=== PATIENT | female | born 2000 | race Caucasian/White ===

== ENCOUNTER 2021-07-12 11:54 | Emergency (ER) | payer MEDICAID, SELFPAY ==
[2021-07-12 11:55] VITALS: BP 151/80; PULSE 74; RESP 15; TEMP 35.9; O2SAT 96; BMI 48.0
--- NOTE | 2021-07-12 12:04 | EDS_ITS ---
HPI History of Present Illness Chief Complaint: Laceration Detail of Chief Complaint: Laceration left thumb Informant: patient Narrative Narrative: Patient presents to the emergency department complaint of a laceration to her left thumb. Patient states that she was cutting a potato when the knife slipped and she accidentally lacerated her left thumb. Patient is right-hand dominant. She is unsure of her last tetanus. Patient denies any nu mbness or tingling or loss of function to the thumb. Tetanus Immunization: Unknown [facility] Medical History (Updated 07/12/21 @ 12:[address] Steve Velasquez, DO) Nausea vomiting and diarrhea Home Medications NK 07/12/21 [History Last Taken Unknown] Allergy/AdvReac Type Severity Reaction Status Date / Time No Known Allergies Allergy Verified 07/12/21 11:56 ROS ROS ED Constitutional Constitutional ED: Reports systems reviewed and no addt'l complaints, except as documented; Denies body ache(s), change in weight or chills Eyes Eyes: Denies acute decrease in peripheral vision, change in vision, double vision or loss of vision ENT ENT ED: Reports none; Denies ear pain, lip swelling, loss taste/smell, neck pain, otalgia or sore throat Cardiovascular Cardiovascular: Reports none; Denies abdominal pain, chest pain with activity, leg edema, lightheadedness, palpitations, rapid heart rate or syncope Respiratory/Chest Respiratory/Chest: Reports none; Denies change in mental status, dry cough, dyspnea, hemoptysis, shortness of breath at rest or shortness of breath with exertion Gastrointestinal Gastrointestinal: Reports none; Denies abdominal pain, change in stool character, diarrhea, hematemesis, hematochezia, melena, rectal bleeding or vomiting Genitourinary Genitourinary ED: Reports none; Denies abdominal discomfort, anuria, dysuria, genital pain or polyuria Musculoskeletal Musculoskeletal: Reports none and other Details: Left thumb laceration ; Denies arthralgias, back pain, difficulty walking, extremity pain, muscle weakness or myalgias Integumentary Reports none; Denies abscess or rash Neurologic Neurologic: Reports none; Denies abnormal gait, confusion, focal weakness, frequent falls, headache(s), loss of vision, numbness, paresthesias, radicular pain, vertigo or weakness Psychiatric Psychiatric: Reports systems reviewed and no addt'l complaints, except as documented and none; Denies behavioral changes, confusion, difficulty concentrating, hallucinations, suicidal ideation, tactile hallucinations or visual hallucinations Endocrine Endocrinology: Denies none, cold intolerance, excessive sweating, fatigue or heat intolerance Hematologic/Lymphatic Hematologic/Lymphatic: Reports none; Denies anemia, easy bleeding or easy bruising Allergic/Immunologic Allergic/Immunologic ED: Denies as per HPI, none, lip swelling, mouth swelling, throat swelling, tongue swelling or hives EXAM Physical Exam Const Vital Signs: 07/12/21 11:55 Temperature 96.7 F L Temperature Source Temporal Pulse Rate 74 Respiratory Rate 15 Blood Pressure 151/80 H Blood Pressure Mean 103 Pulse Ox 96 Oxygen Delivery Method Room Air Positive well nourished and well developed General Appearance ED: well developed and NAD HEENT Reports TM's clear and moist mucous membranes normocephalic and atraumatic; Negative for trauma or tenderness Tympanic Membrane ED: Yes TM's clear Eyes PERRL and EOMs intact bilaterally General Eye ED: Negative for pale conjunctiva or scleral icterus Neck no lymphadenopathy, supple and no JVD General: Negative for tenderness Chest Wall inspection of chest normal and palpation of chest normal Chest: Negative for tenderness Resp normal respiratory effort and clear to auscultation bilaterally Effort and Inspection: Negative for respiratory distress or pain with movement Auscultation: Negative for rhonchi, wheezes or diminished lung sounds Cardio regular rate, regular rhythm, S1 normal heart sound, S2 normal heart sound and no murmurs Peripheral Pulses: pulses 2+ throughout GI normal to inspection, nondistended, normoactive bowel sounds, soft to palpation, non-tender, non-distended and no masses Back/Spine no CVA tenderness and no thoracic nor lumbar tenderness Extremity Extremity Narrative: Left thumb-patient has a 1 cm laceration over the lateral aspect of the thumb at about the midportion of the nail. The laceration is horizontal and enters the nail for about 2 mm. Patient has normal range of motion at the IP joint with normal strength against resistance in flexion and extension. Neurovascularly intact. No active bleeding currently. General Extremety ED: Negative for edema General Extremity: Negative for edema Neuro oriented x3, CN's II-XII intact bilaterally, no sensory deficits noted and gait normal Sensorium / Orientation: awake, alert, oriented to person, oriented to place and oriented to time Motor Exam: strength 5/5 throughout and strength abnormal Psych mental status grossly normal Skin no rashes or lesions noted and no wounds MDM MDM MDM Narrative Medical decision making narrative: I discussed treatment options with patient. Recommended suture repair however patient tells me she is actually terrified and wants to avoid it at all costs if possible. I think because of the size of the laceration and the fact that is not actively bleeding or gaping it would be reasonable to clean the wound and use Steri-Strips and a clean dressing I feel this will heal well. Patient would like to proceed with this plan. She is advised to return if increasing pain, redness, swelling, purulent drainage, or condition worsen anyway. She was given a tetanus booster. Discharge Plan Triage Chief Complaint: Laceration ED Provider: Steve Velasquez Dx/Rx/DC Orders Clinical Impression: Laceration of thumb Instructions: ED Laceration, Hand: All Closures Prescriptions: No Action NK RF: 0 Referrals: Allen Eckert MD [STAFF PHYSICIAN] - 5-7 Days Disposition Disposition: Home, Self Care
[2021-07-12] MEDS: Diphth,Pertuss(Acell),Tet Vac 0.5 ML Vial IM (12:34)
== END 2021-07-12 12:52 | disposition home or self-care (01) ==
PROVIDERS: Emergency Provider Emergency Medicine; Visit Provider Emergency Medicine
DX: S61.012A Laceration without foreign body of left thumb without damage to nail, initial encounter (principal); W26.0XXA Contact with knife, initial encounter; Y93.G1 Activity, food preparation and clean up
CPT/HCPCS: 90471; 90715; 99283

== ENCOUNTER 2022-01-06 08:24 | Emergency (ER) | payer MEDICAID, SELFPAY ==
[2022-01-06 08:26] VITALS: BP 140/83; PULSE 90; RESP 16; TEMP 36.2; O2SAT 98; BMI 46.3
--- NOTE | 2022-01-06 08:42 | EKG12_ITS ---
Test Reason : SYNCOPE Blood Pressure : / mmHG Vent. Rate : 081 BPM Atrial Rate : 081 BPM P-R Int : 144 ms QRS Dur : 100 ms QT Int : 364 ms P-R-T Axes : 023 019 018 degrees QTc Int : 422 ms Normal sinus rhythm Incomplete right bundle branch block Borderline ECG Confirmed by AZCHARIAH SANDERS, KAUSHIK ([id number]), medical transcription editor KAN MELÉNDEZ ([id number]) on 01/08/2022 2:04:49 PM Referred By: Confirmed By:KAUSHIK SONI MD
--- NOTE | 2022-01-06 08:43 | ED.VIS.GI ---
HPI HPI - GI History of Present Illness Chief Complaint: Nausea/Vomiting/Diarrhea Informant: patient Abdominal Pain/Flank Pain Onset: Days (2) Context: Gradual Onset Timing: Intermittent Quality: Cramping Location: - (periumbilical) Current Severity: Gone Maximum Severity: Mild Worsened by: Nothing Relieved by: - (having BM/diarrhea) Nausea/Vomiting/Emesis GI Symptom: Positive for Nausea and Vomiting Onset: Yesterday Quality: Positive for Nonbilious; Negative for Blood streaks, Coffee ground or Hematemesis Severity: Moderate Diarrhea/Melena/Hematochezia GI Symptom: Positive for Diarrhea; Negative for Melena or Hematochezia Stool Quality: Positive for Watery Severity: Severe Associated Symptoms Associated Symptoms: Negative for Dysuria, Frequency, Hematuria or Urgency Narrative Narrative: Patient presenting with syncopal episodes, she had 1 yesterday that was shortly after she was vomiting while sitting down, she felt lightheaded and nauseated and then passed out without fall or injury. She had another similar episode today while she was sitting down after getting ready for work and resting. She felt lightheaded and nauseated before than 2. She has been having diarrhea and vomiting for the last couple days, the diarrhea has been fairly aggressive, she denies any recent antibiotics, travel out of the area, no fevers or chills, only gets some mild abdominal cramping right before she has to have diarrhea. She denies any blood in it. No suspicious food ingestions or undercooked meats recently. No known sick contacts with similar symptoms. No recent camping or ground water ingestion. [facility] Medical History (Updated 01/06/22 @ 10:[address] Delfino Julio MD) Nausea vomiting and diarrhea Medical History no medical history no medical history Home Medications ondansetron 4 mg disintegrating tablet 8 mg PO Q8H PRN PRN Nausea #20 tabs 01/06/22 [Rx Last Taken Unknown] Allergy/AdvReac Type Severity Reaction Status Date / Time No Known Allergies Allergy Verified 01/06/22 08:29 Social History Smoking Status: Never smoker ROS ROS ED Constitutional Constitutional ED: Denies chills or fever(s) Eyes Eyes: Denies change in vision or diplopia ENT ENT ED: Denies rhinorrhea or sore throat Cardiovascular Cardiovascular: Reports syncope; Denies chest pain or palpitations Respiratory/Chest Respiratory/Chest: Denies cough or dyspnea Gastrointestinal Gastrointestinal: Reports abdominal pain, diarrhea, nausea and vomiting Genitourinary Genitourinary ED: Denies dysuria or hematuria Musculoskeletal Musculoskeletal: Denies back pain or neck pain Integumentary Denies abscess or rash Neurologic Neurologic: Denies headache(s), paresthesias or weakness Psychiatric Psychiatric: Denies anxiety or suicidal thoughts EXAM Physical Exam Const Vital Signs: 01/06/22 08:26 01/06/22 09:02 Temperature 97.1 F L Temperature Source Temporal Pulse Rate 90 Pulse Rate [Lying] 78 Pulse Rate [Sitting (for 1 minute prior to obtaining)] 85 Pulse Rate [Standing (for 1 minute prior to obtaining)] 83 Respiratory Rate 16 Blood Pressure 140/83 H Blood Pressure [Lying] 129/66 H Blood Pressure [Sitting (for 1 minute prior to obtaining)] 132/77 H Blood Pressure [Standing (for 1 minute prior to obtaining)] 122/70 H Blood Pressure Mean 102 Blood Pressure Mean [Lying] 87 Blood Pressure Mean [Sitting (for 1 minute prior to obtaining)] 95 Blood Pressure Mean [Standing (for 1 minute prior to obtaining)] 87 Pulse Ox 98 Oxygen Delivery Method Room Air Positive well nourished, well developed and obese Constitutional Narrative: well-appearing, nad General Appearance ED: well developed and NAD Nutritional Appearance: obese HEENT Reports moist mucous membranes normocephalic and atraumatic Eyes PERRL and EOMs intact bilaterally Neck full ROM and supple Resp normal respiratory effort and clear to auscultation bilaterally Cardio regular rate, regular rhythm and no murmurs GI non-tender and non-distended Auscultation: normoactive bowel sounds Palpation: soft Back/Spine no CVA tenderness General Back: other FROM Extremity normal to inspection General Extremety ED: Negative for edema, pulses abnormal or tenderness General Extremity: Negative for edema or pulses abnormal Neuro oriented x3, CN's II-XII intact bilaterally and no sensory deficits noted Sensorium / Orientation: awake and alert Motor Exam: strength 5/5 throughout Skin no rashes or lesions noted and no wounds MDM MDM MDM Narrative Medical decision making narrative: negative, the rest of her labs are normal she does not have a leukocytosis. This makes it less likely that she has an acute bacterial infection, however as I discussed with the patient we would need stool to send for testing to rule that out definitively. She is doing well after IV fluids and Zofran. Her EKG is normal. Her orthostatics are negative. I suspect her syncopal episodes are vasovagal in nature, likely related to the GI illness/abdominal cramping. I think this is most likely viral in etiology, and I would expect this to be a self-limiting illness. She did not provide diarrhea while she was here. She is comfortable that plan, we discussed reasons to return, we discussed sitting or resting/lying down if she start to feel lightheaded again, and drinking plenty of fluids. Lab Data Attestation: I reviewed the patient's lab results. Labs: Laboratory Results - last 24 hr 01/06/22 01/06/22 01/06/22 08:50 08:50 08:50 WBC 6.5 RBC 5.15 Hgb 14.7 Hct 42.6 MCV 82.7 MCH 28.5 MCHC 34.5 RDW Std Deviation 39.0 RDW Coeff of Cynthia 13.0 Plt Count 230 MPV 9.3 Immature Gran % (Auto) 0.300 Neut % (Auto) 62.5 Lymph % (Auto) 27.3 [place] % (Auto) 7.3 Eos % (Auto) 1.7 Baso % (Auto) 0.9 Absolute Neuts (auto) 4.0 Absolute Lymphs (auto) 1.76 Nucleated RBC % 0 Sodium 136 Potassium 3.9 Chloride 106 Carbon Dioxide 24.0 Anion Gap 6 BUN 10 Creatinine 0.81 Estim Creat Clear Calc 94.87 Est GFR (MDRD) Af Amer 113 Est GFR (MDRD) Non-Af 94 BUN/Creatinine Ratio 12.3 Glucose 104 Calcium 8.8 Total Bilirubin 0.60 AST 11 L ALT 18 Alkaline Phosphatase 58 Total Protein 7.8 Albumin 3.8 Globulin 4.0 Albumin/Globulin Ratio 1.0 Serum , Qual NEGATIVE Rhythm Strip Rhythm Strip: Sinus Rhythm Rate: 90 Ectopy: None EKG Initial EKG: Attestation: I personally reviewed and interpreted this EKG as follows: Interpretation: Sinus Rhythm and No Acute Injury Pattern Comments: Normal EKG. RSR'. Discharge Plan Triage Chief Complaint: Nausea/Vomiting/Diarrhea ED Provider: Delfion Julio Dx/Rx/DC Orders Clinical Impression: Gastroenteritis, Syncope, vasovagal Instructions: Viral Gastroenteritis, Understanding Vasovagal Syncope Prescriptions: New ondansetron [ondansetron] 4 MG tablet 8 mg PO Q8H PRN PRN (Reason: Nausea) Qty: 20 0RF Primary Care Provider: Care Physician,No Primary Referrals: Doctor,Your [NON-STAFF] - 1 Week if not improving Disposition Disposition: Home, Self Care
[2022-01-06] MEDS: 0.9% Normal Saline 1,000 ML 999 ML IV (08:56)
[2022-01-06 09:02] VITALS: BP 122/70; BP 129/66; BP 132/77; PULSE 78; PULSE 83; PULSE 85
[2022-01-06 09:06] LABS: Internal QC Validated? YES +Cl - CLEAR BKGD; Pregnancy, Serum, hCG Quali. NEGATIVE Negative
[2022-01-06 09:07] LABS: Absolute Lymphocyte Count 1.76 X10^3/uL (0.83-4.51); Basophil# 0.06 X10^3/uL; Basophil% 0.9 % (0-1); Eosinophil# 0.11 X10^3/uL; Eosinophils% 1.7 % (0-5); Hematocrit 42.6 % (37-47); Hemoglobin 14.7 g/dL (12.0-15.0); Lymphocyte # 1.76 X10^3/ul (0.83-4.51); Lymphocyte % 27.3 % (19-41); Mean Corp Hgb Conc 34.5 g/dL (32-36); Mean Corpuscular Hgb 28.5 pg (27.0-32.0); Mean Corpuscular Volume 82.7 fL (81-99); Mean Platelet Vol. 9.3 fl (6.2-12.0); Monocyte# 0.47 X10^3/uL; Monocyte% 7.3 % (0-10); NRBC Flagged by Analyzer 0 % (0-5); Neutrophil # 4.03 X10^3/uL (2.7-7.7); Neutrophil % 62.5 % (47-70); Platelet Count 230 K/mm3 (150-450); Red Blood Count 5.15 M/mm3 (4.2-5.4); White Blood Count 6.5 K/mm3 (4.4-11.0)
[2022-01-06 09:21] LABS: AST(SGOT) 11 U/L (15-37); Alanine Aminotransfer ALT/SGPT 18 U/L (13-56); Albumin, Serum 3.8 g/dL (3.2-5.0); Alkaline Phosphatase 58 U/L (45-117); Anion Gap 6 (5-15); BUN 10 mg/dL (7-18); BUN/Creat Ratio 12.3 RATIO (10-20); Calcium,Total 8.8 mg/dL (8.5-10.1); Chloride 106 mmol/L (98-107); Creatinine, Serum 0.81 mg/dL (0.55-1.02); EST Glomerular Filtration Rate 94 mL/min (>60); Est Glom Filt Rate - Afr Amer 113 mL/min (>60); Estimated Creatinine Clearance 94.87 ml/min; Glucose 104 mg/dL (74-106); Potassium 3.9 mmol/L (3.5-5.1); Protein, Total 7.8 g/dL (6.4-8.2); Sodium Level 136 mmol/L (136-145)
[2022-01-06 10:20] VITALS: BP 106/59; PULSE 71; RESP 16; O2SAT 99
== END 2022-01-06 10:21 | disposition home or self-care (01) ==
PROVIDERS: Emergency Provider Emergency Medicine; Visit Provider Emergency Medicine
DX: K52.9 Noninfective gastroenteritis and colitis, unspecified (principal); R55 Syncope and collapse; E66.9 Obesity, unspecified
CPT/HCPCS: 80053; 84703; 85025; 93005; 96360; 99284; J7030; A4216

== ENCOUNTER 2024-12-22 11:10 | Emergency (ER) | payer MEDICAID, SELFPAY ==
[2024-12-22 11:11] VITALS: BP 150/88; PULSE 95; RESP 18; TEMP 37; O2SAT 99; BMI 51.0
--- OUTSIDE RECORDS SUMMARY | 2024-12-22 11:30 | XMS RPT_ITS | CCD ---
Author Organization [facility] Care Team Providers Care Wound Care Technician Name Role Phone Blade Crisostomo Unavailable Unavailable Blade Crisostomo Unavailable Unavailable Unavailable Primary Care Provider Unavailabl e Unavailable Primary Care Provider Unavailabl e PagedarFrederick Primary Care Provider [phone] Pagealexr, Frederick Primary Care Provider Unavailabl e NICOLE DWYER Referring Unavailable FREDERICK LEON Primary Care Unavailable Care Physician, No Primary Primary Care Provider Unavailable Care Physician, No Primary Referring Provider Un available KASIA Wilson Attending Provider [phone] Yasmani Toth MD Primary Care Provider Yasmani Toth MD Primary Care Provider Daniel RECRUITING ASSISTANT.Gris JEROME Unavailable [phone] YASMANI TOTH Primary Care Unavailable DAMI HOBBS Attending Unavailable GRIS SANCHEZ Attending Unavailable YASMANI TOTH Primary Care Unavailable GRIS SANCHEZ Attending Unavailable YASMANI TOTH Primary Care Unavailable GRIS SANCHEZ Attending Unavailable YASMANI TOTH Primary Care Unavailable Medications Current Medications Medication Drug Class(es) Dates Sig (Normalized) Sig (Original) acetaminophen 325 mg / HYDROcodone bitartrate 5 mg oral tablet (8 sources) Opioid Agonist Start: 01-18-2020 End: 01-31-2020 take 1 tablet by mouth every six hours as needed for pain hydroCODone-acetam inophen 5-325 MG tablet Indications: Acute biliary pancreatitis without infection or necrosis Take 1 tablet by mouth every 6 hours as needed for Moderate Pain for up to 7 days. 20 tablet 0 01/24/2020 Active amoxicillin 875 mg oral tablet (1 source) Penicillin-class Antibacterial Start: 04-22-2019 End: 05-02-2019 take 1 tablet by mouth every twelve hours amoxicillin 875 MG Tab tablet Take 1 tablet by mouth every 12 hours for 10 days. 20 tablet 0 04/22/2019 05/02/2019 Active 12 hr buPROPion hydrochloride 150 mg extended release oral tablet (17 sources) Aminoketone Start: 01-04-2024 End: 08-13-2024 take 1 tablet by mouth twice daily buPROPion SR (WELLBUTRIN SR) 150 mg 12 hr tablet Indications: Anxiety and depression Take 1 tablet by mouth two times a day. 180 tablet 3 08/13/2024 Active Start: 12-07-2023 End: 01-04-2024 take 1 tablet by mouth twice daily buPROPion SR (WELLBUTRIN SR) 200 mg 12 hr tablet Indications: Anxiety and depression Take 1 tablet by mouth two times a day. 60 tablet 5 12/07/2023 01/04/2024 Discontinued Start: 06-09-2023 End: 12-07-2023 take 1 tablet by mouth twice daily buPROPion SR (WELLBUTRIN SR) 150 mg 12 hr tablet Indications: Anxiety and depression Take 1 tablet by mouth two times a day. 60 tablet 5 06/09/2023 12/07/2023 Discontinued Start: 01-07-2023 End: 04-03-2023 take 1 tablet by mouth twice daily buPROPion SR (WELLBUTRIN SR) 150 mg 12 hr tablet Indications: Anxiety and depression Take 1 tablet by mouth two times a day. 60 tablet 2 04/04/2023 Active Start: 12-09-2022 End: 01-07-2023 take 1 tablet by mouth twice daily buPROPion SR (WELLBUTRIN SR) 100 mg 12 hr tablet Indications: Anxiety and depression Take 1 tablet by mouth twice daily. 60 tablet 1 12/09/2022 01/07/2023 Discontinued (Dosage adjustment) Comment on above: Take 1 tablet by aleisha th twice daily. Take 1 tablet by aleisha th two times a day. busPIRone hydrochloride 5 mg oral tablet (3 sources) Start: 12-07-19 End: 01-04-20 take 1 tablet by mouth twice daily busPIRone (BUSPAR) 5 mg tablet Take 1 tablet by mouth two times a day. 60 tablet 5 12/07/2023 01/04/2024 Discontinued (Lack of Efficacy) 12 hr cetirizine hydrochloride 5 mg / pseudoephedrine hydrochloride 120 mg extended release oral tablet (1 source) alpha-Adrenergic Agonist, Histamine-1 Receptor Antagonist Start: 04-22-20 End: 05-07-20 19 take 5-120 mg by mouth every twelve hours cetirizine-psuedoephe drine 5-120 MG Tab SR 12 HR tablet Take 1 tablet by mouth 2 times daily for 15 days. 30 tablet 0 04/22/2019 05/07/2019 Active cholestyramine resin 4000 mg powder for oral suspension (1 source) Bile Acid Sequestrant Start: 02-07-20 take 1 dose by mouth once daily cholestyramine 4 g Pack Indications: Diarrhea, unspecified type Take 1 packet by mouth daily. 10 packet 0 02/07/2020 Active contraceptive, oral (10 sources) contraceptive, o ral Take by mouth. 0 contraceptive, o ral Take by mouth. 0 Active dicyclomine hydrochloride 10 mg oral capsule (10 sources) Anticholinergic Start: 01-18-2020 take 1 capsule by mouth three times daily as needed for muscle spasms dicyclomine 10 MG capsule Take 1 capsule by mouth 3 times daily as needed for Abdominal Spasms. 15 capsule 0 01/18/2020 Active Start: 12-14-2019 End: 01-18-2020 take 1 tablet by mouth every six hours for muscle spasms dicyclomine 20 MG tablet Take 1 tablet by mouth every 6 hours. For abdominal spasms 30 tablet 0 12/14/2019 01/18/2020 Discontinued (Therapy completed) Ethinyl Estradiol / norgestimate (9 sources) Progestin, Estrogen Start: 12-13-2019 take 1 tablet by mouth once daily Tri-Estarylla 0.18/0.215/0.25 MG-35 MCG tablet Take 1 tablet by mouth daily. 0 12/13/2019 Start: 12-13-2019 take 1 tablet by aleisha th once daily Norgestim-Eth Estrad Triphasic (TRI-ESTARYLLA) 0.18/0.215/0.25 MG-35 MCG TABS Take 1 tablet by mouth daily 0 12/13/2019 Active Start: 12-13-2019 take 1 tablet by aleisha th once daily Tri-Estarylla 0.18/0.215/0.25 MG-35 MCG tablet Take 1 tablet by mouth daily. 0 12/13/2019 Active 2 ml famotidine 10 mg/ml injection (10 sources) Histamine-2 Receptor Antagonist Start: 12-14-2019 faMOTIdine (PEPCID) injection 20 mg Start: 12-14-2019 take 1 tablet by aleisha once daily in the evening famotidine 40 MG tablet Take 1 tablet by mouth every evening at 6 PM. 10 tablet 0 12/14/2019 Active FLUoxetine 40 mg oral capsule (9 sources) Serotonin Reuptake Inhibitor Start: 02-27-2024 End: 08-13-2024 take 1 capsule by mouth once daily FLUoxetine (PROZAC) 40 mg capsule Take 1 capsule by mouth once daily. 90 capsule 3 08/13/2024 Active Start: 02-03-2024 take 1 capsule by mo [facility] once daily FLUoxetine (PROZAC) 10 mg capsule Take 1 capsule by mouth once daily. Take with 20 mg capsule to=30 mg 30 capsule 1 02/03/2024 Active Start: 01-04-2024 End: 02-03-2024 take 1 capsule by mouth once daily FLUoxetine (PROZAC) 20 mg capsule Take 1 capsule by mouth once daily. Take with 10 mg capsule to=30 mg 30 capsule 1 02/03/2024 Active hydrOXYzine hydrochloride 50 mg oral tablet (9 sources) Antihistamine Start: 01-04-2024 take 50-75 mg by mouth every six hours as needed hydrOXYzine HCl (ATARAX) 50 mg tablet Take 1-1.5 tablets by mouth every 6 hours as needed for anxiety. 60 tablet 5 01/04/2024 Active Start: 12-07-2023 End: 01-04-2024 take 25-50 mg by mouth every six hours as needed hydrOXYzine HCl (ATARAX) 25 mg tablet Take 1-2 tablets by mouth every 6 hours as needed for anxiety. 30 tablet 1 12/07/2023 01/04/2024 Discontinued ondansetron 4 mg disintegrating oral tablet (20 sources) Serotonin-3 Receptor Antagonist Start: 01-06-2022 take 8 mg by mouth every eight hours as needed Ondansetron Active 8 MG PO EVERY 8 HOURS NEEDED January 06, 2022 12:00am Start: 01-25-2020 End: 01-25-2020 ondansetron 4mg/2ml (ZOFRAN) injection 4 mg Start: 01-24-2020 take 1 tablet by aleisha th every eight hours as needed ondansetron 4 MG Tab Dispersible tablet Take 1 tablet by mouth every 8 hours as needed for Nausea. 10 tablet 1 01/24/2020 Active Start: 01-21-2020 End: 01-24-2020 take 4 mg intravenous route every four hours as needed 4 mg, Intravenous, EVERY 4 HOURS NEEDED, Starting 01/21/20 at 0514, Until Valeria 01/24/20 at 1914, Nausea / Vomiting Start: 01-21-2020 End: 01-21-2020 ondansetron 4mg/2ml (ZOFRAN) injection 4 mg Start: 01-21-2020 End: 01-21-2020 ondansetron 4mg/2ml (ZOFRAN) injection 4 mg Start: 01-18-2020 End: 01-18-2020 ondansetron 4mg/2ml (ZOFRAN) injection 4 mg Start: 12-14-2019 End: 12-14-2019 ondansetron 4mg/2ml (ZOFRAN) injection 4 mg Start: 12-14-2019 End: 01-24-2020 take 1 tablet by mouth every four hours as needed ondansetron (Zofran ODT) 4 MG Tab Dispersible tablet Take 1 tablet by mouth every 4 hours as needed for Nausea. 15 tablet 0 01/18/2020 01/24/2020 Discontinued (Stop Taking at Discharge) 72 hr scopolamine 0.0139 mg/hr transdermal system (7 sources) Anticholinergic Start: 01-24-2020 scopolamine 1. 5 mg/[address] 1 patch on skin every 72 hours. 3 patch 0 01/24/2020 Active Start: 01-21-2020 End: 01-24-2020 scopolamine (TRANSDERM-SCOP) patch 1 patch Completed/Discontinued Medications Medication Drug Class(es) Dates Sig (Normalized) Sig (Original) acetaminophen 325 mg / oxyCODONE hydrochloride 5 mg oral tablet (3 sources) Opioid Agonist Start: 01-25-2020 End: 2020 oxyCODONE-acetamin ophen (PERCOCET) 5-325 MG per tablet 1 Each Start: 01-25-2020 End: 01-28-2020 take 1 tablet by mouth every six hours as needed oxycodone-acetaminophen 10-325 MG per tablet Indications: Gallstone pancreatitis Take 1 tablet by mouth every 6 hours as needed for up to 3 days. 12 tablet 0 01/25/2020 Active amoxicillin 875 mg / clavulanate 125 mg oral tablet (1 source) Penicillin-class Antibacterial Start: 08-28-2021 End: 09-07-2021 take 1 tablet by mouth every twelve hours Amoxicillin-Pot Clavulanate Discontinued 1 TABLET PO Q12H 20 10 August 28, 2021 12:00am September 07, 2021 12:03am cefoTEtan 2000 mg injection (2 sources) Cephalosporin Antibacterial Start: 01-21-2020 End: 01-24-2020 cefoTEtan (CEFOTAN) 2 g in dextrose premix IVPB 1 ml diphenhydrAMINE hydrochloride 50 mg/ml cartridge (2 sources) Histamine-1 Receptor Antagonist Start: 01-21-2020 End: 01-21-2020 diphenhydrAMINE (BENADRYL) injection 50 mg Start: 01-21-2020 End: 01-21-2020 diphenhydrAMINE (BENADRYL) i njection 50 mg 0.4 ml enoxaparin sodium 100 mg/ml prefilled syringe (2 sources) Low Molecular Weight Heparin Start: 01-21-2020 End: 01-24-2020 enOXAParin (LOVENOX) injection 40 mg hydrocortisone 10 mg/ml / neomycin 3.5 mg/ml / polymyxin b [id number] unt/ml otic suspension (8 sources) Aminoglycoside Antibacterial, Polymyxin-class Antibacterial, Corticosteroid Start: 04-22-2019 End: 01-24-2020 [id number] drocortisone 3.5-11594-4 Suspension 3-4 drops by Otic route 3 times daily. 10 mL 0 04/22/2019 01/24/2020 Discontinued (Stop Taking at Discharge) 1 ml HYDROmorphone hydrochloride 1 mg/ml cartridge (3 sources) Opioid Agonist Start: 01-25-2020 End: 2020 HYDROmorphone (DILAUDID) injection 1 mg Start: 01-21-2020 End: 01-24-2020 take 1 mg intravenous route every two hours as needed HYDROmorphone (DILAUDID) injection 1 mg iohexol (OMNIPAQUE) 350 MG/ML injection 90 mL (1 source) Start: 01-25-2020 End: 01-25-2020 iohexol (OMNIPAQUE) 350 MG/ML injection 90 mL 1 ml ketorolac tromethamine 15 mg/ml cartridge (2 sources) Nonsteroidal Anti-inflammatory Drug, Cyclooxygenase Inhibitor Start: 01-25-2020 End: 01-25-2020 ketorolac (TORADOL) injection 15 mg Start: 01-18-2020 End: 01-18-2020 ketorolac (TORADOL) injectio n 15 mg 2 ml metoclopramide 5 mg/ml prefilled syringe (2 sources) Dopamine-2 Receptor Antagonist Start: 01-21-2020 End: 01-21-2020 metoclopramide (REGLAN) injection 10 mg Start: 01-21-2020 End: 01-21-2020 metoclopramide (REGLAN) inje ction 10 mg 1 ml morphine sulfate 4 mg/ml cartridge (9 sources) Opioid Agonist Start: 01-21-2020 End: 01-21-2020 take 4 mg intravenous route every two hours as needed 4 mg, Intravenous, EVERY 2 HOURS NEEDED, Starting 01/21/20 at 0514, Until 01/21/20 at 1742, Severe Pain Start: 01-21-2020 End: 01-21-2020 Morphine Sulfate (PF) inject ion 4 mg Start: 01-21-2020 End: 01-21-2020 take 4 mg intravenous route every two hours as needed 4 mg, Intravenous, EVERY 2 HOURS NEEDED, Starting 01/21/20 at 0514, Until 01/21/20 at 1742, Severe Pain Start: 12-14-2019 End: 12-14-2019 Morphine Sulfate (PF) inject ion 4 mg pantoprazole 40 mg injection (9 sources) Proton Pump Inhibitor Start: 01-21-2020 End: 01-24-2020 pantoprazole (PROTONIX) injection 40 mg Start: 12-14-2019 pantoprazole ( PROTONIX) injection 40 mg Start: 12-14-2019 End: 01-24-2020 take 1 tablet by mouth once daily pantoprazole [address] tablet DR Take 1 tablet by mouth daily. 15 tablet 0 12/14/2019 01/24/2020 Discontinued (Stop Taking at Discharge) Potassium Chloride (2 sources) Start: 01-22-2020 End: 01-24-2020 potassium chloride (K-DUR) t ablet ER 40 mEq Start: 01-22-2020 potassium chlo ride (K-DUR) tablet ER 40 mEq 1000 ml potassium chloride 0.02 meq/ml / sodium chloride 9 mg/ml injection (2 sources) Start: 01-21-2020 End: 01-24-2020 Intravenous, at 125 mL/hr, CONTINUOUS, Starting 01/21/20 at 0515, Until Valeria 01/24/20 at 1914 2 ml prochlorperazine 5 mg/ml injection (2 sources) Phenothiazine Start: 01-21-2020 End: 01-21-2020 prochlorperazine (COMPAZINE) injection 10 mg Start: 01-21-2020 End: 01-21-2020 prochlorperazine (COMPAZINE) injection 10 mg 250 ml sodium chloride 9 mg/ ml injection (5 sources) Start: 01-25-2020 End: 01-25-2020 sodium chloride 0.9% IV solution 75 mL Start: 01-21-2020 End: 01-21-2020 sodium chloride 0.9% IV solu tion 1,000 mL Start: 01-18-2020 End: 01-18-2020 sodium chloride 0.9% IV solu tion 1,000 mL Problems Problem Classification Problem Date Documented Da te Episodic/Chronic Abdominal pain (12 sources) Upper abdominal pain; Translations: [Generalized abdominal pain] Onset: 0 01-06-2020 Episodic Anxiety disorders (17 sources) Mixed anxiety and depressive disorder; Translations: [Anxiety disorder, unspecified] Onset: 3 12-09-2022 Chronic Biliary tract disease (4 sources) Disorder of gallbladder; Translations: [Acute cholecystitis] Episodic Blindness and vision defects (1 source) Visual disturbance; Translations: [Unspecified visual disturbance] 12-09-2022 Episodic Complications of surgical procedures or medical care (1 source) Postoperative infection; Translations: [Postoperative infection, unspecified type, initial encounter] Episodic Disorders of teeth and jaw (3 sources) Infection of tooth; Translations: [Periapical abscess without sinus] Onset: 5 12-19-2024 Episodic Immunizations and screening for infectious disease (3 sources) Patient encounter status; Translations: [Encounter for screening for human immunodeficiency virus [HIV]] 12-09-2022 Episodic Malaise and fatigue (1 source) Fatigue; Translations: [Other fatigue] 12-09-2022 Episodic Miscellaneous mental health disorders (1 source) Acute insomnia; Translations: [Adjustment insomnia] 01-04-2024 Episodic Nausea and vomiting (1 source) Nausea, vomiting and diarrhea; Translations: [Nausea with vomiting, unspecified] Episodic Noninfectious gastroenteritis (1 source) Gastroenteritis; Translations: [Noninfective gastroenteritis and colitis, unspecified] Episodic Open wounds of extremities (1 source) Laceration of thumb; Translations: [Laceration without foreign body of unspecified thumb without damage to nail, initial encounter] Episodic Other ear and sense organ disorders (1 source) Acute otitis externa of left ear; Translations: [Acute otitis externa of left ear, unspecified type] Other gastrointestinal disorders (1 source) Diarrhea; Translations: [Diarrhea, unspecified type] Episodic Other nervous system disorders (1 source) Postoperative pain ; Translations: [Post-op pain] Episodic Other nutritional; endocrine; and metabolic disorders (6 sources) Morbid obesity; Translations: [Obesity, morbid, BMI 40.0-49.9] Onset: 0 01-21-2020 Chronic Other nutritional; endocrine; and metabolic disorders (1 source) Overweight in childhood; Translations: [BMI (body mass index), pediatric, 85% to less than 95% for age] Onset: 0 01-28-2020 Chronic Other nutritional; endocrine; and metabolic disorders (14 sources) Body mass index 40+ - severely obese; Translations: [Morbid (severe) obesity due to excess calories] Onset: 3 12-09-2022 Chronic Other screening for suspected conditions (not mental disorders or infectious disease) (1 source) Cancer cervix screening status; Translations: [Encounter for screening for malignant neoplasm of cervix] 12-09-2022 Episodic Otitis media and related conditions (1 source) Acute suppurative otitis media without spontaneous rupture of ear drum; Translations: [Non-recurrent acute suppurative otitis media of both ears without spontaneous rupture of tympanic membranes] Episodic Pancreatic disorders (not diabetes) (16 sources) Gallstone pancreatitis; Translations: [Gallstone acute pancreatitis] Onset: 0 01-21-2020 Episodic Residual codes; unclassified (1 source) Family history of polycystic ovary syndrome; Translations: [Family history of other diseases of the genitourinary system] 08-13-2024 Episodic Syncope (3 sources) Vasovagal syncope; Translations: [Syncope and collapse] Episodic Unclassified (1 source) Sprain of right ankle; Translations: [Sprain of right ankle, unspecified ligament, initial encounter] Viral infection (1 source) Viral disease; Translations: [Viral illness] Episodic Results Test Name Value Interpretation Reference Range Facility CNOVon 12-19-2024 CNOV Office Visit ([facility]) SAMDEEJAY BUSBY ([id number]) 1 F Date Time Provider Department 12/19/24 3:30 PM DAMI HOBBS During your visit today, we recorded the following information about you: Temperature Pulse Respiration Blood pressure 98.2 degrees 90/minute 18/minute 122/80 Weight 131.5 kg Dami Hobbs MD 12/19/2024 3:31 PM Signed [facility] Jose Grover is a 24 year old female. Patient presents with: Dental Problem: Tooth pain x 4 days Dental pain: Duration: 4 days Location: right upper wisdom tooth Character: aching and throbbing Radiation: into the jaw Aggravating: Opening mouth, chewing, brush Relieving: Pain relievers: Motrin and Tylenol Associated: Has had similar pain in the past from erupting wisdom tooth Pertinent negatives: Denies swelling, foul drainage, fever Dental Problem Review of Systems Objective BP 122/80 Pulse 90 Temp 36.8 ?C (98.2 ?F) (Tympanic) Resp 18 Wt 131.5 kg (289 lb 14.5 oz) LMP 11/21/2022 (Exact Date) SpO2 98% BMI 49.76 kg/m? Physical Exam Constitutional: General: She is not in acute distress. HENT: Right Ear: Tympanic membrane and ear canal normal. Left Ear: Tympanic membrane and ear canal normal. Nose: No congestion. Right Sinus: No maxillary sinus tenderness or frontal sinus tenderness. Left Sinus: No maxillary sinus tenderness or frontal sinus tenderness. Mouth/Throat: Mouth: Mucous membranes are moist. Pharynx: No oropharyngeal exudate or posterior oropharyngeal erythema. Comments: Partially erupted right lower third molar; teeth are nontender. Gingiva over the third molar is tender. Eyes: Extraocular Movements: Extraocular movements intact. Conjunctiva/sclera: Conjunctivae normal. Pupils: Pupils are equal, round, and reactive to light. Musculoskeletal: Cervical back: Neck supple. Lymphadenopathy: Cervical: No cervical adenopathy. Neurological: Mental Status: She is alert. {ASSESSMENT/PLAN: 1. Pain, dental - ICD9: 525.9, ICD10: K08.89 Low suspicion for infection. Reviewed pain management regimen; 600 mg ibuprofen and 1000 or 650 mg acetaminophen every 6 hours. Follow-up for antibiotic if she develops fever, swelling, or foul drainage. Previously attempted to have wisdom teeth extracted and appointment was canceled. Next available was 1 year later. Continue to seek wisdom tooth extraction. Dami Hobbs MD Differential Diagnoses - molar eruption pain is more likely for the following reason(s): suggested by HANDP - dental infection is less likely for the following reason(s): HANDP not suggestive Procedures Allergies As of Date: 12/19/2024 (No Known Allergies) Date Reviewed: 12/19/2024 Reviewed by: Lizzie Palacios LPN - Fully Assessed Reason for Visit: Dental Problem [31] Cmt: Tooth pain x 4 days Primary Visit Diagnosis:Pain, dental [K08.89] Prescriptions as of 12/19/2024 - buPROPion SR (WELLBUTRIN SR) 150 mg 12 hr tablet Take 1 tablet by mouth two times a day. - FLUoxetine (PROZAC) 40 mg capsule Take 1 capsule by mouth once daily. - hydrOXYzine HCl (ATARAX) 50 mg tablet Take 1-1.5 tablets by mouth every 6 hours as needed for anxiety. Problem List As Of Date 12/19/2024 Noted Resolved Obesity, Class III, BMI >= 40 [E66.813] 12/09/2022 Anxiety and depression [F41.9, F32.A] 01/07/2023 Level of Service: OFFICE/OUTPATIENT ESTABLISHED LOW [facility] 20 MIN [[id number]] Encounter Status:Closed by DAMI HOBBS on 12/19/24 [facility] CNOVon 08-13-2024 CNOV Office Visit ([facility] ) DEEJAY GROVER ([id number]) 1 F Date Time Provider Department 08/13/24 11:20 AM GRIS SANCHEZ [facility] During your visit today, we recorded the following information about you: Pulse Respiration Blood pressure Weight 104/minute 14/minute 118/68 119 kg Gris Sanchez, [email or web address].[email or web address] 08/13/2024 11:34 AM Signed - Continue taking Wellbutrin 150 mg twice daily and Prozac 20 mg once daily as prescribed. - Refills for Wellbutrin and Prozac will be sent to your pharmacy with a 90-day supply. - Schedule an appointment [facility] for cervical cancer screening and evaluation of potential hormone imbalances. - Incorporate more cardio exercise and weight training into your routine. - Make dietary improvements by reducing portion sizes and ensuring balanced meals. - Consider adding a healthy, protein-rich breakfast to your daily routine. - Plan to start the HPV vaccine series at your next visit. Gris Sanchez, RECRUITING ASSISTANT.ASSET ACCOUNTANT 08/13/2024 1:32 PM Signed CC: Patient presents with: Follow Up: Medication TEE Deejay is a 24-year-old female with a history of anxiety and depression, presenting for follow-up on Wellbutrin and Prozac. The patient consented to the use of Exepron software for draft documentation of the visit consistent with [facility]?s Notice of Privacy Practices. Anxiety and Depression: - Reports doing "very good" since last visit. - Medications are working the best it's ever worked the last few months." - Taking Wellbutrin 150 mg BID and Prozac daily. - Denies any persistent or bothersome symptoms. - Denies side effects from current dosages. - Previously experienced "really bad OCD" symptoms on Wellbutrin 200 mg, resolved after dosage reduction to 150 mg. Weight Gain: - Weight increased from 248 lbs last year to 262 lbs. - Attributes weight gain to improved mood and increased appetite. - Previously lost weight due to anxiety and depression. - Engages in walking for 45 minutes daily using an under-desk walking pad. - Previously attended the gym but has not gone recently. - Denies current weight training. - Consumes two meals a day, often skipping breakfast. - Describes meals as "too big" and acknowledges eating too many calories. - Consumes fruits and vegetables regularly. Family History: - Siblings have hormone imbalances and vitamin deficiencies. - Family history of thyroid disease and PCOS. Review of Systems Constitutional: Negative for chills, diaphoresis, fatigue, fever and unexpected weight change. Respiratory: Negative for cough, shortness of breath and wheezing. Cardiovascular: Negative for chest pain, palpitations and leg swelling. Endocrine: Negative for cold intolerance, heat intolerance, polydipsia, polyphagia and polyuria. Neurological: Negative for dizziness, light-headedness and headaches. PAST MEDICAL HISTORY Diagnosis Date Acute gallstone pancreatitis 01/21/2020 Obsessive compulsive disorder Vasovagal syncope PAST SURGICAL HISTORY Procedure Laterality Date LAPAROSCOPIC CHOLECYSTECTOMY 2020 ALLERGIES Patient has no known allergies. MEDICATIONS hydrOXYzine HCl (ATARAX) 50 mg tablet Take 1-1.5 tablets by mouth every 6 hours as needed for anxiety. buPROPion SR (WELLBUTRIN SR) 150 mg 12 hr tablet Take 1 tablet by mouth two times a day. FLUoxetine (PROZAC) 40 mg capsule Take 1 capsule by mouth once daily. FAMILY HISTORY Problem Relation Age of Onset No Known Problems Mother Diabetes Father No Known Problems Sister Hypothyroidism Sister Parkinson?s Disease Maternal Grandfather Alzheimer's Disease Maternal Grandfather Social History Tobacco Use Smoking status: Never Smokeless tobacco: Never Vaping Use Vaping status: current everyday user Start date: 11/27/2021 Substances: THC, CBD Devices: Disposable Substance Use Topics Alcohol use: Yes Comment: Rare occasion Drug use: Never BP 118/68 Pulse 104 Resp 14 Wt 119 kg (262 lb 5.6 oz) LMP 11/21/2022 (Exact Date) SpO2 98% BMI 45.03 kg/m? Physical Exam Vitals reviewed. Constitutional: Appearance: Normal appearance. Cardiovascular: Rate and Rhythm: Normal rate and regular rhythm. Heart sounds: Normal heart sounds. No murmur heard. Pulmonary: Effort: Pulmonary effort is normal. Breath sounds: Normal breath sounds. No wheezing, rhonchi or rales. Skin: General: Skin is warm and dry. Neurological: Mental Status: She is alert. Psychiatric: Mood and Affect: Mood and affect normal. Speech: Speech normal. Behavior: Behavior normal. Thought Content: Thought content normal. Judgment: Judgment normal. Health maintenance reviewed with patient: HPV Vaccine(1 - 3-dose series) Never done Cervical Cancer Screening Never done Influenza Vaccine(1) due on 01/29/2024 Covid-19 Vaccine(2 - 2 (more content not included)... Normal [facility] CNOVon 02-03-2024 CNOV Office Visit (INTMWS ) DEEJAY GROVER ([id number]) 1 F Date Time Provider Department 02/03/24 8:00 AM GRIS SANCHEZ INTWS During your visit today, we recorded the following information about you: Pulse Respiration Blood pressure Weight 105/minute 18/minute 116/84 112.6 kg Gris Sanchez, RECRUITING ASSISTANT.ASSET ACCOUNTANT 02/03/2024 9:05 AM Signed Chief Complaint Patient presents with: 4 week follow up - Medication HPI Deejay Grover is a 24 year old female who presents here today for medication follow-up. Patient was seen one month ago for worsening anxiety and depression. She was taking Wellbutrin and Buspar but neither seemed to be helping much. Buspar was discontinued and she was started on Prozac. Wellbutrin dose decreased back down to previous dosing due to concerns higher dose was contributing to anxiety. She also reported insomnia unrelieved by hydroxyzine, increased to 50 to 75 mg. Patient reports significant improvement in anxiety Persistent/bothersome symptoms include: anhedonia, feeling down, difficulty relaxing, worrying a lot. Side effects: None PHQ-9 More data exists 11/30/2023 12/29/2023 01/31/2024 PHQ-9 Scores Little interest or pleasure in doing things Nearly every day Nearly every day More than half the days Feeling down, depressed, or hopeless Nearly every day Nearly every day Several days Trouble falling or staying asleep, or sleeping too much Nearly every day Nearly every day Nearly every day Feeling tired or having little energy Nearly every day Nearly every day Nearly every day Poor appetite or overeating More than half the days Several days More than half the days Feeling bad about yourself - or that you are a failure or have let yourself or your family down Nearly every day Nearly every day More than half the days Trouble concentrating on things, such as reading the newspaper or watching television Nearly every day Several days Several days Moving or speaking so slowly that other people could have noticed. Or the opposite - being so fidgety or restless that you have been moving around a lot more than usual Not at all More than half the days Not at all Thoughts that you would be better off , or of hurting yourself in some way Not at all Not at all Not at all PHQ-9 Score 20 19 14 12/07/2023 01/04/2024 02/03/2024 JAQUAN-7 ANXIETY SCALE Feeling nervous, anxious, or on edge 3 Nearly every day 3 Nearly every day 2 Over half the days Not being able to stop or control worrying 3 Nearly every day 3 Nearly every day 2 Over half the days Worrying too much about different things 3 Nearly every day 3 Nearly every day 2 Over half the days Trouble relaxing 3 Nearly every day 3 Nearly every day 2 Over half the days Being so restless that it's hard to sit still 1 Several days 2 Over half the days 0 Not at all sure Being easily annoyed or irritable 3 Nearly every day 3 Nearly every day 1 Several days Feeling afraid as if something awful might happen 3 Nearly every day 3 Nearly every day 1 Several days JAQUAN-7 Anxiety Score 19 20 10 If you checked off any problems, how difficult have these problems made it for you to do your work, take care of things at home, or get along with other people? Extremely difficult Extremely difficult Very difficult Review of Systems See HPI PAST MEDICAL HISTORY 01/21/2020: Acute gallstone pancreatitis No date: Obsessive compulsive disorder No date: Vasovagal syncope PAST SURGICAL HISTORY 2020: LAPAROSCOPIC CHOLECYSTECTOMY ALLERGIES Patient has no known allergies. MEDICATIONS buPROPion SR (WELLBUTRIN SR) 150 mg 12 hr tablet Take 1 tablet by mouth two times a day. FLUoxetine (PROZAC) 20 mg capsule Take 1 capsule by mouth once daily. hydrOXYzine HCl (ATARAX) 50 mg tablet Take 1-1.5 tablets by mouth every 6 hours as needed for anxiety. FAMILY HISTORY Problem Relation Age of Onset No Known Problems Mother Diabetes Father No Known Problems Sister Hypothyroidism Sister Parkinson?s Disease Maternal Grandfather Alzheimer's Disease Maternal Grandfather Social History Tobacco Use Smoking status: Never Smokeless tobacco: Never Vaping Use Vaping status: current everyday user Start date: 11/27/2021 Substances: THC, CBD Devices: Disposable Substance Use Topics Alcohol use: Yes Comment: Rare occasion Drug use: Never BP 116/84 Pulse 105 Resp 18 Wt 112.6 kg (248 lb 3.8 oz) LMP 11/21/2022 (Exact Date) SpO2 99% BMI 42.61 kg/m? Physical Exam Vitals reviewed. Constitutional: Appearance: Normal appearance. Neurological: Mental Status: She is alert. Psychiatric: Attention and Perception: Attention and perception normal. Mood and Affect: Mood and affect normal. Speech: Speech normal. Behavior: Behavior normal. Behavior is cooperative. Thought Content: Thought content normal. Judgment: Judgment normal. (more content not included)... Normal [facility] CNOVon 01-04-2024 CNOV Office Visit (INTMWS ) DEEJAY GROVER ([id number]) 1 F Date Time Provider Department 01/04/24 8:20 AM GRIS SANCHEZ INTMWS During your visit today, we recorded the following information about you: Pulse Respiration Blood pressure Weight 117/minute 16/minute 124/86 117.4 kg Gris Sanchez, RECRUITING ASSISTANT.ASSET ACCOUNTANT 01/04/2024 8:38 AM Signed Chief Complaint Patient presents with: 4 week follow up - medications HPI Deejay Grover is a 23 year old female who presents here today for medication follow-up. Patient was seen four weeks ago and had reported worsening depression and anxiety. Wellbutrin dose was increased from 150 to 200 mg BID and Buspar 5 mg BID was added one. Patient reports worsening of anxiety since then. Buspar is ineffective. She attributes this to OCD, states she was diagnosed with this during childhood. She had counseling for many years including talk therapy and behavioral modification, did not find it to be effective and has no desire to try again now. Persistent/bothersome symptoms include: anxiousness, obsessive compulsive behaviors, insomnia, depressed mood Side effects: None other than possibly worsening anxiety on higher dose of Wellbutrin. She had been doing really well on the previous dose for over one year Denies suicidal thoughts or plan. 01/07/2023 02/04/2023 12/07/2023 01/04/2024 JAQUAN-7 ANXIETY SCALE Feeling nervous, anxious, or on edge 3 Nearly every day 2 Over half the days 3 Nearly every day 3 Nearly every day Not being able to stop or control worrying 3 Nearly every day 2 Over half the days 3 Nearly every day 3 Nearly every day Worrying too much about different things 3 Nearly every day 2 Over half the days 3 Nearly every day 3 Nearly every day Trouble relaxing 3 Nearly every day 2 Over half the days 3 Nearly every day 3 Nearly every day Being so restless that it's hard to sit still 1 Several days 1 Several days 1 Several days 2 Over half the days Being easily annoyed or irritable 2 Over half the days 1 Several days 3 Nearly every day 3 Nearly every day Feeling afraid as if something awful might happen 3 Nearly every day 1 Several days 3 Nearly every day 3 Nearly every day JAQUAN-7 Anxiety Score 18 11 19 20 If you checked off any problems, how difficult have these problems made it for you to do your work, take care of things at home, or get along with other people? Very difficult Somewhat difficult Extremely difficult Extremely difficult CP PHQ9 Little interest or pleasure 3 - Nearly every day 2 - More than half the days 3 - Nearly every day 3 - Nearly every day Feeling down, depressed, hopeless 3 - Nearly every day 1 - Several days 3 - Nearly every day 3 - Nearly every day Trouble falling or staying asleep, sleeping too much 2 - More than half the days 1 - Several days 3 - nearly every day 3 - nearly every day Feeling tired, having little energy 3 - Nearly every day 1 - Several days 3 - Nearly every day 3 - Nearly every day Poor appetite or overeating 1 - Several days 2 - More than half the days 1 - Several days 2 - More than half the days Feeling bad about yourself, failure or you have let yourself/family down 3 - Nearly every day 1 - Several days 3 - Nearly every day 2 - More than half the days Trouble concentrating on things 3 - Nearly every day 2 - More than half the days 3 - Nearly every day 3 - Nearly every day Moving or speaking so slowly, or fidgety or restless 1 - Several days 0 - Not at all 1 - Several days 2 - More than half the days Thoughts that you would be better off , or of hurting yourself in some way 0 - Not at all 0 - Not at all 0 - Not at all 0 - Not at all How difficult have these problems made things Extremely difficult Somewhat difficult Extremely difficult Extremely difficult Interpretation of Total Score 15-19 Moderately severe depression 10-14 Moderate depression 20-27 Severe depression 20-27 Severe depression Review of Systems See HPI PAST MEDICAL HISTORY 01/21/2020: Acute gallstone pancreatitis No date: Vasovagal syncope PAST SURGICAL HISTORY 2020: LAPAROSCOPIC CHOLECYSTECTOMY ALLERGIES Patient has no known allergies. MEDICATIONS buPROPion SR (WELLBUTRIN SR) 150 mg 12 hr tablet Take 1 tablet by mouth two times a day. FLUoxetine (PROZAC) 20 mg capsule Take 1 capsule by mouth once daily. hydrOXYzine HCl (ATARAX) 25 mg tablet Take 1-2 tablets by mouth every 6 hours as needed for anxiety. FAMILY HISTORY Problem Relation Age of Onset No Known Problems Mother Diabetes Father No Known Problems Sister Hypothyroidism Sister Parkinson?s Disease Maternal Grandfather Alzheimer's Disease Maternal Grandfather Social History Tobacco Use Smoking status: Never Smokeless tobacco: Never Vaping Use Vaping Use: current everyday user Start date: 11/27/2021 Substances: THC, CBD Devices: Disposable Sub (more content not included)... Normal [place] metabolic 2000 panelon 12-11-2022 Albumin [Mass/Vol] 4.4 g/dL 3.9 - 4.9 g/dL [facility] ALP [Catalytic activity/Vol] 52 U/L 34 - 123 U/L [facility] ALT [Catalytic activity/Vol] 21 U/L 7 - 38 U/L [facility] Anion gap [Moles/Vol] 10 mmol/L 9 - 18 mmol/L [facility] AST [Catalytic activity/Vol] 21 U/L 13 - 35 U/L [facility] Bilirubin [Mass/Vol] 0.5 mg/dL 0.2 - 1 .3 mg/dL [facility] Calcium [Mass/Vol] 9.1 mg/dL 8.5 - 10. 2 mg/dL [facility] Chloride [Moles/Vol] 106 mmol/L High 97 - 10 5 mmol/L [facility] CO2 [Moles/Vol] 23 mmol/L 22 - 30 mmol/L [facility] Creatinine [Mass/Vol] 0.77 mg/dL 0.58 - 0.96 mg/dL [facility] Estimated Glomerular Filtration Rate 112 mL/min/1.73m >=60 mL/min/1.73m [facility] Glucose [Mass/Vol] 102 mg/dL High 74 - 99 mg/dL [facility] Potassium [Moles/Vol] 4.2 mmol/L 3.7 - 5.1 mmol/L [facility] Protein [Mass/Vol] 6.8 g/dL 6.3 - 8.0 g/dL [facility] Sodium [Moles/Vol] 139 mmol/L 136 - 144 mmol/L [facility] Urea nitrogen [Mass/Vol] 9 mg/dL 7 - 21 mg/dL [facility] HbA1c (Bld)on 12-11-2022 Average glucose Estimated from glycated hemoglobin (Bld) [Mass/Vol] 103 mg/dL [facility] HbA1c (Bld) [Mass fraction] 5.2 % 4.3 - 5.6 % [facility] TSH BLDon 12-11-2022 TSH Qn 2.560 m[IU]/L 0.270 - 4.200 mIU/L [facility] CBC panel Auto (Bld)on 12-10 Erythrocyte distribution width (RBC) [Ratio] 12.4 % 11.5 - 15.0 % [facility] Hematocrit (Bld) [Volume fraction] 42.2 % 36.0 - 46.0 % [facility] Hemoglobin (Bld) [Mass/Vol] 14.0 g/dL 11.5 - 15.5 g/dL [facility] MCH (RBC) [Entitic mass] 27.7 pg 26.0 - 34.0 pg [facility] MCHC (RBC) [Mass/Vol] 33.2 g/dL 30.5 - 36.0 g/dL [facility] MCV (RBC) [Entitic vol] 83.6 fL 80.0 - 100.0 fL [facility] Nucleated RBC (Bld) [#/Vol] <0.01 k/uL [facility] Platelet mean volume (Bld) [Entitic vol] 9.7 fL 9.0 - 12.7 fL [facility] Platelets (Bld) [#/Vol] 251 10*3/uL 150 - 400 k/uL [facility] RBC (Bld) [#/Vol] 5.05 10*6/uL 3.90 - 5.2 0 m/uL [facility] WBC (Bld) [#/Vol] 6.09 10*3/uL 3.70 - 11. 00 k/uL [facility] HEPATITIS C ANTIBODY IA WITH CONFIRMATIONon 12-10-2022 HCV Ab Ql (S) Negative Negative [facility] HIV 1+2 Ab IA Qlon HIV 1 and 2 Ab IA.rapid Nom [facility] HIV 1+2 Ab+HIV1 p24 Ag IA Ql Non-Reactive Nonreactive [facility] HIV Interpretation [facility] 12 Lead EKGon 01-06-2022 12 Lead [address] [facility] Cardiovascular Services [address] [place] [id number] 12 Lead EKG 01/06/22 0858 MR#: [id number] Acct: [id number] Name: DEEJAY GROVER Rep #: [id number] : 2000 21 From: Keith Benz MD Attending Dr: Status: DEP ER Ordering Dr: Delfino Julio MD Date: 01/06/22 Location: ED Sex: F C Admitted: Test Reason : SYNCOPE Blood Pressure : / mmHG Vent. Rate : 081 BPM Atrial Rate : 081 BPM P-R Int : 144 ms QRS Dur : 100 ms QT Int : 364 ms P-R-T Axes : 023 019 018 degrees QTc Int : 422 ms Normal sinus rhythm Incomplete right bundle branch block Borderline ECG Confirmed by ZACHARIAH SANDERS, KEITH ([id number]), field map editor KAN MELÉNDEZ ([id number]) on 01/08/2022 2:04:49 PM Referred By: Confirmed By:KEITH BENZ MD 01/08/22 1404 Date Keith Benz MD CC: Dr. Delfino Julio MD; No Primary Care Physician Signed Normal [facility] Absolute lymphocyte counton 01-06-2022 Lymphocytes Auto (Unsp spec) [#/Vol] 1.76 10*3/uL 0.83-4.51 [facility] Work Phone: Basophil percentageon 2021 Basophils/100 WBC (Bld) 0.9 % 0-1 [facility] Work Phone: [phone] Bilirubin [Mass/Vol] 0.60 mg/dL 0.20-1.[address] [facility] Work Phone: [phone] Comment on above: For patients on eltr ombopag therapy, use of Dimension [place] TBIL is not recommended. Chloride [Moles/Vol] 106 mmol/L 98-[address] [facility] Work Phone: [phone] Eosinophils/100 WBC (Bld) 1.7 % 0-5 [facility] Work Phone: [phone] Glucose [Mass/Vol] 104 mg/dL 74-106 [facility] Work Phone: Comment on above: Fasting Glucose resu lt from 100 to 125 mg/dL suggests IMPAIRED HOMEOSTASIS per A.D.A. criteria. Neutrophils (Bld) [#/Vol] 4.0 10*3/uL 2.0-7.7 [facility] Work Phone: [phone] Neutrophils/100 WBC (Bld) 62.5 % 47-70 [facility] Work Phone: [phone] Potassium [Moles/Vol] 3.9 mmol/L 3.5-5.1 [facility] Work Phone: Protein [Mass/Vol] 7.8 g/dL 6.4-8.2 [facility] Work Phone: [phone] Sodium [Moles/Vol] 136 mmol/L 136-145 [facility] Work Phone: WBC (Bld) [#/Vol] 6.5 10*3/uL 4.4-11.0 [facility] Work Phone: Beta hCG serum qualon 2021 Beta HCG ( test) Ql Negative [facility] Work Phone: Blood erythrocytes count (nu mber/volume)on 01-06-2022 RBC (Bld) [#/Vol] 5.15 10*6/uL 4.2-5.4 [facility] Work Phone: Blood hemoglobin measurement (mass/volume)on 01-06-2022 Hemoglobin (Bld) [Mass/Vol] 14.7 g/dL 12.0-15.0 [facility] Work Phone: Blood lymphocytes/100 leukoc yteson 01-06-2022 Lymphocytes/100 WBC (Bld) 27.3 % 19-41 [facility] Work Phone: Blood monocytes/100 leukocyt eson 01-06-2022 Monocytes/100 WBC (Bld) 7.3 % 0-10 [facility] Work Phone: Blood platelet mean volumeon 01-06-2022 Platelet mean volume (Bld) [Entitic vol] 9.3 fL 6.2-12.0 [facility] Work Phone: CBC W/Diff, Automatedon 12-28 Absolute Lymph 1.76 X10 3/uL Normal 0.83-4.51 [facility] Comment on above: Performed By: #### L 100.0100, L700.6320 #### [facility] [address] [place], [address] Absolute Neut 4.0 X10 3/uL Normal 2.0-7.7 [facility] Comment on above: Performed By: #### L 100.0100, L700.6800 #### [facility] [address] [place], [address] Basophils/100 WBC (Bld) 0.9 % Normal 0-1 [facility] Comment on above: Performed By: #### L 100.0100, L700.6800 #### [facility] [address] [place], [address] Eosinophils/100 WBC (Bld) 1.7 % Normal 0-5 [facility] Comment on above: Performed By: #### L 100.0100, L700.6800 #### [facility] [address] [place], [address] Erythrocyte distribution width (RBC) [Ratio] 13.0 % Normal 11.6-14.6 [facility] Comment on above: Performed By: #### L 100.0100, L700.6800 #### [facility] [address] [place], [address] Hematocrit (Bld) [Volume fraction] 42.6 % Normal 37-47 [facility] Comment on above: Performed By: #### L 100.0100, L700.6800 #### [facility] [address] [place], [address] Hemoglobin (Bld) [Mass/Vol] 14.7 g/dL Normal 12.0-15.0 [facility] Comment on above: Performed By: #### L 100.0100, L700.6800 #### [facility] [address] [place], [address] IG% 0.300 Normal 0.0-0.9 [facility] Comment on above: Result Comment: IG% - Immature Granulocytes (promyelocytes, myelocytes and metamyelocytes) > 1% indicates that a LEFT SHIFT is Present. Performed By: #### L 100.0100, L700.6800 #### [facility] [address] [place], [address] Lymphocytes/100 WBC (Bld) 27.3 % Normal 19-41 [facility] Comment on above: Performed By: #### L 100.0100, L700.6800 #### [facility] [address] [place], [address] MCH (RBC) [Entitic mass] 28.5 pg Normal 27.0-32.0 [facility] Comment on above: Performed By: #### L 100.0100, L700.6800 #### [facility] [address] [place], [address] MCHC (RBC) [Mass/Vol] 34.5 g/dL Normal 32-36 [facility] Comment on above: Performed By: #### L 100.0100, L700.6800 #### [facility] [address] [place], [address] MCV (RBC) [Entitic vol] 82.7 fL Normal 81-99 [facility] Comment on above: Performed By: #### L 100.0100, L700.6800 #### [facility] [address] [place], [address] Monocytes/100 WBC (Bld) 7.3 % Normal 0-10 [facility] Comment on above: Performed By: #### L 100.0100, L700.6800 #### [facility] [address] [place], [address] Neutrophils/100 WBC (Bld) 62.5 % Normal 47-70 [facility] Comment on above: Performed By: #### L 100.0100, L700.6800 #### [facility] [address] [place], [address] Nucleated RBC (Bld) [#/Vol] 0 10*3/uL Normal 0-5 [facility] Comment on above: Performed By: #### L 100.0100, L700.6800 #### [facility] [address] [place], [address] Platelet mean volume (Bld) [Entitic vol] 9.3 fL Normal 6.2-12.0 [facility] Comment on above: Performed By: #### L 100.0100, L700.6800 #### [facility] [address] [place], [address] Platelets (Bld) [#/Vol] 230 10*3/uL Normal 150-450 [facility] Comment on above: Performed By: #### L 100.0100, L700.6800 #### [facility] [address] [place], [address] RBC (Bld) [#/Vol] 5.15 10*6/uL Normal 4.2-5.4 [facility] Comment on above: Performed By: #### L 100.0100, L700.6800 #### [facility] [address] [place], [address] RDW SD 39.0 fl Normal 35.1-43.9 [facility] Comment on above: Performed By: #### L 100.0100, L700.6800 #### [facility] [address] [place], [address] WBC (Bld) [#/Vol] 6.5 10*3/uL Normal 4.4-11.0 [facility] Comment on above: Performed By: #### L 100.0100, L700.6800 #### [facility] [address] [place], [address] Comprehensive Metabolic Prof ilon 01-06-2022 Albumin [Mass/Vol] 3.8 g/dL Normal 3.2-5.0 [facility] Comment on above: Performed By: #### L 500.4050 #### [facility] [address] [place], [address] Albumin/Globulin [Mass ratio] 1.0 {ratio} Normal 0.9-2.4 [facility] Comment on above: Performed By: #### L 500.4050 #### [facility] [address] [place], [address] ALK P 58 U/L Normal 45-117 [facility] Comment on above: Performed By: #### L 500.4050 #### [facility] [address] [place], [address] ALT [Catalytic activity/Vol] 18 U/L Normal 13-56 [facility] Comment on above: Performed By: #### L 500.4050 #### [facility] [address] [place], [address] AST [Catalytic activity/Vol] 11 U/L Low 15-37 [facility] Comment on above: Performed By: #### L 500.4050 #### [facility] [address] [place], [address] Bilirubin [Mass/Vol] 0.60 mg/dL Normal 0.20-1.[address] [facility] Comment on above: Result Comment: For patients on eltrombopag therapy, use of Dimension [place] TBIL is not recommended. Performed By: #### L 500.4050 #### [facility] [address] [place], [address] BUN/CRE 12.3 RATIO Normal 10-20 [facility] Comment on above: Performed By: #### L 500.4050 #### [facility] [address] [place], [address] CA,Total 8.8 mg/dL Normal 8.5-10.1 [facility] Comment on above: Performed By: #### L 500.4050 #### [facility] [address] [place], [address] Chloride [Moles/Vol] 106 mmol/L Normal 98-[address] [facility] Comment on above: Performed By: #### L 500.4050 #### [facility] [address] [place], [address] CO2 [Moles/Vol] 24.0 mmol/L Normal 21.0-32.0 [facility] Comment on above: Performed By: #### L 500.4050 #### [facility] [address] [place], [address] Creatinine [Mass/Vol] 0.81 mg/dL Normal 0.55-1.02 [facility] Comment on above: Result Comment: The validity of the calculated GFR GFRAA in patients over 70 years has not been determined. Clinical correlation is essential. Performed By: #### L 500.4050 #### [facility] [address] [place], [address] ECRCL 94.87 ml/min Normal [facility] Comment on above: Performed By: #### L 500.4050 #### [facility] [address] [place], [address] EST GFR - AA 113 mL/min Normal >60 [facility] Comment on above: Result Comment: Afri can [place] GFR Calc Performed By: #### L 500.4050 #### [facility] [address] [place], [address] GAP 6 Normal 5-15 [facility] Comment on above: Performed By: #### L 500.4050 #### [facility] [address] [place], [address] GFR/1.73 sq M.predicted among non-blacks MDRD (S/P/Bld) [Vol rate/Area] 94 mL/min/{1.73_m2} Normal >60 [facility] Comment on above: Result Comment: Non- GFR Calc Performed By: #### L 500.4050 #### [facility] [address] [place], [address] Globulin (S) [Mass/Vol] 4.0 g/dL Normal 2.2-4.2 [facility] Comment on above: Performed By: #### L 500.4050 #### [facility] [address] [place], [address] Glucose [Mass/Vol] 104 mg/dL Normal 74-106 [facility] Comment on above: Result Comment: Fast ing Glucose result from 100 to 125 mg/dL suggests IMPAIRED HOMEOSTASIS per A.D.A. criteria. Performed By: #### L 500.4050 #### [facility] [address] [place], [address] Potassium [Moles/Vol] 3.9 mmol/L Normal 3.5-5.1 [facility] Comment on above: Performed By: #### L 500.4050 #### [facility] [address] [place], [address] Sodium [Moles/Vol] 136 mmol/L Normal 136-145 [facility] Comment on above: Performed By: #### L 500.4050 #### [facility] [address] [place], [address] T PROT 7.8 g/dL Normal 6.4-8.2 [facility] Comment on above: Performed By: #### L 500.4050 #### [facility] [address] [place], [address] Urea nitrogen [Mass/Vol] 10 mg/dL Normal 7-18 [facility] Comment on above: Performed By: #### L 500.4050 #### [facility] [address] [place], [address] Determination of erythrocyte mean corpuscular volume (MCV)on 01-06-2022 MCV (RBC) [Entitic vol] 82.7 fL 81-99 [facility] Work Phone: Emergency Department Summary on 01-06-2022 Emergency Department Summary [facility] Medical Records Department [address] [place] [address] Emergency Department Summary 01/06/22 MR#: [id number] Acct: [id number] Name: DEEJAY GROVER Rep #: [id number] : 2000 21 From: Delfino Julio MD PCP: Care Physician,No Primary Status:REG ER Location: ED HPI HPI - GI History of Present Illness Chief Complaint: Nausea/Vomiting/Diarrh ea Informant: patient Abdominal Pain/Flank Pain Onset: Days (2) Context: Gradual Onset Timing: Intermittent Quality: Cramping Location: - (periumbilical) Current Severity: Gone Maximum Severity: Mild Worsened by: Nothing Relieved by: - (having BM/diarrhea) Nausea/Vomiting/Emesis GI Symptom: Positive for Nausea and Vomiting Onset: Yesterday Quality: Positive for Nonbilious; Negative for Blood streaks, Coffee ground or Hematemesis Severity: Moderate Diarrhea/Melena/Hemato chezia GI Symptom: Positive for Diarrhea; Negative for Melena or Hematochezia Stool Quality: Positive for Watery Severity: Severe Associated Symptoms Associated Symptoms: Negative for Dysuria, Frequency, Hematuria or Urgency Narrative Narrative: Patient presenting with syncopal episodes, she had 1 yesterday that was shortly after she was vomiting while sitting down, she felt lightheaded and nauseated and then passed out without fall or injury. She had another similar episode today while she was sitting down after getting ready for work and resting. She felt lightheaded and nauseated before than 2. She has been having diarrhea and vomiting for the last couple days, the diarrhea has been fairly aggressive, she denies any recent antibiotics, travel out of the area, no fevers or chills, only gets some mild abdominal cramping right before she has to have diarrhea. She denies any blood in it. No suspicious food ingestions or undercooked meats recently. No known sick contacts with similar symptoms. No recent camping or ground water ingestion. [facility] Medical History (Updated 01/06/22 @ 10:[address] Delfino Julio MD) Nausea vomiting and diarrhea Medical History no medical history no medical history Home Medications ondansetron 4 mg disintegrating tablet 8 mg PO Q8H PRN PRN Nausea #20 tabs 01/06/22 [Rx Last Taken Unknown] Allergy/AdvReac Type Severity Reaction Status Date / Time No Known Allergies Allergy Verified 01/06/22 08:29 Social History Smoking Status: Never smoker ROS ROS ED Constitutional Constitutional ED: Denies chills or fever(s) Eyes Eyes: Denies change in vision or diplopia ENT ENT ED: Denies rhinorrhea or sore throat Cardiovascular Cardiovascular: Reports syncope; Denies chest pain or palpitations Respiratory/Chest Respiratory/Chest: Denies cough or dyspnea Gastrointestinal Gastrointestinal: Reports abdominal pain, diarrhea, nausea and vomiting Genitourinary Genitourinary ED: Denies dysuria or hematuria Musculoskeletal Musculoskeletal: Denies back pain or neck pain Integumentary Denies abscess or rash Neurologic Neurologic: Denies headache(s), paresthesias or weakness Psychiatric Psychiatric: Denies anxiety or suicidal thoughts EXAM Physical Exam Const Vital Signs: 01/06/22 08:26 01/06/22 09:02 Temperature 97.1 F L Temperature Source Temporal Pulse Rate 90 Pulse Rate [Lying] 78 Pulse Rate [Sitting (for 1 minute prior to obtaining)] 85 Pulse Rate [Standing (for 1 minute prior to obtaining)] 83 Respiratory Rate 16 Blood Pressure 140/83 H Blood Pressure [Lying] 129/66 H Blood Pressure [Sitting (for 1 minute prior to obtaining)] 132/77 H Blood Pressure [Standing (for 1 minute prior to obtaining)] 122/70 H Blood Pressure Mean 102 Blood Pressure Mean [Lying] 87 Blood Pressure Mean [Sitting (for 1 minute prior to obtaining)] 95 Blood Pressure Mean [Standing (for 1 minute prior to obtaining)] 87 Pulse Ox 98 Oxygen Delivery Method Room Air Positive well nourished, well developed and obese Constitutional Narrative: well-appearing, nad General Appearance ED: well developed and NAD Nutritional Appearance: obese HEENT Reports moist mucous membranes normocephalic and atraumatic Eyes PERRL and EOMs intact bilaterally Neck full ROM and supple Resp normal respiratory effort and clear to auscultation bilaterally Cardio regular rate, regular rhythm and no murmurs GI non-tender and non-distended Auscultation: normoactive bowel sounds Palpation: soft Back/Spine no CVA tenderness General Back: other FROM Extremity normal to inspection General Extremety ED: Negative for edema, pulses abnormal or tenderness General Extremity: Negative for edema or pulses abnormal Neuro oriented x3, CN's II-XII intact bilaterally and no sensory deficit (more content not included)... Normal [facility] Hematocrit Auto (Bld) [Volum e fraction]on 01-06-2022 Hematocrit (Bld) [Volume fraction] 42.6 % 37-47 [facility] Work Phone: Laboratory - Chemistry and C hemistry - challengeon 01-06-2022 ALP [Catalytic activity/Vol] 58 U/L 45-117 [facility] Work Phone: ALT [Catalytic activity/Vol] 18 U/L 13-56 [facility] Work Phone: CO2 [Moles/Vol] 24.0 mmol/L 21.0-32.0 [facility] Work Phone: Globulin (S) [Mass/Vol] 4.0 g/dL 2.2-4.2 [facility] Work Phone: Urea nitrogen/Creatinine [Mass ratio] 12.3 mg/mg 10-20 [facility] Work Phone: [phone] Laboratory - Hematology and Cell countson 01-06-2022 Erythrocyte distribution width (RBC) [Entitic vol] 39.0 fL 35.1-43.9 [facility] Work Phone: Erythrocyte distribution width (RBC) [Ratio] 13.0 % 11.6-14.6 [facility] Work Phone: Immature granulocytes/100 WBC (Bld) 0.300 % 0.0-0.9 [facility] Work Phone: Comment on above: IG% - Immature Granu locytes (promyelocytes, myelocytes and metamyelocytes) > 1% indicates that a LEFT SHIFT is Present. MCH (RBC) [Entitic mass] 28.5 pg 27.0-32.0 [facility] Work Phone: Nucleated RBC/100 WBC (Bld) [Ratio] 0 % 0-5 [facility] Work Phone: MCHC Auto (RBC) [Mass/Vol]on 01-06-2022 MCHC (RBC) [Mass/Vol] 34.5 g/dL 32-36 [facility] Work Phone: No Panel Informationon 01-06 Estimated Creatinine Clearance Calc 94.87 ml/min [facility] Work Phone: Estimated GFR (MDRD) Amer 113 mL/min >60 [facility] Work Phone: Comment on above: GFR Calc Estimated GFR (MDRD) Non-Af Amer 94 mL/min >60 [facility] Work Phone: Comment on above: Non- GFR Calc Platelets bldon 01-06-2022 Platelets (Bld) [#/Vol] 230 10*3/uL 150-450 [facility] Work Phone: ,Serum,hCG Quali.on 01-06-2022 HCG, SERUM QUAL Negative Normal [facility] Comment on above: Performed By: #### L 100.0100, L700.6800 #### [facility] [address] [place], [address] Serum or plasma albumin radha urement (mass/volume)on 01-06-2022 Albumin [Mass/Vol] 3.8 g/dL 3.2-5.0 [facility] Work Phone: Serum or plasma albumin/glob ulin mass ratioon 08-10-2022 Albumin/Globulin [Mass ratio] 1.0 {ratio} 0.9-2.4 [facility] Work Phone: Serum or plasma calcium radha urement (mass/volume)on 01-06-2022 Calcium [Mass/Vol] 8.8 mg/dL 8.5-10.1 [facility] Work Phone: Serum or plasma creatinine m easurement (mass/volume)on 01-06-2022 Creatinine [Mass/Vol] 0.81 mg/dL 0.55-1.02 [facility] Work Phone: Comment on above: The validity of the calculated GFR & GFRAA in patients over 70 years has not been determined. Clinical correlation is essential. Serum or plasma urea nitroge n measurement (mass/volume)on 01-06-2022 Urea nitrogen [Mass/Vol] 10 mg/dL 7-18 [facility] Work Phone: Thin prep Papanicolaou smear with manual screeningon 01-06-2022 Thin prep Papanicolaou smear with manual screening 11 U/L 15-37 [facility] Work Phone: Thin prep Papanicolaou smear with manual screening 6 5-15 [facility] Work Phone: Urgent Care Visit Reporton 0 01-06-2022 Urgent Care Visit Report [facility] [address] [place], [place] [id number] OFFICE VISIT Date of Service: 01/06/22 MR#: [id number] Acct: [id number] Name: DEEJAY GROVER Rep #: [id number] : 2000 Provider: KASIA Christianson Age/Sex: 21/F Location: [facility] Status: Signed Intake Vital Signs 07/12/21 11:55 01/06/22 08:05 Height 5 ft 4 in Weight: 280 lb BMI 48.0 BP 151/80 H 132/76 H Blood Pressure Location Lt brachial Position Sitting Respiration 15 14 Pulse 74 81 Pulse Source Monitor Temp 96.7 F L 98.4 F Temp Source Temporal Temporal Pulse Oximetry (%) 96 98 Oxygen Delivery Method room air Intake Visit Reasons: LIGHT HEADED/THROWING UP Allergies No Known Allergies Allergy (Verified 01/06/22 08:29) [facility] Medical History (Updated 01/06/22 @ 08:53 by KASIA Santos) Nausea vomiting and diarrhea Social History Smoking Status: Never smoker HPI HPI Details: DEEJAY GROVER, is a 21 F who presents to the office today for complaint of nausea, vomiting and lightheadedness. Patient states this started 2 to 3 days ago. She denies hematochezia or hematemesis. Upon further questioning patient does state that she had a syncopal episode yesterday as well as today after vomiting. She denies falling or hitting her head. No other associated symptoms or alleviating/aggravatin g factors. ROS Const Constitutional: No other (6 system ROS completed with pertinent findings in the HPI otherwise normal.) Exam Const General: cooperative and healthy appearing HENMT Head: normocephalic and atraumatic Ears: hearing grossly normal bilaterally Face and sinus: face symmetric Eyes General: appearance normal, both eyes and all related structures Pupils: PERRL Resp Effort Inspection: normal respiratory effort Auscultation: Bilateral: Clear to Auscultation Cardio Rate: regular rate Rhythm: regular rhythm GI Inspection: normal to inspection Auscultation: hyperactive bowel sounds Percussion: normal to percussion Palpation: soft, no hepatosplenomegaly, no guarding and nontender General: bimanual renal exam normal bilaterally and No CVA tenderness Skin General: no rashes or lesions noted Neuro General: patient alert and CN's II-XI intact bilaterally Psych Appearance: grossly normal Mental Status: mental status grossly normal Coding Level of Care Code Off vis,est,level 3 Diagnoses Syncopal episodes R55 Assessment and Plan Assessment and Plan (1) Syncopal episodes: Status: Acute Plan: After further questioning patient reports having more than 1 syncopal episode in the past 24 hours and therefore she has been advised to report to the ED for further evaluation and treatment. Patient refused offered ambulance transport. Patient verbalized understanding and agreement with all the above. 01/06/2254 Date Cesar PEDROZA Cosigner Signature: Date (if applicable) CC: Normal [facility] Urgent Care Visit Reporton 0 08-28-2021 Urgent Care Visit Report [facility] [address] [place] [address] [address] [place] [address] OFFICE VISIT Date of Service: 08/28/21 MR#: [id number] Acct: [id number] Name: DEEJAY GROVER Rep #: [id number] : 2000 Provider: KASIA Christianson Age/Sex: 21/F Location: [facility] Status: Signed Intake Vital Signs 08/28/21 13:13 BP 130/86 H Blood Pressure Location Lt brachial Position Sitting Respiration 16 Pulse 130 H Pulse Source Monitor Temp 97.9 F Temp Source Temporal Pulse Oximetry (%) 99 Oxygen Delivery Method room air Intake Visit Reasons: MOUTH/TOOTH INFECTION/EARACHE Allergies No Known Allergies Allergy (Verified 07/12/21 11:56) [facility] Medical History (Updated 08/28/21 @ 13:15 by KASIA Santos) Nausea vomiting and diarrhea Social History Smoking Status: Current every day smoker tobacco type: cigarettes HPI HPI Details: DEEJAY GROVER, is a 21 F who presents to the office today for concern for possible dental infection. Patient states that she has a wisdom tooth that is trying to poke through and has caused dental infections in the past with similar symptoms. She localizes the pain to the right lower wisdom tooth. No fever, chills, sweats. No nausea, vomiting, diarrhea. No other associated symptoms or alleviating/aggravatin g factors. Exam Const General: cooperative and healthy appearing [facility] Head: normocephalic and atraumatic Ears: hearing grossly normal bilaterally Nose: external nose normal Face and sinus: normal facial exam and face symmetric Mouth: oral mucosae normal Throat: posterior oropharynx normal Other: Mild erythema and swelling around the right lower wisdom tooth. No sign of an abscess. Eyes General: appearance normal, both eyes and all related structures Pupils: PERRL Resp Effort Inspection: normal respiratory effort Auscultation: Bilateral: Clear to Auscultation Cardio Rate: regular rate Rhythm: regular rhythm Skin General: no rashes or lesions noted Neuro General: patient alert and CN's II-XI intact bilaterally Psych Appearance: grossly normal Mental Status: mental status grossly normal Coding Level of Care Code Off vis,est,level 3 Diagnoses Dental infection K04.7 Assessment and Plan Assessment and Plan (1) Dental infection: Status: Acute Plan - Cesar PEDROZA PA: Augmentin as prescribed today. Patient advised that she needs to schedule with a dental surgeon to have her wisdom tooth removed. Encouraged to get plenty of rest, drink lots of clear liquids, and use Tylenol or Ibuprofen (unless contraindicated) for comfort. Patient also educated on other symptomatic management techniques. To be seen in 7-10 days if no improvement; sooner if worsening of symptoms. Patient advised of potential red flags and when appropriate to report to the ED. Patient verbalized understanding and agreement with all the above. Plan Details Other Medications: New: amoxicillin-pot clavulanate 875-125 mg 1 TAB PO Q12H 10 days 20 tabs 0RF J01.90 08/28/21 1339 Date Cesar PEDROZA Cosigner Signature: Date (if applicable) CC: Normal [facility] Emergency Department Summary on 07-12-2021 Emergency Department Summary [facility] Medical Records Department [address] [place] [address] Emergency Department Summary 07/12/21 MR#: [id number] Acct: [id number] Name: DEEJAY GROVER Rep #: [id number] : 2000 21 From: Steve Velasquez DO PCP: Care Physician,No Primary Status:DEP ER Location: ED HPI History of Present Illness Chief Complaint: Laceration Detail of Chief Complaint: Laceration left thumb Informant: patient Narrative Narrative: Patient presents to the emergency department complaint of a laceration to her left thumb. Patient states that she was cutting a potato when the knife slipped and she accidentally lacerated her left thumb. Patient is right-hand dominant. She is unsure of her last tetanus. Patient denies any numbness or tingling or loss of function to the thumb. Tetanus Immunization: Unknown [facility] Medical History (Updated 07/12/21 @ 12:[address] Steve Velasquez, DO) Nausea vomiting and diarrhea Home Medications NK 07/12/21 [History Last Taken Unknown] Allergy/AdvReac Type Severity Reaction Status Date / Time No Known Allergies Allergy Verified 07/12/21 11:56 ROS ROS ED Constitutional Constitutional ED: Reports systems reviewed and no addt'l complaints, except as documented; Denies body ache(s), change in weight or chills Eyes Eyes: Denies acute decrease in peripheral vision, change in vision, double vision or loss of vision ENT ENT ED: Reports none; Denies ear pain, lip swelling, loss taste/smell, neck pain, otalgia or sore throat Cardiovascular Cardiovascular: Reports none; Denies abdominal pain, chest pain with activity, leg edema, lightheadedness, palpitations, rapid heart rate or syncope Respiratory/Chest Respiratory/Chest: Reports none; Denies change in mental status, dry cough, dyspnea, hemoptysis, shortness of breath at rest or shortness of breath with exertion Gastrointestinal Gastrointestinal: Reports none; Denies abdominal pain, change in stool character, diarrhea, hematemesis, hematochezia, melena, rectal bleeding or vomiting Genitourinary Genitourinary ED: Reports none; Denies abdominal discomfort, anuria, dysuria, genital pain or polyuria Musculoskeletal Musculoskeletal: Reports none and other Details: Left thumb laceration ; Denies arthralgias, back pain, difficulty walking, extremity pain, muscle weakness or myalgias Integumentary Reports none; Denies abscess or rash Neurologic Neurologic: Reports none; Denies abnormal gait, confusion, focal weakness, frequent falls, headache(s), loss of vision, numbness, paresthesias, radicular pain, vertigo or weakness Psychiatric Psychiatric: Reports systems reviewed and no addt'l complaints, except as documented and none; Denies behavioral changes, confusion, difficulty concentrating, hallucinations, suicidal ideation, tactile hallucinations or visual hallucinations Endocrine Endocrinology: Denies none, cold intolerance, excessive sweating, fatigue or heat intolerance Hematologic/Lymphatic Hematologic/Lymphatic: Reports none; Denies anemia, easy bleeding or easy bruising Allergic/Immunologic Allergic/Immunologic ED: Denies as per HPI, none, lip swelling, mouth swelling, throat swelling, tongue swelling or hives EXAM Physical Exam Const Vital Signs: 07/12/21 11:55 Temperature 96.7 F L Temperature Source Temporal Pulse Rate 74 Respiratory Rate 15 Blood Pressure 151/80 H Blood Pressure Mean 103 Pulse Ox 96 Oxygen Delivery Method Room Air Positive well nourished and well developed General Appearance ED: well developed and NAD HEENT Reports TM's clear and moist mucous membranes normocephalic and atraumatic; Negative for trauma or tenderness Tympanic Membrane ED: Yes TM's clear Eyes PERRL and EOMs intact bilaterally General Eye ED: Negative for pale conjunctiva or scleral icterus Neck no lymphadenopathy, supple and no JVD General: Negative for tenderness Chest Wall inspection of chest normal and palpation of chest normal Chest: Negative for tenderness Resp normal respiratory effort and clear to auscultation bilaterally Effort and Inspection: Negative for respiratory distress or pain with movement Auscultation: Negative for rhonchi, wheezes or diminished lung sounds Cardio regular rate, regular rhythm, S1 normal heart sound, S2 normal heart sound and no murmurs Peripheral Pulses: pulses 2+ throughout GI normal to inspection, nondistended, normoactive bowel sounds, soft to palpation, non-tender, non- distended and no masses Back/Spine no CVA tenderness and no thoracic nor lumbar tenderness Extremity Extremity Narrative: Left thumb-patient has a 1 cm laceration over the lateral aspect of the thumb at about the midportion of the nail. The laceration is horizontal and enters the nail for about 2 mm. Patient has normal range o (more content not included)... Normal [facility] Urgent Care Visit Reporton 0 06-10-2021 Urgent Care Visit Report [facility] [address] [address] OFFICE VISIT Date of Service: 06/10/21 MR#: [id number] Acct: [id number] Name: DEEJAY GROVER Rep #: [id number] : 2000 Provider: KASIA obrien Age/Sex: 21/F Location: [facility] Status: Signed Intake Vital Signs 06/10/21 12:45 Height 5 ft 5 in Weight: 302 lb BMI 50.2 BP 132/80 H Blood Pressure Location Lt brachial Position Sitting Respiration 18 Pulse 83 Pulse Source Monitor Temp 97.9 F Temp Source Temporal Pulse Oximetry (%) 98 Oxygen Delivery Method room air Intake Visit Reasons: . Allergies No Known Allergies Allergy (Verified 06/10/21 12:50) [facility] Medical History (Updated 06/10/21 @ 13:19 by Sam PEDROZA, KASIA) Nausea vomiting and diarrhea HPI HPI Details: DEEJAY GROVER, is a 21 F who presents to the office today for n/v/d x6 days w/ fatigue; no fever/ chills, cough, feng, myalgias, sore throat, congestion/ runny nose, dysuria/urinary frequency, melena/hematochezia. Cholecystectomy in 12/2020 w/ pancreatitis episode then as she describes; last LFTs were still elevated in 01/2021 w/o f/u labs since. Left over Zofran from last summer tried w/ some assistance. X2 COVID19 home tests were both negative (last on 06/08/2021). Med - BCP NKDA ROS Const Constitutional: No other (As above) Exam Const General: cooperative, healthy appearing, comfortable and no acute distress Nutritional Appearance: well nourished and obese Orientation: alert, awake and oriented x3 HENMT Head: normal to inspection Ears: hearing grossly normal bilaterally, external ears normal, TM's normal bilaterally and EAC's normal Nose: external nose normal, nares normal, septum normal and no nasal discharge Face and sinus: normal facial exam, sinuses nontender and face symmetric Mouth: oral mucosae normal, lip normal, tongue normal and moist mucous membranes Throat: posterior oropharynx normal, tonsils normal, uvula midline and no postnasal drainage Eyes General: appearance normal, both eyes and all related structures Neck Neck: normal visual inspection, full ROM, no lymphadenopathy, no meningeal signs and supple Neck mass: No Thyroid: thyroid normal Lymphatic: no lymphadenopathy noted Chest Chest palpation inspection: normal inspection of the chest Resp Effort Inspection: normal respiratory effort, able to speak in complete sentences, symmetric chest movement and no cough Auscultation: Bilateral: Clear to Auscultation Cardio Palpation: normal PMI Rate: regular rate Rhythm: regular rhythm Heart Sounds: S1 normal, S2 normal, no gallops, no murmurs and no rubs Pulses: radial pulses present GI Inspection: large pannus Palpation: soft, not firm, no guarding and nontender General: No CVA tenderness Skin General: no rashes or lesions noted Neuro General: patient alert, patient awake, patient oriented x3 and gait normal Cognition: normal cognition Speech: speech normal Gait: normal gait Motor: muscle tone normal throughout Sensory Exam: no sensory deficits noted Psych Appearance: grossly normal Mental Status: mental status grossly normal Mood: congruent mood Affect: normal affect Speech and Movement: speech and movement normal Attitude: cooperative Thought Process: normal Thought Content: normal Judgment: judgment good Coding Level of Care Code Off vis,new,level 3 Diagnoses Nausea vomiting and diarrhea R11.2; R19.7 Assessment and Plan Assessment and Plan (1) Nausea vomiting and diarrhea: Status: Acute Plan - Sam PEDROZA, PA: Zofran as needed as prescribed today. Thomas/brat diet and appropriate hydration is reinforced today. Work excuse for today at patient's request. Patient currently does not have PCP; business card for [facility] given to patient today to establish continuation of care first available appointment, or report to emergency department sooner should symptoms worsen or any other concerns develop. Patient states acknowledging understanding all the above. This note was generated with [employer] dictation software. It may contain incorrect words, spelling, and punctuation that were not noted in checking the note before signing. Plan Details Other Medications: New: ondansetron 4 mg PO Q8H PRN 14 tabs 0RF nausea and vomiting 06/10/21 1321 Date Sam PEDROZA Cosigner Signature: Date (if applicable) CC: Normal [facility] CBCon 02-07-2020 ABSOLUTE BAS 0.1 10*3/uL Normal 0.0-0.2 [facility] Comment on above: Performed By: #### A CBC, CMPF, LIPA2 #### Testing performed at [address] [place] [address] ABSOLUTE EOS 0.00 10*3/uL Normal 0.0-0.7 [facility] Comment on above: Performed By: #### A CBC, CMPF, LIPA2 #### Testing performed at [address] [place] [address] ABSOLUTE NEUTROPHIL COUNT 2.7 10*3/uL Normal 1.4-6.5 [facility] Comment on above: Performed By: #### A CBC, CMPF, LIPA2 #### Testing performed at [address] [address] Basophils/100 WBC (Bld) 1.3 % Normal 0.0-2.0 [facility] Comment on above: Performed By: #### A CBC, CMPF, LIPA2 #### Testing performed at [address] [place] [address] DTYPE AUTO DIFF Normal [facility] Comment on above: Performed By: #### A CBC, CMPF, LIPA2 #### Testing performed at [address] [address] Eosinophils/100 WBC (Bld) 0.7 % Normal 0.0-11.0 [facility] Comment on above: Performed By: #### A CBC, CMPF, LIPA2 #### Testing performed at [address] [address] Lymphocytes (Bld) [#/Vol] 1.50 10*3/uL Normal 1.2-3.4 [facility] Comment on above: Performed By: #### A CBC, CMPF, LIPA2 #### Testing performed at [address] [address] Lymphocytes/100 WBC (Bld) 31.9 % Normal 20.0-55.0 [facility] Comment on above: Performed By: #### A CBC, CMPF, LIPA2 #### Testing performed at [address] [address] Monocytes (Bld) [#/Vol] 0.5 10*3/uL Normal 0.0-0.7 [facility] Comment on above: Performed By: #### A CBC, CMPF, LIPA2 #### Testing performed at [address] [address] Monocytes/100 WBC (Bld) 11.2 % High 0.0-10.0 [facility] Comment on above: Performed By: #### A CBC, CMPF, LIPA2 #### Testing performed at [address] [address] Neutrophils/100 WBC (Bld) 54.9 % Normal 37.0-75.0 [facility] Comment on above: Performed By: #### A CBC, CMPF, LIPA2 #### Testing performed at [address] [address] Erythrocyte distribution width (RBC) [Ratio] 13.7 % Normal 11.5-14.5 [facility] Comment on above: Performed By: #### A CBC, CMPF, LIPA2 #### Testing performed at [address] [address] Hematocrit (Bld) [Volume fraction] 44.1 % Normal 36.0-48.0 [facility] Comment on above: Performed By: #### A CBC, CMPF, LIPA2 #### Testing performed at [address] [address] Hemoglobin (Bld) [Mass/Vol] 14.7 g/dL Normal 12.0-16.0 [facility] Comment on above: Performed By: #### A CBC, CMPF, LIPA2 #### Testing performed at [address] [address] MCH (RBC) [Entitic mass] 27.6 pg Normal 26.0-35.0 [facility] Comment on above: Performed By: #### A CBC, CMPF, LIPA2 #### Testing performed at [address] [address] MCHC (RBC) [Mass/Vol] 33.3 g/dL Normal 27.0-37.0 [facility] Comment on above: Performed By: #### A CBC, CMPF, LIPA2 #### Testing performed at [address] [address] MCV (RBC) [Entitic vol] 83.0 fL Normal 80.0-100.0 [facility] Comment on above: Performed By: #### A CBC, CMPF, LIPA2 #### Testing performed at [address] [address] Platelet mean volume (Bld) [Entitic vol] 8.0 fL Normal 7.4-11.0 [facility] Comment on above: Performed By: #### A CBC, CMPF, LIPA2 #### Testing performed at [address] [address] Platelets (Bld) [#/Vol] 392 10*3/uL Normal 130.0-400.0 [facility] Comment on above: Performed By: #### A CBC, CMPF, LIPA2 #### Testing performed at [address] [address] RBC (Bld) [#/Vol] 5.32 10*6/uL Normal 4.0-5.4 [facility] Comment on above: Performed By: #### A CBC, CMPF, LIPA2 #### Testing performed at [address] [address] WBC (Bld) [#/Vol] 4.8 10*3/uL Normal 3.6-11.0 [facility] Comment on above: Performed By: #### A CBC, CMPF, LIPA2 #### Testing performed at [address] [address] CBC, EDIF, PLATELETon 2019 ABSOLUTE BASOPHIL COUNT 0.1 10*3/uL 0 - 0.2 10*3/uL [facility] Basophils/100 WBC (Bld) 1.3 % 0 - 2 % [facility] Differential cell count method Nom (Bld) AUTO DIFF % [facility] Eosinophils (Bld) [#/Vol] 0.00 10*3/uL 0 - 0.7 10*3/uL [facility] Eosinophils/100 WBC (Bld) 0.7 % 0 - 11 % [facility] Erythrocyte distribution width (RBC) [Ratio] 13.7 % 11.5 - 14.5 % [facility] Hematocrit (Bld) [Volume fraction] 44.1 % 36 - 48 % [facility] Hemoglobin (Bld) [Mass/Vol] 14.7 g/dL [facility] Interpretation and review of laboratory results Abnormal [facility] Lymphocytes (Bld) [#/Vol] 1.50 10*3/uL 1.2 - 3.4 10*3/uL [facility] Lymphocytes/100 WBC (Bld) 31.9 % 20 - 55 % [facility] MCH (RBC) [Entitic mass] 27.6 pg 26 - 35 PG [facility] MCHC (RBC) [Mass/Vol] 33.3 g/dL [facility] MCV (RBC) [Entitic vol] 83.0 fL [facility] Monocytes (Bld) [#/Vol] 0.5 10*3/uL 0 - 0.7 10*3/uL [facility] Monocytes/100 WBC (Bld) 11.2 % High 0 - 10 % [facility] Neutrophils (Bld) [#/Vol] 2.7 10*3/uL 1.4 - 6.5 10*3/uL [facility] Neutrophils/100 WBC (Bld) 54.9 % 37 - 75 % [facility] Platelet mean volume (Bld) [Entitic vol] 8.0 fL [facility] Platelets (Bld) [#/Vol] 392 10*3/uL 130 - 400 10*3/uL [facility] RBC (Bld) [#/Vol] 5.32 10*6/uL 4 - 5.4 10*6/uL [facility] WBC (Bld) [#/Vol] 4.8 10*3/uL 3.6 - 11 10*3/uL [facility] HEPATIC FUNCTION PANELon Albumin [Mass/Vol] 4.6 g/dL [facility] ALP [Catalytic activity/Vol] 66 U/L [facility] ALT [Catalytic activity/Vol] 36 U/L [facility] AST [Catalytic activity/Vol] 28 U/L [facility] Bilirubin [Mass/Vol] 1.1 mg/dL [facility] Bilirubin.direct [Mass/Vol] 0.4 mg/dL [facility] Interpretation and review of laboratory results Abnormal [facility] Protein [Mass/Vol] 8.4 g/dL High [facility] LIPASEon 02-07-2020 Lipase [Catalytic activity/Vol] 40 U/L 23 - 300 U/L [facility] LIPASE,SERUMon 02-07-2020 LIPASE,SERUM 40 U/L Normal 23-300 [facility] Comment on above: Performed By: #### A CBC, CMPF, LIPA2 #### Testing performed at [address] [address] LIVER PANELon 02-07-2020 Albumin [Mass/Vol] 4.6 g/dL Normal 3.5-5.0 [facility] Comment on above: Performed By: #### A CBC, CMPF, LIPA2 #### Testing performed at [address] [address] ALP [Catalytic activity/Vol] 66 U/L Normal 38-126 [facility] Comment on above: Performed By: #### A CBC, CMPF, LIPA2 #### Testing performed at [address] [address] ALT [Catalytic activity/Vol] 36 U/L Normal 14-54 [facility] Comment on above: Performed By: #### A CBC, CMPF, LIPA2 #### Testing performed at [address] [address] AST [Catalytic activity/Vol] 28 U/L Normal 15-41 [facility] Comment on above: Performed By: #### A CBC, CMPF, LIPA2 #### Testing performed at [address] [address] Bilirubin [Mass/Vol] 1.1 mg/dL Normal 0.2-1.2 [facility] Comment on above: Performed By: #### A CBC, CMPF, LIPA2 #### Testing performed at [address] [address] Bilirubin.indirect [Mass/Vol] 0.4 mg/dL High 0.0-0.2 [facility] Comment on above: Performed By: #### A CBC, CMPF, LIPA2 #### Testing performed at [address] [address] Protein [Mass/Vol] 8.4 g/dL High 6.3-8.2 [facility] Comment on above: Performed By: #### A CBC, CMPF, LIPA2 #### Testing performed at [address] [address] URINALYSIS, MACROon 02-07-20 20 Bilirubin Ql (U) MODERATE Abnormal NEGATIVE [facility] Clarity (U) CLOUDY Abnormal CLEAR [facility] Color (U) ABRAM Abnormal YELLOW [facility] Glucose Test strip (U) [Mass/Vol] Negative NEGATIVE mg/dl [facility] Hemoglobin Ql (U) TRACE-LYSED Abnormal NEGATIVE [facility] Interpretation and review of laboratory results Abnormal [facility] Ketones (U) [Mass/Vol] TRACE Abnormal NEGATIVE mg/dl [facility] Leukocyte esterase Test strip Ql (U) TRACE Abnormal NEGATIVE [facility] Nitrite Ql (U) Negative NEGATIVE [facility] pH (U) 6.0 [pH] [facility] Protein Ql (U) 100 mg/dl Abnormal NEGATIVE [facility] Specific gravity (U) [Rel density] 1.025 [facility] Urobilinogen (U) [Mass/Vol] 1.0 [facility] URINE MACROSCOPICon 02-07-20 20 Bilirubin Ql (U) MODERATE Abnormal NEGATIVE [facility] Comment on above: Performed By: #### A CBC, CMPF, LIPA2 #### Testing performed at [address] [address] Clarity (U) CLOUDY Abnormal CLEAR [facility] Comment on above: Performed By: #### A CBC, CMPF, LIPA2 #### Testing performed at [address] [address] Color (U) ABRAM Abnormal YELLOW [facility] Comment on above: Performed By: #### A CBC, CMPF, LIPA2 #### Testing performed at [address] [address] Glucose Ql (U) Negative Normal NEGATIVE [facility] Comment on above: Performed By: #### A CBC, CMPF, LIPA2 #### Testing performed at [address] [address] pH (U) 6.0 [pH] Normal 5.0-7.0 [facility] Comment on above: Performed By: #### A CBC, CMPF, LIPA2 #### Testing performed at [address] [address] Protein (U) [Mass/Vol] 100 mg/dL Abnormal NEGATIVE [facility] Comment on above: Performed By: #### A CBC, CMPF, LIPA2 #### Testing performed at [address] [address] URINE HEMOGLOBIN TRACE-LYSED Abnormal NEGATIVE [facility] Comment on above: Performed By: #### A CBC, CMPF, LIPA2 #### Testing performed at [address] [address] URINE KETONE TRACE Abnormal NEGATIVE [facility] Comment on above: Performed By: #### A CBC, CMPF, LIPA2 #### Testing performed at [address] [address] URINE LEUKOTEST TRACE Abnormal NEGATIVE [facility] Comment on above: Performed By: #### A CBC, CMPF, LIPA2 #### Testing performed at [address] [address] URINE NITRATES Negative Normal NEGATIVE [facility] Comment on above: Performed By: #### A CBC, CMPF, LIPA2 #### Testing performed at [address] [address] URINE SPEC GRAVITY 1.025 Normal 1.010-1.025 [facility] Comment on above: Performed By: #### A CBC, CMPF, LIPA2 #### Testing performed at [address] [address] Urobilinogen Qn (U) 1.0 {Keven'U}/dL Normal 0.2-1.0 [facility] Comment on above: Performed By: #### A CBC, CMPF, LIPA2 #### Testing performed at [address] [address] URINE MICROSCOPICon 02-07-20 20 BACTERIA 2+ Abnormal NEGATIVE [facility] Comment on above: Performed By: #### C MPF, ACBC, LIPA2 #### Testing performed at [address] [address] CASTS OCCASIONAL Abnormal NONE [facility] Comment on above: Result Comment: HYAL INE Performed By: #### C MPF, ACBC, LIPA2 #### Testing performed at [address] [address] CRYSTAL NONE Normal NONE [facility] Comment on above: Performed By: #### C MPF, ACBC, LIPA2 #### Testing performed at [address] [address] Epithelial cells LM Ql (Urine sed) TOO NUMEROUS TO COUNT Normal [facility] Comment on above: Performed By: #### C MPF, ACBC, LIPA2 #### Testing performed at [address] [address] Mucus Ql (Urine sed) 1+ Abnormal NEGATIVE [facility] Comment on above: Performed By: #### C MPF, ACBC, LIPA2 #### Testing performed at [address] [address] URINE COMMENT POSSIBLY CONTAMINATE D SPECIMEN, CULTURE MUST BE ORDERED SEPARATELY IF DEEMED NECESSARY. Normal [facility] Comment on above: Performed By: #### C MPF, ACBC, LIPA2 #### Testing performed at [address] [address] URINE RBC'S 1 TO 5 Normal NEGATIVE [facility] Comment on above: Performed By: #### C MPF, ACBC, LIPA2 #### Testing performed at [address] [address] URINE WBC'S 1 TO 5 Normal NEGATIVE [facility] Comment on above: Performed By: #### C MPF, ACBC, LIPA2 #### Testing performed at [address] [address] [address] ABDOMEN/PELVIS WITH CONTR [place] 2020 CT ABDOMEN/PELVIS WITH CONTRAST CLINICAL HISTORY: Right lower quadrant abdominal pain, nausea, fever. Recent gallbladder surgery. EXAMINATION: Enhanced CT scan of the abdomen and pelvis: 01/25/2020. COMPARISON: Right upper quadrant ultrasound 01/18/2020, MRCP 01/21/2020. TECHNIQUE: 4 mm axial images from lung bases through ischial tuberosities following administration of intravenous contrast were obtained. No oral contrast was utilized. Sagittal, coronal reconstructions were performed. 90 mL of Omnipaque 350 was utilized as intravenous contrast. Dose reduction techniques were achieved by using automated exposure control and/or adjustment of mA and/or kV according to patient size and/or use of iterative reconstruction technique. FINDINGS: There are some discoid atelectatic changes in the visualized right middle lobe. There is moderate size left pleural effusion with some atelectasis of left lung base with small right pleural effusion with some atelectasis at the right lung base. Remaining visualized lung bases appear clear. The heart size seems normal without filling defects within the visualized cardiac chambers. CT ABDOMEN: Patient is status post cholecystectomy. The liver, spleen, adrenal glands, kidneys appear normal. There is mild edematous appearance to the pancreas however pancreas enhances normally with diffuse induration of surrounding fat which extends into the lesser sac as well as into the anterior parapharyngeal spaces slightly more so on the right compared to left. The abdominal aorta has normal caliber. The bowel loops are of normal caliber with moderate amount of stool in the colon. CT PELVIS: Due to low-lying cecum partially visualized appendix seems normal. There is small amount of free fluid within the pelvis. This has no loculation characteristics or enhancing rims. The bladder, uterus, ovaries appear normal. There is some haziness to the subcutaneous fat bilaterally involving the mid to lower abdomen. There is no definite pelvic or retroperitoneal adenopathy. There are no loculated focal fluid collections. Visualized osseous structures are normal. The patient is morbidly obese. IMPRESSION: 1. Findings compatible with acute pancreatitis without necrosis of the pancreas. 2. Cholecystectomy. 3. Normal-appearing appendix. 4. Small amount of free fluid within the lower abdomen, pelvis probably related to pancreatitis. 5. Mild haziness to the subcutaneous fat of the abdomen and upper pelvis probably secondary to overhydration/body wall edema. 6. Morbid obesity. 7. Minimal to small right, moderate left pleural effusion with atelectatic changes at the lung bases. This could be related to reactive changes from underlying pancreatitis. Normal [facility] BLOOD CULTUREon 01-25-2020 Bacteria identified Cx Nom (Bld) SPECIMEN DESCRIPTION BLOOD SPECIAL REQUESTS RT HAND CULTURE NO GROWTH 5 DAYS * Result Note: Testing performed at [place] [id number] * REPORT STATUS 01/30/2020 * Result Note: FINAL * Normal [facility] Comment on above: Performed By: #### A CBC, CMPF, LIPA2 #### Testing performed at [address] [address] Bacteria identified Cx Nom (Bld) SPECIMEN DESCRIPTION BLOOD SPECIAL REQUESTS LF HAND CULTURE NO GROWTH 5 DAYS * Result Note: Testing performed at [place] [address] * REPORT STATUS 01/30/2020 * Result Note: FINAL * Normal [facility] Comment on above: Performed By: #### C MPF, ACBC, LIPA2 #### Testing performed at [address] [address] CBCon 01-25-2020 ABSOLUTE BAS 0.0 10*3/uL Normal 0.0-0.2 [facility] Comment on above: Performed By: #### C MPF, ACBC, LIPA2 #### Testing performed at [address] [address] ABSOLUTE EOS 0.00 10*3/uL Normal 0.0-0.7 [facility] Comment on above: Performed By: #### C MPF, ACBC, LIPA2 #### Testing performed at [address] [address] ABSOLUTE NEUTROPHIL COUNT 11.5 10*3/uL High 1.4-6.5 [facility] Comment on above: Performed By: #### C MPF, ACBC, LIPA2 #### Testing performed at [address] [address] Basophils/100 WBC (Bld) 0.2 % Normal 0.0-2.0 [facility] Comment on above: Performed By: #### C MPF, ACBC, LIPA2 #### Testing performed at [address] [address] DTYPE AUTO DIFF Normal [facility] Comment on above: Performed By: #### C MPF, ACBC, LIPA2 #### Testing performed at [address] [address] Eosinophils/100 WBC (Bld) 0.2 % Normal 0.0-11.0 [facility] Comment on above: Performed By: #### C MPF, ACBC, LIPA2 #### Testing performed at [address] [address] Lymphocytes (Bld) [#/Vol] 0.90 10*3/uL Low 1.2-3.4 [facility] Comment on above: Performed By: #### C MPF, ACBC, LIPA2 #### Testing performed at [address] [address] Lymphocytes/100 WBC (Bld) 6.4 % Low 20.0-55.0 [facility] Comment on above: Performed By: #### C MPF, ACBC, LIPA2 #### Testing performed at [address] [address] Monocytes (Bld) [#/Vol] 1.4 10*3/uL High 0.0-0.7 [facility] Comment on above: Performed By: #### C MPF, ACBC, LIPA2 #### Testing performed at [address] [address] Monocytes/100 WBC (Bld) 10.1 % High 0.0-10.0 [facility] Comment on above: Performed By: #### C MPF, ACBC, LIPA2 #### Testing performed at [address] [address] Neutrophils/100 WBC (Bld) 83.1 % High 37.0-75.0 [facility] Comment on above: Performed By: #### C MPF, ACBC, LIPA2 #### Testing performed at [address] [address] Erythrocyte distribution width (RBC) [Ratio] 14.0 % Normal 11.5-14.5 [facility] Comment on above: Performed By: #### C MPF, ACBC, LIPA2 #### Testing performed at [address] [address] Hematocrit (Bld) [Volume fraction] 37.9 % Normal 36.0-48.0 [facility] Comment on above: Performed By: #### C MPF, ACBC, LIPA2 #### Testing performed at [address] [address] Hemoglobin (Bld) [Mass/Vol] 12.5 g/dL Normal 12.0-16.0 [facility] Comment on above: Performed By: #### C MPF, ACBC, LIPA2 #### Testing performed at [address] [address] MCH (RBC) [Entitic mass] 27.8 pg Normal 26.0-35.0 [facility] Comment on above: Performed By: #### C MPF, ACBC, LIPA2 #### Testing performed at [address] [address] MCHC (RBC) [Mass/Vol] 33.0 g/dL Normal 27.0-37.0 [facility] Comment on above: Performed By: #### C MPF, ACBC, LIPA2 #### Testing performed at [address] [address] MCV (RBC) [Entitic vol] 84.2 fL Normal 80.0-100.0 [facility] Comment on above: Performed By: #### C MPF, ACBC, LIPA2 #### Testing performed at [address] [address] Platelet mean volume (Bld) [Entitic vol] 8.0 fL Normal 7.4-11.0 [facility] Comment on above: Performed By: #### C MPF, ACBC, LIPA2 #### Testing performed at [address] [address] Platelets (Bld) [#/Vol] 289 10*3/uL Normal 130.0-400.0 [facility] Comment on above: Performed By: #### C MPF, ACBC, LIPA2 #### Testing performed at [address] [address] RBC (Bld) [#/Vol] 4.50 10*6/uL Normal 4.0-5.4 [facility] Comment on above: Performed By: #### C MPF, ACBC, LIPA2 #### Testing performed at [address] [address] WBC (Bld) [#/Vol] 13.8 10*3/uL High 3.6-11.0 [facility] Comment on above: Performed By: #### C MPF, ACBC, LIPA2 #### Testing performed at [facility] [address] [place] [address] CBC, EDIF, PLATELETon 2019 ABSOLUTE BASOPHIL COUNT 0.0 10*3/uL 0 - 0.2 10*3/uL [facility] Basophils/100 WBC (Bld) 0.2 % 0 - 2 % [facility] Differential cell count method Nom (Bld) AUTO DIFF % [facility] Eosinophils (Bld) [#/Vol] 0.00 10*3/uL 0 - 0.7 10*3/uL [facility] Eosinophils/100 WBC (Bld) 0.2 % 0 - 11 % [facility] Erythrocyte distribution width (RBC) [Ratio] 14.0 % 11.5 - 14.5 % [facility] Hematocrit (Bld) [Volume fraction] 37.9 % 36 - 48 % [facility] Hemoglobin (Bld) [Mass/Vol] 12.5 g/dL [facility] Interpretation and review of laboratory results Abnormal [facility] Lymphocytes (Bld) [#/Vol] 0.90 10*3/uL Low 1.2 - 3.4 10*3/uL [facility] Lymphocytes/100 WBC (Bld) 6.4 % Low 20 - 55 % [facility] MCH (RBC) [Entitic mass] 27.8 pg 26 - 35 PG [facility] MCHC (RBC) [Mass/Vol] 33.0 g/dL [facility] MCV (RBC) [Entitic vol] 84.2 fL [facility] Monocytes (Bld) [#/Vol] 1.4 10*3/uL High 0 - 0.7 10*3/uL [facility] Monocytes/100 WBC (Bld) 10.1 % High 0 - 10 % [facility] Neutrophils (Bld) [#/Vol] 11.5 10*3/uL High 1.4 - 6.5 10*3/uL [facility] Neutrophils/100 WBC (Bld) 83.1 % High 37 - 75 % [facility] Platelet mean volume (Bld) [Entitic vol] 8.0 fL [facility] Platelets (Bld) [#/Vol] 289 10*3/uL 130 - 400 10*3/uL [facility] RBC (Bld) [#/Vol] 4.50 10*6/uL 4 - 5.4 10*6/uL [facility] WBC (Bld) [#/Vol] 13.8 10*3/uL High 3.6 - 11 10*3/uL [facility] CMP FASTINGon 01-25-2020 A:G RATIO 0.8 RATIO Low 1.3-2.2 [facility] Comment on above: Performed By: #### C MPF, ACBC, LIPA2 #### Testing performed at [address] [address] ALBUMIN 2.8 G/dl Low 3.5-5.0 [facility] Comment on above: Performed By: #### C MPF, ACBC, LIPA2 #### Testing performed at [address] [address] ALP [Catalytic activity/Vol] 55 U/L Normal 38-126 [facility] Comment on above: Performed By: #### C MPF, ACBC, LIPA2 #### Testing performed at [address] [address] ALT [Catalytic activity/Vol] 132 U/L High 14-54 [facility] Comment on above: Performed By: #### C MPF, ACBC, LIPA2 #### Testing performed at [address] [address] AST [Catalytic activity/Vol] 31 U/L Normal 15-41 [facility] Comment on above: Performed By: #### C MPF, ACBC, LIPA2 #### Testing performed at [address] [address] Bilirubin [Mass/Vol] 0.9 mg/dL Normal 0.2-1.2 [facility] Comment on above: Performed By: #### C MPF, ACBC, LIPA2 #### Testing performed at [address] [address] Creatinine [Mass/Vol] 0.74 mg/dL Normal 0.52-1.04 [facility] Comment on above: Performed By: #### C MPF, ACBC, LIPA2 #### Testing performed at [address] [address] GFR Information Unable to calculate GFR due to inappropriate age/gender/creatinine value. Normal [facility] Comment on above: Performed By: #### C MPF, ACBC, LIPA2 #### Testing performed at [address] [address] Protein [Mass/Vol] 6.2 g/dL Low 6.3-8.2 [facility] Comment on above: Performed By: #### C MPF, ACBC, LIPA2 #### Testing performed at [address] [address] Urea nitrogen [Mass/Vol] 7 mg/dL Normal 7-20 [facility] Comment on above: Performed By: #### C MPF, ACBC, LIPA2 #### Testing performed at [address] [address] Calcium [Mass/Vol] 8.1 mg/dL Low 8.4-10.2 [facility] Comment on above: Performed By: #### C MPF, ACBC, LIPA2 #### Testing performed at [address] [address] Chloride [Moles/Vol] 101 mmol/L Normal 98-107 [facility] Comment on above: Performed By: #### C MPF, ACBC, LIPA2 #### Testing performed at [address] [address] CO2 [Moles/Vol] 24 mmol/L Normal 22-30 [facility] Comment on above: Performed By: #### C MPF, ACBC, LIPA2 #### Testing performed at [address] [address] Glucose [Mass/Vol] 96 mg/dL Normal 70-100 [facility] Comment on above: Result Comment: NORMAL <100 mg/dL PREDIABETES 101-126 mg/dL DIABETES 126 mg/dL or higher Performed By: #### C MPF, ACBC, LIPA2 #### Testing performed at [address] [place] [address] Potassium [Moles/Vol] 3.2 mmol/L Low 3.5-5.1 [facility] Comment on above: Performed By: #### C MPF, ACBC, LIPA2 #### Testing performed at [address] [address] Sodium [Moles/Vol] 135 mmol/L Low 136-145 [facility] Comment on above: Performed By: #### C MPF, ACBC, LIPA2 #### Testing performed at [place] [id number] COMPREHENSIVE METABOLIC PANE Efrem 01-25-2020 Albumin [Mass/Vol] 2.8 G/dl Low 3.5 - 5 G/dl [facility] Albumin/Globulin [Mass ratio] 0.8 {ratio} Low [facility] ALP [Catalytic activity/Vol] 55 U/L [facility] ALT [Catalytic activity/Vol] 132 U/L High [facility] AST [Catalytic activity/Vol] 31 U/L [facility] Bilirubin [Mass/Vol] 0.9 mg/dL [facility] Calcium [Mass/Vol] 8.1 mg/dL Low [facility] Chloride [Moles/Vol] 101 mmol/L [facility] CO2 [Moles/Vol] 24 mmol/L [facility] Creatinine [Mass/Vol] 0.74 mg/dL [facility] GFR/1.73 sq M predicted among non-blacks MDRD (S/P/Bld) [Vol rate/Area] Unable to calculate GFR due to inappropriate age/gender/creatinine value. [facility] Glucose post fast [Mass/Vol] 96 mg/dL [facility] Comment on above: NORMAL <100 mg/dL PREDIABETES 101-126 mg/dL DIABETES 126 mg/dL or higher Interpretation and review of laboratory results Abnormal [facility] Potassium [Moles/Vol] 3.2 mmol/L Low [facility] Protein [Mass/Vol] 6.2 g/dL Low [facility] Sodium [Moles/Vol] 135 mmol/L Low [facility] Urea nitrogen [Mass/Vol] 7 mg/dL [facility] CT ABDOMEN/PELVIS WITH CONTR Keerthi 01-25-2020 CLINICAL HISTORY: Right lower quadrant abdominal pain, nausea, fever. Recent gallbladder surgery. EXAMINATION: Enhanced CT scan of the abdomen and pelvis: 01/25/2020. COMPARISON: Right upper quadrant ultrasound 01/18/2020, MRCP 01/21/2020. TECHNIQUE: 4 mm axial images from lung bases through ischial tuberosities following administration of intravenous contrast were obtained. No oral contrast was utilized. Sagittal, coronal reconstructions were performed. 90 mL of Omnipaque 350 was utilized as intravenous contrast. Dose reduction techniques were achieved by using automated exposure control and/or adjustment of mA and/or kV according to patient size and/or use of iterative reconstruction technique. FINDINGS: There are some discoid atelectatic changes in the visualized right middle lobe. There is moderate size left pleural effusion with some atelectasis of left lung base with small right pleural effusion with some atelectasis at the right lung base. Remaining visualized lung bases appear clear. The heart size seems normal without filling defects within the visualized cardiac chambers. CT ABDOMEN: Patient is status post cholecystectomy. The liver, spleen, adrenal glands, kidneys appear normal. There is mild edematous appearance to the pancreas however pancreas enhances normally with diffuse induration of surrounding fat which extends into the lesser sac as well as into the anterior parapharyngeal spaces slightly more so on the right compared to left. The abdominal aorta has normal caliber. The bowel loops are of normal caliber with moderate amount of stool in the colon. CT PELVIS: Due to low-lying cecum partially visualized appendix seems normal. There is small amount of free fluid within the pelvis. This has no loculation characteristics or enhancing rims. The bladder, uterus, ovaries appear normal. There is some haziness to the subcutaneous fat bilaterally involving the mid to lower abdomen. There is no definite pelvic or retroperitoneal adenopathy. There are no loculated focal fluid collections. Visualized osseous structures are normal. The patient is morbidly obese. [facility] IMPRESSION: 1. Findings compatible with acute pancreatitis without necrosis of the pancreas. 2. Cholecystectomy. 3. Normal-appearing appendix. 4. Small amount of free fluid within the lower abdomen, pelvis probably related to pancreatitis. 5. Mild haziness to the subcutaneous fat of the abdomen and upper pelvis probably secondary to overhydration/body wall edema. 6. Morbid obesity. 7. Minimal to small right, moderate left pleural effusion with atelectatic changes at the lung bases. This could be related to reactive changes from underlying pancreatitis. [facility], Interfaces - 01/25/2020 10:13 PM EDT CLINICAL HISTORY: Right lower quadrant abdominal pain, nausea, fever. Recent gallbladder surgery. EXAMINATION: Enhanced CT scan of the abdomen and pelvis: 01/25/2020. COMPARISON: Right upper quadrant ultrasound 01/18/2020, MRCP 01/21/2020. TECHNIQUE: 4 mm axial images from lung bases through ischial tuberosities following administration of intravenous contrast were obtained. No oral contrast was utilized. Sagittal, coronal reconstructions were performed. 90 mL of Omnipaque 350 was utilized as intravenous contrast. Dose reduction techniques were achieved by using automated exposure control and/or adjustment of mA and/or kV according to patient size and/or use of iterative reconstruction technique. FINDINGS: There are some discoid atelectatic changes in the visualized right middle lobe. There is moderate size left pleural effusion with some atelectasis of left lung base with small right pleural effusion with some atelectasis at the right lung base. Remaining visualized lung bases appear clear. The heart size seems normal without filling defects within the visualized cardiac chambers. CT ABDOMEN: Patient is status post cholecystectomy. The liver, spleen, adrenal glands, kidneys appear normal. There is mild edematous appearance to the pancreas however pancreas enhances normally with diffuse induration of surrounding fat which extends into the lesser sac as well as into the anterior parapharyngeal spaces slightly more so on the right compared to left. The abdominal aorta has normal caliber. The bowel loops are of normal caliber with moderate amount of stool in the colon. CT PELVIS: Due to low-lying cecum partially visualized appendix seems normal. There is small amount of free fluid within the pelvis. This has no loculation characteristics or enhancing rims. The bladder, uterus, ovaries appear normal. There is some haziness to the subcutaneous fat bilaterally involving the mid to lower abdomen. There is no definite pelvic or retroperitoneal adenopathy. There are no loculated focal fluid collections. Visualized osseous structures are normal. The patient is morbidly obese. IMPRESSION IMPRESSION: 1. Findings compatible with acute pancreatitis without necrosis of the pancreas. 2. Cholecystectomy. 3. Normal-appearing appendix. 4. Small amount of free fluid within the lower abdomen, pelvis probably related to pancreatitis. 5. Mild haziness to the subcutaneous fat of the abdomen and upper pelvis probably secondary to overhydration/body wall edema. 6. Morbid obesity. 7. Minimal to small right, moderate left pleural effusion with atelectatic changes at the lung bases. This could be related to reactive changes from underlying pancreatitis. [facility] LACTATE, BLOODon 01-25-2020 Lactate [Moles/Vol] 1.2 mmol/L [facility] LACTIC ACIDon 01-25-2020 Lactate [Moles/Vol] 1.2 mmol/L Normal 0.5-2.0 [facility] Comment on above: Performed By: #### A CBC, CMPF, LIPA2 #### Testing performed at [address] [address] LIPASEon 01-25-2020 Lipase [Catalytic activity/Vol] 36 U/L 23 - 300 U/L [facility] LIPASE,SERUMon 01-25-2020 LIPASE,SERUM 36 U/L Normal 23-300 [facility] Comment on above: Performed By: #### C MPF, ACBC, LIPA2 #### Testing performed at [address] [address] URINALYSIS, MACROon 01-25-20 20 Bilirubin Ql (U) SMALL Abnormal NEGATIVE [facility] Clarity (U) CLEAR CLEAR [facility] Color (U) DARK YELLOW Abnormal YELLOW [facility] Glucose Test strip (U) [Mass/Vol] Negative NEGATIVE mg/dl [facility] Hemoglobin Ql (U) MODERATE Abnormal NEGATIVE [facility] Interpretation and review of laboratory results Abnormal [facility] Ketones (U) [Mass/Vol] TRACE Abnormal NEGATIVE mg/dl [facility] Leukocyte esterase Test strip Ql (U) Negative NEGATIVE [facility] Nitrite Ql (U) Negative NEGATIVE [facility] pH (U) 6.0 [pH] [facility] Protein Ql (U) 30 mg/dl Abnormal NEGATIVE [facility] Specific gravity (U) [Rel density] 1.025 [facility] Urobilinogen (U) [Mass/Vol] 0.2 [facility] URINE MACROSCOPICon 01-25-20 20 Bilirubin Ql (U) SMALL Abnormal NEGATIVE [facility] Comment on above: Performed By: #### A CBC, CMPF, LIPA2 #### Testing performed at [address] [address] Clarity (U) CLEAR Normal CLEAR [facility] Comment on above: Performed By: #### A CBC, CMPF, LIPA2 #### Testing performed at [address] [address] Color (U) DARK YELLOW Abnormal YELLOW [facility] Comment on above: Performed By: #### A CBC, CMPF, LIPA2 #### Testing performed at [address] [address] Glucose Ql (U) Negative Normal NEGATIVE [facility] Comment on above: Performed By: #### A CBC, CMPF, LIPA2 #### Testing performed at [address] [address] pH (U) 6.0 [pH] Normal 5.0-7.0 [facility] Comment on above: Performed By: #### A CBC, CMPF, LIPA2 #### Testing performed at [address] [address] Protein (U) [Mass/Vol] 30 mg/dL Abnormal NEGATIVE [facility] Comment on above: Performed By: #### A CBC, CMPF, LIPA2 #### Testing performed at [address] [address] URINE HEMOGLOBIN MODERATE Abnormal NEGATIVE [facility] Comment on above: Performed By: #### A CBC, CMPF, LIPA2 #### Testing performed at [address] [place] [address] URINE KETONE TRACE Abnormal NEGATIVE [facility] Comment on above: Performed By: #### A CBC, CMPF, LIPA2 #### Testing performed at [address] [address] URINE LEUKOTEST Negative Normal NEGATIVE [facility] Comment on above: Performed By: #### A CBC, CMPF, LIPA2 #### Testing performed at [address] [address] URINE NITRATES Negative Normal NEGATIVE [facility] Comment on above: Performed By: #### A CBC, CMPF, LIPA2 #### Testing performed at [address] [address] URINE SPEC GRAVITY 1.025 Normal 1.010-1.025 [facility] Comment on above: Performed By: #### A CBC, CMPF, LIPA2 #### Testing performed at [address] [address] Urobilinogen Qn (U) 0.2 {Keven'U}/dL Normal 0.2-1.0 [facility] Comment on above: Performed By: #### A CBC, CMPF, LIPA2 #### Testing performed at [place] [id number] URINE MICROSCOPICon 01-25-20 20 Bacteria LM.HPF (Urine sed) [#/Area] Negative Normal NEGATIVE [facility] Comment on above: Performed By: #### A CBC, CMPF, LIPA2 #### Testing performed at [address] [address] CASTS NONE Normal [facility] Comment on above: Performed By: #### A CBC, CMPF, LIPA2 #### [place] [address] CRYSTAL NONE Normal [facility] Comment on above: Performed By: #### A CBC, CMPF, LIPA2 #### Testing performed at [address] [address] Epithelial cells LM Ql (Urine sed) 20 TO 30 Normal [facility] Comment on above: Performed By: #### A CBC, CMPF, LIPA2 #### Testing performed at [address] [address] Mucus Ql (Urine sed) Negative Normal NEGATIVE [facility] Comment on above: Performed By: #### A CBC, CMPF, LIPA2 #### Testing performed at [address] [address] URINE COMMENT POSSIBLY CONTAMINATE D SPECIMEN, CULTURE MUST BE ORDERED SEPARATELY IF DEEMED NECESSARY. Normal [facility] Comment on above: Performed By: #### A CBC, CMPF, LIPA2 #### Testing performed at [address] [address] URINE RBC'S 5 TO 10 Normal NEGATIVE [facility] Comment on above: Performed By: #### A CBC, CMPF, LIPA2 #### Testing performed at [address] [address] URINE WBC'S Negative Normal NEGATIVE [facility] Comment on above: Performed By: #### A CBC, CMPF, LIPA2 #### Testing performed at [address] [address] Bacteria LM.HPF (Urine sed) [#/Area] Negative NEGATIVE [facility] Casts LM.LPF (Urine sed) [#/Area] NONE NONE /LPF [facility] Crystals LM Nom (Urine sed) NONE NONE [facility] Epithelial cells LM Ql (Urine sed) 20 TO 30 /HPF [facility] Mucus Ql (Urine sed) Negative NEGATIVE [facility] RBC LM.HPF (Urine sed) [#/Area] 5 TO 10 NEGATIVE /HPF [facility] Urine sediment comments LM Charles (Urine sed) POSSIBLY CONTAMINATED SPECIMEN, CULTURE MUST BE ORDERED SEPARATELY IF DEEMED NECESSARY. [facility] WBC LM.HPF (Urine sed) [#/Area] Negative NEGATIVE /HPF [facility] CBCon 01-24-2020 ABSOLUTE BAS 0.0 10*3/uL Normal 0.0-0.2 [facility] Comment on above: Performed By: #### A CBC, CMPF, LIPA2 #### Testing performed at [address] [address] ABSOLUTE EOS 0.00 10*3/uL Normal 0.0-0.7 [facility] Comment on above: Performed By: #### A CBC, CMPF, LIPA2 #### Testing performed at [address] [address] ABSOLUTE NEUTROPHIL COUNT 9.3 10*3/uL High 1.4-6.5 [facility] Comment on above: Performed By: #### A CBC, CMPF, LIPA2 #### Testing performed at [address] [address] Basophils/100 WBC (Bld) 0.2 % Normal 0.0-2.0 [facility] Comment on above: Performed By: #### A CBC, CMPF, LIPA2 #### Testing performed at [address] [address] DTYPE AUTO DIFF Normal [facility] Comment on above: Performed By: #### A CBC, CMPF, LIPA2 #### Testing performed at [address] [address] Eosinophils/100 WBC (Bld) 0.0 % Normal 0.0-11.0 [facility] Comment on above: Performed By: #### A CBC, CMPF, LIPA2 #### Testing performed at [address] [address] Lymphocytes (Bld) [#/Vol] 0.60 10*3/uL Low 1.2-3.4 [facility] Comment on above: Performed By: #### A CBC, CMPF, LIPA2 #### Testing performed at [address] [address] Lymphocytes/100 WBC (Bld) 5.8 % Low 20.0-55.0 [facility] Comment on above: Performed By: #### A CBC, CMPF, LIPA2 #### Testing performed at [address] [address] Monocytes (Bld) [#/Vol] 0.5 10*3/uL Normal 0.0-0.7 [facility] Comment on above: Performed By: #### A CBC, CMPF, LIPA2 #### Testing performed at [address] [address] Monocytes/100 WBC (Bld) 4.7 % Normal 0.0-10.0 [facility] Comment on above: Performed By: #### A CBC, CMPF, LIPA2 #### Testing performed at [address] [address] Neutrophils/100 WBC (Bld) 89.3 % High 37.0-75.0 [facility] Comment on above: Performed By: #### A CBC, CMPF, LIPA2 #### Testing performed at [address] [address] Erythrocyte distribution width (RBC) [Ratio] 14.0 % Normal 11.5-14.5 [facility] Comment on above: Performed By: #### A CBC, CMPF, LIPA2 #### Testing performed at [address] [address] Hematocrit (Bld) [Volume fraction] 34.8 % Low 36.0-48.0 [facility] Comment on above: Performed By: #### A CBC, CMPF, LIPA2 #### Testing performed at [address] [address] Hemoglobin (Bld) [Mass/Vol] 11.5 g/dL Low 12.0-16.0 [facility] Comment on above: Performed By: #### A CBC, CMPF, LIPA2 #### Testing performed at [address] [address] MCH (RBC) [Entitic mass] 28.2 pg Normal 26.0-35.0 [facility] Comment on above: Performed By: #### A CBC, CMPF, LIPA2 #### Testing performed at [address] [address] MCHC (RBC) [Mass/Vol] 33.1 g/dL Normal 27.0-37.0 [facility] Comment on above: Performed By: #### A CBC, CMPF, LIPA2 #### Testing performed at [address] [address] MCV (RBC) [Entitic vol] 85.1 fL Normal 80.0-100.0 [facility] Comment on above: Performed By: #### A CBC, CMPF, LIPA2 #### Testing performed at [address] [address] Platelet mean volume (Bld) [Entitic vol] 8.3 fL Normal 7.4-11.0 [facility] Comment on above: Performed By: #### A CBC, CMPF, LIPA2 #### Testing performed at [address] [address] Platelets (Bld) [#/Vol] 205 10*3/uL Normal 130.0-400.0 [facility] Comment on above: Performed By: #### A CBC, CMPF, LIPA2 #### Testing performed at [address] [address] RBC (Bld) [#/Vol] 4.09 10*6/uL Normal 4.0-5.4 [facility] Comment on above: Performed By: #### A CBC, CMPF, LIPA2 #### Testing performed at [address] [address] WBC (Bld) [#/Vol] 10.4 10*3/uL Normal 3.6-11.0 [facility] Comment on above: Performed By: #### A CBC, CMPF, LIPA2 #### Testing performed at [address] [address] CMP FASTINGon 01-24-2020 A:G RATIO 0.8 RATIO Low 1.3-2.2 [facility] Comment on above: Performed By: #### A CBC, CMPF, LIPA2 #### Testing performed at [address] [address] ALBUMIN 2.8 G/dl Low 3.5-5.0 [facility] Comment on above: Performed By: #### A CBC, CMPF, LIPA2 #### Testing performed at [address] [address] ALP [Catalytic activity/Vol] 59 U/L Normal 38-126 [facility] Comment on above: Performed By: #### A CBC, CMPF, LIPA2 #### Testing performed at [address] [address] ALT [Catalytic activity/Vol] 219 U/L High 14-54 [facility] Comment on above: Performed By: #### A CBC, CMPF, LIPA2 #### Testing performed at [address] [address] AST [Catalytic activity/Vol] 60 U/L High 15-41 [facility] Comment on above: Performed By: #### A CBC, CMPF, LIPA2 #### Testing performed at [address] [address] Bilirubin [Mass/Vol] 1.1 mg/dL Normal 0.2-1.2 [facility] Comment on above: Performed By: #### A CBC, CMPF, LIPA2 #### Testing performed at [address] [address] Creatinine [Mass/Vol] 0.76 mg/dL Normal 0.52-1.04 [facility] Comment on above: Performed By: #### A CBC, CMPF, LIPA2 #### Testing performed at [address] [address] GFR Information Unable to calculate GFR due to inappropriate age/gender/creatinine value. Normal [facility] Comment on above: Performed By: #### A CBC, CMPF, LIPA2 #### Testing performed at [address] [address] Protein [Mass/Vol] 6.3 g/dL Normal 6.3-8.2 [facility] Comment on above: Performed By: #### A CBC, CMPF, LIPA2 #### Testing performed at [address] [address] Urea nitrogen [Mass/Vol] 9 mg/dL Normal 7-20 [facility] Comment on above: Performed By: #### A CBC, CMPF, LIPA2 #### Testing performed at [address] [address] Calcium [Mass/Vol] 8.3 mg/dL Low 8.4-10.2 [facility] Comment on above: Performed By: #### A CBC, CMPF, LIPA2 #### Testing performed at [address] [address] Chloride [Moles/Vol] 106 mmol/L Normal 98-107 [facility] Comment on above: Performed By: #### A CBC, CMPF, LIPA2 #### Testing performed at [address] [address] CO2 [Moles/Vol] 20 mmol/L Low 22-30 [facility] Comment on above: Performed By: #### A CBC, CMPF, LIPA2 #### Testing performed at [address] [address] Glucose [Mass/Vol] 117 mg/dL High 70-100 [facility] Comment on above: Result Comment: NORMAL <100 mg/dL PREDIABETES 101-126 mg/dL DIABETES 126 mg/dL or higher Performed By: #### A CBC, CMPF, LIPA2 #### Testing performed at [address] [address] Potassium [Moles/Vol] 4.1 mmol/L Normal 3.5-5.1 [facility] Comment on above: Performed By: #### A CBC, CMPF, LIPA2 #### [place] [address] Sodium [Moles/Vol] 137 mmol/L Normal 136-145 [facility] Comment on above: Performed By: #### A CBC, CMPF, LIPA2 #### Testing performed at [place] [id number] Hematologyon 01-24-2020 Basophils/100 WBC (Bld) 0.2 % 0 - 2 % [facility] Eosinophils (Bld) [#/Vol] 0.00 10*3/uL 0 - 0.7 10*3/uL [facility] Eosinophils/100 WBC (Bld) 0.0 % 0 - 11 % [facility] Hematocrit (Bld) [Volume fraction] 34.8 % Low 36 - 48 % [facility] Hemoglobin (Bld) [Mass/Vol] 11.5 g/dL Low [facility] Lymphocytes (Bld) [#/Vol] 0.60 10*3/uL Low 1.2 - 3.4 10*3/uL [facility] Lymphocytes/100 WBC (Bld) 5.8 % Low 20 - 55 % [facility] MCH (RBC) [Entitic mass] 28.2 pg 26 - 35 PG [facility] MCV (RBC) [Entitic vol] 85.1 fL [facility] Monocytes (Bld) [#/Vol] 0.5 10*3/uL 0 - 0.7 10*3/uL [facility] Monocytes/100 WBC (Bld) 4.7 % 0 - 10 % [facility] Neutrophils (Bld) [#/Vol] 9.3 10*3/uL High 1.4 - 6.5 10*3/uL [facility] Neutrophils/100 WBC (Bld) 89.3 % High 37 - 75 % [facility] Platelets (Bld) [#/Vol] 205 10*3/uL 130 - 400 10*3/uL [facility] RBC (Bld) [#/Vol] 4.09 10*6/uL 4 - 5.4 10*6/uL [facility] WBC (Bld) [#/Vol] 10.4 10*3/uL 3.6 - 11 10*3/uL [facility] LIPASE,SERUMon 01-24-2020 LIPASE,SERUM 48 U/L Normal 23-300 [facility] Comment on above: Performed By: #### A CBC, CMPF, LIPA2 #### Testing performed at [facility] [address] [place] [address] Metabolic Panelon 01-24-2020 Albumin [Mass/Vol] 2.8 G/dl Low 3.5 - 5 G/dl [facility] ALP [Catalytic activity/Vol] 59 U/L [facility] ALT [Catalytic activity/Vol] 219 U/L High [facility] AST [Catalytic activity/Vol] 60 U/L High [facility] Bilirubin [Mass/Vol] 1.1 mg/dL [facility] Calcium [Mass/Vol] 8.3 mg/dL Low [facility] Chloride [Moles/Vol] 106 mmol/L [facility] CO2 [Moles/Vol] 20 mmol/L Low [facility] Creatinine [Mass/Vol] 0.76 mg/dL [facility] GFR/1.73 sq M predicted among non-blacks MDRD (S/P/Bld) [Vol rate/Area] Unable to calculate GFR due to inappropriate age/gender/creatinine value. [facility] Potassium [Moles/Vol] 4.1 mmol/L [facility] Protein [Mass/Vol] 6.3 g/dL [facility] Sodium [Moles/Vol] 137 mmol/L [facility] Urea nitrogen [Mass/Vol] 9 mg/dL [facility] Otheron 01-24-2020 Albumin/Globulin [Mass ratio] 0.8 {ratio} Low [facility] Glucose post fast [Mass/Vol] 117 mg/dL High [facility] Comment on above: NORMAL <100 mg/dL PREDIABETES 101-126 mg/dL DIABETES 126 mg/dL or higher Interpretation and review of laboratory results Abnormal [facility] Lipase [Catalytic activity/Vol] 48 U/L 23 - 300 U/L [facility] ABSOLUTE BASOPHIL COUNT 0.0 10*3/uL 0 - 0.2 10*3/uL [facility] Differential cell count method Nom (Bld) AUTO DIFF % [facility] Erythrocyte distribution width (RBC) [Ratio] 14.0 % 11.5 - 14.5 % [facility] Interpretation and review of laboratory results Abnormal [facility] MCHC (RBC) [Mass/Vol] 33.1 g/dL [facility] Platelet mean volume (Bld) [Entitic vol] 8.3 fL [facility] CBCon 01-23-2020 ABSOLUTE BAS 0.0 10*3/uL Normal 0.0-0.2 [facility] Comment on above: Performed By: #### C MPF, ACBC, LIPA2 #### Testing performed at [address] [address] ABSOLUTE EOS 0.00 10*3/uL Normal 0.0-0.7 [facility] Comment on above: Performed By: #### C MPF, ACBC, LIPA2 #### Testing performed at [address] [address] ABSOLUTE NEUTROPHIL COUNT 11.7 10*3/uL High 1.4-6.5 [facility] Comment on above: Performed By: #### C MPF, ACBC, LIPA2 #### Testing performed at [address] [address] Basophils/100 WBC (Bld) 0.2 % Normal 0.0-2.0 [facility] Comment on above: Performed By: #### C MPF, ACBC, LIPA2 #### Testing performed at [address] [address] DTYPE AUTO DIFF Normal [facility] Comment on above: Performed By: #### C MPF, ACBC, LIPA2 #### Testing performed at [address] [address] Eosinophils/100 WBC (Bld) 0.0 % Normal 0.0-11.0 [facility] Comment on above: Performed By: #### C MPF, ACBC, LIPA2 #### Testing performed at [address] [address] Lymphocytes (Bld) [#/Vol] 0.70 10*3/uL Low 1.2-3.4 [facility] Comment on above: Performed By: #### C MPF, ACBC, LIPA2 #### Testing performed at [address] [address] Lymphocytes/100 WBC (Bld) 5.5 % Low 20.0-55.0 [facility] Comment on above: Performed By: #### C MPF, ACBC, LIPA2 #### Testing performed at [address] [address] Monocytes (Bld) [#/Vol] 0.9 10*3/uL High 0.0-0.7 [facility] Comment on above: Performed By: #### C MPF, ACBC, LIPA2 #### Testing performed at [address] [address] Monocytes/100 WBC (Bld) 6.4 % Normal 0.0-10.0 [facility] Comment on above: Performed By: #### C MPF, ACBC, LIPA2 #### Testing performed at [address] [address] Neutrophils/100 WBC (Bld) 87.9 % High 37.0-75.0 [facility] Comment on above: Performed By: #### C MPF, ACBC, LIPA2 #### Testing performed at [address] [address] Erythrocyte distribution width (RBC) [Ratio] 14.3 % Normal 11.5-14.5 [facility] Comment on above: Performed By: #### C MPF, ACBC, LIPA2 #### Testing performed at [address] [address] Hematocrit (Bld) [Volume fraction] 39.7 % Normal 36.0-48.0 [facility] Comment on above: Performed By: #### C MPF, ACBC, LIPA2 #### Testing performed at [address] [address] Hemoglobin (Bld) [Mass/Vol] 12.8 g/dL Normal 12.0-16.0 [facility] Comment on above: Performed By: #### C MPF, ACBC, LIPA2 #### Testing performed at [address] [address] MCH (RBC) [Entitic mass] 27.8 pg Normal 26.0-35.0 [facility] Comment on above: Performed By: #### C MPF, ACBC, LIPA2 #### Testing performed at [address] [address] MCHC (RBC) [Mass/Vol] 32.2 g/dL Normal 27.0-37.0 [facility] Comment on above: Performed By: #### C MPF, ACBC, LIPA2 #### Testing performed at [address] [address] MCV (RBC) [Entitic vol] 86.4 fL Normal 80.0-100.0 [facility] Comment on above: Performed By: #### C MPF, ACBC, LIPA2 #### Testing performed at [address] [address] Platelet mean volume (Bld) [Entitic vol] 8.1 fL Normal 7.4-11.0 [facility] Comment on above: Performed By: #### C MPF, ACBC, LIPA2 #### Testing performed at [address] [address] Platelets (Bld) [#/Vol] 207 10*3/uL Normal 130.0-400.0 [facility] Comment on above: Performed By: #### C MPF, ACBC, LIPA2 #### Testing performed at [address] [address] RBC (Bld) [#/Vol] 4.59 10*6/uL Normal 4.0-5.4 [facility] Comment on above: Performed By: #### C MPF, ACBC, LIPA2 #### Testing performed at [address] [address] WBC (Bld) [#/Vol] 13.3 10*3/uL High 3.6-11.0 [facility] Comment on above: Performed By: #### C MPF, ACBC, LIPA2 #### Testing performed at [address] [address] CMP FASTINGon 01-23-2020 A:G RATIO 0.9 RATIO Low 1.3-2.2 [facility] Comment on above: Performed By: #### C MPF, ACBC, LIPA2 #### Testing performed at [address] [address] ALBUMIN 2.9 G/dl Low 3.5-5.0 [facility] Comment on above: Performed By: #### C MPF, ACBC, LIPA2 #### Testing performed at [address] [address] ALP [Catalytic activity/Vol] 70 U/L Normal 38-126 [facility] Comment on above: Performed By: #### C MPF, ACBC, LIPA2 #### Testing performed at [address] [address] ALT [Catalytic activity/Vol] 362 U/L High 14-54 [facility] Comment on above: Performed By: #### C MPF, ACBC, LIPA2 #### Testing performed at [address] [address] AST [Catalytic activity/Vol] 120 U/L High 15-41 [facility] Comment on above: Performed By: #### C MPF, ACBC, LIPA2 #### Testing performed at [address] [address] Bilirubin [Mass/Vol] 1.5 mg/dL High 0.2-1.2 [facility] Comment on above: Performed By: #### C MPF, ACBC, LIPA2 #### Testing performed at [address] [address] Creatinine [Mass/Vol] 0.88 mg/dL Normal 0.52-1.04 [facility] Comment on above: Performed By: #### C MPF, ACBC, LIPA2 #### Testing performed at [address] [address] GFR Information Unable to calculate GFR due to inappropriate age/gender/creatinine value. Normal [facility] Comment on above: Performed By: #### C MPF, ACBC, LIPA2 #### Testing performed at [address] [address] Protein [Mass/Vol] 6.3 g/dL Normal 6.3-8.2 [facility] Comment on above: Performed By: #### C MPF, ACBC, LIPA2 #### Testing performed at [address] [address] Urea nitrogen [Mass/Vol] 8 mg/dL Normal 7-20 [facility] Comment on above: Performed By: #### C MPF, ACBC, LIPA2 #### Testing performed at [address] [address] Calcium [Mass/Vol] 8.4 mg/dL Normal 8.4-10.2 [facility] Comment on above: Performed By: #### C MPF, ACBC, LIPA2 #### Testing performed at [address] [address] Chloride [Moles/Vol] 106 mmol/L Normal 98-107 [facility] Comment on above: Performed By: #### C MPF, ACBC, LIPA2 #### Testing performed at [address] [address] CO2 [Moles/Vol] 22 mmol/L Normal 22-30 [facility] Comment on above: Performed By: #### C MPF, ACBC, LIPA2 #### Testing performed at [address] [address] Glucose [Mass/Vol] 88 mg/dL Normal 70-100 [facility] Comment on above: Result Comment: NORMAL <100 mg/dL PREDIABETES 101-126 mg/dL DIABETES 126 mg/dL or higher Performed By: #### C MPF, ACBC, LIPA2 #### Testing performed at [address] [address] Potassium [Moles/Vol] 4.2 mmol/L Normal 3.5-5.1 [facility] Comment on above: Performed By: #### C MPF, ACBC, LIPA2 #### Testing performed at [address] [address] Sodium [Moles/Vol] 138 mmol/L Normal 136-145 [facility] Comment on above: Performed By: #### C MPF, ACBC, LIPA2 #### Testing performed at [address] [address] Hematologyon 01-23-2020 Basophils/100 WBC (Bld) 0.2 % 0 - 2 % [facility] Eosinophils (Bld) [#/Vol] 0.00 10*3/uL 0 - 0.7 10*3/uL [facility] Eosinophils/100 WBC (Bld) 0.0 % 0 - 11 % [facility] Hematocrit (Bld) [Volume fraction] 39.7 % 36 - 48 % [facility] Hemoglobin (Bld) [Mass/Vol] 12.8 g/dL [facility] Lymphocytes (Bld) [#/Vol] 0.70 10*3/uL Low 1.2 - 3.4 10*3/uL [facility] Lymphocytes/100 WBC (Bld) 5.5 % Low 20 - 55 % [facility] MCH (RBC) [Entitic mass] 27.8 pg 26 - 35 PG [facility] MCV (RBC) [Entitic vol] 86.4 fL [facility] Monocytes (Bld) [#/Vol] 0.9 10*3/uL High 0 - 0.7 10*3/uL [facility] Monocytes/100 WBC (Bld) 6.4 % 0 - 10 % [facility] Neutrophils (Bld) [#/Vol] 11.7 10*3/uL High 1.4 - 6.5 10*3/uL [facility] Neutrophils/100 WBC (Bld) 87.9 % High 37 - 75 % [facility] Platelets (Bld) [#/Vol] 207 10*3/uL 130 - 400 10*3/uL [facility] RBC (Bld) [#/Vol] 4.59 10*6/uL 4 - 5.4 10*6/uL [facility] WBC (Bld) [#/Vol] 13.3 10*3/uL High 3.6 - 11 10*3/uL [facility] LIPASE,SERUMon 01-23-2020 LIPASE,SERUM 130 U/L Normal 23-300 [facility] Comment on above: Performed By: #### C MPF, ACBC, LIPA2 #### Testing performed at [address] [address] Metabolic Panelon 01-23-2020 Albumin [Mass/Vol] 3.3 G/dl Low 3.5 - 5 G/dl [facility] ALP [Catalytic activity/Vol] 94 U/L [facility] ALT [Catalytic activity/Vol] 566 U/L High [facility] AST [Catalytic activity/Vol] 317 U/L High [facility] Bilirubin [Mass/Vol] 1.9 mg/dL High [facility] Calcium [Mass/Vol] 8.7 mg/dL [facility] Chloride [Moles/Vol] 109 mmol/L High [facility] CO2 [Moles/Vol] 22 mmol/L [facility] Creatinine [Mass/Vol] 0.77 mg/dL [facility] GFR/1.73 sq M predicted among non-blacks MDRD (S/P/Bld) [Vol rate/Area] Unable to calculate GFR due to inappropriate age/gender/creatinine value. [facility] Potassium [Moles/Vol] 4.1 mmol/L [facility] Protein [Mass/Vol] 6.5 g/dL [facility] Sodium [Moles/Vol] 141 mmol/L [facility] Urea nitrogen [Mass/Vol] 7 mg/dL [facility] Albumin [Mass/Vol] 2.9 G/dl Low 3.5 - 5 G/dl [facility] ALP [Catalytic activity/Vol] 70 U/L [facility] ALT [Catalytic activity/Vol] 362 U/L [facility] AST [Catalytic activity/Vol] 120 U/L [facility] Bilirubin [Mass/Vol] 1.5 mg/dL [facility] Calcium [Mass/Vol] 8.4 mg/dL [facility] Chloride [Moles/Vol] 106 mmol/L [facility] CO2 [Moles/Vol] 22 mmol/L [facility] Creatinine [Mass/Vol] 0.88 mg/dL [facility] GFR/1.73 sq M predicted among non-blacks MDRD (S/P/Bld) [Vol rate/Area] Unable to calculate GFR due to inappropriate age/gender/creatinine value. [facility] Potassium [Moles/Vol] 4.2 mmol/L [facility] Protein [Mass/Vol] 6.3 g/dL [facility] Sodium [Moles/Vol] 138 mmol/L [facility] Urea nitrogen [Mass/Vol] 8 mg/dL [facility] NOVEL CORONAVIRUSon 01-23-20 20 SARS-CoV-2 (COVID-19) RNA FLY+probe Ql (Unsp spec) Not detected Normal NOT DETECTED [facility] Comment on above: Result Comment: Nega tive results do not preclude SARS-CoV-2 infection and should not be used as the sole basis for treatment or other patient management decisions. Optimum specimen types and timing for peak viral levels during infections caused by SARS-CoV-2 has not been determined. The possibility of a false negative result should especially be considered if the patient's recent exposures or clinical presentation suggest that SARS-CoV-2 infection is probable, and diagnostic tests for other causes of illness (e.g., other respiratory illness) are negative. Collection of a new specimen and re-testing may be necessary if the patient is critically ill or clinically deteriorating. Testing performed at [place] [address] CORRECTED ON 01/22 AT 1056: PREVIOUSLY REPORTED NEGATIVE Performed By: #### C MPF, ACBC, LIPA2 #### [place] [address] NARRATIVE This test was performed using real time PCR and has been approved as Emergency Use Authorization (EUA) for the qualitative detection of SARS-CoV-2 nucleic acid. Normal [facility] Comment on above: Performed By: #### C MPF, ACBC, LIPA2 #### [place] [address] Otheron 01-23-2020 NARRATIVE -1 This test was performed using real time PCR and has been approved as Emergency Use Authorization (EUA) for the qualitative detection of SARS-CoV-2 nucleic acid. [facility] SARS COV 2 RNA, QL REAL TIME RT PCR NOT DETECTED NOT DETECTED [facility] Comment on above: Negative results do not preclude SARS-CoV-2 infection and should not be used as the sole basis for treatment or other patient management decisions. Optimum specimen types and timing for peak viral levels during infections caused by SARS-CoV-2 has not been determined. The possibility of a false negative result should especially be considered if the patient's recent exposures or clinical presentation suggest that SARS-CoV-2 infection is probable, and diagnostic tests for other causes of illness (e.g., other respiratory illness) are negative. Collection of a new specimen and re-testing may be necessary if the patient is critically ill or clinically deteriorating. Testing performed at [place], [place] [address] CORRECTED ON 01/22 AT 1056: PREVIOUSLY REPORTED NEGATIVE Albumin/Globulin [Mass ratio] 1.0 {ratio} Low [facility] Glucose post fast [Mass/Vol] 108 mg/dL High [facility] Comment on above: NORMAL <100 mg/dL PREDIABETES 101-126 mg/dL DIABETES 126 mg/dL or higher Interpretation and review of laboratory results Abnormal [facility] Lipase [Catalytic activity/Vol] 737 U/L Critically high 23 - 300 U/L [facility] Comment on above: RESULTS CALLED AND R EAD BACK BY Deanne SPIVEY ON 01/23/2020 @ 1030 BY JAVAD Albumin/Globulin [Mass ratio] 0.9 {ratio} Low [facility] Glucose post fast [Mass/Vol] 88 mg/dL [facility] Comment on above: NORMAL <100 mg/dL PREDIABETES 101-126 mg/dL DIABETES 126 mg/dL or higher Interpretation and review of laboratory results Abnormal [facility] Lipase [Catalytic activity/Vol] 130 U/L 23 - 300 U/L [facility] ABSOLUTE BASOPHIL COUNT 0.0 10*3/uL 0 - 0.2 10*3/uL [facility] Differential cell count method Nom (Bld) AUTO DIFF % [facility] Erythrocyte distribution width (RBC) [Ratio] 14.3 % 11.5 - 14.5 % [facility] Interpretation and review of laboratory results Abnormal [facility] MCHC (RBC) [Mass/Vol] 32.2 g/dL [facility] Platelet mean volume (Bld) [Entitic vol] 8.1 fL [facility] CBCon 01-22-2020 ABSOLUTE BAS 0.1 10*3/uL Normal 0.0-0.2 [facility] Comment on above: Performed By: #### C MPF, ACBC, LIPA2 #### Testing performed at [facility] [address] [place] [address] ABSOLUTE EOS 0.00 10*3/uL Normal 0.0-0.7 [facility] Comment on above: Performed By: #### C MPF, ACBC, LIPA2 #### Testing performed at [address] [address] ABSOLUTE NEUTROPHIL COUNT 13.6 10*3/uL High 1.4-6.5 [facility] Comment on above: Performed By: #### C MPF, ACBC, LIPA2 #### Testing performed at [address] [address] Basophils/100 WBC (Bld) 0.5 % Normal 0.0-2.0 [facility] Comment on above: Performed By: #### C MPF, ACBC, LIPA2 #### Testing performed at [address] [address] DTYPE AUTO DIFF Normal [facility] Comment on above: Performed By: #### C MPF, ACBC, LIPA2 #### Testing performed at [address] [address] Eosinophils/100 WBC (Bld) 0.0 % Normal 0.0-11.0 [facility] Comment on above: Performed By: #### C MPF, ACBC, LIPA2 #### Testing performed at [address] [address] Lymphocytes (Bld) [#/Vol] 0.70 10*3/uL Low 1.2-3.4 [facility] Comment on above: Performed By: #### C MPF, ACBC, LIPA2 #### Testing performed at [address] [address] Lymphocytes/100 WBC (Bld) 4.8 % Low 20.0-55.0 [facility] Comment on above: Performed By: #### C MPF, ACBC, LIPA2 #### Testing performed at [address] [address] Monocytes (Bld) [#/Vol] 0.9 10*3/uL High 0.0-0.7 [facility] Comment on above: Performed By: #### C MPF, ACBC, LIPA2 #### Testing performed at [address] [address] Monocytes/100 WBC (Bld) 5.6 % Normal 0.0-10.0 [facility] Comment on above: Performed By: #### C MPF, ACBC, LIPA2 #### Testing performed at [address] [address] Neutrophils/100 WBC (Bld) 89.1 % High 37.0-75.0 [facility] Comment on above: Performed By: #### C MPF, ACBC, LIPA2 #### Testing performed at [address] [address] Erythrocyte distribution width (RBC) [Ratio] 13.9 % Normal 11.5-14.5 [facility] Comment on above: Performed By: #### C MPF, ACBC, LIPA2 #### Testing performed at [address] [address] Hematocrit (Bld) [Volume fraction] 42.9 % Normal 36.0-48.0 [facility] Comment on above: Performed By: #### C MPF, ACBC, LIPA2 #### Testing performed at [address] [address] Hemoglobin (Bld) [Mass/Vol] 13.9 g/dL Normal 12.0-16.0 [facility] Comment on above: Performed By: #### C MPF, ACBC, LIPA2 #### Testing performed at [address] [address] MCH (RBC) [Entitic mass] 27.9 pg Normal 26.0-35.0 [facility] Comment on above: Performed By: #### C MPF, ACBC, LIPA2 #### Testing performed at [address] [address] MCHC (RBC) [Mass/Vol] 32.3 g/dL Normal 27.0-37.0 [facility] Comment on above: Performed By: #### C MPF, ACBC, LIPA2 #### Testing performed at [address] [address] MCV (RBC) [Entitic vol] 86.4 fL Normal 80.0-100.0 [facility] Comment on above: Performed By: #### C MPF, ACBC, LIPA2 #### Testing performed at [address] [address] Platelet mean volume (Bld) [Entitic vol] 8.2 fL Normal 7.4-11.0 [facility] Comment on above: Performed By: #### C MPF, ACBC, LIPA2 #### Testing performed at [address] [address] Platelets (Bld) [#/Vol] 243 10*3/uL Normal 130.0-400.0 [facility] Comment on above: Performed By: #### C MPF, ACBC, LIPA2 #### Testing performed at [address] [address] RBC (Bld) [#/Vol] 4.96 10*6/uL Normal 4.0-5.4 [facility] Comment on above: Performed By: #### C MPF, ACBC, LIPA2 #### Testing performed at [address] [address] WBC (Bld) [#/Vol] 15.3 10*3/uL High 3.6-11.0 [facility] Comment on above: Performed By: #### C MPF, ACBC, LIPA2 #### Testing performed at [address] [address] CMP FASTINGon 01-21-2019 A:G RATIO 1.0 RATIO Low 1.3-2.2 [facility] Comment on above: Performed By: #### C MPF, ACBC, LIPA2 #### Testing performed at [address] [address] ALBUMIN 3.3 G/dl Low 3.5-5.0 [facility] Comment on above: Performed By: #### C MPF, ACBC, LIPA2 #### Testing performed at [address] [address] ALP [Catalytic activity/Vol] 94 U/L Normal 38-126 [facility] Comment on above: Performed By: #### C MPF, ACBC, LIPA2 #### Testing performed at [address] [address] ALT [Catalytic activity/Vol] 566 U/L High 14-54 [facility] Comment on above: Performed By: #### C MPF, ACBC, LIPA2 #### Testing performed at [address] [address] AST [Catalytic activity/Vol] 317 U/L High 15-41 [facility] Comment on above: Performed By: #### C MPF, ACBC, LIPA2 #### Testing performed at [address] [address] Bilirubin [Mass/Vol] 1.9 mg/dL High 0.2-1.2 [facility] Comment on above: Performed By: #### C MPF, ACBC, LIPA2 #### Testing performed at [address] [address] Creatinine [Mass/Vol] 0.77 mg/dL Normal 0.52-1.04 [facility] Comment on above: Performed By: #### C MPF, ACBC, LIPA2 #### Testing performed at [address] [address] GFR Information Unable to calculate GFR due to inappropriate age/gender/creatinine value. Normal [facility] Comment on above: Performed By: #### C MPF, ACBC, LIPA2 #### Testing performed at [address] [address] Protein [Mass/Vol] 6.5 g/dL Normal 6.3-8.2 [facility] Comment on above: Performed By: #### C MPF, ACBC, LIPA2 #### Testing performed at [address] [address] Urea nitrogen [Mass/Vol] 7 mg/dL Normal 7-20 [facility] Comment on above: Performed By: #### C MPF, ACBC, LIPA2 #### Testing performed at [address] [address] Calcium [Mass/Vol] 8.7 mg/dL Normal 8.4-10.2 [facility] Comment on above: Performed By: #### C MPF, ACBC, LIPA2 #### Testing performed at [address] [address] Chloride [Moles/Vol] 109 mmol/L High 98-107 [facility] Comment on above: Performed By: #### C MPF, ACBC, LIPA2 #### Testing performed at [address] [address] CO2 [Moles/Vol] 22 mmol/L Normal 22-30 [facility] Comment on above: Performed By: #### C MPF, ACBC, LIPA2 #### Testing performed at [address] [address] Glucose [Mass/Vol] 108 mg/dL High 70-100 [facility] Comment on above: Result Comment: NORMAL <100 mg/dL PREDIABETES 101-126 mg/dL DIABETES 126 mg/dL or higher Performed By: #### C MPF, ACBC, LIPA2 #### Testing performed at [address] [address] Potassium [Moles/Vol] 4.1 mmol/L Normal 3.5-5.1 [facility] Comment on above: Performed By: #### C MPF, ACBC, LIPA2 #### Testing performed at [address] [address] Sodium [Moles/Vol] 141 mmol/L Normal 136-145 [facility] Comment on above: Performed By: #### C MPF, ACBC, LIPA2 #### Testing performed at [address] [address] Hematologyon 01-22-2020 Basophils/100 WBC (Bld) 0.5 % 0 - 2 % [facility] Eosinophils (Bld) [#/Vol] 0.00 10*3/uL 0 - 0.7 10*3/uL [facility] Eosinophils/100 WBC (Bld) 0.0 % 0 - 11 % [facility] Hematocrit (Bld) [Volume fraction] 42.9 % 36 - 48 % [facility] Hemoglobin (Bld) [Mass/Vol] 13.9 g/dL [facility] Lymphocytes (Bld) [#/Vol] 0.70 10*3/uL Low 1.2 - 3.4 10*3/uL [facility] Lymphocytes/100 WBC (Bld) 4.8 % Low 20 - 55 % [facility] MCH (RBC) [Entitic mass] 27.9 pg 26 - 35 PG [facility] MCV (RBC) [Entitic vol] 86.4 fL [facility] Monocytes (Bld) [#/Vol] 0.9 10*3/uL High 0 - 0.7 10*3/uL [facility] Monocytes/100 WBC (Bld) 5.6 % 0 - 10 % [facility] Neutrophils (Bld) [#/Vol] 13.6 10*3/uL High 1.4 - 6.5 10*3/uL [facility] Neutrophils/100 WBC (Bld) 89.1 % High 37 - 75 % [facility] Platelets (Bld) [#/Vol] 243 10*3/uL 130 - 400 10*3/uL [facility] RBC (Bld) [#/Vol] 4.96 10*6/uL 4 - 5.4 10*6/uL [facility] WBC (Bld) [#/Vol] 15.3 10*3/uL High 3.6 - 11 10*3/uL [facility] LIPASE,SERUMon 01-22-2020 LIPASE,SERUM 737 U/L Critically high 23-300 [facility] Comment on above: Result Comment: RESU LTS CALLED AND READ BACK BY Deanne SPIVEY ON 01/23/2020 @ 1030 BY JAVAD Performed By: #### C MPF, ACBC, LIPA2 #### [place] [address] Otheron 01-22-2020 ABSOLUTE BASOPHIL COUNT 0.1 10*3/uL 0 - 0.2 10*3/uL [facility] Differential cell count method Nom (Bld) AUTO DIFF % [facility] Erythrocyte distribution width (RBC) [Ratio] 13.9 % 11.5 - 14.5 % [facility] Interpretation and review of laboratory results Abnormal [facility] MCHC (RBC) [Mass/Vol] 32.3 g/dL [facility] Platelet mean volume (Bld) [Entitic vol] 8.2 fL [facility] CBCon 01-21-2020 ABSOLUTE BAS 0.1 10*3/uL Normal 0.0-0.2 [facility] Comment on above: Performed By: #### C MPF, ACBC, LIPA2 #### Testing performed at [address] [address] ABSOLUTE EOS 0.00 10*3/uL Normal 0.0-0.7 [facility] Comment on above: Performed By: #### C MPF, ACBC, LIPA2 #### Testing performed at [address] [address] ABSOLUTE NEUTROPHIL COUNT 7.4 10*3/uL High 1.4-6.5 [facility] Comment on above: Performed By: #### C MPF, ACBC, LIPA2 #### Testing performed at [address] [address] Basophils/100 WBC (Bld) 0.6 % Normal 0.0-2.0 [facility] Comment on above: Performed By: #### C MPF, ACBC, LIPA2 #### Testing performed at [address] [address] DTYPE AUTO DIFF Normal [facility] Comment on above: Performed By: #### C MPF, ACBC, LIPA2 #### Testing performed at [address] [address] Eosinophils/100 WBC (Bld) 0.2 % Normal 0.0-11.0 [facility] Comment on above: Performed By: #### C MPF, ACBC, LIPA2 #### Testing performed at [address] [address] Lymphocytes (Bld) [#/Vol] 1.00 10*3/uL Low 1.2-3.4 [facility] Comment on above: Performed By: #### C MPF, ACBC, LIPA2 #### Testing performed at [address] [address] Lymphocytes/100 WBC (Bld) 10.8 % Low 20.0-55.0 [facility] Comment on above: Performed By: #### C MPF, ACBC, LIPA2 #### Testing performed at [address] [address] Monocytes (Bld) [#/Vol] 0.8 10*3/uL High 0.0-0.7 [facility] Comment on above: Performed By: #### C MPF, ACBC, LIPA2 #### Testing performed at [address] [address] Monocytes/100 WBC (Bld) 8.3 % Normal 0.0-10.0 [facility] Comment on above: Performed By: #### C MPF, ACBC, LIPA2 #### Testing performed at [address] [address] Neutrophils/100 WBC (Bld) 80.1 % High 37.0-75.0 [facility] Comment on above: Performed By: #### C MPF, ACBC, LIPA2 #### Testing performed at [address] [address] Erythrocyte distribution width (RBC) [Ratio] 13.7 % Normal 11.5-14.5 [facility] Comment on above: Performed By: #### C MPF, ACBC, LIPA2 #### Testing performed at [address] [address] Hematocrit (Bld) [Volume fraction] 45.6 % Normal 36.0-48.0 [facility] Comment on above: Performed By: #### C MPF, ACBC, LIPA2 #### Testing performed at [address] [address] Hemoglobin (Bld) [Mass/Vol] 14.9 g/dL Normal 12.0-16.0 [facility] Comment on above: Performed By: #### C MPF, ACBC, LIPA2 #### Testing performed at [address] [address] MCH (RBC) [Entitic mass] 27.7 pg Normal 26.0-35.0 [facility] Comment on above: Performed By: #### C MPF, ACBC, LIPA2 #### Testing performed at [address] [address] MCHC (RBC) [Mass/Vol] 32.8 g/dL Normal 27.0-37.0 [facility] Comment on above: Performed By: #### C MPF, ACBC, LIPA2 #### Testing performed at [address] [address] MCV (RBC) [Entitic vol] 84.5 fL Normal 80.0-100.0 [facility] Comment on above: Performed By: #### C MPF, ACBC, LIPA2 #### Testing performed at [address] [address] Platelet mean volume (Bld) [Entitic vol] 8.2 fL Normal 7.4-11.0 [facility] Comment on above: Performed By: #### C MPF, ACBC, LIPA2 #### Testing performed at [address] [address] Platelets (Bld) [#/Vol] 321 10*3/uL Normal 130.0-400.0 [facility] Comment on above: Performed By: #### C MPF, ACBC, LIPA2 #### Testing performed at [address] [address] RBC (Bld) [#/Vol] 5.39 10*6/uL Normal 4.0-5.4 [facility] Comment on above: Performed By: #### C MPF, ACBC, LIPA2 #### Testing performed at [address] [address] WBC (Bld) [#/Vol] 9.2 10*3/uL Normal 3.6-11.0 [facility] Comment on above: Performed By: #### C MPF, ACBC, LIPA2 #### Testing performed at [address] [address] CHEM 7 FASTINGon - Creatinine [Mass/Vol] 0.77 mg/dL Normal 0.52-1.04 [facility] Comment on above: Performed By: #### C MPF, ACBC, LIPA2 #### Testing performed at [address] [address] GFR Information Unable to calculate GFR due to inappropriate age/gender/creatinine value. Normal [facility] Comment on above: Performed By: #### C MPF, ACBC, LIPA2 #### Testing performed at [address] [address] Urea nitrogen [Mass/Vol] 5 mg/dL Low 7-20 [facility] Comment on above: Performed By: #### C MPF, ACBC, LIPA2 #### Testing performed at [address] [address] Chloride [Moles/Vol] 104 mmol/L Normal 98-107 [facility] Comment on above: Performed By: #### C MPF, ACBC, LIPA2 #### Testing performed at [address] [address] CO2 [Moles/Vol] 22 mmol/L Normal 22-30 [facility] Comment on above: Performed By: #### C MPF, ACBC, LIPA2 #### Testing performed at [address] [address] Glucose [Mass/Vol] 159 mg/dL High 70-100 [facility] Comment on above: Result Comment: NORMAL <100 mg/dL PREDIABETES 101-126 mg/dL DIABETES 126 mg/dL or higher Performed By: #### C MPF, ACBC, LIPA2 #### Testing performed at [address] [address] Potassium [Moles/Vol] 3.2 mmol/L Low 3.5-5.1 [facility] Comment on above: Performed By: #### C MPF, ACBC, LIPA2 #### Testing performed at [address] [address] Sodium [Moles/Vol] 139 mmol/L Normal 136-145 [facility] Comment on above: Performed By: #### C MPF, ACBC, LIPA2 #### Testing performed at [address] [address] Hematologyon 01-21-2020 Basophils/100 WBC (Bld) 0.6 % 0 - 2 % [facility] Eosinophils (Bld) [#/Vol] 0.00 10*3/uL 0 - 0.7 10*3/uL [facility] Eosinophils/100 WBC (Bld) 0.2 % 0 - 11 % [facility] Hematocrit (Bld) [Volume fraction] 45.6 % 36 - 48 % [facility] Hemoglobin (Bld) [Mass/Vol] 14.9 g/dL [facility] Lymphocytes (Bld) [#/Vol] 1.00 10*3/uL Low 1.2 - 3.4 10*3/uL [facility] Lymphocytes/100 WBC (Bld) 10.8 % Low 20 - 55 % [facility] MCH (RBC) [Entitic mass] 27.7 pg 26 - 35 PG [facility] MCV (RBC) [Entitic vol] 84.5 fL [facility] Monocytes (Bld) [#/Vol] 0.8 10*3/uL High 0 - 0.7 10*3/uL [facility] Monocytes/100 WBC (Bld) 8.3 % 0 - 10 % [facility] Neutrophils (Bld) [#/Vol] 7.4 10*3/uL High 1.4 - 6.5 10*3/uL [facility] Neutrophils/100 WBC (Bld) 80.1 % High 37 - 75 % [facility] Platelets (Bld) [#/Vol] 321 10*3/uL 130 - 400 10*3/uL [facility] RBC (Bld) [#/Vol] 5.39 10*6/uL 4 - 5.4 10*6/uL [facility] WBC (Bld) [#/Vol] 9.2 10*3/uL 3.6 - 11 10*3/uL [facility] LIPASE,SERUMon 01-21-2020 LIPASE,SERUM >1893 Critically high 23-300 [facility] Comment on above: Result Comment: Resu lt called to read back by: MAYITO 01/21/2020 @ 03:33 by GOSIA Performed By: #### C MPF, ACBC, LIPA2 #### Testing performed at [place] [id number] LIVER PANELon 01-21-2020 Albumin [Mass/Vol] 4.5 g/dL Normal 3.5-5.0 [facility] Comment on above: Performed By: #### C MPF, ACBC, LIPA2 #### Testing performed at [address] [address] ALP [Catalytic activity/Vol] 130 U/L High 38-126 [facility] Comment on above: Performed By: #### C MPF, ACBC, LIPA2 #### Testing performed at [address] [address] ALT [Catalytic activity/Vol] 370 U/L High 14-54 [facility] Comment on above: Performed By: #### C MPF, ACBC, LIPA2 #### Testing performed at [address] [address] AST [Catalytic activity/Vol] 196 U/L High 15-41 [facility] Comment on above: Performed By: #### C MPF, ACBC, LIPA2 #### Testing performed at [address] [address] Bilirubin [Mass/Vol] 4.6 mg/dL High 0.2-1.2 [facility] Comment on above: Performed By: #### C MPF, ACBC, LIPA2 #### Testing performed at [address] [address] Bilirubin.indirect [Mass/Vol] 2.9 mg/dL High 0.0-0.2 [facility] Comment on above: Performed By: #### C MPF, ACBC, LIPA2 #### Testing performed at [address] [address] Protein [Mass/Vol] 7.9 g/dL Normal 6.3-8.2 [facility] Comment on above: Performed By: #### C MPF, ACBC, LIPA2 #### Testing performed at [address] [address] MRI MRCPon 01-21-2020 MRI MRCP EXAM: MRI MRCP HISTORY: Pancreatitis. Gallbladder disease. COMPARISON: Right upper quadrant ultrasound January 18, 2020. TECHNIQUE: Multisequence multiplanar MR images of the abdomen were acquired using the MRCP protocol including respiratory gated 3-D heavily weighted T2 MRCP sequences with maximum intensity projections. FINDINGS: The gallbladder is nondilated. There are multiple tiny stones within the gallbladder body and neck measuring less than 5 mm. No appreciable gallbladder wall edema. No intrahepatic biliary duct dilatation. The common bile duct measures up to 6 mm in diameter tapering at the ampulla. No visible common bile duct stones. There is moderate stranding in the retroperitoneum surrounding the pancreas and there is a small amount of fluid accumulation present within the anterior pararenal spaces bilaterally. Overall findings compatible with acute pancreatitis. Based on the unenhanced study, no encapsulated fluid collection at this time. No obvious pancreatic masses. There is no pancreatic duct dilatation. Limited evaluation of the liver and spleen show no abnormalities. The adrenal glands are unremarkable. Kidneys are unremarkable. No bulky adenopathy. IMPRESSION: 1. Moderate changes compatible with acute pancreatitis. 2. Cholelithiasis seen as multiple tiny stones. No evidence of acute cholecystitis. 3. Common bile duct diameter 6 mm at the upper limits of normal. No evidence of choledocholithiasis although stones less than 3 mm may not be visible by MRCP. If there is further clinical concern, ERCP may be helpful. Normal [facility] MRSA SCREENon 01-21-2020 MRSA DNA FLY+probe Ql (Unsp spec) Negative Normal NEGATIVE [facility] Comment on above: Performed By: #### A CBC, CMPF, LIPA2 #### [place] [address] [employer] AUREUS SCREEN Positive Abnormal NEGATIVE [facility] Comment on above: Result Comment: TEST ING PERFORMED BY PCR Performed By: #### A CBC, CMPF, LIPA2 #### [place] [address] Metabolic Panelon 01-21-2020 Albumin [Mass/Vol] 4.5 g/dL [facility] ALP [Catalytic activity/Vol] 130 U/L [facility] ALT [Catalytic activity/Vol] 370 U/L [facility] AST [Catalytic activity/Vol] 196 U/L [facility] Bilirubin [Mass/Vol] 4.6 mg/dL [facility] Bilirubin.direct [Mass/Vol] 2.9 mg/dL [facility] Chloride [Moles/Vol] 104 mmol/L [facility] CO2 [Moles/Vol] 22 mmol/L [facility] Creatinine [Mass/Vol] 0.77 mg/dL [facility] GFR/1.73 sq M predicted among non-blacks MDRD (S/P/Bld) [Vol rate/Area] Unable to calculate GFR due to inappropriate age/gender/creatinine value. [facility] Potassium [Moles/Vol] 3.2 mmol/L Low [facility] Protein [Mass/Vol] 7.9 g/dL [facility] Sodium [Moles/Vol] 139 mmol/L [facility] Urea nitrogen [Mass/Vol] 5 mg/dL Low [facility] Otheron 01-21-2020 IMPRESSION: 1. Moderate changes compatible with acute pancreatitis. 2. Cholelithiasis seen as multiple tiny stones. No evidence of acute cholecystitis. 3. Common bile duct diameter 6 mm at the upper limits of normal. No evidence of choledocholithiasis although stones less than 3 mm may not be visible by MRCP. If there is further clinical concern, ERCP may be helpful. hint User, Interfaces 01/21/2020 6:45 PM EDT EXAM: MRI MRCP HISTORY: Pancreatitis. Gallbladder disease. COMPARISON: Right upper quadrant ultrasound January 18, 2020. TECHNIQUE: Multisequence multiplanar MR images of the abdomen were acquired using the MRCP protocol including respiratory gated 3-D heavily weighted T2 MRCP sequences with maximum intensity projections. FINDINGS: The gallbladder is nondilated. There are multiple tiny stones within the gallbladder body and neck measuring less than 5 mm. No appreciable gallbladder wall edema. No intrahepatic biliary duct dilatation. The common bile duct measures up to 6 mm in diameter tapering at the ampulla. No visible common bile duct stones. There is moderate stranding in the retroperitoneum surrounding the pancreas and there is a small amount of fluid accumulation present within the anterior pararenal spaces bilaterally. Overall findings compatible with acute pancreatitis. Based on the unenhanced study, no encapsulated fluid collection at this time. No obvious pancreatic masses. There is no pancreatic duct dilatation. Limited evaluation of the liver and spleen show no abnormalities. The adrenal glands are unremarkable. Kidneys are unremarkable. No bulky adenopathy. IMPRESSION IMPRESSION: 1. Moderate changes compatible with acute pancreatitis. 2. Cholelithiasis seen as multiple tiny stones. No evidence of acute cholecystitis. 3. Common bile duct diameter 6 mm at the upper limits of normal. No evidence of choledocholithiasis although stones less than 3 mm may not be visible by MRCP. If there is further clinical concern, ERCP may be helpful. hint EXAM: MRI MRCP HISTORY: Pancreatitis. Gallbladder disease. COMPARISON: Right upper quadrant ultrasound January 18, 2020. TECHNIQUE: Multisequence multiplanar MR images of the abdomen were acquired using the MRCP protocol including respiratory gated 3-D heavily weighted T2 MRCP sequences with maximum intensity projections. FINDINGS: The gallbladder is nondilated. There are multiple tiny stones within the gallbladder body and neck measuring less than 5 mm. No appreciable gallbladder wall edema. No intrahepatic biliary duct dilatation. The common bile duct measures up to 6 mm in diameter tapering at the ampulla. No visible common bile duct stones. There is moderate stranding in the retroperitoneum surrounding the pancreas and there is a small amount of fluid accumulation present within the anterior pararenal spaces bilaterally. Overall findings compatible with acute pancreatitis. Based on the unenhanced study, no encapsulated fluid collection at this time. No obvious pancreatic masses. There is no pancreatic duct dilatation. Limited evaluation of the liver and spleen show no abnormalities. The adrenal glands are unremarkable. Kidneys are unremarkable. No bulky adenopathy. [facility] Interpretation and review of laboratory results Abnormal [facility] MRSA isol Org specific cx Ql (Nose) Negative NEGATIVE [facility] STAPHYOCOCCUS AUREUS BY PCR Positive Abnormal NEGATIVE [facility] Comment on above: TESTING PERFORMED BY PCR Interpretation and review of laboratory results Abnormal [facility] Lipase [Catalytic activity/Vol] U/L Critically high 23 - 300 U/L [facility] Comment on above: Result called to isaac crowell back by: MAYITO 01/21/2020 @ 03:33 by JDW Glucose post fast [Mass/Vol] 159 mg/dL High [facility] Comment on above: NORMAL <100 mg/dL PREDIABETES 101-126 mg/dL DIABETES 126 mg/dL or higher Interpretation and review of laboratory results Abnormal [facility] Bilirubin Ql (U) LARGE Abnormal NEGATIVE [facility] Glucose Test strip (U) [Mass/Vol] 100 mg/dl Abnormal NEGATIVE [facility] Hemoglobin Ql (U) MODERATE Abnormal NEGATIVE [facility] Interpretation and review of laboratory results Abnormal [facility] Ketones (U) [Mass/Vol] 15 mg/dl Abnormal NEGATIVE [facility] Mucus Ql (Urine sed) TRACE Abnormal NEGATIVE [facility] Nitrite Ql (U) Negative NEGATIVE [facility] pH (U) 5.5 [pH] [facility] Protein Ql (U) 100 mg/dl Abnormal NEGATIVE [facility] Urobilinogen (U) [Mass/Vol] 1.0 [facility] ABSOLUTE BASOPHIL COUNT 0.1 10*3/uL 0 - 0.2 10*3/uL [facility] Differential cell count method Nom (Bld) AUTO DIFF % [facility] Erythrocyte distribution width (RBC) [Ratio] 13.7 % 11.5 - 14.5 % [facility] Interpretation and review of laboratory results Abnormal [facility] MCHC (RBC) [Mass/Vol] 32.8 g/dL [facility] Platelet mean volume (Bld) [Entitic vol] 8.2 fL [facility] URINE HCG QUALon 01-21-2020 Beta HCG ( test) Ql (U) Negative Normal NEGATIVE [facility] Comment on above: Performed By: #### C MPF, ACBC, LIPA2 #### Testing performed at [address] [address] URINE MACROSCOPICon 01-21-20 20 Bilirubin Ql (U) LARGE Abnormal NEGATIVE [facility] Comment on above: Performed By: #### C MPF, ACBC, LIPA2 #### Testing performed at [address] [address] Clarity (U) CLEAR Normal CLEAR [facility] Comment on above: Performed By: #### C MPF, ACBC, LIPA2 #### Testing performed at [address] [address] Color (U) ORANGE Abnormal YELLOW [facility] Comment on above: Performed By: #### C MPF, ACBC, LIPA2 #### Testing performed at [address] [address] Glucose Ql (U) 100 mg/dl Abnormal NEGATIVE [facility] Comment on above: Performed By: #### C MPF, ACBC, LIPA2 #### Testing performed at [address] [address] pH (U) 5.5 [pH] Normal 5.0-7.0 [facility] Comment on above: Performed By: #### C MPF, ACBC, LIPA2 #### Testing performed at [address] [address] Protein (U) [Mass/Vol] 100 mg/dL Abnormal NEGATIVE [facility] Comment on above: Performed By: #### C MPF, ACBC, LIPA2 #### Testing performed at [address] [address] URINE HEMOGLOBIN MODERATE Abnormal NEGATIVE [facility] Comment on above: Performed By: #### C MPF, ACBC, LIPA2 #### Testing performed at [address] [address] URINE KETONE 15 mg/dl Abnormal NEGATIVE [facility] Comment on above: Performed By: #### C MPF, ACBC, LIPA2 #### Testing performed at [address] [address] URINE LEUKOTEST Negative Normal NEGATIVE [facility] Comment on above: Performed By: #### C MPF, ACBC, LIPA2 #### Testing performed at [address] [address] URINE NITRATES Negative Normal NEGATIVE [facility] Comment on above: Performed By: #### C MPF, ACBC, LIPA2 #### Testing performed at [address] [place] [address] URINE SPEC GRAVITY >1.030 High 1.010-1.025 [facility] Comment on above: Performed By: #### C MPF, ACBC, LIPA2 #### Testing performed at [address] [address] Urobilinogen Qn (U) 1.0 {Keven'U}/dL Normal 0.2-1.0 [facility] Comment on above: Performed By: #### C MPF, ACBC, LIPA2 #### Testing performed at [address] [address] URINE MICROSCOPICon 01-21-20 20 BACTERIA TRACE Abnormal NEGATIVE [facility] Comment on above: Performed By: #### C MPF, ACBC, LIPA2 #### Testing performed at [address] [address] CASTS NONE Normal NONE [facility] Comment on above: Performed By: #### C MPF, ACBC, LIPA2 #### Testing performed at [address] [place] [address] CRYSTAL NONE Normal NONE [facility] Comment on above: Performed By: #### C MPF, ACBC, LIPA2 #### Testing performed at [address] [address] Epithelial cells LM Ql (Urine sed) 1 TO 5 Normal [facility] Comment on above: Performed By: #### C MPF, ACBC, LIPA2 #### Testing performed at [address] [address] Mucus Ql (Urine sed) TRACE Abnormal NEGATIVE [facility] Comment on above: Performed By: #### C MPF, ACBC, LIPA2 #### [place] [address] URINE COMMENT CULTURE CRITERIA NOT MET, NO CULTURE PERFORMED. Normal [facility] Comment on above: Performed By: #### C MPF, ACBC, LIPA2 #### [place] [address] URINE RBC'S 5 TO 10 Normal NEGATIVE [facility] Comment on above: Performed By: #### C MPF, ACBC, LIPA2 #### Testing performed at [address] [address] URINE WBC'S 1 TO 5 Normal NEGATIVE [facility] Comment on above: Performed By: #### C MPF, ACBC, LIPA2 #### Testing performed at [address] [address] Urinalysison 01-21-2020 HCG ( test) Ql (U) Negative NEGATIVE [facility] Bacteria LM.HPF (Urine sed) [#/Area] TRACE Abnormal NEGATIVE [facility] Casts LM.LPF (Urine sed) [#/Area] NONE NONE /LPF [facility] Clarity (U) CLEAR CLEAR [facility] Color (U) ORANGE Abnormal YELLOW [facility] Crystals LM Nom (Urine sed) NONE NONE [facility] Epithelial cells LM Ql (Urine sed) 1 TO 5 /HPF [facility] Leukocyte esterase Test strip Ql (U) Negative NEGATIVE [facility] RBC LM.HPF (Urine sed) [#/Area] 5 TO 10 NEGATIVE /HPF [facility] Specific gravity (U) [Rel density] >1.030 High [facility] Urine sediment comments LM Charles (Urine sed) CULTURE CRITERIA NOT MET, NO CULTURE PERFORMED. [facility] WBC LM.HPF (Urine sed) [#/Area] 1 TO 5 NEGATIVE /HPF [facility] CBCon 01-18-2020 ABSOLUTE BAS 0.0 10*3/uL Normal 0.0-0.2 [facility] Comment on above: Performed By: #### C MPF, ACBC, LIPA2 #### Testing performed at [address] [address] ABSOLUTE EOS 0.00 10*3/uL Normal 0.0-0.7 [facility] Comment on above: Performed By: #### C MPF, ACBC, LIPA2 #### Testing performed at [address] [address] ABSOLUTE NEUTROPHIL COUNT 2.6 10*3/uL Normal 1.4-6.5 [facility] Comment on above: Performed By: #### C MPF, ACBC, LIPA2 #### Testing performed at [address] [address] Basophils/100 WBC (Bld) 0.7 % Normal 0.0-2.0 [facility] Comment on above: Performed By: #### C MPF, ACBC, LIPA2 #### Testing performed at [address] [address] DTYPE AUTO DIFF Normal [facility] Comment on above: Performed By: #### C MPF, ACBC, LIPA2 #### Testing performed at [address] [address] Eosinophils/100 WBC (Bld) 1.0 % Normal 0.0-11.0 [facility] Comment on above: Performed By: #### C MPF, ACBC, LIPA2 #### Testing performed at [address] [address] Lymphocytes (Bld) [#/Vol] 1.10 10*3/uL Low 1.2-3.4 [facility] Comment on above: Performed By: #### C MPF, ACBC, LIPA2 #### Testing performed at [address] [place] [address] Lymphocytes/100 WBC (Bld) 26.8 % Normal 20.0-55.0 [facility] Comment on above: Performed By: #### C MPF, ACBC, LIPA2 #### Testing performed at [address] [address] Monocytes (Bld) [#/Vol] 0.4 10*3/uL Normal 0.0-0.7 [facility] Comment on above: Performed By: #### C MPF, ACBC, LIPA2 #### Testing performed at [address] [address] Monocytes/100 WBC (Bld) 9.8 % Normal 0.0-10.0 [facility] Comment on above: Performed By: #### C MPF, ACBC, LIPA2 #### Testing performed at [address] [address] Neutrophils/100 WBC (Bld) 61.7 % Normal 37.0-75.0 [facility] Comment on above: Performed By: #### C MPF, ACBC, LIPA2 #### Testing performed at [address] [address] Erythrocyte distribution width (RBC) [Ratio] 13.6 % Normal 11.5-14.5 [facility] Comment on above: Performed By: #### C MPF, ACBC, LIPA2 #### Testing performed at [address] [address] Hematocrit (Bld) [Volume fraction] 42.6 % Normal 36.0-48.0 [facility] Comment on above: Performed By: #### C MPF, ACBC, LIPA2 #### Testing performed at [address] [address] Hemoglobin (Bld) [Mass/Vol] 14.1 g/dL Normal 12.0-16.0 [facility] Comment on above: Performed By: #### C MPF, ACBC, LIPA2 #### Testing performed at [address] [address] MCH (RBC) [Entitic mass] 27.8 pg Normal 26.0-35.0 [facility] Comment on above: Performed By: #### C MPF, ACBC, LIPA2 #### Testing performed at [address] [address] MCHC (RBC) [Mass/Vol] 33.1 g/dL Normal 27.0-37.0 [facility] Comment on above: Performed By: #### C MPF, ACBC, LIPA2 #### Testing performed at [address] [address] MCV (RBC) [Entitic vol] 84.1 fL Normal 80.0-100.0 [facility] Comment on above: Performed By: #### C MPF, ACBC, LIPA2 #### Testing performed at [address] [address] Platelet mean volume (Bld) [Entitic vol] 7.8 fL Normal 7.4-11.0 [facility] Comment on above: Performed By: #### C MPF, ACBC, LIPA2 #### Testing performed at [address] [address] Platelets (Bld) [#/Vol] 228 10*3/uL Normal 130.0-400.0 [facility] Comment on above: Performed By: #### C MPF, ACBC, LIPA2 #### Testing performed at [address] [address] RBC (Bld) [#/Vol] 5.07 10*6/uL Normal 4.0-5.4 [facility] Comment on above: Performed By: #### C MPF, ACBC, LIPA2 #### Testing performed at [address] [address] WBC (Bld) [#/Vol] 4.2 10*3/uL Normal 3.6-11.0 [facility] Comment on above: Performed By: #### C MPF, ACBC, LIPA2 #### Testing performed at [address] [address] CBC, EDIF, PLATELETon 2019 ABSOLUTE BASOPHIL COUNT 0.0 10*3/uL 0 - 0.2 10*3/uL [facility] Basophils/100 WBC (Bld) 0.7 % 0 - 2 % [facility] Differential cell count method Nom (Bld) AUTO DIFF % [facility] Eosinophils (Bld) [#/Vol] 0.00 10*3/uL 0 - 0.7 10*3/uL [facility] Eosinophils/100 WBC (Bld) 1.0 % 0 - 11 % [facility] Erythrocyte distribution width (RBC) [Ratio] 13.6 % 11.5 - 14.5 % [facility] Hematocrit (Bld) [Volume fraction] 42.6 % 36 - 48 % [facility] Hemoglobin (Bld) [Mass/Vol] 14.1 g/dL [facility] Interpretation and review of laboratory results Abnormal [facility] Lymphocytes (Bld) [#/Vol] 1.10 10*3/uL Low 1.2 - 3.4 10*3/uL [facility] Lymphocytes/100 WBC (Bld) 26.8 % 20 - 55 % [facility] MCH (RBC) [Entitic mass] 27.8 pg 26 - 35 PG [facility] MCHC (RBC) [Mass/Vol] 33.1 g/dL [facility] MCV (RBC) [Entitic vol] 84.1 fL [facility] Monocytes (Bld) [#/Vol] 0.4 10*3/uL 0 - 0.7 10*3/uL [facility] Monocytes/100 WBC (Bld) 9.8 % 0 - 10 % [facility] Neutrophils (Bld) [#/Vol] 2.6 10*3/uL 1.4 - 6.5 10*3/uL [facility] Neutrophils/100 WBC (Bld) 61.7 % 37 - 75 % [facility] Platelet mean volume (Bld) [Entitic vol] 7.8 fL [facility] Platelets (Bld) [#/Vol] 228 10*3/uL 130 - 400 10*3/uL [facility] RBC (Bld) [#/Vol] 5.07 10*6/uL 4 - 5.4 10*6/uL [facility] WBC (Bld) [#/Vol] 4.2 10*3/uL 3.6 - 11 10*3/uL [facility] CHEM 7 FASTINGon 01-18-2020 Creatinine [Mass/Vol] 0.82 mg/dL Normal 0.52-1.04 [facility] Comment on above: Performed By: #### C MPF, ACBC, LIPA2 #### Testing performed at [address] [place] [address] GFR Information Unable to calculate GFR due to inappropriate age/gender/creatinine value. Normal [facility] Comment on above: Performed By: #### C MPF, ACBC, LIPA2 #### Testing performed at [address] [place] [address] Urea nitrogen [Mass/Vol] 8 mg/dL Normal 7-20 [facility] Comment on above: Performed By: #### C MPF, ACBC, LIPA2 #### Testing performed at [address] [address] Chloride [Moles/Vol] 101 mmol/L Normal 98-107 [facility] Comment on above: Performed By: #### C MPF, ACBC, LIPA2 #### Testing performed at [address] [address] CO2 [Moles/Vol] 23 mmol/L Normal 22-30 [facility] Comment on above: Performed By: #### C MPF, ACBC, LIPA2 #### Testing performed at [address] [address] Glucose [Mass/Vol] 100 mg/dL Normal 70-100 [facility] Comment on above: Result Comment: NORMAL <100 mg/dL PREDIABETES 101-126 mg/dL DIABETES 126 mg/dL or higher Performed By: #### C MPF, ACBC, LIPA2 #### Testing performed at [address] [address] Potassium [Moles/Vol] 3.6 mmol/L Normal 3.5-5.1 [facility] Comment on above: Performed By: #### C MPF, ACBC, LIPA2 #### Testing performed at [address] [address] Sodium [Moles/Vol] 135 mmol/L Low 136-145 [facility] Comment on above: Performed By: #### C MPF, ACBC, LIPA2 #### Testing performed at [address] [address] CHEM 7 (LYTES,BUN,CREA,GLUC) on 01-18-2020 Chloride [Moles/Vol] 101 mmol/L [facility] CO2 [Moles/Vol] 23 mmol/L [facility] Creatinine [Mass/Vol] 0.82 mg/dL [facility] GFR/1.73 sq M predicted among non-blacks MDRD (S/P/Bld) [Vol rate/Area] Unable to calculate GFR due to inappropriate age/gender/creatinine value. [facility] Glucose post fast [Mass/Vol] 100 mg/dL [facility] Comment on above: NORMAL <100 mg/dL PREDIABETES 101-126 mg/dL DIABETES 126 mg/dL or higher Potassium [Moles/Vol] 3.6 mmol/L [facility] Sodium [Moles/Vol] 135 mmol/L Low [facility] Urea nitrogen [Mass/Vol] 8 mg/dL [facility] HEPATIC FUNCTION PANELon Albumin [Mass/Vol] 4.4 g/dL [facility] ALP [Catalytic activity/Vol] 131 U/L High [facility] ALT [Catalytic activity/Vol] 362 U/L High [facility] AST [Catalytic activity/Vol] 168 U/L High [facility] Bilirubin [Mass/Vol] 4.8 mg/dL High [facility] Bilirubin.direct [Mass/Vol] 3.0 mg/dL High [facility] Protein [Mass/Vol] 7.8 g/dL [facility] LIPASEon 01-18-2020 Lipase [Catalytic activity/Vol] 27 U/L 23 - 300 U/L [facility] LIPASE,SERUMon 01-18-2020 LIPASE,SERUM 27 U/L Normal 23-300 [facility] Comment on above: Performed By: #### C MPF, ACBC, LIPA2 #### Testing performed at [address] [address] LIVER PANELon 01-18-2020 Albumin [Mass/Vol] 4.4 g/dL Normal 2.9-5.3 [facility] Comment on above: Performed By: #### C MPF, ACBC, LIPA2 #### Testing performed at [address] [address] ALP [Catalytic activity/Vol] 131 U/L High 38-126 [facility] Comment on above: Performed By: #### C MPF, ACBC, LIPA2 #### Testing performed at [address] [place] [address] ALT [Catalytic activity/Vol] 362 U/L High 14-54 [facility] Comment on above: Performed By: #### C MPF, ACBC, LIPA2 #### Testing performed at [address] [address] AST [Catalytic activity/Vol] 168 U/L High 15-41 [facility] Comment on above: Performed By: #### C MPF, ACBC, LIPA2 #### Testing performed at [address] [place] [address] Bilirubin [Mass/Vol] 4.8 mg/dL High 0.2-1.2 [facility] Comment on above: Performed By: #### C MPF, ACBC, LIPA2 #### Testing performed at [address] [address] Bilirubin.indirect [Mass/Vol] 3.0 mg/dL High 0.0-0.2 [facility] Comment on above: Performed By: #### C MPF, ACBC, LIPA2 #### Testing performed at [address] [address] Protein [Mass/Vol] 7.8 g/dL Normal 6.3-8.2 [facility] Comment on above: Performed By: #### C MPF, ACBC, LIPA2 #### Testing performed at [address] [place] [address] Otheron 01-18-2020 Interpretation and review of laboratory results Abnormal [facility] Interpretation and review of laboratory results Abnormal [facility] URINALYSIS, MACROon 01-18-20 20 Bilirubin Ql (U) LARGE Abnormal NEGATIVE [facility] Clarity (U) SLIGHTLY CLOUDY Abnormal CLEAR [facility] Color (U) ORANGE Abnormal YELLOW [facility] Glucose Test strip (U) [Mass/Vol] Negative NEGATIVE mg/dl [facility] Hemoglobin Ql (U) TRACE-INTACT Abnormal NEGATIVE [facility] Ketones (U) [Mass/Vol] 15 mg/dl Abnormal NEGATIVE [facility] Leukocyte esterase Test strip Ql (U) Negative NEGATIVE [facility] Nitrite Ql (U) Negative NEGATIVE [facility] pH (U) 6.0 [pH] [facility] Protein Ql (U) 30 mg/dl Abnormal NEGATIVE [facility] Specific gravity (U) [Rel density] >1.030 High [facility] Urobilinogen (U) [Mass/Vol] 1.0 [facility] URINE MACROSCOPICon 01-18-20 20 Bilirubin Ql (U) LARGE Abnormal NEGATIVE [facility] Comment on above: Performed By: #### A CBC, CMPF, LIPA2 #### Testing performed at [address] [address] Clarity (U) SLIGHTLY CLOUDY Abnormal CLEAR [facility] Comment on above: Performed By: #### A CBC, CMPF, LIPA2 #### Testing performed at [address] [address] Color (U) ORANGE Abnormal YELLOW [facility] Comment on above: Performed By: #### A CBC, CMPF, LIPA2 #### Testing performed at [address] [address] Glucose Ql (U) Negative Normal NEGATIVE [facility] Comment on above: Performed By: #### A CBC, CMPF, LIPA2 #### Testing performed at [address] [address] pH (U) 6.0 [pH] Normal 5.0-7.0 [facility] Comment on above: Performed By: #### A CBC, CMPF, LIPA2 #### Testing performed at [address] [address] Protein (U) [Mass/Vol] 30 mg/dL Abnormal NEGATIVE [facility] Comment on above: Performed By: #### A CBC, CMPF, LIPA2 #### Testing performed at [address] [address] URINE HEMOGLOBIN TRACE-INTACT Abnormal NEGATIVE [facility] Comment on above: Performed By: #### A CBC, CMPF, LIPA2 #### Testing performed at [address] [address] URINE KETONE 15 mg/dl Abnormal NEGATIVE [facility] Comment on above: Performed By: #### A CBC, CMPF, LIPA2 #### Testing performed at [address] [place] [address] URINE LEUKOTEST Negative Normal NEGATIVE [facility] Comment on above: Performed By: #### A CBC, CMPF, LIPA2 #### Testing performed at [address] [address] URINE NITRATES Negative Normal NEGATIVE [facility] Comment on above: Performed By: #### A CBC, CMPF, LIPA2 #### Testing performed at [address] [address] URINE SPEC GRAVITY >1.030 High 1.010-1.025 [facility] Comment on above: Performed By: #### A CBC, CMPF, LIPA2 #### Testing performed at [address] [address] Urobilinogen Qn (U) 1.0 {Keven'U}/dL Normal 0.2-1.0 [facility] Comment on above: Performed By: #### A CBC, CMPF, LIPA2 #### Testing performed at [address] [address] URINE MICROSCOPICon 01-18-20 20 BACTERIA 1+ Abnormal NEGATIVE [facility] Comment on above: Performed By: #### A CBC, CMPF, LIPA2 #### Testing performed at [address] [address] CASTS NONE Normal [facility] Comment on above: Performed By: #### A CBC, CMPF, LIPA2 #### Testing performed at [address] [address] CRYSTAL NONE Normal [facility] Comment on above: Performed By: #### A CBC, CMPF, LIPA2 #### Testing performed at [address] [address] Epithelial cells LM Ql (Urine sed) 20 TO 30 Normal [facility] Comment on above: Performed By: #### A CBC, CMPF, LIPA2 #### Testing performed at [address] [address] Mucus Ql (Urine sed) Negative Normal NEGATIVE [facility] Comment on above: Performed By: #### A CBC, CMPF, LIPA2 #### Testing performed at [address] [address] URINE COMMENT POSSIBLY CONTAMINATE D SPECIMEN, CULTURE MUST BE ORDERED SEPARATELY IF DEEMED NECESSARY. Normal [facility] Comment on above: Performed By: #### A CBC, CMPF, LIPA2 #### Testing performed at [address] [address] URINE RBC'S 1 TO 5 Normal NEGATIVE [facility] Comment on above: Performed By: #### A CBC, CMPF, LIPA2 #### Testing performed at [address] [address] URINE WBC'S 1 TO 5 Normal NEGATIVE [facility] Comment on above: Performed By: #### A CBC, CMPF, LIPA2 #### Testing performed at [address] [address] Bacteria LM.HPF (Urine sed) [#/Area] 1+ Abnormal NEGATIVE [facility] Casts LM.LPF (Urine sed) [#/Area] NONE NONE /LPF [facility] Crystals LM Nom (Urine sed) NONE NONE [facility] Epithelial cells LM Ql (Urine sed) 20 TO 30 /HPF [facility] Mucus Ql (Urine sed) Negative NEGATIVE [facility] RBC LM.HPF (Urine sed) [#/Area] 1 TO 5 NEGATIVE /HPF [facility] Urine sediment comments LM Charles (Urine sed) POSSIBLY CONTAMINATED SPECIMEN, CULTURE MUST BE ORDERED SEPARATELY IF DEEMED NECESSARY. [facility] WBC LM.HPF (Urine sed) [#/Area] 1 TO 5 NEGATIVE /HPF [facility] US ABDOMEN RUQ/LIVER/GBon US ABDOMEN RUQ/LIVER/GB EXAM: US ABDOMEN RUQ/LIVER/GB HISTORY: Pain COMPARISON: Right upper quadrant ultrasound from 12/14/2019. TECHNIQUE: Grayscale and color imaging of the right upper quadrant is performed. FINDINGS: Examination limited by artifact from intestinal air within the abdomen as well as patient's body habitus. Imaged portion of the abdominal aorta is nonaneurysmal measuring 2.3, 1.5, and 1.2 cm in the proximal, mid, and distal segments respectively. Imaged portion of the abdominal IVC is unremarkable. No right upper quadrant free fluid identified. The gallbladder is normal in size. There is echogenic layering mobile material within the gallbladder lumen which demonstrates posterior acoustic shadowing likely representing a combination of small volume sludge and stones. No sonographic Medina sign or obvious gallbladder wall abnormality identified. The common duct proximally is normal in caliber measuring 5 mm. More distal common duct is not well-visualized due to artifact from imaged intestinal air. Similarly the pancreas is not visualized due to artifact from overlying intestinal air as well. The right kidney measures approximately 10 x 5 x 7 cm with cortical thickness measuring 1.2 cm. Kidney normal in echogenicity without evidence of hydronephrosis. IMPRESSION: 1. Small volume mobile sludge and gallstones within the gallbladder lumen. No ultrasound evidence of cholecystitis. 2. Normal liver echogenicity. 3. No biliary duct dilatation. The distal common duct and pancreas are not well-visualized due to artifact from overlying intestinal air. Normal [facility] IMPRESSION: 1. Small volume mobile sludge and gallstones within the gallbladder lumen. No ultrasound evidence of cholecystitis. 2. Normal liver echogenicity. 3. No biliary duct dilatation. The distal common duct and pancreas are not well-visualized due to artifact from overlying intestinal air. [facility] EXAM: US ABDOMEN RUQ/LIVER/GB HISTORY: Pain COMPARISON: Right upper quadrant ultrasound from 12/14/2019. TECHNIQUE: Grayscale and color imaging of the right upper quadrant is performed. FINDINGS: Examination limited by artifact from intestinal air within the abdomen as well as patient's body habitus. Imaged portion of the abdominal aorta is nonaneurysmal measuring 2.3, 1.5, and 1.2 cm in the proximal, mid, and distal segments respectively. Imaged portion of the abdominal IVC is unremarkable. No right upper quadrant free fluid identified. The gallbladder is normal in size. There is echogenic layering mobile material within the gallbladder lumen which demonstrates posterior acoustic shadowing likely representing a combination of small volume sludge and stones. No sonographic Medina sign or obvious gallbladder wall abnormality identified. The common duct proximally is normal in caliber measuring 5 mm. More distal common duct is not well-visualized due to artifact from imaged intestinal air. Similarly the pancreas is not visualized due to artifact from overlying intestinal air as well. The right kidney measures approximately 10 x 5 x 7 cm with cortical thickness measuring 1.2 cm. Kidney normal in echogenicity without evidence of hydronephrosis. [facility] User, Interfaces - 01/18/2020 1:45 PM EDT EXAM: US ABDOMEN RUQ/LIVER/GB HISTORY: Pain COMPARISON: Right upper quadrant ultrasound from 12/14/2019. TECHNIQUE: Grayscale and color imaging of the right upper quadrant is performed. FINDINGS: Examination limited by artifact from intestinal air within the abdomen as well as patient's body habitus. Imaged portion of the abdominal aorta is nonaneurysmal measuring 2.3, 1.5, and 1.2 cm in the proximal, mid, and distal segments respectively. Imaged portion of the abdominal IVC is unremarkable. No right upper quadrant free fluid identified. The gallbladder is normal in size. There is echogenic layering mobile material within the gallbladder lumen which demonstrates posterior acoustic shadowing likely representing a combination of small volume sludge and stones. No sonographic Medina sign or obvious gallbladder wall abnormality identified. The common duct proximally is normal in caliber measuring 5 mm. More distal common duct is not well-visualized due to artifact from imaged intestinal air. Similarly the pancreas is not visualized due to artifact from overlying intestinal air as well. The right kidney measures approximately 10 x 5 x 7 cm with cortical thickness measuring 1.2 cm. Kidney normal in echogenicity without evidence of hydronephrosis. IMPRESSION IMPRESSION: 1. Small volume mobile sludge and gallstones within the gallbladder lumen. No ultrasound evidence of cholecystitis. 2. Normal liver echogenicity. 3. No biliary duct dilatation. The distal common duct and pancreas are not well-visualized due to artifact from overlying intestinal air. [facility] [id number] 01-14-2020 SARS-CoV-2 Not Detected Normal Not Detected [facility] Comment on above: Result Comment: (NOT E) This test was developed and its performance characteristics determined by [employer]. This test has not been FDA cleared or approved. This test has been authorized by FDA under an Emergency Use Authorization (EUA). This test is only authorized for the duration of time the declaration that circumstances exist justifying the authorization of the emergency use of in vitro diagnostic tests for detection of SARS-CoV-2 virus and/or diagnosis of COVID-19 infection under section 564(b)(1) of the Act, 21 U.S.C. 360bbb-3(b)(1), unless the authorization is terminated or revoked sooner. When diagnostic testing is negative, the possibility of a false negative result should be considered in the context of a patient's recent exposures and the presence of clinical signs and symptoms consistent with COVID-19. An individual without symptoms of COVID-19 and who is not shedding SARS-CoV-2 virus would expect to have a negative (not detected) result in this assay. Performed At: [facility] [address] [facility] [place] [id number] Mihir Alicea MD Ph:[phone] Performed By: #### A COV #### [facility] [address] [place], [place] [id number] Manager Diversity: Jairon Ramos MD BILIRUBIN DIRECTon 0 Bilirubin.indirect [Mass/Vol] mg/dL Normal 0.0-0.2 [facility] Comment on above: Performed By: #### L IPA2, ACBC, CMPF, DBIL #### Testing performed at [address] [address] Bilirubin.direct [Mass/Vol] mg/dL [facility] CBCon 12-14-2019 ABSOLUTE BAS 0.0 10*3/uL Normal 0.0-0.2 [facility] Comment on above: Performed By: #### L IPA2, ACBC, CMPF, DBIL #### Testing performed at [address] [address] ABSOLUTE EOS 0.00 10*3/uL Normal 0.0-0.7 [facility] Comment on above: Performed By: #### L IPA2, ACBC, CMPF, DBIL #### Testing performed at [address] [address] ABSOLUTE NEUTROPHIL COUNT 8.2 10*3/uL High 1.4-6.5 [facility] Comment on above: Performed By: #### L IPA2, ACBC, CMPF, DBIL #### Testing performed at [facility] [address] [place] [address] Basophils/100 WBC (Bld) 0.4 % Normal 0.0-2.0 [facility] Comment on above: Performed By: #### L IPA2, ACBC, CMPF, DBIL #### Testing performed at [address] [place] [address] DTYPE AUTO DIFF Normal [facility] Comment on above: Performed By: #### L IPA2, ACBC, CMPF, DBIL #### Testing performed at [address] [address] Eosinophils/100 WBC (Bld) 0.0 % Normal 0.0-11.0 [facility] Comment on above: Performed By: #### L IPA2, ACBC, CMPF, DBIL #### Testing performed at [address] [address] Lymphocytes (Bld) [#/Vol] 0.80 10*3/uL Low 1.2-3.4 [facility] Comment on above: Performed By: #### L IPA2, ACBC, CMPF, DBIL #### Testing performed at [address] [place] [address] Lymphocytes/100 WBC (Bld) 8.9 % Low 20.0-55.0 [facility] Comment on above: Performed By: #### L IPA2, ACBC, CMPF, DBIL #### Testing performed at [address] [address] Monocytes (Bld) [#/Vol] 0.3 10*3/uL Normal 0.0-0.7 [facility] Comment on above: Performed By: #### L IPA2, ACBC, CMPF, DBIL #### Testing performed at [address] [address] Monocytes/100 WBC (Bld) 3.0 % Normal 0.0-10.0 [facility] Comment on above: Performed By: #### L IPA2, ACBC, CMPF, DBIL #### Testing performed at [address] [place] [address] Neutrophils/100 WBC (Bld) 87.7 % High 37.0-75.0 [facility] Comment on above: Performed By: #### L IPA2, ACBC, CMPF, DBIL #### Testing performed at [address] [address] Erythrocyte distribution width (RBC) [Ratio] 13.4 % Normal 11.5-14.5 [facility] Comment on above: Performed By: #### L IPA2, ACBC, CMPF, DBIL #### Testing performed at [address] [address] Hematocrit (Bld) [Volume fraction] 41.1 % Normal 36.0-48.0 [facility] Comment on above: Performed By: #### L IPA2, ACBC, CMPF, DBIL #### Testing performed at [address] [address] Hemoglobin (Bld) [Mass/Vol] 13.7 g/dL Normal 12.0-16.0 [facility] Comment on above: Performed By: #### L IPA2, ACBC, CMPF, DBIL #### Testing performed at [address] [address] MCH (RBC) [Entitic mass] 27.5 pg Normal 26.0-35.0 [facility] Comment on above: Performed By: #### L IPA2, ACBC, CMPF, DBIL #### Testing performed at [address] [address] MCHC (RBC) [Mass/Vol] 33.4 g/dL Normal 27.0-37.0 [facility] Comment on above: Performed By: #### L IPA2, ACBC, CMPF, DBIL #### Testing performed at [address] [address] MCV (RBC) [Entitic vol] 82.2 fL Normal 80.0-100.0 [facility] Comment on above: Performed By: #### L IPA2, ACBC, CMPF, DBIL #### Testing performed at [address] [address] Platelet mean volume (Bld) [Entitic vol] 7.8 fL Normal 7.4-11.0 [facility] Comment on above: Performed By: #### L IPA2, ACBC, CMPF, DBIL #### Testing performed at [address] [address] Platelets (Bld) [#/Vol] 297 10*3/uL Normal 130.0-400.0 [facility] Comment on above: Performed By: #### L IPA2, ACBC, CMPF, DBIL #### Testing performed at [address] [address] RBC (Bld) [#/Vol] 5.00 10*6/uL Normal 4.0-5.4 [facility] Comment on above: Performed By: #### L IPA2, ACBC, CMPF, DBIL #### Testing performed at [address] [address] WBC (Bld) [#/Vol] 9.4 10*3/uL Normal 3.6-11.0 [facility] Comment on above: Performed By: #### L IPA2, ACBC, CMPF, DBIL #### Testing performed at [address] [address] CBC, EDIF, PLATELETon 2019 ABSOLUTE BASOPHIL COUNT 0.0 10*3/uL 0 - 0.2 10*3/uL [facility] Basophils/100 WBC (Bld) 0.4 % 0 - 2 % [facility] [place] Differential cell count method Nom (Bld) AUTO DIFF % [facility] Eosinophils (Bld) [#/Vol] 0.00 10*3/uL 0 - 0.7 10*3/uL [facility] Eosinophils/100 WBC (Bld) 0.0 % 0 - 11 % [facility] Erythrocyte distribution width (RBC) [Ratio] 13.4 % 11.5 - 14.5 % [facility] [place] Hematocrit (Bld) [Volume fraction] 41.1 % 36 - 48 % [facility] [place] Hemoglobin (Bld) [Mass/Vol] 13.7 g/dL [facility] [place] Lymphocytes (Bld) [#/Vol] 0.80 10*3/uL Low 1.2 - 3.4 10*3/uL [facility] [place] Lymphocytes/100 WBC (Bld) 8.9 % Low 20 - 55 % [facility] [place] MCH (RBC) [Entitic mass] 27.5 pg 26 - 35 PG [facility] MCHC (RBC) [Mass/Vol] 33.4 g/dL [facility] [place] MCV (RBC) [Entitic vol] 82.2 fL [facility] Monocytes (Bld) [#/Vol] 0.3 10*3/uL 0 - 0.7 10*3/uL [facility] Monocytes/100 WBC (Bld) 3.0 % 0 - 10 % [facility] [place] Neutrophils (Bld) [#/Vol] 8.2 10*3/uL High 1.4 - 6.5 10*3/uL [facility] Neutrophils/100 WBC (Bld) 87.7 % High 37 - 75 % [facility] [place] Platelet mean volume (Bld) [Entitic vol] 7.8 fL [facility] [place] Platelets (Bld) [#/Vol] 297 10*3/uL 130 - 400 10*3/uL [facility] RBC (Bld) [#/Vol] 5.00 10*6/uL 4 - 5.4 10*6/uL [facility] WBC (Bld) [#/Vol] 9.4 10*3/uL 3.6 - 11 10*3/uL [facility] CMP FASTINGon 12-14-2019 A:G RATIO 1.4 RATIO Normal 1.3-2.2 [facility] Comment on above: Performed By: #### L IPA2, ACBC, CMPF, DBIL #### Testing performed at [address] [address] ALBUMIN 4.6 G/dl Normal 3.5-5.0 [facility] Comment on above: Performed By: #### L IPA2, ACBC, CMPF, DBIL #### Testing performed at [address] [place] [address] ALP [Catalytic activity/Vol] 50 U/L Normal 38-126 [facility] Comment on above: Performed By: #### L IPA2, ACBC, CMPF, DBIL #### Testing performed at [address] [address] ALT [Catalytic activity/Vol] 19 U/L Normal 14-54 [facility] Comment on above: Performed By: #### L IPA2, ACBC, CMPF, DBIL #### Testing performed at [address] [address] AST [Catalytic activity/Vol] 19 U/L Normal 15-41 [facility] Comment on above: Performed By: #### L IPA2, ACBC, CMPF, DBIL #### Testing performed at [address] [address] Bilirubin [Mass/Vol] 0.6 mg/dL Normal 0.2-1.2 [facility] Comment on above: Performed By: #### L IPA2, ACBC, CMPF, DBIL #### Testing performed at [address] [address] Creatinine [Mass/Vol] 0.75 mg/dL Normal 0.52-1.04 [facility] Comment on above: Performed By: #### L IPA2, ACBC, CMPF, DBIL #### Testing performed at [address] [address] GFR Information Unable to calculate GFR due to inappropriate age/gender/creatinine value. Normal [facility] Comment on above: Performed By: #### L IPA2, ACBC, CMPF, DBIL #### Testing performed at [address] [address] Protein [Mass/Vol] 7.9 g/dL Normal 6.3-8.2 [facility] Comment on above: Performed By: #### L IPA2, ACBC, CMPF, DBIL #### Testing performed at [address] [address] Urea nitrogen [Mass/Vol] 7 mg/dL Normal 7-20 [facility] Comment on above: Performed By: #### L IPA2, ACBC, CMPF, DBIL #### Testing performed at [address] [address] Calcium [Mass/Vol] 9.9 mg/dL Normal 8.4-10.2 [facility] Comment on above: Performed By: #### L IPA2, ACBC, CMPF, DBIL #### Testing performed at [address] [address] Chloride [Moles/Vol] 103 mmol/L Normal 98-107 [facility] Comment on above: Performed By: #### L IPA2, ACBC, CMPF, DBIL #### Testing performed at [address] [address] CO2 [Moles/Vol] 22 mmol/L Normal 22-30 [facility] Comment on above: Performed By: #### L IPA2, ACBC, CMPF, DBIL #### Testing performed at [address] [address] Glucose [Mass/Vol] 110 mg/dL High 70-100 [facility] Comment on above: Result Comment: NORMAL <100 mg/dL PREDIABETES 101-126 mg/dL DIABETES 126 mg/dL or higher Performed By: #### L IPA2, ACBC, CMPF, DBIL #### Testing performed at [address] [address] Potassium [Moles/Vol] 3.8 mmol/L Normal 3.5-5.1 [facility] Comment on above: Performed By: #### L IPA2, ACBC, CMPF, DBIL #### Testing performed at [address] [address] Sodium [Moles/Vol] 138 mmol/L Normal 136-145 [facility] Comment on above: Performed By: #### L IPA2, ACBC, CMPF, DBIL #### Testing performed at [address] [address] COMPREHENSIVE METABOLIC PANE Efrem 12-14-2019 Albumin [Mass/Vol] 4.6 G/dl 3.5 - 5 G/dl [facility] Albumin/Globulin [Mass ratio] 1.4 {ratio} [facility] ALP [Catalytic activity/Vol] 50 U/L [facility] ALT [Catalytic activity/Vol] 19 U/L [facility] AST [Catalytic activity/Vol] 19 U/L [facility] Bilirubin [Mass/Vol] 0.6 mg/dL [facility] Calcium [Mass/Vol] 9.9 mg/dL [facility] Chloride [Moles/Vol] 103 mmol/L [facility] CO2 [Moles/Vol] 22 mmol/L [facility] Creatinine [Mass/Vol] 0.75 mg/dL [facility] GFR/1.73 sq M predicted among non-blacks MDRD (S/P/Bld) [Vol rate/Area] Unable to calculate GFR due to inappropriate age/gender/creatinine value. [facility] [place] Glucose post fast [Mass/Vol] 110 mg/dL High [facility] Comment on above: NORMAL <100 mg/dL PREDIABETES 101-126 mg/dL DIABETES 126 mg/dL or higher Potassium [Moles/Vol] 3.8 mmol/L [facility] Protein [Mass/Vol] 7.9 g/dL [facility] Sodium [Moles/Vol] 138 mmol/L [facility] Urea nitrogen [Mass/Vol] 7 mg/dL [facility] HCG QUALITATIVE, URINEon HCG ( test) Ql (U) Negative NEGATIVE [facility] LIPASEon 12-14-2019 Lipase [Catalytic activity/Vol] 35 U/L 23 - 300 U/L [facility] LIPASE,SERUMon 12-14-2019 LIPASE,SERUM 35 U/L Normal 23-300 [facility] Comment on above: Performed By: #### L IPA2, ACBC, CMPF, DBIL #### Testing performed at [facility] [address] [place] [address] Otheron 12-14-2019 Interpretation and review of laboratory results Abnormal [facility] Interpretation and review of laboratory results Abnormal [facility] URINALYSIS, MACROon 12-14-19 20 Bilirubin Ql (U) SMALL Abnormal NEGATIVE [facility] Clarity (U) CLEAR CLEAR [facility] Color (U) YELLOW YELLOW [facility] [place] Glucose Test strip (U) [Mass/Vol] Negative NEGATIVE mg/dl [facility] Hemoglobin Ql (U) TRACE-LYSED Abnormal NEGATIVE [facility] Ketones (U) [Mass/Vol] 40 mg/dl Abnormal NEGATIVE [facility] Leukocyte esterase Test strip Ql (U) Negative NEGATIVE [facility] Nitrite Ql (U) Negative NEGATIVE [facility] pH (U) 7.5 [pH] High [facility] Protein Ql (U) 30 mg/dl Abnormal NEGATIVE [facility] Specific gravity (U) [Rel density] 1.025 [facility] Urobilinogen (U) [Mass/Vol] 0.2 [facility] URINE HCG QUALon 12-14-2019 Beta HCG ( test) Ql (U) Negative Normal NEGATIVE [facility] Comment on above: Performed By: #### A CBC, CMPF, LIPA2 #### Testing performed at [address] [address] URINE MACROSCOPICon 12-14-19 20 Bilirubin Ql (U) SMALL Abnormal NEGATIVE [facility] Comment on above: Performed By: #### A CBC, CMPF, LIPA2 #### Testing performed at [address] [address] Clarity (U) CLEAR Normal CLEAR [facility] Comment on above: Performed By: #### A CBC, CMPF, LIPA2 #### Testing performed at [address] [address] Color (U) YELLOW Normal YELLOW [facility] Comment on above: Performed By: #### A CBC, CMPF, LIPA2 #### Testing performed at [address] [address] Glucose Ql (U) Negative Normal NEGATIVE [facility] Comment on above: Performed By: #### A CBC, CMPF, LIPA2 #### Testing performed at [address] [address] pH (U) 7.5 [pH] High 5.0-7.0 [facility] Comment on above: Performed By: #### A CBC, CMPF, LIPA2 #### Testing performed at [address] [address] Protein (U) [Mass/Vol] 30 mg/dL Abnormal NEGATIVE [facility] Comment on above: Performed By: #### A CBC, CMPF, LIPA2 #### Testing performed at [address] [place] [address] URINE HEMOGLOBIN TRACE-LYSED Abnormal NEGATIVE [facility] Comment on above: Performed By: #### A CBC, CMPF, LIPA2 #### Testing performed at [address] [address] URINE KETONE 40 mg/dl Abnormal NEGATIVE [facility] Comment on above: Performed By: #### A CBC, CMPF, LIPA2 #### Testing performed at [address] [address] URINE LEUKOTEST Negative Normal NEGATIVE [facility] Comment on above: Performed By: #### A CBC, CMPF, LIPA2 #### Testing performed at [address] [place] [address] URINE NITRATES Negative Normal NEGATIVE [facility] Comment on above: Performed By: #### A CBC, CMPF, LIPA2 #### Testing performed at [address] [address] URINE SPEC GRAVITY 1.025 Normal 1.010-1.025 [facility] Comment on above: Performed By: #### A CBC, CMPF, LIPA2 #### Testing performed at [address] [address] Urobilinogen Qn (U) 0.2 {Keven'U}/dL Normal 0.2-1.0 [facility] Comment on above: Performed By: #### A CBC, CMPF, LIPA2 #### Testing performed at [address] [address] URINE MICROSCOPICon 12-14-19 20 BACTERIA TRACE Abnormal NEGATIVE [facility] Comment on above: Performed By: #### A CBC, CMPF, LIPA2 #### Testing performed at [address] [address] CASTS NONE Normal NONE [facility] Comment on above: Performed By: #### A CBC, CMPF, LIPA2 #### Testing performed at [address] [place] [address] CRYSTAL NONE Normal [facility] Comment on above: Performed By: #### A CBC, CMPF, LIPA2 #### Testing performed at [address] [place] [address] Epithelial cells LM Ql (Urine sed) 1 TO 5 Normal [facility] Comment on above: Performed By: #### A CBC, CMPF, LIPA2 #### Testing performed at [address] [address] Mucus Ql (Urine sed) Negative Normal NEGATIVE [facility] Comment on above: Performed By: #### A CBC, CMPF, LIPA2 #### Testing performed at [address] [address] URINE COMMENT CULTURE CRITERIA NOT MET, NO CULTURE PERFORMED. Normal [facility] Comment on above: Performed By: #### A CBC, CMPF, LIPA2 #### Testing performed at [address] [place] [address] URINE RBC'S Negative Normal NEGATIVE [facility] Comment on above: Performed By: #### A CBC, CMPF, LIPA2 #### Testing performed at [address] [address] URINE WBC'S Negative Normal NEGATIVE [facility] Comment on above: Performed By: #### A CBC, CMPF, LIPA2 #### Testing performed at [address] [address] Bacteria LM.HPF (Urine sed) [#/Area] TRACE Abnormal NEGATIVE [facility] HEALT H Casts LM.LPF (Urine sed) [#/Area] NONE NONE /LPF [facility] Crystals LM Nom (Urine sed) NONE NONE [facility] Epithelial cells LM Ql (Urine sed) 1 TO 5 /HPF [facility] Mucus Ql (Urine sed) Negative NEGATIVE [facility] RBC LM.HPF (Urine sed) [#/Area] Negative NEGATIVE /HPF [facility] Urine sediment comments LM Charles (Urine sed) CULTURE CRITERIA NOT MET, NO CULTURE PERFORMED. [facility] WBC LM.HPF (Urine sed) [#/Area] Negative NEGATIVE /HPF [facility] US ABDOMEN RUQ/LIVER/GBon User, Interfaces - 12/14/2019 3:23 PM EDT PROCEDURE: US ABDOMEN RUQ/LIVER/GB 12/14/2019 2:35 PM EDT CLINICAL HISTORY: ruq pain COMPARISON: None. TECHNIQUE: Sonographic evaluation of the right upper quadrant was performed. FINDINGS: Liver: Increased attenuation throughout the liver, compatible with diffuse fatty replacement. Pancreas: Poorly visualized due to body habitus and bowel gas. Gallbladder: Small amount of sludge is noted in the gallbladder. There are no gallstones. There is no gallbladder wall thickening or pericholecystic fluid. No sonographic Medina's sign. Biliary structures: Common bile duct measures 4 mm in diameter. No significant biliary dilatation. Right kidney: 11.8 cm long. The kidney is reniform in shape, normal in echotexture, without hydronephrosis. Aorta: Normal caliber. IVC: No significant abnormality. IMPRESSION IMPRESSION: 1. There appears to be sludge in the gallbladder. No gallstones. No evidence of acute cholecystitis. 2. Hepatic steatosis. [employer] PROCEDURE: US ABDOME N RUQ/LIVER/GB 12/14/2019 2:35 PM EDT CLINICAL HISTORY: ruq pain COMPARISON: None. TECHNIQUE: Sonographic evaluation of the right upper quadrant was performed. FINDINGS: Liver: Increased attenuation throughout the liver, compatible with diffuse fatty replacement. Pancreas: Poorly visualized due to body habitus and bowel gas. Gallbladder: Small amount of sludge is noted in the gallbladder. There are no gallstones. There is no gallbladder wall thickening or pericholecystic fluid. No sonographic Medina's sign. Biliary structures: Common bile duct measures 4 mm in diameter. No significant biliary dilatation. Right kidney: 11.8 cm long. The kidney is reniform in shape, normal in echotexture, without hydronephrosis. Aorta: Normal caliber. IVC: No significant abnormality. [employer] IMPRESSION: 1. There appears to be sludge in the gallbladder. No gallstones. No evidence of acute cholecystitis. 2. Hepatic steatosis. [employer] XR ANKLE RIGHT 3+ VIEWSon XR ANKLE RIGHT 3+ VIEWS EXAM: XR ANKLE RIGHT 3+ VIEWS HISTORY: ankle injury COMPARISON: None. TECHNIQUE: AP, lateral, oblique radiographs of the right ankle FINDINGS: Soft tissue swelling about the right ankle. No acute fracture or dislocation. Normal mineralization and alignment. IMPRESSION: Soft tissue swelling without fracture identified. Normal [facility] IMPRESSION: Soft tissue swelling without fracture identified. [employer] EXAM: XR ANKLE RIGHT 3+ VIEWS HISTORY: ankle injury COMPARISON: None. TECHNIQUE: AP, lateral, oblique radiographs of the right ankle FINDINGS: Soft tissue swelling about the right ankle. No acute fracture or dislocation. Normal mineralization and alignment. [employer] User, Interfaces - 11/11/2019 2:11 PM EDT EXAM: XR ANKLE RIGHT 3+ VIEWS HISTORY: ankle injury COMPARISON: None. TECHNIQUE: AP, lateral, oblique radiographs of the right ankle FINDINGS: Soft tissue swelling about the right ankle. No acute fracture or dislocation. Normal mineralization and alignment. IMPRESSION IMPRESSION: Soft tissue swelling without fracture identified. [employer] XR FOOT RIGHT 3 VIEWSon 10-28 XR FOOT RIGHT 3 VIEWS EXAM: XR FOOT RIGHT 3 VIEWS HISTORY: injury COMPARISON: None. TECHNIQUE: AP, lateral, oblique radiographs of the right foot FINDINGS: No acute fracture, dislocation, or joint pathology. Os trigonum. Normal mineralization and alignment. The soft tissues are normal. IMPRESSION: No acute osseous abnormality. Normal [facility] IMPRESSION: No acute osseous abnormality. [facility] EXAM: XR FOOT RIGHT 3 VIEWS HISTORY: injury COMPARISON: None. TECHNIQUE: AP, lateral, oblique radiographs of the right foot FINDINGS: No acute fracture, dislocation, or joint pathology. Os trigonum. Normal mineralization and alignment. The soft tissues are normal. [facility] User, Interfaces - 11/11/2019 2:12 PM EDT EXAM: XR FOOT RIGHT 3 VIEWS HISTORY: injury COMPARISON: None. TECHNIQUE: AP, lateral, oblique radiographs of the right foot FINDINGS: No acute fracture, dislocation, or joint pathology. Os trigonum. Normal mineralization and alignment. The soft tissues are normal. IMPRESSION IMPRESSION: No acute osseous abnormality. [facility] CBC with Diffon 02-18-2017 Basophils Auto #/vol (Bld) 0.0 K/mcL Normal 0-0.2 [facility] Comment on above: Performed By: #### C BCDIF, CMET, EDCTNI ####Unless otherwise noted, all testing performed by [address] [phone]: [id number] Director: Yann Alvares M.D. Basophils/100 WBC Auto (Bld) 0.4 % Normal [facility] Comment on above: Performed By: #### C BCDIF, CMET, EDCTNI ####Unless otherwise noted, all testing performed by [address] [id number]: [id number] Director: Yann Alvares M.D. Eosinophils 0.0 K/mcL Normal 0-0.5 [facility] Comment on above: Performed By: #### C BCDIF, CMET, EDCTNI ####Unless otherwise noted, all testing performed by [address] [phone]: [id number] Director: Yann Alvares M.D. Eosinophils/100 leukocytes 0.3 % Normal [facility] Comment on above: Performed By: #### C BCDIF, CMET, EDCTNI ####Unless otherwise noted, all testing performed by [address] [phone]: [id number] Director: Yann Alvares M.D. Erythrocyte distribution width Auto Ratio (RBC) 13.3 % Normal 10-14.4 [facility] Comment on above: Performed By: #### C BCDIF, CMET, EDCTNI ####Unless otherwise noted, all testing performed by [address] [phone]: [id number] Director: Yann Alvares M.D. Erythrocytes (RBC) 4.99 M/mcL Normal 3.7-5.0 [facility] Comment on above: Performed By: #### C BCDIF, CMET, EDCTNI ####Unless otherwise noted, all testing performed by [address] [phone]: [id number] Director: Yann Alvares M.D. Hematocrit (HCT) 39.9 % Normal 34.4-44.8 [facility] Comment on above: Performed By: #### C BCDIF, CMET, EDCTNI ####Unless otherwise noted, all testing performed by [address] [phone]: [id number] Director: Yann Alvares M.D. Hemoglobin mass conc (Bld) 13.5 g/dL Normal 11.6-15.4 [facility] Comment on above: Performed By: #### C BCDIF, CMET, EDCTNI ####Unless otherwise noted, all testing performed by [address] [phone]: [id number] Director: Yann Alvares M.D. Lymphocytes 1.8 K/mcL Normal 1.0-3.7 [facility] Comment on above: Performed By: #### C BCDIF, CMET, EDCTNI ####Unless otherwise noted, all testing performed by [address] [phone]: [id number] Director: Yann Alvares M.D. Lymphocytes/100 leukocytes 22.6 % Normal [facility] Comment on above: Performed By: #### C BCDIF, CMET, EDCTNI ####Unless otherwise noted, all testing performed by [address] [phone]: [id number] Director: Yann Alvares M.D. MCH 27.0 pg Low 27.9-33.9 [facility] Comment on above: Performed By: #### C BCDIF, CMET, EDCTNI ####Unless otherwise noted, all testing performed by [address] [phone]: [id number] Director: Yann Alvares M.D. MCHC mass conc (RBC) 33.8 g/dL Normal 33.1-35.1 [facility] Comment on above: Performed By: #### C BCDIF, CMET, EDCTNI ####Unless otherwise noted, all testing performed by [address] [phone]: [id number] Director: Yann Alvares M.D. MCV 80.0 fL Low 82.6-98.9 [facility] Comment on above: Performed By: #### C BCDIF, CMET, EDCTNI ####Unless otherwise noted, all testing performed by [address] [phone]: [id number] Director: Yann Alvares M.D. Monocytes 0.5 K/mcL Normal 0.1-0.6 [facility] Comment on above: Performed By: #### C BCDIF, CMET, EDCTNI ####Unless otherwise noted, all testing performed by [address] [phone]: [id number] Director: Yann Alvares M.D. Monocytes/100 leukocytes 6.9 % Normal [facility] Comment on above: Performed By: #### C BCDIF, CMET, EDCTNI ####Unless otherwise noted, all testing performed by [address] [phone]: [id number] Director: Yann Alvares M.D. Neutrophils 5.4 K/mcL Normal 1.2-6.9 [facility] Comment on above: Performed By: #### C BCDIF, CMET, EDCTNI ####Unless otherwise noted, all testing performed by [address] [phone]: [id number] Director: Yann Alvraes M.D. Platelet mean volume (PMV) 7.6 fL Normal 7.0-10.6 [facility] Comment on above: Performed By: #### C BCDIF, CMET, EDCTNI ####Unless otherwise noted, all testing performed by [address] [phone]: [id number] Director: Yann Alvares M.D. Platelets 245 K/mcL Normal 162-402 [facility] Comment on above: Performed By: #### C BCDIF, CMET, EDCTNI ####Unless otherwise noted, all testing performed by [address] [phone]: [id number] Director: Yann Alvares M.D. Segmented Neut % 69.8 % Normal [facility] Comment on above: Performed By: #### C BCDIF, CMET, EDCTNI ####Unless otherwise noted, all testing performed by [address] [phone]: [id number] Director: Yann Alvares M.D. WBC (Leukocytes) 7.8 K/mcL Normal 3.4-10.6 [facility] Comment on above: Performed By: #### C BCDIF, CMET, EDCTNI ####Unless otherwise noted, all testing performed by [address] [phone]: [id number] Director: Yann Alvares M.D. Comprehensive Metabolic Pane [facility] 02-18-2017 Alanine aminotransferase (ALT) 17 U/L Normal 14-65 [facility] Comment on above: Result Comment: This test result might be falsely depressed or falsely elevated onsamples drawn from patients taking Sulfasalazine and Sulfapyridine.Venipuncture should occur prior to taking either of these drugs. Performed By: #### C BCDIF, CMET, EDCTNI ####Unless otherwise noted, all testing performed by [address] [phone]: [id number] Director: Yann Alvares M.D. Albumin 3.9 g/dL Normal 3.2-4.5 [facility] Comment on above: Performed By: #### C BCDIF, CMET, EDCTNI ####Unless otherwise noted, all testing performed by [address] [phone]: [id number] Director: Yann Alvares M.D. Alkaline phosphatase (ALP) 75 U/L Normal 40-140 [facility] Comment on above: Performed By: #### C BCDIF, CMET, EDCTNI ####Unless otherwise noted, all testing performed by [address] [phone]: [id number] Director: Yann Alvares M.D. Aspartate aminotransferase (AST) 12 U/L Normal 0-45 [facility] Comment on above: Result Comment: This test result might be falsely depressed or falsely elevated onsamples drawn from patients taking Sulfasalazine and Sulfapyridine.Venipuncture should occur prior to taking either of these drugs. Performed By: #### C BCDIF, CMET, EDCTNI ####Unless otherwise noted, all testing performed by [address] [phone]: [id number] Director: Yann Alvares M.D. Bilirubin (total) 0.5 mg/dL Normal 0.3-1.2 [facility] Comment on above: Performed By: #### C BCDIF, CMET, EDCTNI ####Unless otherwise noted, all testing performed by [address] [phone]: [id number] Director: Yann Alvares M.D. Calcium 9.3 mg/dL Normal 8.4-10.2 [facility] Comment on above: Performed By: #### C BCDIF, CMET, EDCTNI ####Unless otherwise noted, all testing performed by [address] [phone]: [id number] Director: Yann Alvares M.D. Chloride 105 mmol/L Normal 98-108 [facility] Comment on above: Performed By: #### C BCDIF, CMET, EDCTNI ####Unless otherwise noted, all testing performed by [place] [phone]: [id number] Director: Yann Alvares M.D. CO2 26 mmol/L Normal 21-32 [facility] Comment on above: Performed By: #### C BCDIF, CMET, EDCTNI ####Unless otherwise noted, all testing performed by [place] [phone]: [id number] Director: Yann Alvares M.D. Creatinine 0.83 mg/dL Normal 0.50-1.00 [facility] Comment on above: Performed By: #### C BCDIF, CMET, EDCTNI ####Unless otherwise noted, all testing performed by [place] [phone]: [id number] Director: Yann Alvares M.D. eGFR (black) Unable to calculate eGFR due to patient age <18 years. Normal [facility] Comment on above: Result Comment: Unab le to calculate eGFR due to patient age <18 years. Performed By: #### C BCDIF, CMET, EDCTNI ####Unless otherwise noted, all testing performed by [address] [phone]: [id number] Director: Yann Alvares M.D. eGFR (non-black) Unable to calculate eGFR due to patient age <18 years. Normal [facility] Comment on above: Result Comment: Unab le to calculate eGFR due to patient age <18 years. Performed By: #### C BCDIF, CMET, EDCTNI ####Unless otherwise noted, all testing performed by [address] [phone]: [id number] Director: Yann Alvares M.D. Glucose mass conc 102 mg/dL High 70-99 [facility] Comment on above: Result Comment: This test result might be falsely depressed or falsely elevated onsamples drawn from patients taking Sulfasalazine and Sulfapyridine.Venipuncture should occur prior to taking either of these drugs. Performed By: #### C BCDIF, CMET, EDCTNI ####Unless otherwise noted, all testing performed by [address] [phone]: [id number] Director: Yann Alvares M.D. Potassium molar conc 3.7 mmol/L Normal 3.5-5.1 [facility] Comment on above: Performed By: #### C BCDIF, CMET, EDCTNI ####Unless otherwise noted, all testing performed by [address] [phone]: [id number] Director: Yann Alvares M.D. Protein 7.6 g/dL Normal 6.0-8.0 [facility] Comment on above: Performed By: #### C BCDIF, CMET, EDCTNI ####Unless otherwise noted, all testing performed by [address] [phone]: [id number] Director: Yann Alvares M.D. Sodium 138 mmol/L Normal 135-145 [facility] Comment on above: Performed By: #### C BCDIF, CMET, EDCTNI ####Unless otherwise noted, all testing performed by [address] [phone]: [id number] Director: Yann Alvares M.D. Urea nitrogen 6 mg/dL Low 8-25 [facility] Comment on above: Performed By: #### C BCDIF, CMET, EDCTNI ####Unless otherwise noted, all testing performed by [address] [phone]: [id number] Director: Yann Alvares M.D. ED Cardiac Troponin-Ion 01-29 Troponin I.cardiac mass conc ng/mL Normal < 45 [facility] Comment on above: Result Comment: Elev ation of troponin indicates some degree of myocardial necrosis butunless there is a significant rise and/or fall (if elevated) identified,it unlikely that an acute event has taken place Performed By: #### C BCDIF, CMET, EDCTNI ####Unless otherwise noted, all testing performed by [address] [phone]: [id number] Director: Yann Alvares M.D. Test,Urine Qualon 02-18-2017 HCG.beta subunit ( test) Ql (U) Negative Normal Negative [facility] Comment on above: Result Comment: Rapi d test procedural control acceptable. Performed By: #### U IC, PREGUR ####Unless otherwise noted, all testing performed by [address] [phone]: [id number] Director: Yann Alvares M.D. Urine with Indicated Culture on 02-18-2017 Bilirubin,Urine Small Abnormal NEG;NEGATIVE [facility] Comment on above: Result Comment: Smal l Performed By: #### U IC, PREGUR ####Unless otherwise noted, all testing performed by [address] [phone]: [id number] Director: Yann Alvares M.D. Blood,Urine Negative Normal NEG;NEGATIVE [facility] Comment on above: Result Comment: Nega tive Performed By: #### U IC, PREGUR ####Unless otherwise noted, all testing performed by [address] [phone]: [id number] Director: Yann Alvares M.D. Ketone,Urine Trace Abnormal NEGATIVE;NEG [facility] Comment on above: Result Comment: Trac e Performed By: #### U IC, PREGUR ####Unless otherwise noted, all testing performed by [address] [phone]: [id number] Director: Yann Alvares M.D. Leuk.Esterase,Urine Negative Normal Negative [facility] Comment on above: Result Comment: Nega tive Performed By: #### U IC, PREGUR ####Unless otherwise noted, all testing performed by [address] [phone]: [id number] Director: Yann Alvares M.D. Mucus, Urine Many Abnormal None Seen [facility] Comment on above: Result Comment: Many Performed By: #### U IC, PREGUR ####Unless otherwise noted, all testing performed by [address] [phone]: [id number] Director: Yann Alvares M.D. Nitrite,Urine Negative Normal NEG;NEGATIVE [facility] Comment on above: Result Comment: Nega tive Performed By: #### U IC, PREGUR ####Unless otherwise noted, all testing performed by [address] [phone]: [id number] Director: Yann Alvares M.D. Protein,Urine 100 mg/dL Normal [facility] Comment on above: Performed By: #### U IC, PREGUR ####Unless otherwise noted, all testing performed by [address] [phone]: [id number] Director: Yann Alvares M.D. Specific Garner,Urine >= 1.030 High 1.003-1.029 [facility] Comment on above: Result Comment: >= 1 .030 Performed By: #### U IC, PREGUR ####Unless otherwise noted, all testing performed by [address] [phone]: [id number] Director: Yann Alvares M.D. Squamous Epithelial 10- Abnormal 0-3+;NS [facility] Comment on above: Result Comment: 02-27 5 Performed By: #### U IC, PREGUR ####Unless otherwise noted, all testing performed by [address] [phone]: [id number] Director: Yann Alvares M.D. Urine, bacteria in sediment Few Abnormal NS;RARE [facility] Comment on above: Result Comment: Few Performed By: #### U IC, PREGUR ####Unless otherwise noted, all testing performed by [address] [phone]: [id number] Director: Yann Alvares M.D. Urine, character Clear Normal [facility] Comment on above: Result Comment: Carmen r Performed By: #### U IC, PREGUR ####Unless otherwise noted, all testing performed by [address] [phone]: [id number] Director: Yann Alvares M.D. Urine, color Yellow Normal [facility] Comment on above: Result Comment: [place] ow Performed By: #### U IC, PREGUR ####Unless otherwise noted, all testing performed by [address] [phone]: [id number] Director: Yann Alvares M.D. Urine, glucose presence Negative Normal NEG;NEGATIVE [facility] Comment on above: Result Comment: Nega tive Performed By: #### U IC, PREGUR ####Unless otherwise noted, all testing performed by [address] [phone]: [id number] Director: Yann Alvares M.D. Urine, leukocytes in sedmiment 3-5 Normal 0-3+;3-5+;NS [facility] Comment on above: Result Comment: 3-5 Performed By: #### U IC, PREGUR ####Unless otherwise noted, all testing performed by [address] [phone]: [id number] Director: Yann Alvares M.D. Urine, pH 6.0 [pH] Normal 4.5-8.0 [facility] Comment on above: Performed By: #### U IC, PREGUR ####Unless otherwise noted, all testing performed by [address] [phone]: [id number] Director: Yann Alvares M.D. Urobilinogen,Urine 0.2 EU/dL Normal 0.2 [facility] Comment on above: Performed By: #### U IC, PREGUR ####Unless otherwise noted, all testing performed by [address] [phone]: [id number] Director: Yann Alvares M.D. Vital Signs Date Time Vital Sign Value Performing Clinician Faci lit 12-19-2024 15:10-0400 Body mass index (BMI) [Ratio] 49.76 kg/m2 Dami Hobbs MD Work Phone: [facility] 12-19-2024 15:10-0400 Body temperature 98.2 [degF] Dami Hobbs MD Work Phone: [facility] 12-19-2024 15:10-0400 Body weight 131.5 kg Dami Hobbs MD Work Phone: [facility] 12-19-2024 15:10-0400 Diastolic blood pressure 80 mm[Hg] Dami Hobbs MD Work Phone: [facility] 12-19-2024 15:10-0400 Heart rate 90 /min Dami Hobbs MD Work Phone: [facility] 12-19-2024 15:10-0400 Respiratory rate 18 /min Dami Hobbs MD Work Phone: [facility] 12-19-2024 15:10-0400 SaO2% (BldA) [Mass fraction] 98 % Dami Hobbs MD Work Phone: [facility] 12-19-2024 15:10-0400 Systolic blood pressure 122 mm[Hg] Dami Hobbs MD Work Phone: [facility] 08-13-2024 11:18-0400 Body mass index (BMI) [Ratio] 45.03 kg/m2 Gris Daniel RECRUITING ASSISTANT.ASSET ACCOUNTANT Work Phone: [facility] 08-13-2024 11:18-0400 Body weight 119 kg Gris Daniel RECRUITING ASSISTANT.ASSET ACCOUNTANT Work Phone: [facility] 08-13-2024 11:18-0400 Diastolic blood pressure 68 mm[Hg] Gris Daniel RECRUITING ASSISTANT.ASSET ACCOUNTANT Work Phone: [facility] 08-13-2024 11:18-0400 Heart rate 104 /min Gris Daniel RECRUITING ASSISTANT.ASSET ACCOUNTANT Work Phone: [facility] 08-13-2024 11:18-0400 Respiratory rate 14 /min Gris Daniel RECRUITING ASSISTANT.ASSET ACCOUNTANT Work Phone: [facility] 08-13-2024 11:18-0400 SaO2% (BldA) [Mass fraction] 98 % Gris Daniel RECRUITING ASSISTANT.ASSET ACCOUNTANT Work Phone: [facility] 08-13-2024 11:18-0400 Systolic blood pressure 118 mm[Hg] Gris Daniel RECRUITING ASSISTANT.ASSET ACCOUNTANT Work Phone: [facility] 02-03-2024 07:51-0400 Body mass index (BMI) [Ratio] 42.61 kg/m2 Gris Daniel RECRUITING ASSISTANT.ASSET ACCOUNTANT Work Phone: [facility] 02-03-2024 07:51-0400 Body weight 112.6 kg Gris Daniel RECRUITING ASSISTANT.ASSET ACCOUNTANT Work Phone: [facility] 02-03-2024 07:51-0400 Diastolic blood pressure 84 mm[Hg] Gris Daniel RECRUITING ASSISTANT.ASSET ACCOUNTANT Work Phone: [facility] 02-03-2024 07:51-0400 Heart rate 105 /min Gris PrattDaniel RECRUITING ASSISTANT.ASSET ACCOUNTANT Work Phone: [facility] 02-03-2024 07:51-0400 Respiratory rate 18 /min Gris PrattDaniel RECRUITING ASSISTANT.ASSET ACCOUNTANT Work Phone: [facility] 02-03-2024 07:51-0400 SaO2% (BldA) [Mass fraction] 99 % Gris PrattDaniel RECRUITING ASSISTANT.ASSET ACCOUNTANT Work Phone: [facility] 02-03-2024 07:51-0400 Systolic blood pressure 116 mm[Hg] Gris PrattDaniel RECRUITING ASSISTANT.ASSET ACCOUNTANT Work Phone: [facility] 01-04-2024 08:13-0400 Body mass index (BMI) [Ratio] 44.43 kg/m2 Gris Sanchez RECRUITING ASSISTANT.ASSET ACCOUNTANT Work Phone: [facility] 01-04-2024 08:13-0400 Body weight 117.4 kg Gris Sanchez RECRUITING ASSISTANT.ASSET ACCOUNTANT Work Phone: [facility] 01-04-2024 08:13-0400 Diastolic blood pressure 86 mm[Hg] Gris PrattDaniel RECRUITING ASSISTANT.ASSET ACCOUNTANT Work Phone: [facility] 01-04-2024 08:13-0400 Heart rate 117 /min Gris PrattDaniel RECRUITING ASSISTANT.ASSET ACCOUNTANT Work Phone: [facility] 01-04-2024 08:13-0400 Respiratory rate 16 /min Gris Sanchez RECRUITING ASSISTANT.ASSET ACCOUNTANT Work Phone: [facility] 01-04-2024 08:13-0400 SaO2% (BldA) [Mass fraction] 98 % Gris PrattDaniel RECRUITING ASSISTANT.ASSET ACCOUNTANT Work Phone: [facility] 01-04-2024 08:13-0400 Systolic blood pressure 124 mm[Hg] Gris NievesDaniel RECRUITING ASSISTANT.ASSET ACCOUNTANT Work Phone: [facility] 12-07-2023 07:53-0400 Body mass index (BMI) [Ratio] 44.97 kg/m2 Gris Sanchez RECRUITING ASSISTANT.ASSET ACCOUNTANT Work Phone: [facility] 12-07-2023 07:53-0400 Body weight 118.84 kg Gris Sanchez RECRUITING ASSISTANT.ASSET ACCOUNTANT Work Phone: [facility] 12-07-2023 07:53-0400 Diastolic blood pressure 86 mm[Hg] Gris Sanchez RECRUITING ASSISTANT.ASSET ACCOUNTANT Work Phone: [facility] 12-07-2023 07:53-0400 Heart rate 106 /min Gris Sanchez RECRUITING ASSISTANT.ASSET ACCOUNTANT Work Phone: [facility] 12-07-2023 07:53-0400 Respiratory rate 14 /min Gris Sanchez RECRUITING ASSISTANT.ASSET ACCOUNTANT Work Phone: [facility] 12-07-2023 07:53-0400 SaO2% (BldA) [Mass fraction] 98 % Gris Sanchez RECRUITING ASSISTANT.ASSET ACCOUNTANT Work Phone: [facility] 12-07-2023 07:53-0400 Systolic blood pressure 128 mm[Hg] Gris Sanchez RECRUITING ASSISTANT.ASSET ACCOUNTANT Work Phone: [facility] 12-09-2022 17:30-0400 Diastolic blood pressure 80 mm[Hg] Yasmani Toth MD Work Phone: [facility] 12-09-2022 17:30-0400 Heart rate 100 /min Yasmani Toth MD Work Phone: [facility] 12-09-2022 17:30-0400 Systolic blood pressure 129 mm[Hg] Yasmani Toth MD Work Phone: [facility] 12-09-2022 17:21-0400 Body height 162.6 cm Yasmani Toth MD Work Phone: [facility] 12-09-2022 17:21-0400 Body temperature 98.4 [degF] Yasmani Toth MD Work Phone: [facility] 12-09-2022 17:21-0400 Body weight 143.11 kg Yasmani Toth MD Work Phone: [facility] 12-09-2022 17:21-0400 Respiratory rate 16 /min Yasmani Toth MD Work Phone: [facility] 12-09-2022 17:21-0400 SaO2% (BldA) [Mass fraction] 99 % Yasmani Toth MD Work Phone: [facility] 01-06-2022 10:20-0400 Diastolic blood pressure 59 mm[Hg] No Primary Care Physician [facility] Work Phone: 01-06-2022 10:20-0400 Heart rate 71 /min No Primary Care Physician [facility] Work Phone: 01-06-2022 10:20-0400 Respiratory rate 16 /min No Primary Care Physician [facility] Work Phone: 01-06-2022 10:20-0400 SaO2% (BldA) [Mass fraction] 99 % No Primary Care Physician [facility] Work Phone: 01-06-2022 10:20-0400 Systolic blood pressure 106 mm[Hg] No Primary Care Physician [facility] Work Phone: 01-06-2022 08:26-0400 Body height 162.56 cm No Primary Care Physician [facility] Work Phone: 01-06-2022 08:26-0400 Body mass index (BMI) [Ratio] 46.3 kg/m2 No Primary Care Physician [facility] Work Phone: 01-06-2022 08:26-0400 Body temperature 97.1 [degF] No Primary Care Physician [facility] Work Phone: 01-06-2022 08:26-0400 Body weight 122.46 kg No Primary Care Physician [facility] Work Phone: 01-06-2022 08:05-0400 Body temperature 98.4 [degF] No Primary Care Physician [facility] Work Phone: 01-06-2022 08:05-0400 Diastolic blood pressure 76 mm[Hg] No Primary Care Physician [facility] Work Phone: 01-06-2022 08:05-0400 Heart rate 81 /min No Primary Care Physician [facility] Work Phone: 01-06-2022 08:05-0400 Respiratory rate 14 /min No Primary Care Physician [facility] Work Phone: 01-06-2022 08:05-0400 SaO2% (BldA) [Mass fraction] 98 % No Primary Care Physician [facility] Work Phone: 01-06-2022 08:05-0400 Systolic blood pressure 132 mm[Hg] No Primary Care Physician [facility] Work Phone: 01-25-2020 20:57-0400 Pulse Oximetry 92 % [facility] 01-25-2020 20:56-0400 BMI (Body Mass Index) 47.35 kg/m2 [facility] 01-25-2020 20:56-0400 Body weight 125.19 kg [facility] 01-25-2020 20:53-0400 Body Temperature 101.41 [degF] [facility] 01-25-2020 20:53-0400 BP Diastolic 62 mm[Hg] [facility] 01-25-2020 20:53-0400 BP Systolic 118 mm[Hg] [facility] 01-25-2020 20:53-0400 Pulse (Heart Rate) 107 /min [facility] 01-25-2020 20:53-0400 Respiratory Rate 24 /min [facility] 01-24-2020 15:15-0400 Pulse Oximetry 91 % [facility] 01-24-2020 15:14-0400 Body Temperature 98.29 [degF] [facility] 01-24-2020 15:14-0400 BP Diastolic 70 mm[Hg] [facility] 01-24-2020 15:14-0400 BP Systolic 130 mm[Hg] [facility] 01-24-2020 15:14-0400 Pulse (Heart Rate) 84 /min [facility] 01-24-2020 15:14-0400 Respiratory Rate 18 /min [facility] 01-23-2020 12:00-0400 BMI (Body Mass Index) 47.51 kg/m2 [facility] 01-23-2020 12:00-0400 Body weight 125.6 kg [facility] 01-23-2020 12:00-0400 Height 162.6 cm [facility] 01-18-2020 12:15-0400 Pulse (Heart Rate) 81 /min [facility] 01-18-2020 12:15-0400 Pulse Oximetry 98 % [facility] 01-18-2020 12:15-0400 Respiratory Rate 18 /min [facility] 01-18-2020 11:13-0400 BP Diastolic 54 mm[Hg] [facility] 01-18-2020 11:13-0400 BP Systolic 96 mm[Hg] [facility] 01-18-2020 10:05-0400 BMI (Body Mass Index) 47.63 kg/m2 [facility] 01-18-2020 10:05-0400 Body weight 125.87 kg [facility] 01-18-2020 10:05-0400 Height 162.6 cm [facility] 01-18-2020 10:03-0400 Body Temperature 99.81 [degF] [facility] 01-03-2020 08:44-0400 BMI (Body Mass Index) 42.91 kg/m2 [facility] 01-03-2020 08:44-0400 Body weight 113.4 kg [facility] 01-03-2020 08:44-0400 Height 162.6 cm [facility] 07-17-2020 15:34-0400 BP Di[facility] 58 mm[Hg] [facility] 12-14-2019 15:34-0400 BP Systolic 117 mm[Hg] [facility] 12-14-2019 15:34-0400 Pulse (Heart Rate) 86 /min [facility] 12-14-2019 15:34-0400 Pulse Oximetry 97 % [facility] 12-14-2019 15:34-0400 Respiratory Rate 16 /min [facility] 12-14-2019 14:14-0400 Height 162.6 cm [facility] 12-14-2019 14:09-0400 Body Temperature 98.29 [degF] [facility] 11-11-2019 13:33-0400 BMI (Body Mass Index) 40.77 kg/m2 [facility] 11-11-2019 13:33-0400 Body weight 111.13 kg [facility] 11-11-2019 13:33-0400 Height 165.1 cm [facility] 11-11-2019 13:30-0400 Body Temperature 98.1 [degF] [facility] 11-11-2019 13:30-0400 BP Diastolic 81 mm[Hg] [facility] 11-11-2019 13:30-0400 BP Systolic 153 mm[Hg] [facility] 11-11-2019 13:30-0400 Pulse (Heart Rate) 108 /min [facility] 11-11-2019 13:30-0400 Pulse Oximetry 98 % [facility] 11-11-2019 13:30-0400 Respiratory Rate 16 /min [facility] 04-22-2019 14:01-0500 Body Temperature 97.2 [degF] [facility] 04-22-2019 14:01-0500 BP Diastolic 88 mm[Hg] [facility] 04-22-2019 14:01-0500 BP Systolic 136 mm[Hg] [facility] 04-22-2019 14:01-0500 Height 157.5 cm [facility] 04-22-2019 14:010500 Pulse (Heart Rate) 100 /min [facility] 04-22-2019 14:0500 Pulse Oximetry 97 % [facility] 04-22-2019 14:0500 Respiratory Rate 18 /min [facility] Encounters Encounter Date Encounter Type Care Provider Facility Start: 12-19-2024 End: 12-19-2024 Office outpatient visit 15 minutes Dami Hobbs MD Work Phone: [facility] Comment on above: Pain, dental (Primar y Dx) Start: 12-19-2024 End: 12-19-2024 ambulatory YASMANI TOTH Facility:[facility] Start: 11-02-2024 End: 11-02-2024 Admission to same day surgery center Gris Sanchez APRN.ASSET ACCOUNTANT Work Phone: [facility] Comment on above: Referral for carpal tunnel surgery Start: 11-02-2024 End: 11-02-2024 ambulatory Gris Sanchez APRN.ASSET ACCOUNTANT Work Phone: [facility] Start: 08-13-2024 End: 08-13-2024 ambulatory GRIS SANCHEZ Facility:[facility] Start: 08-13-2024 End: 08-13-2024 Patient encounter procedure Gris Sanchez RECRUITING ASSISTANT.ASSET ACCOUNTANT Work Phone: [facility] Comment on above: Anxiety and depressi on (Primary Dx); Obesity, Class III, BMI >= 40; Encounter for immunization; Family history of PCOS Start: 07-26-2024 End: 07-26-2024 E-mail encounter from caregiver [facility] Start: 07-26-2024 End: 07-26-2024 Follow-up encounter [facility] Comment on above: Medication follow-up Start: 02-03-2024 End: 02-03-2024 ambulatory GRIS SANCHEZ Facility:[facility] Start: 02-03-2024 End: 02-03-2024 Patient encounter procedure Gris Sanchez RECRUITING ASSISTANT.ASSET ACCOUNTANT Work Phone: [facility] Comment on above: Anxiety and depressi on (Primary Dx) Start: 01-04-2024 End: 01-04-2024 ambulatory GRIS Woody DANIEL Facility:[facility] Start: 01-04-2024 End: 01-04-2024 Patient encounter procedure Gris NievesDaniel RECRUITING ASSISTANT.ASSET ACCOUNTANT Work Phone: [facility] Comment on above: Anxiety and depressi on (Primary Dx); Adjustment insomnia Start: 12-29-2023 ambulatory Gris Mckay Sandro moss RECRUITING ASSISTANT.ASSET ACCOUNTANT Work Phone: [facility] Comment on above: Medication change Start: 12-07-2023 End: 12-07-2023 Patient encounter procedure Gris Mckay Daniel RECRUITING ASSISTANT.ASSET ACCOUNTANT Work Phone: [facility] Comment on above: Anxiety and depressi on (Primary Dx) Start: 04-03-2023 Refill Yasmani heck MD Work Phone: [facility] Comment on above: Refill Request Start: 01-07-2023 End: 01-07-2023 Patient encounter procedure Yasmani Toth MD Work Phone: [facility] Comment on above: Anxiety and depressi on Start: 12-10-2022 Telephone encounter Gina moura [facility] Work Phone: Psychology Comment on above: bh consult Start: 12-09-2022 End: 12-09-2022 Patient encounter procedure Yasmani Toth MD Work Phone: [facility] Comment on above: Routine medical exam (Primary Dx); Obesity, Class III, BMI >= 40; Anxiety and depression; Screening for cervical cancer; Screening for HIV without presence of risk factors; Encounter for hepatitis C screening test for low risk patient; Fatigue, unspecified type; Vision disturbance Start: 12-09-2022 End: 12-09-2022 Patient encounter status Yasmani Toth MD Work Phone: [facility] Work Phone: Start: 01-06-2022 End: 01-06-2022 Emergency department patient visit No Primary Care Physician [facility] Start: 01-06-2022 End: 01-06-2022 Patient encounter procedure No Primary Care Physician [facility] Start: 02-07-2020 End: 02-07-2020 Postop follow up visit related to original px Martínez Garner Work Phone: [facility] Comment on above: Diarrhea, unspecifie d type (Primary Dx); Postoperative infection, unspecified type, initial encounter; Gallstone pancreatitis Start: 01-25-2020 End: 01-25-2020 Emergency department patient visit Ashish Carlson Work Phone: [facility] Start: 01-21-2020 End: 01-24-2020 Evaluation and management of inpatient Martínez Masters Work Phone: [facility] Comment on above: Gallstone pancreatit is Start: 01-18-2020 End: 01-18-2020 Emergency department patient visit Frederick Leon [facility] Start: 01-11-2020 End: 01-12-2020 Patient encounter procedure [facility] Start: 01-11-2020 End: 01-11-2020 Subsequent hospital visit by physician Frederick Leon [facility] Comment on above: Viral illness Start: 01-03-2020 End: 01-03-2020 Office outpatient new 30 minutes Martínez Garner Work Phone: [facility] Comment on above: Abdominal pain, gene ralized (Primary Dx) Start: 12-14-2019 End: 12-14-2019 Emergency department patient visit Frederick Leon [facility] Start: 11-11-2019 End: 11-11-2019 Emergency department patient visit Chaitanya Nicole Work Phone: [facility] Start: 04-22-2019 End: 04-22-2019 Emergency department patient visit [facility] Start: 02-18-2017 End: 02-18-2017 Emergency department patient visit Blade Crisostomo Facility:[facility] Date Procedure Procedure Detail Performing Clinician Start: 08-13-2024 [employer] COVID-19 VACCINE AGE 12+ YR (COMIRNATY) Gris Mckay Daniel RECRUITING ASSISTANT.ASSET ACCOUNTANT Work Phone: Start: 01-25-2020 Computed tomography of abdomen and pelvis with contrast Ashish Carlson Work Phone: Start: 01-25-2020 Assay of lactate Ashish Carlson Work Phone: Start: 01-25-2020 Assay of lipase Ashish Carlson Work Phone: Start: 01-25-2020 Complete blood count with white cell differential, automated Ashish Durham Carlson Work Phone: Start: 01-25-2020 Comprehensive metabolic panel Ashish rogers Work Phone: Start: 01-25-2020 End: 01-25-2020 Culture bacterial blood aerobic w/id isolates Ashish Carlson Work Phone: Start: 01-25-2020 Urinalysis microscopic only Ashish carbone Work Phone: Start: 01-25-2020 Urinalysis, reagent strip without microscopy Ashish Carlson Work Phone: Start: 01-24-2020 Assay of lipase Martínez Garner Work Phone: Start: 01-24-2020 Complete blood count with white cell differential, automated Martínez Garner Work Phone: Start: 01-24-2020 Comprehensive metabolic panel Martínez Garner Work Phone: Start: 01-23-2020 Iadna nos amplified probe tq each organism Martínez Garner Work Phone: Start: 01-23-2020 [facility] - NASOPHARYNGEAL Martínez Garner Work Phone: Start: 01-23-2020 Assay of lipase Martínez Garner Work Phone: Start: 01-23-2020 Complete blood count with white cell differential, automated Martínez Garner Work Phone: Start: 01-23-2020 Comprehensive metabolic panel Martínez Garner Work Phone: Start: 01-22-2020 Assay of lipase Martínez Garner Work Phone: Start: 01-22-2020 Complete blood count with white cell differential, automated Martínez Garner Work Phone: Start: 01-22-2020 Comprehensive metabolic panel Martínez Garner Work Phone: Start: 01-21-2020 Magnetic resonance cholangiopancreatography Martínez Garner Work Phone: Start: 01-21-2020 Cultyp nuc acid amp prb cult/isolate ea orgnism Martínez Garner Work Phone: Start: 01-21-2020 Choriogonadotropin ( test) [Presence] in Urine Martínez Masters Work Phone: Start: 01-21-2020 Urinalysis microscopic only Martínez resendiz Work Phone: Start: 01-21-2020 Urinalysis, reagent strip without microscopy Martínez Masters Work Phone: Start: 01-21-2020 Assay of lipase Martínez Masters Work Phone: Start: 01-21-2020 Complete blood count with white cell differential, automated Martínez Murphyue Work Phone: Start: 01-21-2020 Electrolyte panel Martínez Masters Work Phone: Start: 01-21-2020 Hepatic function panel Martínez Masters Work Phone: Start: 01-18-2020 Ultrasonography of abdomen Krysta Taylor es Work Phone: Start: 01-18-2020 Albumin serum plasma/whole blood Krysta Alicea Shaina Work Phone: Start: 01-18-2020 Assay of lipase Krysta Merritt Work Phone: Start: 01-18-2020 Complete blood count with white cell differential, automated Krysta Simpsonmes Work Phone: Start: 01-18-2020 Creatinine blood Krysta Simpsonmes Work Phone: Start: 01-18-2020 Urinalysis microscopic only Krysta A Calvin mes Work Phone: Start: 01-18-2020 Urinalysis, reagent strip without microscopy Krysta Merritt Work Phone: Start: 01-11-2020 COVID-19 AMBULATORY NICOLE DWYER Start: 12-14-2019 Ultrasonography of abdomen Omar Miky red Work Phone: Start: 12-14-2019 Choriogonadotropin ( test) [Presence] in Urine Jonatan Pillai Work Phone: Start: 12-14-2019 Urinalysis microscopic only Jonatan khannadanish Work Phone: Start: 12-14-2019 Urinalysis, reagent strip without microscopy Jonatan Pillai Work Phone: Start: 12-14-2019 Assay of lipase Omar Valencia Work Phone: Start: 12-14-2019 Bilirubin direct Omar Valencia Work Phone: Start: 12-14-2019 Complete blood count with white cell differential, automated Omar Valencia Work Phone: Start: 12-14-2019 Comprehensive metabolic panel Omar calzada Work Phone: Start: 11-11-2019 X-ray of right ankle Chaitanya Nicole Work Phone: Start: 11-11-2019 X-ray of right foot Chaitanya Nicole Work Phone: Plan of Treatment Date Care Activity Detail Author Start: 07-12-2031 Urine microalbumin profile [facility] Start: 01-28-2025 Influenza vaccination Influenza Vacc ine (#1) [facility] Start: 08-06-2024 End: 08-06-2024 Patient encounter procedure 08/06/2024 11:00 AM EDT Office Visit [facility] [address] [place] [address] Gris Sanchez, RECRUITING ASSISTANT.ASSET ACCOUNTANT [address] [place] [address] Refill for medication [facility] Comment on above: Refill for medicatio n Start: 02-05-2024 Covid-19 Vaccine ( season) Covid-19 Vaccine () [facility] Comment on above: Postponed from 01/28 (Declined at this time) Start: 02-03-2024 End: 02-03-2024 Patient encounter procedure 02/03/2024 8:00 AM EDT Office Visit [facility] [address] [facility], [place] [id number] Gris Sanchez, RECRUITING ASSISTANT.ASSET ACCOUNTANT [address] [place], [place] [id number] 4 week follow up [facility] Comment on above: 4 week follow up Start: 01-29-2024 Covid-19 Vaccine () Covid-19 Vaccine () [facility] Start: 01-29-2024 Covid-19 Vaccine () Covid-19 Vaccine () [facility] Start: 01-29-2024 Influenza vaccination Influenza Vacc ine (#1) [facility] Start: 01-04-2024 End: 01-04-2024 Patient encounter procedure 01/04/2024 8:20 AM EDT Office Visit [facility] [address] [facility], [place] [id number] Gris Sanchez, RECRUITING ASSISTANT.ASSET ACCOUNTANT [address] [place] [address] 4 week follow up - medication [facility] Comment on above: 4 week follow up - m edication Start: 11-27-2023 Influenza vaccination Influenza Vacc ine (#1) [facility] Comment on above: Postponed from 01/28 (Declined at this time) Start: 01-28-2023 Influenza vaccination INFLUENZA (#1) [facility] Start: 01-06-2022 [facility] Work Phone: Start: 12-12-2021 COVID-19 VACCINE (2 - Booster for Doni series) COVID-19 VACCINE (2 - Booster for Doni series) [facility] Start: 01-25-2021 PAP TESTING PAP TESTING [facility] Start: 01-25-2021 Screening for malign ant neoplasm of cervix Cervical Cancer Screening [facility] Start: 01-29-2020 Influenza vaccination [facility] Start: 01-21-2020 Hospital Encounter 01/21/2020 Hospital Encounter Nuclear Medicine Martínez Garner, [address] [place] [address] [facility] Start: 01-03-2020 End: 01-02-2021 Radionuclide hepatobiliary study NUC HEPATOBILIARY W/ EF Imaging Routine Abdominal pain, generalized Expected: 01/03/2020, Expires: 01/02/2021 [facility] Comment on above: Expected: 01/03/2020 , Expires: 01/02/2021 Start: 01-28-2019 Influenza vaccination INFLUENZA VACC INE (#1) [facility] Start: 01-25-2019 DTaP/Tdap/Td vaccine (1 - Tdap) DTaP/Tdap/Td vaccine (1 - Tdap) [facility] [place] [place] Start: 01-25-2019 Third diphtheria, tetanus and acellular pertussis (DTaP) vaccination TDAP (ADULT) [facility] Start: 01-25-2019 Urine microalbumin profile DTAP,TDAP,TD (1 - Tdap) [facility] Start: 01-25-2018 CHLAMYDIA SCREENING (18-24) CHLAMYDIA SCREENING (18-24) [facility] Start: 01-25-2018 GC (GONORRHEA) SCREE ROMELIA (18-24) GC (GONORRHEA) SCREENING (18-24) [facility] Start: 01-25-2018 HEPATITIS C SCREENING HEPATITIS C SC REENING [facility] Start: 01-25-2018 HIV SCREENING HIV SCREENING [facility] Start: 01-25-2018 Screening for Chlamy micah trachomatis Chlamydia Screening (18-24) [facility] Start: 01-25-2018 Tetanus vaccination [facility] Start: 2016 Meningococcal B Vacc ine: Consider Based On Risk (1 of 2 - Patient Seeks Protection) Meningococcal B Vaccine: Consider Based On Risk (1 of 2 - Patient Seeks Protection) [facility] Start: 2016 MENINGOCOCCAL B: Consider based on risk (1 of 2 - Patient Seeks Protection) MENINGOCOCCAL B: Consider based on risk (1 of 2 - Patient Seeks Protection) [facility] Start: 2016 Screening for Chlamy micah trachomatis CHLAMYDIA SCREEN [facility] Start: 01-25-2015 HIV screening HIV screen [place], [place] Start: 01-25-2015 HPV Vaccine (1 - 3-d ose series) HPV Vaccine (1 - 3-dose series) [facility] Start: 01-25-2014 PEDS TO ADULT TRANSI TION ANNUAL ASSESSMENT PEDS TO ADULT TRANSITION ANNUAL ASSESSMENT [facility] Start: 01-25-2013 HIV screening HIV SCREENING DISCUSSI ON [facility] Start: 2012 PEDS TO ADULT TRANSI TION INITIAL DISCUSSION PEDS TO ADULT TRANSITION INITIAL DISCUSSION [facility] Start: 01-25-2011 HPV vaccine (1 - 2-d ose series) HPV vaccine (1 - 2-dose series) [place], [place] Start: 01-25-2011 Vaccination for casey n papillomavirus [facility] Start: 01-25-2009 HPV VACCINE (1 - 2-d ose series) HPV VACCINE (1 - 2-dose series) [facility] Start: 01-25-2001 Varicella vaccine (1 of 2 - 2-dose childhood series) Varicella vaccine (1 of 2 - 2-dose childhood series) [place], [place] Start: 2000 GONORRHEA SCREEN GONORRHEA SCREEN [facility] Start: 2000 HEPATITIS B (1 of 3 - 3-dose series) HEPATITIS B (1 of 3 - 3-dose series) [facility] Bacteria identified Cx Nom (Bld) [facility] Comprehensive metabo lic 1999 panel COMPREHENSIVE METABOLIC PANEL Lab Routine Every morning Lab until discontinued starting 01/22/2020, 3 completed [facility] Comment on above: Every morning Lab un til discontinued starting 01/22/2020, 3 completed End: 01-11-2020 Covid-19 Ambulatory Covid-19 Ambulatory Lab Routine Viral illness 1 Occurrences starting 01/11/2020 until 01/11/2020 [place], [place] Comment on above: 1 Occurrences starti ng 01/11/2020 until 01/11/2020 Covid-19 Ambulatory Covid-19 Amb ulatory Lab Routine Viral illness 01/11/2020 2:13 PM EDT [facility] End: 01-23-2020 Fluoroscopy XR FLUORO < 1 HOUR OR Imaging STAT One Time for 1 Occurrences starting 01/23/2020 until 01/23/2020 [facility] Comment on above: One Time for 1 Occur rences starting 01/23/2020 until 01/23/2020 Fluoroscopy XR FLUORO < 1 HO UR OR Imaging STAT 01/23/2020 4:27 PM EDT [facility] LIPASE LIPASE Lab Routi ne Every morning Lab until discontinued starting 01/22/2020, 3 completed [facility] Comment on above: Every morning Lab un til discontinued starting 01/22/2020, 3 completed Patient Education Viral Gastroen teritis Understanding Vasovagal Syncope [facility] Work Phone: Patient referral [facility] Work Phone: SURGICAL PATHOLOGY REQUEST SURGICAL PATHOLOGY REQUEST Surg Path Routine Gallstone pancreatitis Release Upon Ordering for 1 Occurrences starting 01/23/2020 [facility] Comment on above: Release Upon Orderin g for 1 Occurrences starting 01/23/2020 Urea nitrogen [Mass/Vol] CBC, ED IF, PLATELET Lab Routine Every morning Lab until discontinued starting 01/22/2020, 3 completed [facility] Comment on above: Every morning Lab un til discontinued starting 01/22/2020, 3 completed [facility] Immunization Date Immunization Notes Care Provider Fa sam 08-13-2024 COVID-19 vaccine, ag e 12+ yr (PFIZER-[facility]ION[facility]CH [facility]) Gris Sanchez RECRUITING ASSISTANT.ASSET ACCOUNTANT Work Phone: [facility] 08-13-2024 influenza, seasonal, injectable Gris Sanchez RECRUITING ASSISTANT.ASSET ACCOUNTANT Work Phone: [facility] 08-13-2024 influenza virus vaccine, unspecified formulation Dami Hobbs MD Work Phone: [facility] 07-12-2021 tetanus toxoid, reduced diphtheria toxoid, and acellular pertussis vaccine, adsorbed No Primary Care Physician [facility] Work Phone: 06-08-2014 influenza, seasonal, injectable, preservative free Yasmani Toth MD Work Phone: [facility] Work Phone: 06-08-2014 influenza virus vaccine, unspecified formulation Yasmani Toth MD Work Phone: [facility] 01-10-2013 tetanus toxoid, reduced diphtheria toxoid, and acellular pertussis vaccine, adsorbed Yasmani Toth MD Work Phone: [facility] Work Phone: 04-29-2009 novel [id number], preservative-free, injectable Yasmani Toth MD Work Phone: [facility] Work Phone: 03-29-2009 novel [id number], preservative-free, injectable Yasmani Toth MD Work Phone: [facility] Work Phone: 03-12-2009 influenza virus vaccine, whole virus Yasmani Toth MD Work Phone: [facility] Work Phone: 01-25-2006 diphtheria, tetanus toxoids and acellular pertussis vaccine, unspecified formulation Yasmani Toth MD Work Phone: [facility] Work Phone: 01-25-2006 measles, mumps and rubella virus vaccine Yasmani Toth MD Work Phone: [facility] Work Phone: 01-25-2006 poliovirus vaccine, inactivated Yasmani Toth MD Work Phone: [facility] Work Phone: 01-25-2006 varicella virus vaccine Yasmani Toth MD Work Phone: [facility] Work Phone: 06-05-2001 diphtheria, tetanus toxoids and pertussis vaccine Yasmani Toth MD Work Phone: [facility] Work Phone: 02-16-2001 haemophilus influenz ae type b vaccine, conjugate unspecified formulation Yasmani Toth MD Work Phone: [facility] Work Phone: 02-16-2001 measles, mumps and rubella virus vaccine Yasmani Toth MD Work Phone: [facility] Work Phone: 02-16-2001 poliovirus vaccine, unspecified formulation Yasmani Toth MD Work Phone: [facility] Work Phone: 2000 diphtheria, tetanus toxoids and acellular pertussis vaccine, unspecified formulation Yasmani Toth MD Work Phone: [facility] Work Phone: 2000 haemophilus influenz ae type b conjugate and Hepatitis B vaccine Yasmani Toth MD Work Phone: [facility] Work Phone: 2000 diphtheria, tetanus toxoids and acellular pertussis vaccine, unspecified formulation Yasmani Toth MD Work Phone: [facility] Work Phone: 2000 haemophilus influenz ae type b vaccine, conjugate unspecified formulation Yasmani Toth MD Work Phone: [facility] Work Phone: 2000 poliovirus vaccine, unspecified formulation Yasmani Toth MD Work Phone: [facility] Work Phone: 2000 diphtheria, tetanus toxoids and acellular pertussis vaccine, unspecified formulation Yasmani Toth MD Work Phone: [facility] Work Phone: 2000 haemophilus influenz ae type b conjugate and Hepatitis B vaccine Yasmani Toth MD Work Phone: [facility] Work Phone: 2000 poliovirus vaccine, unspecified formulation Yasmani Toth MD Work Phone: [facility] Work Phone: 2000 hepatitis B vaccine, pediatric or pediatric/adolescent dosage Yasmani Toth MD Work Phone: [facility] Work Phone: Payers Date Payer Category Payer Medicaid [id number] 2019 Medicaid [id number] 2019 Unknown BERNABE BERNABE xx xxxxxxxxxx 2019-Present [id number] 2019 Unknown BERNABE BERNABE xx [id number] 2019-Present [id number] 2000 Unknown [id number] [facility] [id number] Self-pay SELF PAY INSURANCE [id number] Social History Date Type Detail Facility Start: 04-22-2019 End: 12-09-2022 Tobacco smoking status NHIS Never smoker [facility] Start: 04-22-2019 End: 11-11-2019 Alcohol intake Ex-drinker (finding) [facility] Sex Assigned At Not on file [facility] Start: 11-11-2019 End: 12-09-2022 Tobacco use and exposure Never used [employer] Exposure to SARS-CoV -2 (event) Not sure [facility] Start: 12-14-2019 End: 12-19-2024 Alcohol intake Current drinker of alcohol (finding) [employer] Start: 12-14-2019 Alcohol Comment rare [facility] Exposure to SARS-CoV -2 (event) Yes [facility] [place] [place] Start: 01-06-2022 Tobacco smoking status MEIS Unknown if ever smoked [facility] Work Phone: Start: 2000 Sex Assigned At Female [facility] Start: 12-07-2022 End: 12-09-2022 History of Social function [facility] Start: 12-07-2022 End: 12-09-2022 Social connection and isolation panel [facility] Do you belong to any clubs or organizations such as buddhist groups, unions, fraternal or athletic groups, or school groups? No [facility] Are you now , , , , never or living with a partner? Never [facility] How often to you hav e a drink containing alcohol? Never [facility] How many standard dr inks containing alcohol do you have on a typical day? Patient does not drink [facility] How hard is it for y ou to pay for the very basics like food, housing, medical care, and heating Hard [facility] Do you feel stress - tense, restless, nervous, or anxious, or unable to sleep at night because your mind is troubled all the time - these days [OSQ] Very much [facility] (I/We) worried parker er (my/our) food would run out before (I/we) got money to buy more. Sometimes true [facility] Start: 12-09-2022 Alcohol Comment Rare occasion [facility] Start: 06-16-2022 Gender identity Identifies as female gender (finding) [facility] Start: 06-16-2022 Sexual orientation Heterosexual (finding) [facility] Start: 12-11-2022 Education 11 [facility] Clinical Notes 12-14-2019 to 12-19-2024 Dami Hobbs MD - 12/19/2024 3:14 PM Gris Reyez APRN.ASSET ACCOUNTANT - 08/13/2024 11:38 AM EDTPatient InstructionsPatient InstructionsGris Sanchez APRN.ASSET ACCOUNTANT - 02/03/2024 8:00 AM EDT Note Date & Type Note Facility 12-19-2024 Note HNO ID: [id number] Author: DAMI HOBBS MD Service: ? Author Type: Physician Type: Progress Notes Filed: 12/19/2024 15:31 Note Text: [facility] Grover is a 24 year old female. Patient presents with: Dental Problem: Tooth pain x 4 days Dental pain: Duration: 4 days Location: right upper wisdom tooth Character: aching and throbbing Radiation: into the jaw Aggravating: Opening mouth, chewing, brush Relieving: Pain relievers: Motrin and Tylenol Associated: Has had similar pain in the past from erupting wisdom tooth Pertinent negatives: Denies swelling, foul drainage, fever Dental Problem Review of Systems Objective BP 122/80 Pulse 90 Temp 36.8 ?C (98.2 ?F) (Tympanic) Resp 18 Wt 131.5 kg (289 lb 14.5 oz) LMP 11/21/2022 (Exact Date) SpO2 98% BMI 49.76 kg/m? Physical Exam Constitutional: General: She is not in acute distress. HENT: Right Ear: Tympanic membrane and ear canal normal. Left Ear: Tympanic membrane and ear canal normal. Nose: No congestion. Right Sinus: No maxillary sinus tenderness or frontal sinus tenderness. Left Sinus: No maxillary sinus tenderness or frontal sinus tenderness. Mouth/Throat: Mouth: Mucous membranes are moist. Pharynx: No oropharyngeal exudate or posterior oropharyngeal erythema. Comments: Partially erupted right lower third molar; teeth are nontender. Gingiva over the third molar is tender. Eyes: Extraocular Movements: Extraocular movements intact. Conjunctiva/sclera: Conjunctivae normal. Pupils: Pupils are equal, round, and reactive to light. Musculoskeletal: Cervical back: Neck supple. Lymphadenopathy: Cervical: No cervical adenopathy. Neurological: Mental Status: She is alert. {ASSESSMENT/PLAN: 1. Pain, dental - ICD9: 525.9, ICD10: K08.89 Low suspicion for infection. Reviewed pain management regimen; 600 mg ibuprofen and 1000 or 650 mg acetaminophen every 6 hours. Follow-up for antibiotic if she develops fever, swelling, or foul drainage. Previously attempted to have wisdom teeth extracted and appointment was canceled. Next available was 1 year later. Continue to seek wisdom tooth extraction. Dami Hobbs MD Differential Diagnoses - molar eruption pain is more likely for the following reason(s): suggested by HANDP - dental infection is less likely for the following reason(s): HANDP not suggestive Procedures [facility] 12-19-2024 History of Presen t illness Narrative [facility]ver is a 24 year old female. Patient presents with: Dental Problem: Tooth pain x 4 days Dental pain: Duration: 4 days Location: right upper wisdom tooth Character: aching and throbbing Radiation: into the jaw Aggravating: Opening mouth, chewing, brush Relieving: Pain relievers: Motrin and Tylenol Associated: Has had similar pain in the past from erupting wisdom tooth Pertinent negatives: Denies swelling, foul drainage, fever Dental Problem Review of Systems Objective BP 122/80 Pulse 90 Temp 36.8 C (98.2 F) (Tympanic) Resp 18 Wt 131.5 kg (289 lb 14.5 oz) LMP 11/21/2022 (Exact Date) SpO2 98% BMI 49.76 kg/m Physical Exam Constitutional: General: She is not in acute distress. HENT: Right Ear: Tympanic membrane and ear canal normal. Left Ear: Tympanic membrane and ear canal normal. Nose: No congestion. Right Sinus: No maxillary sinus tenderness or frontal sinus tenderness. Left Sinus: No maxillary sinus tenderness or frontal sinus tenderness. Mouth/Throat: Mouth: Mucous membranes are moist. Pharynx: No oropharyngeal exudate or posterior oropharyngeal erythema. Comments: Partially erupted right lower third molar; teeth are nontender. Gingiva over the third molar is tender. Eyes: Extraocular Movements: Extraocular movements intact. Conjunctiva/sclera: Conjunctivae normal. Pupils: Pupils are equal, round, and reactive to light. Musculoskeletal: Cervical back: Neck supple. Lymphadenopathy: Cervical: No cervical adenopathy. Neurological: Mental Status: She is alert. {ASSESSMENT/PLAN: 1. Pain, dental - ICD9: 525.9, ICD10: K08.89 Low suspicion for infection. Reviewed pain management regimen; 600 mg ibuprofen and 1000 or 650 mg acetaminophen every 6 hours. Follow-up for antibiotic if she develops fever, swelling, or foul drainage. Previously attempted to have wisdom teeth extracted and appointment was canceled. Next available was 1 year later. Continue to seek wisdom tooth extraction. Dami Hobbs MD Differential Diagnoses - molar eruption pain is more likely for the following reason(s): suggested by H&P - dental infection is less likely for the following reason(s): H&P not suggestive Procedures documented in this encounter [facility] 08-13-2024 Note HNO ID: [id number] Author: GRIS SANCHEZ APRN.QUEENIE Service: ? Author Type: Nurse Practitioner Type: Progress Notes Filed: 08/13/2024 13:32 Note Text: CC: Patient presents with: Follow Up: Medication HPI Deejay is a 24-year-old female with a history of anxiety and depression, presenting for follow-up on Wellbutrin and Prozac. The patient consented to the use of Exepron software for draft documentation of the visit consistent with [facility]?s Notice of Privacy Practices. Anxiety and Depression: - Reports doing "very good" since last visit. - Medications are "working the best it's ever worked the last few months." - Taking Wellbutrin 150 mg BID and Prozac daily. - Denies any persistent or bothersome symptoms. - Denies side effects from current dosages. - Previously experienced "really bad OCD" symptoms on Wellbutrin 200 mg, resolved after dosage reduction to 150 mg. Weight Gain: - Weight increased from 248 lbs last year to 262 lbs. - Attributes weight gain to improved mood and increased appetite. - Previously lost weight due to anxiety and depression. - Engages in walking for 45 minutes daily using an under-desk walking pad. - Previously attended the gym but has not gone recently. - Denies current weight training. - Consumes two meals a day, often skipping breakfast. - Describes meals as "too big" and acknowledges eating "too many calories." - Consumes fruits and vegetables regularly. Family History: - Siblings have hormone imbalances and vitamin deficiencies. - Family history of thyroid disease and PCOS. Review of Systems Constitutional: Negative for chills, diaphoresis, fatigue, fever and unexpected weight change. Respiratory: Negative for cough, shortness of breath and wheezing. Cardiovascular: Negative for chest pain, palpitations and leg swelling. Endocrine: Negative for cold intolerance, heat intolerance, polydipsia, polyphagia and polyuria. Neurological: Negative for dizziness, light-headedness and headaches. PAST MEDICAL HISTORY Diagnosis Date Acute gallstone pancreatitis 01/21/2020 Obsessive compulsive disorder Vasovagal syncope PAST SURGICAL HISTORY Procedure Laterality Date LAPAROSCOPIC CHOLECYSTECTOMY 2020 ALLERGIES Patient has no known allergies. MEDICATIONS hydrOXYzine HCl (ATARAX) 50 mg tablet Take 1-1.5 tablets by mouth every 6 hours as needed for anxiety. buPROPion SR (WELLBUTRIN SR) 150 mg 12 hr tablet Take 1 tablet by mouth two times a day. FLUoxetine (PROZAC) 40 mg capsule Take 1 capsule by mouth once daily. FAMILY HISTORY Problem Relation Age of Onset No Known Problems Mother Diabetes Father No Known Problems Sister Hypothyroidism Sister Parkinson?s Disease Maternal Grandfather Alzheimer's Disease Maternal Grandfather Social History Tobacco Use Smoking status: Never Smokeless tobacco: Never Vaping Use Vaping status: current everyday user Start date: 11/27/2021 Substances: THC, CBD Devices: Disposable Substance Use Topics Alcohol use: Yes Comment: Rare occasion Drug use: Never BP 118/68 Pulse 104 Resp 14 Wt 119 kg (262 lb 5.6 oz) LMP 11/21/2022 (Exact Date) SpO2 98% BMI 45.03 kg/m? Physical Exam Vitals reviewed. Constitutional: Appearance: Normal appearance. Cardiovascular: Rate and Rhythm: Normal rate and regular rhythm. Heart sounds: Normal heart sounds. No murmur heard. Pulmonary: Effort: Pulmonary effort is normal. Breath sounds: Normal breath sounds. No wheezing, rhonchi or rales. Skin: General: Skin is warm and dry. Neurological: Mental Status: She is alert. Psychiatric: Mood and Affect: Mood and affect normal. Speech: Speech normal. Behavior: Behavior normal. Thought Content: Thought content normal. Judgment: Judgment normal. Health maintenance reviewed with patient: HPV Vaccine(1 - 3-dose series) Never done Cervical Cancer Screening Never done Influenza Vaccine(1) due on 01/29/2024 Covid-19 Vaccine(2 - 2023-25 season) due on 01/29/2024 DTaP,Tdap,Td Vaccine(8 - Td or Tdap) due on 07/12/2031 Hepatitis B Vaccine Completed Hepatitis C Screening Completed HIV Screening Completed DATA REVIEWED: Most recent labs Assessment/Plan 1. Anxiety and depression (F41.9) - Well-controlled on current regimen of Wellbutrin 150 mg BID and Prozac daily. - No side effects reported at current dosages; previous OCD-like symptoms resolved after dose adjustment of Wellbutrin. 2. Obesity, Class III, BMI 40-49.9 (morbid obesity) (HCC) (E66.01) - Current weight 262 lbs, increased from 248 lbs last year. - Engaging in walking exercise for 45 minutes daily using a walking pad. - Discussed importance of portion control and balanced diet; advised to incorporate breakfast to prevent overeating later in the day. - Recommended initiation of cardiovascular and resistance training exercises. - Advised to increase intake of fruits and vegetables. 3. Encoun (more content not included)... [facility] 08-13-2024 History of Presen t illness Narrative CC: Patient presents with: Follow Up: Medication HPI Deejay is a 24-year-old female with a history of anxiety and depression, presenting for follow-up on Wellbutrin and Prozac. The patient consented to the use of Exepron software for draft documentation of the visit consistent with [facility] s Notice of Privacy Practices. Anxiety and Depression: - Reports doing "very good" since last visit. - Medications are "working the best it's ever worked the last few months." - Taking Wellbutrin 150 mg BID and Prozac daily. - Denies any persistent or bothersome symptoms. - Denies side effects from current dosages. - Previously experienced "really bad OCD" symptoms on Wellbutrin 200 mg, resolved after dosage reduction to 150 mg. Weight Gain: - Weight increased from 248 lbs last year to 262 lbs. - Attributes weight gain to improved mood and increased appetite. - Previously lost weight due to anxiety and depression. - Engages in walking for 45 minutes daily using an under-desk walking pad. - Previously attended the gym but has not gone recently. - Denies current weight training. - Consumes two meals a day, often skipping breakfast. - Describes meals as "too big" and acknowledges eating "too many calories." - Consumes fruits and vegetables regularly. Family History: - Siblings have hormone imbalances and vitamin deficiencies. - Family history of thyroid disease and PCOS. Review of Systems Constitutional: Negative for chills, diaphoresis, fatigue, fever and unexpected weight change. Respiratory: Negative for cough, shortness of breath and wheezing. Cardiovascular: Negative for chest pain, palpitations and leg swelling. Endocrine: Negative for cold intolerance, heat intolerance, polydipsia, polyphagia and polyuria. Neurological: Negative for dizziness, light-headedness and headaches. PAST MEDICAL HISTORY Diagnosis Date Acute gallstone pancreatitis 01/21/2020 Obsessive compulsive disorder Vasovagal syncope PAST SURGICAL HISTORY Procedure Laterality Date LAPAROSCOPIC CHOLECYSTECTOMY 2020 ALLERGIES Patient has no known allergies. MEDICATIONS hydrOXYzine HCl (ATARAX) 50 mg tablet Take 1-1.5 tablets by mouth every 6 hours as needed for anxiety. buPROPion SR (WELLBUTRIN SR) 150 mg 12 hr tablet Take 1 tablet by mouth two times a day. FLUoxetine (PROZAC) 40 mg capsule Take 1 capsule by mouth once daily. FAMILY HISTORY Problem Relation Age of Onset No Known Problems Mother Diabetes Father No Known Problems Sister Hypothyroidism Sister Parkinson s Disease Maternal Grandfather Alzheimer's Disease Maternal Grandfather Social History Tobacco Use Smoking status: Never Smokeless tobacco: Never Vaping Use Vaping status: current everyday user Start date: 11/27/2021 Substances: THC, CBD Devices: Disposable Substance Use Topics Alcohol use: Yes Comment: Rare occasion Drug use: Never BP 118/68 Pulse 104 Resp 14 Wt 119 kg (262 lb 5.6 oz) LMP 11/21/2022 (Exact Date) SpO2 98% BMI 45.03 kg/m Physical Exam Vitals reviewed. Constitutional: Appearance: Normal appearance. Cardiovascular: Rate and Rhythm: Normal rate and regular rhythm. Heart sounds: Normal heart sounds. No murmur heard. Pulmonary: Effort: Pulmonary effort is normal. Breath sounds: Normal breath sounds. No wheezing, rhonchi or rales. Skin: General: Skin is warm and dry. Neurological: Mental Status: She is alert. Psychiatric: Mood and Affect: Mood and affect normal. Speech: Speech normal. Behavior: Behavior normal. Thought Content: Thought content normal. Judgment: Judgment normal. Health maintenance reviewed with patient: HPV Vaccine(1 - 3-dose series) Never done Cervical Cancer Screening Never done Influenza Vaccine(1) due on 01/29/2024 Covid-19 Vaccine(2 - 2023- season) due on 01/29/2024 DTaP,Tdap,Td Vaccine(8 - Td or Tdap) due on 07/12/2031 Hepatitis B Vaccine Completed Hepatitis C Screening Completed HIV Screening Completed DATA REVIEWED: Most recent labs Assessment/Plan 1. Anxiety and depression (F41.9) - Well-controlled on current regimen of Wellbutrin 150 mg BID and Prozac daily. - No side effects reported at current dosages; previous OCD-like symptoms resolved after dose adjustment of Wellbutrin. 2. Obesity, Class III, BMI 40-49.9 (morbid obesity) (HCC) (E66.01) - Current weight 262 lbs, increased from 248 lbs last year. - Engaging in walking exercise for 45 minutes daily using a walking pad. - Discussed importance of portion control and balanced diet; advised to incorporate breakfast to prevent overeating later in the day. - Recommended initiation of cardiovascular and resistance training exercises. - Advised to increase intake of fruits and vegetables. 3. Encounter for immunization (Z23) - Patient will receive influenza and COVID-19 vaccinations today. - Discussed HPV vaccination; patient to schedule next appointment for HPV vaccine initiation. 4. Family history of PCOS (Z84.2) - Discussed potential for hormone imbalances; advised to establish care with a asset availability leader at the [facility] for further evaluation and management. - Cafe Site Attendant to assess for PCOS and order appropriate hormone panels. - Patient to schedule appointment by calling the [facility]. Prescription instructions reviewed with patient as applicable. Potential red flag symptoms discussed with the patient. Reviewed appropriate action plan to take if red flag symptoms occur. Patient agreeable to treatment plan. Gris Sanchez APRN.CNP Medical Decision Making: Problems: Low: Stable chronic illness Moderate: 1+ chronic illnesses with change Data: Unique test result(s) reviewed: 1 Risk: Low: Low risk from testing/treatment Moderate: Drug management Medical Decision Making Level: 4 - Moderate documented in this encounter [facility] 08-13-2024 Instructions Gris Sanchez APRN.QUEENIE - 08/13/2024 11:34 AM EDT - Continue taking Wellbutrin 150 mg twice daily and Prozac 20 mg once daily as prescribed. - Refills for Wellbutrin and Prozac will be sent to your pharmacy with a 90-day supply. - Schedule an appointment with a asset availability leader at the [facility] for cervical cancer screening and evaluation of potential hormone imbalances. - Incorporate more cardio exercise and weight training into your routine. - Make dietary improvements by reducing portion sizes and ensuring balanced meals. - Consider adding a healthy, protein-rich breakfast to your daily routine. - Plan to start the HPV vaccine series at your next visit. documented in this encounter [facility] 02-03-2024 Instructions Gris Sanchez APRN.CNP - 02/03/2024 8:09 AM EDT Increase Prozac to 30 mg daily (take 20 mg + 10 mg capsule once a day). Let me know in 2-3 weeks if you would like to increase the dose to 40 mg. documented in this encounter [facility] 02-03-2024 History of Presen t illness Narrative Chief Complaint Patient presents with: 4 week follow up - Medication HPI Deejay Grover is a 24 year old female who presents here today for medication follow-up. Patient was seen one month ago for worsening anxiety and depression. She was taking Wellbutrin and Buspar but neither seemed to be helping much. Buspar was discontinued and she was started on Prozac. Wellbutrin dose decreased back down to previous dosing due to concerns higher dose was contributing to anxiety. She also reported insomnia unrelieved by hydroxyzine, increased to 50 to 75 mg. Patient reports significant improvement in anxiety Persistent/bothersome symptoms include: anhedonia, feeling down, difficulty relaxing, worrying a lot. Side effects: None PHQ-9 More data exists 11/30/2023 12/29/2023 01/31/2024 PHQ-9 Scores Little interest or pleasure in doing things Nearly every day Nearly every day More than half the days Feeling down, depressed, or hopeless Nearly every day Nearly every day Several days Trouble falling or staying asleep, or sleeping too much Nearly every day Nearly every day Nearly every day Feeling tired or having little energy Nearly every day Nearly every day Nearly every day Poor appetite or overeating More than half the days Several days More than half the days Feeling bad about yourself - or that you are a failure or have let yourself or your family down Nearly every day Nearly every day More than half the days Trouble concentrating on things, such as reading the newspaper or watching television Nearly every day Several days Several days Moving or speaking so slowly that other people could have noticed. Or the opposite - being so fidgety or restless that you have been moving around a lot more than usual Not at all More than half the days Not at all Thoughts that you would be better off , or of hurting yourself in some way Not at all Not at all Not at all PHQ-9 Score 20 19 14 12/07/2023 01/04/2024 02/03/2024 JAQUAN-7 ANXIETY SCALE Feeling nervous, anxious, or on edge 3 Nearly every day 3 Nearly every day 2 Over half the days Not being able to stop or control worrying 3 Nearly every day 3 Nearly every day 2 Over half the days Worrying too much about different things 3 Nearly every day 3 Nearly every day 2 Over half the days Trouble relaxing 3 Nearly every day 3 Nearly every day 2 Over half the days Being so restless that it's hard to sit still 1 Several days 2 Over half the days 0 Not at all sure Being easily annoyed or irritable 3 Nearly every day 3 Nearly every day 1 Several days Feeling afraid as if something awful might happen 3 Nearly every day 3 Nearly every day 1 Several days JAQUAN-7 Anxiety Score 19 20 10 If you checked off any problems, how difficult have these problems made it for you to do your work, take care of things at home, or get along with other people? Extremely difficult Extremely difficult Very difficult Review of Systems See HPI PAST MEDICAL HISTORY 01/21/2020: Acute gallstone pancreatitis No date: Obsessive compulsive disorder No date: Vasovagal syncope PAST SURGICAL HISTORY 2020: LAPAROSCOPIC CHOLECYSTECTOMY ALLERGIES Patient has no known allergies. MEDICATIONS buPROPion SR (WELLBUTRIN SR) 150 mg 12 hr tablet Take 1 tablet by mouth two times a day. FLUoxetine (PROZAC) 20 mg capsule Take 1 capsule by mouth once daily. hydrOXYzine HCl (ATARAX) 50 mg tablet Take 1-1.5 tablets by mouth every 6 hours as needed for anxiety. FAMILY HISTORY Problem Relation Age of Onset No Known Problems Mother Diabetes Father No Known Problems Sister Hypothyroidism Sister Parkinson s Disease Maternal Grandfather Alzheimer's Disease Maternal Grandfather Social History Tobacco Use Smoking status: Never Smokeless tobacco: Never Vaping Use Vaping status: current everyday user Start date: 11/27/2021 Substances: THC, CBD Devices: Disposable Substance Use Topics Alcohol use: Yes Comment: Rare occasion Drug use: Never BP 116/84 Pulse 105 Resp 18 Wt 112.6 kg (248 lb 3.8 oz) LMP 11/21/2022 (Exact Date) SpO2 99% BMI 42.61 kg/m Physical Exam Vitals reviewed. Constitutional: Appearance: Normal appearance. Neurological: Mental Status: She is alert. Psychiatric: Attention and Perception: Attention and perception normal. Mood and Affect: Mood and affect normal. Speech: Speech normal. Behavior: Behavior normal. Behavior is cooperative. Thought Content: Thought content normal. Judgment: Judgment normal. ASSESSMENT/PLAN: 1. Anxiety and depression - ICD9: 300.00, 311, ICD10: F41.9, F32.A Patient is doing well on current medications, would benefit from increase in dose of Prozac - increase Prozac to 30 mg daily - continue with Wellbutrin 150 mg daily - Reviewed benefits of sleep hygeine, diet and exercise - she will let me know in a few weeks how she is doing on the higher dose - Instructed patient to contact office or [id number] after-hours promptly should condition worsen or any new symptoms appear. Prescription instructions reviewed with patient as applicable. Potential red flag symptoms discussed with the patient. Reviewed appropriate action plan to take if red flag symptoms occur. Patient agreeable to treatment plan During this patient visit I have spent approximately 30 minutes in counseling regarding treatment options, medications, and coordinating care. Gris Sanchez APRN.ASSET ACCOUNTANT documented in this encounter [facility] 02-03-2024 Note HNO ID: [id number] Author: GRIS SANCHEZ APRN.ASSET ACCOUNTANT Service: ? Author Type: Nurse Practitioner Type: Progress Notes Filed: 02/03/2024 09:05 Note Text: Chief Complaint Patient presents with: 4 week follow up - Medication HPI Deejay Grover is a 24 year old female who presents here today for medication follow-up. Patient was seen one month ago for worsening anxiety and depression. She was taking Wellbutrin and Buspar but neither seemed to be helping much. Buspar was discontinued and she was started on Prozac. Wellbutrin dose decreased back down to previous dosing due to concerns higher dose was contributing to anxiety. She also reported insomnia unrelieved by hydroxyzine, increased to 50 to 75 mg. Patient reports significant improvement in anxiety Persistent/bothersome symptoms include: anhedonia, feeling down, difficulty relaxing, worrying a lot. Side effects: None PHQ-9 More data exists 11/30/2023 12/29/2023 01/31/2024 PHQ-9 Scores Little interest or pleasure in doing things Nearly every day Nearly every day More than half the days Feeling down, depressed, or hopeless Nearly every day Nearly every day Several days Trouble falling or staying asleep, or sleeping too much Nearly every day Nearly every day Nearly every day Feeling tired or having little energy Nearly every day Nearly every day Nearly every day Poor appetite or overeating More than half the days Several days More than half the days Feeling bad about yourself - or that you are a failure or have let yourself or your family down Nearly every day Nearly every day More than half the days Trouble concentrating on things, such as reading the newspaper or watching television Nearly every day Several days Several days Moving or speaking so slowly that other people could have noticed. Or the opposite - being so fidgety or restless that you have been moving around a lot more than usual Not at all More than half the days Not at all Thoughts that you would be better off , or of hurting yourself in some way Not at all Not at all Not at all PHQ-9 Score 20 19 14 12/07/2023 01/04/2024 02/03/2024 JAQUAN-7 ANXIETY SCALE Feeling nervous, anxious, or on edge 3 Nearly every day 3 Nearly every day 2 Over half the days Not being able to stop or control worrying 3 Nearly every day 3 Nearly every day 2 Over half the days Worrying too much about different things 3 Nearly every day 3 Nearly every day 2 Over half the days Trouble relaxing 3 Nearly every day 3 Nearly every day 2 Over half the days Being so restless that it's hard to sit still 1 Several days 2 Over half the days 0 Not at all sure Being easily annoyed or irritable 3 Nearly every day 3 Nearly every day 1 Several days Feeling afraid as if something awful might happen 3 Nearly every day 3 Nearly every day 1 Several days JAQUAN-7 Anxiety Score 19 20 10 If you checked off any problems, how difficult have these problems made it for you to do your work, take care of things at home, or get along with other people? Extremely difficult Extremely difficult Very difficult Review of Systems See HPI PAST MEDICAL HISTORY 01/21/2020: Acute gallstone pancreatitis No date: Obsessive compulsive disorder No date: Vasovagal syncope PAST SURGICAL HISTORY 2020: LAPAROSCOPIC CHOLECYSTECTOMY ALLERGIES Patient has no known allergies. MEDICATIONS buPROPion SR (WELLBUTRIN SR) 150 mg 12 hr tablet Take 1 tablet by mouth two times a day. FLUoxetine (PROZAC) 20 mg capsule Take 1 capsule by mouth once daily. hydrOXYzine HCl (ATARAX) 50 mg tablet Take 1-1.5 tablets by mouth every 6 hours as needed for anxiety. FAMILY HISTORY Problem Relation Age of Onset No Known Problems Mother Diabetes Father No Known Problems Sister Hypothyroidism Sister Parkinson?s Disease Maternal Grandfather Alzheimer's Disease Maternal Grandfather Social History Tobacco Use Smoking status: Never Smokeless tobacco: Never Vaping Use Vaping status: current everyday user Start date: 11/27/2021 Substances: THC, CBD Devices: Disposable Substance Use Topics Alcohol use: Yes Comment: Rare occasion Drug use: Never BP 116/84 Pulse 105 Resp 18 Wt 112.6 kg (248 lb 3.8 oz) LMP 11/21/2022 (Exact Date) SpO2 99% BMI 42.61 kg/m? Physical Exam Vitals reviewed. Constitutional: Appearance: Normal appearance. Neurological: Mental Status: She is alert. Psychiatric: Attention and Perception: Attention and perception normal. Mood and Affect: Mood and affect normal. Speech: Speech normal. Behavior: Behavior normal. Behavior is cooperative. Thought Content: Thought content normal. Judgment: Judgment normal. ASSESSMENT/PLAN: 1. Anxiety and depression - ICD9: 300.00, 311, ICD10: F41.9, F32.A Patient is doing well on current medications, would benefit from increase in dose of Prozac - increase Prozac to 30 mg daily - continue with Wellbutrin 150 mg daily - Revi (more content not included)... [facility] 01-04-2024 Note HNO ID: [id number] Author: GRIS SANCHEZ APRN.ASSET ACCOUNTANT Service: ? Author Type: Nurse Practitioner Type: Progress Notes Filed: 01/04/2024 08:38 Note Text: Chief Complaint Patient presents with: 4 week follow up - medications HPI Deejay Grover is a 23 year old female who presents here today for medication follow-up. Patient was seen four weeks ago and had reported worsening depression and anxiety. Wellbutrin dose was increased from 150 to 200 mg BID and Buspar 5 mg BID was added one. Patient reports worsening of anxiety since then. Buspar is ineffective. She attributes this to OCD, states she was diagnosed with this during childhood. She had counseling for many years including talk therapy and behavioral modification, did not find it to be effective and has no desire to try again now. Persistent/bothersome symptoms include: anxiousness, obsessive compulsive behaviors, insomnia, depressed mood Side effects: None other than possibly worsening anxiety on higher dose of Wellbutrin. She had been doing really well on the previous dose for over one year Denies suicidal thoughts or plan. 01/07/2023 02/04/2023 12/07/2023 01/04/2024 JAQUAN-7 ANXIETY SCALE Feeling nervous, anxious, or on edge 3 Nearly every day 2 Over half the days 3 Nearly every day 3 Nearly every day Not being able to stop or control worrying 3 Nearly every day 2 Over half the days 3 Nearly every day 3 Nearly every day Worrying too much about different things 3 Nearly every day 2 Over half the days 3 Nearly every day 3 Nearly every day Trouble relaxing 3 Nearly every day 2 Over half the days 3 Nearly every day 3 Nearly every day Being so restless that it's hard to sit still 1 Several days 1 Several days 1 Several days 2 Over half the days Being easily annoyed or irritable 2 Over half the days 1 Several days 3 Nearly every day 3 Nearly every day Feeling afraid as if something awful might happen 3 Nearly every day 1 Several days 3 Nearly every day 3 Nearly every day JAQUAN-7 Anxiety Score 18 11 19 20 If you checked off any problems, how difficult have these problems made it for you to do your work, take care of things at home, or get along with other people? Very difficult Somewhat difficult Extremely difficult Extremely difficult CP PHQ9 Little interest or pleasure 3 - Nearly every day 2 - More than half the days 3 - Nearly every day 3 - Nearly every day Feeling down, depressed, hopeless 3 - Nearly every day 1 - Several days 3 - Nearly every day 3 - Nearly every day Trouble falling or staying asleep, sleeping too much 2 - More than half the days 1 - Several days 3 - nearly every day 3 - nearly every day Feeling tired, having little energy 3 - Nearly every day 1 - Several days 3 - Nearly every day 3 - Nearly every day Poor appetite or overeating 1 - Several days 2 - More than half the days 1 - Several days 2 - More than half the days Feeling bad about yourself, failure or you have let yourself/family down 3 - Nearly every day 1 - Several days 3 - Nearly every day 2 - More than half the days Trouble concentrating on things 3 - Nearly every day 2 - More than half the days 3 - Nearly every day 3 - Nearly every day Moving or speaking so slowly, or fidgety or restless 1 - Several days 0 - Not at all 1 - Several days 2 - More than half the days Thoughts that you would be better off , or of hurting yourself in some way 0 - Not at all 0 - Not at all 0 - Not at all 0 - Not at all How difficult have these problems made things Extremely difficult Somewhat difficult Extremely difficult Extremely difficult Interpretation of Total Score 15-19 Moderately severe depression 10-14 Moderate depression 20-27 Severe depression 20-27 Severe depression Review of Systems See HPI PAST MEDICAL HISTORY 01/21/2020: Acute gallstone pancreatitis No date: Vasovagal syncope PAST SURGICAL HISTORY 2020: LAPAROSCOPIC CHOLECYSTECTOMY ALLERGIES Patient has no known allergies. MEDICATIONS buPROPion SR (WELLBUTRIN SR) 150 mg 12 hr tablet Take 1 tablet by mouth two times a day. FLUoxetine (PROZAC) 20 mg capsule Take 1 capsule by mouth once daily. hydrOXYzine HCl (ATARAX) 25 mg tablet Take 1-2 tablets by mouth every 6 hours as needed for anxiety. FAMILY HISTORY Problem Relation Age of Onset No Known Problems Mother Diabetes Father No Known Problems Sister Hypothyroidism Sister Parkinson?s Disease Maternal Grandfather Alzheimer's Disease Maternal Grandfather Social History Tobacco Use Smoking status: Never Smokeless tobacco: Never Vaping Use Vaping Use: current everyday user Start date: 11/27/2021 Substances: THC, CBD Devices: Disposable Substance Use Topics Alcohol use: Yes Comment: Rare occasion Drug use: Never BP 124/86 Pulse 117 Resp 16 Wt 117.4 kg (258 lb 13.1 oz) LMP 11/21/2022 (Exact Date) SpO2 98% BMI 44.43 kg/m? Physical Exam Vitals reviewed. Constitutional: Appe (more content not included)... [facility] 01-04-2024 History of Presen t illness Narrative Chief Complaint Patient presents with: 4 week follow up - medications HPI Deejay Grover is a 23 year old female who presents here today for medication follow-up. Patient was seen four weeks ago and had reported worsening depression and anxiety. Wellbutrin dose was increased from 150 to 200 mg BID and Buspar 5 mg BID was added one. Patient reports worsening of anxiety since then. Buspar is ineffective. She attributes this to OCD, states she was diagnosed with this during childhood. She had counseling for many years including talk therapy and behavioral modification, did not find it to be effective and has no desire to try again now. Persistent/bothersome symptoms include: anxiousness, obsessive compulsive behaviors, insomnia, depressed mood Side effects: None other than possibly worsening anxiety on higher dose of Wellbutrin. She had been doing really well on the previous dose for over one year Denies suicidal thoughts or plan. 01/07/2023 02/04/2023 12/07/2023 01/04/2024 JAQUAN-7 ANXIETY SCALE Feeling nervous, anxious, or on edge 3 Nearly every day 2 Over half the days 3 Nearly every day 3 Nearly every day Not being able to stop or control worrying 3 Nearly every day 2 Over half the days 3 Nearly every day 3 Nearly every day Worrying too much about different things 3 Nearly every day 2 Over half the days 3 Nearly every day 3 Nearly every day Trouble relaxing 3 Nearly every day 2 Over half the days 3 Nearly every day 3 Nearly every day Being so restless that it's hard to sit still 1 Several days 1 Several days 1 Several days 2 Over half the days Being easily annoyed or irritable 2 Over half the days 1 Several days 3 Nearly every day 3 Nearly every day Feeling afraid as if something awful might happen 3 Nearly every day 1 Several days 3 Nearly every day 3 Nearly every day JAQUAN-7 Anxiety Score 18 11 19 20 If you checked off any problems, how difficult have these problems made it for you to do your work, take care of things at home, or get along with other people? Very difficult Somewhat difficult Extremely difficult Extremely difficult CP PHQ9 Little interest or pleasure 3 - Nearly every day 2 - More than half the days 3 - Nearly every day 3 - Nearly every day Feeling down, depressed, hopeless 3 - Nearly every day 1 - Several days 3 - Nearly every day 3 - Nearly every day Trouble falling or staying asleep, sleeping too much 2 - More than half the days 1 - Several days 3 - nearly every day 3 - nearly every day Feeling tired, having little energy 3 - Nearly every day 1 - Several days 3 - Nearly every day 3 - Nearly every day Poor appetite or overeating 1 - Several days 2 - More than half the days 1 - Several days 2 - More than half the days Feeling bad about yourself, failure or you have let yourself/family down 3 - Nearly every day 1 - Several days 3 - Nearly every day 2 - More than half the days Trouble concentrating on things 3 - Nearly every day 2 - More than half the days 3 - Nearly every day 3 - Nearly every day Moving or speaking so slowly, or fidgety or restless 1 - Several days 0 - Not at all 1 - Several days 2 - More than half the days Thoughts that you would be better off , or of hurting yourself in some way 0 - Not at all 0 - Not at all 0 - Not at all 0 - Not at all How difficult have these problems made things Extremely difficult Somewhat difficult Extremely difficult Extremely difficult Interpretation of Total Score 15-19 Moderately severe depression 10-14 Moderate depression 20-27 Severe depression 20-27 Severe depression Review of Systems See HPI PAST MEDICAL HISTORY 01/21/2020: Acute gallstone pancreatitis No date: Vasovagal syncope PAST SURGICAL HISTORY 2020: LAPAROSCOPIC CHOLECYSTECTOMY ALLERGIES Patient has no known allergies. MEDICATIONS buPROPion SR (WELLBUTRIN SR) 150 mg 12 hr tablet Take 1 tablet by mouth two times a day. FLUoxetine (PROZAC) 20 mg capsule Take 1 capsule by mouth once daily. hydrOXYzine HCl (ATARAX) 25 mg tablet Take 1-2 tablets by mouth every 6 hours as needed for anxiety. FAMILY HISTORY Problem Relation Age of Onset No Known Problems Mother Diabetes Father No Known Problems Sister Hypothyroidism Sister Parkinson s Disease Maternal Grandfather Alzheimer's Disease Maternal Grandfather Social History Tobacco Use Smoking status: Never Smokeless tobacco: Never Vaping Use Vaping Use: current everyday user Start date: 11/27/2021 Substances: THC, CBD Devices: Disposable Substance Use Topics Alcohol use: Yes Comment: Rare occasion Drug use: Never BP 124/86 Pulse 117 Resp 16 Wt 117.4 kg (258 lb 13.1 oz) LMP 11/21/2022 (Exact Date) SpO2 98% BMI 44.43 kg/m Physical Exam Vitals reviewed. Constitutional: Appearance: Normal appearance. Neurological: Mental Status: She is alert. Psychiatric: Attention and Perception: Attention and perception normal. Mood and Affect: Mood is anxious. Affect is flat. Speech: Speech normal. Behavior: Behavior normal. Behavior is cooperative. Thought Content: Thought content normal. Judgment: Judgment normal. ASSESSMENT/PLAN: 1. Anxiety and depression - ICD9: 300.00, 311, ICD10: F41.9, F32.A (primary diagnosis) No improvement in depression with increased dose of Wellbutrin, anxiety worsening. Buspar ineffective. She had been doing really well on Wellbutrin for over one year, unclear whether higher dose is exacerbating anxiety or due to untreated OCD. Patient reports her mother and sister both take Prozac and are doing really well on it, would like to try this. - Decrease dose of Wellbutrin back down to the 150 every 12 hours - start Prozac 20 mg daily - stop Buspar per patient request - BUPROPION HCL SR 150 MG TABLET,12 HR SUSTAINED-RELEASE - Reviewed benefits of sleep hygeine, diet and exercise - Follow-up in 4 weeks or sooner as needed - Instructed patient to contact office or [id number] after-hours promptly should condition worsen or any new symptoms appear. 2. 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 Increase dose to 50 to 75 mg as needed. Prescription instructions reviewed with patient as applicable. Potential red flag symptoms discussed with the patient. Reviewed appropriate action plan to take if red flag symptoms occur. Patient agreeable to treatment plan During this patient visit I have spent approximately 30 minutes in counseling regarding treatment options and medications. Gris Sanchez APRN.ASSET ACCOUNTANT documented in this encounter [facility] 12-07-2023 Instructions Gris Sanchez APRN.QUEENIE - 12/07/2023 8:13 AM EDT Let me know in two weeks how you are doing on the buspirone and hydroxyzine documented in this encounter [facility] 12-07-2023 History of Presen t illness Narrative CC: Patient presents with: F/U 6 months: Discuss medication adjustment HPI Deejay Grover is a 23 year old female who presents today for above Anxiety/depression: Patient is currently taking Wellbutrin 150 mg BID Feels medication is working well: initially she was doing really well, depression and anxiety controlled. Was able to lose almost 70 lbs. For the past few months she has noted worsening depressive symptoms and anxiety. She denies any major events or stressors. Persistent/bothersome symptoms: see PHQ9 and JAQUAN below Side effects: mild nausea occasionally and dry mouth Denies suicidal thoughts or plan. She has had counseling in the past but did not find it effective Denies alcohol or drug abuse. She does smoke marijuana occasionally. 02/04/2023 12/07/2023 CP PHQ9 Little interest or pleasure 2 - More than half the days 3 - Nearly every day Feeling down, depressed, hopeless 1 - Several days 3 - Nearly every day Trouble falling or staying asleep, sleeping too much 1 - Several days 3 - nearly every day Feeling tired, having little energy 1 - Several days 3 - Nearly every day Poor appetite or overeating 2 - More than half the days 1 - Several days Feeling bad about yourself, failure or you have let yourself/family down 1 - Several days 3 - Nearly every day Trouble concentrating on things 2 - More than half the days 3 - Nearly every day Moving or speaking so slowly, or fidgety or restless 0 - Not at all 1 - Several days Thoughts that you would be better off , or of hurting yourself in some way 0 - Not at all 0 - Not at all How difficult have these problems made things Somewhat difficult Extremely difficult Interpretation of Total Score 10-14 Moderate depression 20-27 Severe depression JAQUAN-7 ANXIETY SCALE Feeling nervous, anxious, or on edge 2 Over half the days 3 Nearly every day Not being able to stop or control worrying 2 Over half the days 3 Nearly every day Worrying too much about different things 2 Over half the days 3 Nearly every day Trouble relaxing 2 Over half the days 3 Nearly every day Being so restless that it's hard to sit still 1 Several days 1 Several days Being easily annoyed or irritable 1 Several days 3 Nearly every day Feeling afraid as if something awful might happen 1 Several days 3 Nearly every day JAQUAN-7 Anxiety Score 11 19 If you checked off any problems, how difficult have these problems made it for you to do your work, take care of things at home, or get along with other people? Somewhat difficult Extremely difficult Review of Systems See HPI PAST MEDICAL HISTORY Diagnosis Date Acute gallstone pancreatitis 01/21/2020 Vasovagal syncope PAST SURGICAL HISTORY Procedure Laterality Date LAPAROSCOPIC CHOLECYSTECTOMY 2020 ALLERGIES Patient has no known allergies. MEDICATIONS buPROPion SR (WELLBUTRIN SR) 150 mg 12 hr tablet Take 1 tablet by mouth two times a day. FAMILY HISTORY Problem Relation Age of Onset No Known Problems Mother Diabetes Father No Known Problems Sister Hypothyroidism Sister Parkinson s Disease Maternal Grandfather Alzheimer's Disease Maternal Grandfather Social History Tobacco Use Smoking status: Never Smokeless tobacco: Never Vaping Use Vaping Use: current everyday user Start date: 11/27/2021 Substances: THC, CBD Devices: Disposable Substance Use Topics Alcohol use: Yes Comment: Rare occasion Drug use: Never BP 128/86 Pulse 106 Resp 14 Wt 118.8 kg (262 lb) LMP 11/21/2022 (Exact Date) SpO2 98% BMI 44.97 kg/m Physical Exam Vitals reviewed. Constitutional: Appearance: Normal appearance. Cardiovascular: Rate and Rhythm: Normal rate and regular rhythm. Pulmonary: Effort: Pulmonary effort is normal. Breath sounds: Normal breath sounds. Neurological: Mental Status: She is alert. Psychiatric: Attention and Perception: Attention and perception normal. Mood and Affect: Mood is anxious. Affect is blunt. Speech: Speech normal. Behavior: Behavior normal. Behavior is cooperative. Thought Content: Thought content normal. Judgment: Judgment normal. Health maintenance reviewed with patient: HPV Vaccine(1 - 3-dose series) Never done Meningococcal B Vaccine: Consider Based On Risk(1 of 2 - Patient Seeks Protection) Never done GC (Gonorrhea) Screening (18-24) Never done Chlamydia Screening (18-24) Never done Cervical Cancer Screening Never done Covid-19 Vaccine(2 - 2022-24 season) due on 02/05/2024 Influenza Vaccine(1) due on 01/29/2024 DTaP,Tdap,Td Vaccine(8 - Td or Tdap) due on 07/12/2031 Hepatitis B Vaccine Completed Hepatitis C Screening Completed HIV Screening Completed DATA REVIEWED: Most recent labs ASSESSMENT/PLAN: 1. Anxiety and depression - ICD9: 300.00, 311, ICD10: F41.9, F32.A Worsening. - for depression: Increase Wellbutrin to 200 mg BID - Shared Medical Decision Making was done: Medication: Buspar 5 mg BID. Risks: Possible side effects were discussed including nausea, weight gain, dry mouth. Possible interactions: n/a. Warnings: n/a. Duration: assisted if tolerated - Start Vistaril as needed for anxiety and/or sleep, see orders - Reviewed benefits of sleep hygeine, diet and exercise - Follow-up in 4 weeks or sooner as needed - Instructed patient to contact office or [id number] after-hours promptly should condition worsen or any new symptoms appear. - BUPROPION HCL SR 200 MG TABLET,12 HR SUSTAINED-RELEASE Behavioral Health Screening PHQ-9 Score: 20 (Severe Depression) Recommendation: medication management ADDRESSED IN PLAN ABOVE, SEE ALSO HPI Prescription instructions reviewed with patient as applicable. Potential red flag symptoms discussed with the patient. Reviewed appropriate action plan to take if red flag symptoms occur. Patient agreeable to treatment plan. During this patient visit I have spent approximately 30 minutes in counseling regarding treatment options, medications, and coordinating care. Gris Sanchez APRN.QUEENIE documented in this encounter [facility] 04-04-2023 Miscellaneous Notes Patient has been identified by name and date of : Yes, Patient phones for refill(s): Requested Prescriptions Pending Prescriptions Disp Refills buPROPion SR (WELLBUTRIN SR) 150 mg 12 hr tablet 60 tablet 2 Sig: Take 1 tablet by mouth two times a day. Date of last office visit in primary care: 02/04/2023 Date of next office visit in primary care: 06/09/2023 Last 2 Encounter Wt Readings: Date: Wt: 02/04/2023 141.1 kg (311 lb) 12/09/2022 143.1 kg (315 lb 8 oz) Previous labs/tests for medication: Not applicable Please advise. Thank you. Verona Lindsay LPN. documented in this encounter [facility] 01-07-2023 History of Presen t illness Narrative This note was created using [employer]. Subjective Deejay Grover is a 22 year old female. She was taking bupropion with no adverse effects, but no benefit for her symptoms of anxiety and depression. We reviewed her lab results. Review of Systems Constitutional: Negative for fatigue. Respiratory: Negative for shortness of breath. Gastrointestinal: Negative for nausea and vomiting. Neurological: Negative. ACTIVE PROBLEM LIST Obesity, Class III, BMI >= 40 Anxiety and Depression Current Outpatient Medications Medication Sig buPROPion SR (WELLBUTRIN SR) 100 mg 12 hr tablet Take 1 tablet by mouth twice daily. No current facility-administered medications for this visit. Objective BP (P) 134/86 (BP Site: Left Arm, BP Position: Sitting, BP Cuff Size: Large Adult) Pulse (P) 72 Wt (!) (P) 140.6 kg (310 lb) LMP 11/21/2022 (Exact Date) BMI (P) 53.21 kg/m Physical Exam Constitutional: General: She is not in acute distress. Appearance: She is not ill-appearing. Neurological: Mental Status: She is alert. Psychiatric: Mood and Affect: Mood normal. Behavior: Behavior normal. Thought Content: Thought content normal. JAQUAN-7 ANXIETY SCALE 01/07/2023 FEELING NERVOUS,ANXIOUS,OR ON EDGE 3 Nearly every day NOT BEING ABLE TO STOP OR CONTROL WORRYING 3 Nearly every day WORRYING TOO MUCH ABOUT DIFFERENT THINGS 3 Nearly every day TROUBLE RELAXING 3 Nearly every day BEING SO RESTLESS THAT IT'S HARD TO SIT STILL 1 Several days BEING EASILY ANNOYED OR IRRITABLE 2 Over half the days FEELING AFRAID IF SOMETHING AWFUL MIGHT HAPPEN 3 Nearly every day GAD7 SCORE 18 IF YOU CHECKED OFF ANY PROBLEMS Very difficult CP PHQ9 01/07/2023 Little interest or pleasure 3 - Nearly every day Feeling down, depressed, hopeless 3 - Nearly every day Trouble falling or staying asleep, sleeping too much 2 - More than half the days Feeling tired, having little energy 3 - Nearly every day Poor appetite or overeating 1 - Several days Feeling bad about yourself, failure or you have let yourself/family down 3 - Nearly every day Trouble concentrating on things 3 - Nearly every day Moving or speaking so slowly, or fidgety or restless 1 - Several days Thoughts that you would be better off , or of hurting yourself in some way 0 - Not at all How difficult have these problems made things Extremely difficult Interpretation of Total Score 15-19 Moderately severe depression Assessment and Plan 1. Anxiety and depression - ICD9: 300.00, 311, ICD10: F41.9, F32.A Dose increased. - BUPROPION HCL SR 150 MG TABLET,12 HR SUSTAINED-RELEASE - She will go to [facility] for counseling. 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 Yasmani Toth MD documented in this encounter [facility] 12-10-2022 Miscellaneous Notes Behavioral Health Social Work Progress Note Patient identified for [facility] from: PCP Reason for referral: Resources Behavioral Health Resources: Psychology - talk therapy [facility] encounter type: Telephone Encounter Attempts to Outreach: 1 attempt Referral made: Psychology - Internal, Psychology - External Psychology-Internal referral type: Therapy Psychology-External referral type: Therapy Patient Discharged?: No Patient reported that caregiver was able to meet their needs today?: N/A Phone call placed today that went to [employer]. Left my contact information and brief nature of call. Initial outreach also completed via [employer] sending list of in network providers with insurance. SHRUTHI Wills-S December 10, 2022 documented in this encounter [facility] 12-09-2022 History of Presen t illness Narrative This note was created using NoteWriter. Subjective Patient presents with: diabetes concern Deejay Grover was here with symptoms of fatigue, polyuria, blurry vision, tingling in extremities for one year. She was concerned about diabetes, which runs in her father. She also gave a longstanding history of depression and anxiety since her early teens treated with counseling. She had resisted starting medication but symptoms were still progressing. The history is provided by the patient. Review of Systems Constitutional: Negative for appetite change, chills, fever and unexpected weight change. HENT: Negative for congestion. Eyes: Positive for visual disturbance. Negative for pain. Respiratory: Negative for cough, shortness of breath and wheezing. Cardiovascular: Negative for chest pain, palpitations and leg swelling. Gastrointestinal: Negative for abdominal pain, constipation, diarrhea, nausea and vomiting. Genitourinary: Negative for difficulty urinating and dysuria. Musculoskeletal: Negative for arthralgias, back pain and myalgias. Neurological: Negative for dizziness, numbness and headaches. Psychiatric/Behavioral: Positive for dysphoric mood. Negative for self-injury, sleep disturbance and suicidal ideas. The patient is nervous/anxious. PAST MEDICAL HISTORY Diagnosis Date Acute gallstone pancreatitis 01/21/2020 Vasovagal syncope PAST SURGICAL HISTORY Procedure Laterality Date LAPAROSCOPIC CHOLECYSTECTOMY 2020 FAMILY HISTORY Problem Relation Age of Onset No Known Problems Mother Diabetes Father No Known Problems Sister Hypothyroidism Sister Parkinson s Disease Maternal Grandfather Alzheimer's Disease Maternal Grandfather Social History Tobacco Use Smoking status: Never Smokeless tobacco: Never Vaping Use Vaping Use: current everyday user Start date: 11/27/2021 Substances: THC, CBD Devices: Disposable Substance Use Topics Alcohol use: Yes Comment: Rare occasion Drug use: Never ALLERGIES No Known Allergies Current Outpatient Medications Medication Sig buPROPion SR (WELLBUTRIN SR) 100 mg 12 hr tablet Take 1 tablet by mouth twice daily. No current facility-administered medications for this visit. Objective BP 129/80 Pulse 100 Temp 36.9 C (98.4 F) (Temporal) Resp 16 Ht 162.6 cm (5' 4") Wt (!) 143.1 kg (315 lb 8 oz) LMP 11/21/2022 (Exact Date) SpO2 99% BMI 54.16 kg/m Physical Exam Constitutional: General: She is not in acute distress. Appearance: She is not ill-appearing. HENT: Head: Normocephalic. Mouth/Throat: Mouth: Mucous membranes are moist. Pharynx: Oropharynx is clear. Eyes: Extraocular Movements: Extraocular movements intact. Conjunctiva/sclera: Conjunctivae normal. Pupils: Pupils are equal, round, and reactive to light. Cardiovascular: Rate and Rhythm: Normal rate and regular rhythm. Heart sounds: No murmur heard. No gallop. Pulmonary: Effort: Pulmonary effort is normal. Breath sounds: Normal breath sounds. Abdominal: Palpations: Abdomen is soft. Tenderness: There is no abdominal tenderness. Musculoskeletal: General: No tenderness. Normal range of motion. Cervical back: Neck supple. Right lower leg: No edema. Left lower leg: No edema. Lymphadenopathy: Cervical: No cervical adenopathy. Skin: Findings: No rash. Neurological: General: No focal deficit present. Mental Status: She is alert and oriented to person, place, and time. Psychiatric: Mood and Affect: Mood normal. Behavior: Behavior normal. Thought Content: Thought content normal. Patient Health Questionnaire (PHQ-9) PHQ-9 Levels: 0 - 4 Minimal depression 5 - 9 Mild depression 10-14 Moderate depression 15-19 Moderately severe depression 20-27 Severe depression PHQ-9 Score: 20 PHQ-2 Score: 6 (0-3) 1. Little interest or pleasure in doing things: Nearly every day 2. Feeling down, depressed, or hopeless: Nearly every day 3. Trouble falling or staying asleep, or sleeping too much: Nearly every day 4. Feeling tired or having little energy: Nearly every day 5. Poor appetite or overeating: Several days 6. Feeling bad about yourself - or that you are a failure or have let yourself or your family down: Nearly every day 7. Trouble concentrating on things, such as reading the newspaper or watching television: Nearly every day 8. Moving or speaking so slowly that other people could have noticed. Or the opposite - being so fidgety or restless that you have been moving around a lot more than usual: Several days 9. Thoughts that you would be better off , or of hurting yourself in some way: Not at all 10. If you checked off any problems, how difficult have these problems made it for you to do your work, take care of things at home, or get along with other people?: Extremely difficult JAQUAN-7 ANXIETY SCALE 12/09/2022 FEELING NERVOUS,ANXIOUS,OR ON EDGE 3 Nearly every day NOT BEING ABLE TO STOP OR CONTROL WORRYING 3 Nearly every day WORRYING TOO MUCH ABOUT DIFFERENT THINGS 3 Nearly every day TROUBLE RELAXING 3 Nearly every day BEING SO RESTLESS THAT IT'S HARD TO SIT STILL 1 Several days BEING EASILY ANNOYED OR IRRITABLE 2 Over half the days FEELING AFRAID IF SOMETHING AWFUL MIGHT HAPPEN 2 Over half the days GAD7 SCORE 17 IF YOU CHECKED OFF ANY PROBLEMS Very difficult Assessment and Plan 1. Routine medical exam - ICD9: V70.0, ICD10: Z00.00 (primary diagnosis) - Counseled on healthy diet and regular exercise - Discussed need and benefit for weight loss. BMI 54.16 kg/(m^2) - CBC - COMP METABOLIC PANEL - HGB A1C - TSH BLD 2. Obesity, Class III, BMI >= 40 - ICD9: 278.01, ICD10: E66.01 Newly diagnosed - Behavioral intervention 3. 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 Risks: Possible side effects were discussed including GI, insomnia. Possible interactions: n/a. Warnings: increased symptoms. Patient contracted for safety. Approved use for depression. Options: SSRI. 4. Screening for cervical cancer - ICD9: V76.2, ICD10: Z12.4 - CONSULT TO GYNECOLOGY 5. Screening for HIV without presence of risk factors - ICD9: V73.89, ICD10: Z11.4 - HIV 1 2 COMBO(AG/AB),WITH REFLEX TO DIFFERENTIATION 6. Encounter for hepatitis C screening test for low risk patient - ICD9: V73.89, ICD10: Z11.59 - HEPATITIS C ANTIBODY IA WITH CONFIRMATION 7. Fatigue, unspecified type - ICD9: 780.79, ICD10: R53.83 8. Vision disturbance - ICD9: 368.9, ICD10: H53.9 Concern for diabetes. Yasmani Toth MD BP Manual readin/78 Pulse: 108 LEFT arm LARGE cuff BP Deirdre Average: 129/80 Pulse: 100 LEFT arm LARGE cuff 1. 133/90 Pulse: 101 2. 138/84 Pulse: 105 3. 124/77 Pulse: 120 4. 114/75 Pulse: 74 5. 128/84 Pulse: 99 6. 139/83 Pulse: 100 BP DEIRDRE AVERAGE: 129/80 Pulse: 100 documented in this encounter [facility] 12-14-2019 Note PROCEDURE: US ABDOME N RUQ/LIVER/GB 12/14/2019 2:35 PM EDT CLINICAL HISTORY: ruq pain COMPARISON: None. TECHNIQUE: Sonographic evaluation of the right upper quadrant was performed. FINDINGS: Liver: Increased attenuation throughout the liver, compatible with diffuse fatty replacement. Pancreas: Poorly visualized due to body habitus and bowel gas. Gallbladder: Small amount of sludge is noted in the gallbladder. There are no gallstones. There is no gallbladder wall thickening or pericholecystic fluid. No sonographic Medina's sign. Biliary structures: Common bile duct measures 4 mm in diameter. No significant biliary dilatation. Right kidney: 11.8 cm long. The kidney is reniform in shape, normal in echotexture, without hydronephrosis. Aorta: Normal caliber. IVC: No significant abnormality. IMPRESSION: 1. There appears to be sludge in the gallbladder. No gallstones. No evidence of acute cholecystitis. 2. Hepatic steatosis. [facility] Evaluation note Diagnosis Onset Date Syncopal episodes acute [facility] Work Phone: Evaluation note* Diagnosis Routine medical exam- Primary Routine general medical examination at a health care facility Obesity, Class III, BMI >= 40 Morbid obesity Anxiety and depression Dysthymic disorder Screening for cervical cancer Screening for malignant neoplasm of the cervix Screening for HIV without presence of risk factors Special screening examination for other specified viral diseases Encounter for hepatitis C screening test for low risk patient Fatigue, unspecified type Vision disturbance Unspecified visual disturbance documented in this encounter [facility]* Diagnosis Anxiety and depression Dysthymic disorder documented in this encounter [facility] note* Diagnosis Anxiety and depression Dysthymic disorder documented in this encounter [facility] note* Diagnosis Anxiety and depression- Primary Dysthymic disorder documented in this encounter [facility] note* Diagnosis Anxiety and depression- Primary Dysthymic disorder Adjustment insomnia Transient disorder of initiating or maintaining sleep documented in this encounter [facility] note* Diagnosis Anxiety and depression- Primary Dysthymic disorder documented in this encounter [facility] note* Diagnosis Anxiety and depression- Primary Dysthymic disorder Obesity, Class III, BMI >= 40 Morbid obesity Encounter for immunization Need for other specified prophylactic vaccination against single bacterial disease Family history of PCOS Family history of other genitourinary diseases documented in this encounter [facility] note* Diagnosis Pain, dental- Primary Unspecified disorder of the teeth and supporting structures documented in this encounter [facility] Summary Purpose Family History No Family History Records FoundNo Family History Records FoundNo Family History Records FoundNo Family History Records FoundNo Family History Records Found Advance Directives No Advanced Directives Records FoundDocuments on File Type Date Recorded Patient Transcript Evaluator Expl anation Advance Directives and Living Will Power of Bell Captain Latest Code Status on File Code Status Date Activated Date Inactivated Comments Full Code 01/21/2020 5:14 AM Latest Code Status on File Code Status Date Activated Date Inactivated Comments Full Code 01/21/2020 5:14 AM Advance Directive Response Recorded Date/ Time Living Will No January 06 2 8:32am Power of Bell Captain No January 06 022 8:32am Reason for Referral Status Reason Specialty Diagnoses / Procedures Referred By Contact Referred To Contact Pending Review Family Medicine Diagnoses Non-recurrent acute suppurative otitis media of both ears without spontaneous rupture of tympanic membranes Acute otitis externa of left ear, unspecified type Ronda Casper, NILSON [address] [place] [address] Status Reason Specialty Diagnoses / Procedures Referred By Contact Referred To Contact New Request Orthopaedics Diagnoses Sprain of right ankle, unspecified ligament, initial encounter Krysta Merritt, RECRUITING ASSISTANT-ASSET ACCOUNTANT [address] [place] [address] Nabil Powell MD [address] [place] [address] Status Reason Specialty Diagnoses / Procedures Referred By Contact Referred To Contact New Request General Surgery Diagnoses Upper abdominal pain Gallbladder disease Omar Valencia, PABrittneyC [address] [place] [address] Martínez Garner, DO [address] [place] [address] Status Reason Specialty Diagnoses / Procedures Referre d By Contact Referred To Contact Closed Procedures US ABDOMEN RUQ/LIVER/GB Omar Valencia, FREDERICKC [address] [place] [address] Status Reason Specialty Diagnoses / Procedures Referred By Contact Referred To Contact Authorized - Community Connect Diagnoses Abdominal pain, generalized Procedures NUC HEPATOBILIARY W/ EF IA HEPATOBIL SYST IMAG INC GB W/PHARMA INTERVENJ Martínez Garner, DO [address] [place] [address] Status Reason Specialty Diagnoses / Procedures Referre d By Contact Referred To Contact Closed Procedures US ABDOMEN RUQ/LIVER/GB Krysta Merritt, RECRUITING ASSISTANT-ASSET ACCOUNTANT [address] [place] [address] Status Reason Specialty Diagnoses / Procedures Referred By Contact Referred To Contact New Request Procedures INPATIENT ADMISSION NOTIFICATION Martínez Garner, DO [address] [place] [address] Specialty Diagnoses / Procedures Referred By [facility] t Referred To Contact Gynecology Diagnoses Screening for cervical cancer Procedures CONSULT TO GYNECOLOGY OFFICE/OUTPATIENT [facility] MDM 60-74 MINUTES Yasmani Toth MD [address] [place] [address] Referral ID Status Reason Start Date Expiration Date Visits Requested Visits Authorized [id number] Authorized PCP Requested Referral Auto-Generate d Referral 12/09/2022 12/09/2023 1 1 Discharge Instructions * Attachments The following attachments cannot be sent through Care Everywhere. * Otitis Externa (Bermudian) * Otitis Media (Bermudian) documented in this encounter* Attachments The following attachments cannot be sent through Care Everywhere. * Ankle Sprain (Bermudian) * RICE: General Info (Bermudian) * Ankle Sprain: Rehab Exercises (Bermudian) documented in this encounter* Attachments The following attachments cannot be sent through Care Everywhere. * Gallbladder Disease: Low-Fat Diet (Bermudian) * Gallstones: General Info (Bermudian) documented in this encounter* Attachments The following attachments cannot be sent through Care Everywhere. * Gallstones (Bermudian) documented in this encounter* Attachments The following attachments cannot be sent through Care Everywhere. * Pancreatitis (Bermudian) * Cholecystectomy: Pre-op (Bermudian) documented in this encounter* Attachments The following attachments cannot be sent through Care Everywhere. * Pancreatitis (Bermudian) * Cholecystectomy: Pre-op (Bermudian) documented in this encounter* Attachments The following attachments cannot be sent through Care Everywhere. * Pain Post-Surgery: Acute (Bermudian) documented in this encounter Assessments Diagnosis Non-recurrent acute suppurative otitis media of both ears without spontaneous rupture of tympanic membranes- Primary Acute otitis externa of left ear, unspecified type Diagnosis Sprain of right ankle, unspecified ligament, initial encounter Diagnosis Upper abdominal pain Abdominal pain, other specified site Gallbladder disease Unspecified disorder of gallbladder Diagnosis Abdominal pain, generalized- Primary Diagnosis Viral illness Unspecified viral infection, in conditions classified elsewhere and of unspecified site Diagnosis Acute cholecystitis- Primary Generalized abdominal pain Abdominal pain, generalized Diagnosis Gallstone pancreatitis- Primary Acute pancreatitis Acute cholecystitis Generalized abdominal pain Abdominal pain, generalized Acute biliary pancreatitis without infection or necrosis Pancreatitis due to biliary obstruction Acute pancreatitis Obesity: body mass index of 40.0-49.9 Diagnosis Post-op pain- Primary Other acute postoperative pain Gallstone pancreatitis Acute pancreatitis Diagnosis Diarrhea, unspecified type- Primary Postoperative infection, unspecified type, initial encounter Gallstone pancreatitis Acute pancreatitis History of Present Illness * Robina Boogie - 01/03/2020 8:30 AM EDT Nurse Note: Review of Systems Gastrointestinal: Positive for abdominal pain, nausea and vomiting. Neurological: Positive for light-headedness. All other systems reviewed and are negative. Nursing Assessment: Physical Exam 19 y.o. female ED did a US abdomen that shows gallbladder sludge Patient states she has been having RUQ pain. Patient state for several months it was just uncomfortable after she ate but now the pain is more severe. Patient states every day now she has attacks. Mainly in the evening time. documented in this encounter* Martínez Garner DO - 01/24/2020 5:07 PM EDT Postop day #1 laparoscopic cholecystectomy with normal intraoperative cholangiogram. She has significant gallstone pancreatitis. Severe saponification noted intraoperatively during her laparoscopic cholecystectomy. Saturations around 90%. No complaints of dyspnea. Her lipase was normal yesterday. Iadvanced her to a regular diet today which she tolerated. Home today. Discharge instructions discussed with patient. * Lizzie Rowe RPh,PharmCarolynn - 01/24/2020 3:57 PM EDT AOP Patient Education on Meds to Beds Scripts AOP received prescriptions for Deejay Grover for bedside delivery at discharge Prescriptions filled and ready Medication Copay Transderm 0 Zofran odt 4mg 0 Cotati 5/325mg 0 Total $ 0 Issues Identified None Patient Education Reviewed medications with patient regarding indications, directions and potential side effects. Pt had no questions or concerns. Eloina Rowe, Ginger [facility] [phone] * Hawa Ray RD - 01/24/2020 3:07 PM EDT Pt started on a regular diet this morning. She doesn't have much of an appetite but has tried some crackers with no issues. Pt denies n/v/d. Weight has remained stable. Pt interested in trying an ONSso RD will send ensure enlive with dinner. Made pt aware to choose low fat items after discharge d/t her cholecystectomy. Pt had no questions/concerns at this time. Will continue to follow. * Hawa Ray RD - 01/23/2020 11:25 AM EDT Pt is day 3 NPO d/t gallstone pancreatitis. RD would recommend initiating diet when medically appropriate. If unable to initiate diet would recommend alternative means of nutrition if within plan of care. * Martínez Garner, - 01/22/2020 4:54 PM EDT Deejay Grover is a 19 y.o. female Chief Complaint: Chief Complaint Patient presents with Abdominal Pain scheduled hiatal scan today with Dr. Garner. N+V and pain worsen. HPI: HD#2 Gallstone pancreatitis. Lipase trending down. Martínez is less today. No N/V. Still with back pain but improved. I allowed ice chips today. WBC went up today to 15K. MRCP w/o CBD stones. Vitals: BP 114/64 (BP Location: Right arm, BP Position: Lying) Pulse 114 Temp 98.6 F (37 C) (Oral) Resp 16 Ht 1.626 m (5' 4.02") Wt 127 kg (279 lb 15.8 oz) BMI 48.04 kg/m Smoking StatusNever Smoker Brief ROS: @ROS@ PE: Physical Exam Cardiovascular: Rate and Rhythm: Normal rate and regular rhythm. Pulmonary: Effort: Pulmonary effort is normal. Breath sounds: Normal breath sounds. Abdominal: General: Abdomen is flat. Bowel sounds are normal. Palpations: Abdomen is soft. Tenderness: There is abdominal tenderness in the epigastric area. Skin: General: Skin is warm and dry. Neurological: General: No focal deficit present. Mental Status: She is alert and oriented to person, place, and time. Psychiatric: Mood and Affect: Mood normal. Behavior: Behavior normal. Lab and X-rays: CBC Lab Results Component Value Date/Time WBC 15.3 (H) 01/22/2020 05:30 AM WBC 9.2 01/21/2020 02:13 AM HGB 13.9 01/22/2020 05:30 AM HGB 14.9 01/21/2020 02:13 AM HCT 42.9 01/22/2020 05:30 AM HCT 45.6 01/21/2020 02:13 AM PLATELET 243 01/22/2020 05:30 AM PLATELET 321 01/21/2020 02:13 AM Chemistry Lab Results Component Value Date/Time GLUCOSE 108 (H) 01/22/2020 05:30 AM GLUCOSE 159 (H) 01/21/2020 02:13 AM BUN 7 01/22/2020 05:30 AM BUN 5 (L) 01/21/2020 02:13 AM CREATSERUM 0.77 01/22/2020 05:30 AM CREATSERUM 0.77 01/21/2020 02:13 AM SODIUM 141 01/22/2020 05:30 AM SODIUM 139 01/21/2020 02:13 AM POTASSIUM 4.1 01/22/2020 05:30 AM POTASSIUM 3.2 (L) 01/21/2020 02:13 AM CHLORIDE 109 (H) 01/22/2020 05:30 AM CHLORIDE 104 01/21/2020 02:13 AM CO2 22 01/22/2020 05:30 AM CO2 22 01/21/2020 02:13 AM ALBUMIN 3.3 (L) 01/22/2020 05:30 AM ALBUMIN 4.5 01/21/2020 02:13 AM CALCIUM 8.7 01/22/2020 05:30 AM CALCIUM 9.9 12/14/2019 02:22 PM COAG No results found for: PT, INR, PTT ABG No results found for: HCO3, PCO2, PO2 Other notable labs: lipase 1893 to 737, WBC 9 to 15 Relevant microbiologic cultures: None. MRI MRCP Final Result IMPRESSION: 1. Moderate changes compatible with acute pancreatitis. 2. Cholelithiasis seen as multiple tiny stones. No evidence of acute cholecystitis. 3. Common bile duct diameter 6 mm at the upper limits of normal. No evidence of choledocholithiasis although stones less than 3 mm may not be visible by MRCP. If there is further clinical concern, ERCP may be helpful. IMPRESSION AND PLAN: Active Problems: Pancreatitis due to biliary obstruction Obesity: body mass index of 40.0-49.9 No problem-specific Assessment & Plan notes found for this encounter. Treatment Plan: Ice chips OK. Complete NPO after MN for LC with IOC tomorrow. Time spent counseling and coordinating care: Total time spent: Martínez Garner DO 01/21/2020 documented in this encounter* Martínez Garner DO - 01/24/2020 5:07 PM EDT Postop day #1 laparoscopic cholecystectomy with normal intraoperative cholangiogram. She has significant gallstone pancreatitis. Severe saponification noted intraoperatively during her laparoscopic cholecystectomy. Saturations around 90%. No complaints of dyspnea. Her lipase was normal yesterday. Iadvanced her to a regular diet today which she tolerated. Home today. Discharge instructions discussed with patient. * Lizzie Rowe RPh,PharmD - 01/24/2020 3:57 PM EDT AOP Patient Education on Meds to Beds Scripts AOP received prescriptions for Deejay Grover for bedside delivery at discharge Prescriptions filled and ready Medication Copay Transderm 0 Zofran odt 4mg 0 Cotati 5/325mg 0 Total $ 0 Issues Identified None Patient Education Reviewed medications with patient regarding indications, directions and potential side effects. Pt had no questions or concerns. Eloina Rowe, PharmD [facility] [phone] * Hawa Ray RD - 01/24/2020 3:07 PM EDT Pt started on a regular diet this morning. She doesn't have much of an appetite but has tried some crackers with no issues. Pt denies n/v/d. Weight has remained stable. Pt interested in trying an ONSso RD will send ensure enlive with dinner. Made pt aware to choose low fat items after discharge d/t her cholecystectomy. Pt had no questions/concerns at this time. Will continue to follow. * Hawa Ray RD - 01/23/2020 11:25 AM EDT Pt is day 3 NPO d/t gallstone pancreatitis. RD would recommend initiating diet when medically appropriate. If unable to initiate diet would recommend alternative means of nutrition if within plan of care. * Martínez Garner DO - 01/22/2020 4:54 PM EDT Deejay Grover is a 19 y.o. female Chief Complaint: Chief Complaint Patient presents with Abdominal Pain scheduled hiatal scan today with Dr. Garner. N+V and pain worsen. HPI: HD#2 Gallstone pancreatitis. Lipase trending down. Martínez is less today. No N/V. Still with back pain but improved. I allowed ice chips today. WBC went up today to 15K. MRCP w/o CBD stones. Vitals: BP 114/64 (BP Location: Right arm, BP Position: Lying) Pulse 114 Temp 98.6 F (37 C) (Oral) Resp 16 Ht 1.626 m (5' 4.02") Wt 127 kg (279 lb 15.8 oz) BMI 48.04 kg/m Smoking StatusNever Smoker Brief ROS: @ROS@ PE: Physical Exam Cardiovascular: Rate and Rhythm: Normal rate and regular rhythm. Pulmonary: Effort: Pulmonary effort is normal. Breath sounds: Normal breath sounds. Abdominal: General: Abdomen is flat. Bowel sounds are normal. Palpations: Abdomen is soft. Tenderness: There is abdominal tenderness in the epigastric area. Skin: General: Skin is warm and dry. Neurological: General: No focal deficit present. Mental Status: She is alert and oriented to person, place, and time. Psychiatric: Mood and Affect: Mood normal. Behavior: Behavior normal. Lab and X-rays: CBC Lab Results Component Value Date/Time WBC 15.3 (H) 01/22/2020 05:30 AM WBC 9.2 01/21/2020 02:13 AM HGB 13.9 01/22/2020 05:30 AM HGB 14.9 01/21/2020 02:13 AM HCT 42.9 01/22/2020 05:30 AM HCT 45.6 01/21/2020 02:13 AM PLATELET 243 01/22/2020 05:30 AM PLATELET 321 01/21/2020 02:13 AM Chemistry Lab Results Component Value Date/Time GLUCOSE 108 (H) 01/22/2020 05:30 AM GLUCOSE 159 (H) 01/21/2020 02:13 AM BUN 7 01/22/2020 05:30 AM BUN 5 (L) 01/21/2020 02:13 AM CREATSERUM 0.77 01/22/2020 05:30 AM CREATSERUM 0.77 01/21/2020 02:13 AM SODIUM 141 01/22/2020 05:30 AM SODIUM 139 01/21/2020 02:13 AM POTASSIUM 4.1 01/22/2020 05:30 AM POTASSIUM 3.2 (L) 01/21/2020 02:13 AM CHLORIDE 109 (H) 01/22/2020 05:30 AM CHLORIDE 104 01/21/2020 02:13 AM CO2 22 01/22/2020 05:30 AM CO2 22 01/21/2020 02:13 AM ALBUMIN 3.3 (L) 01/22/2020 05:30 AM ALBUMIN 4.5 01/21/2020 02:13 AM CALCIUM 8.7 01/22/2020 05:30 AM CALCIUM 9.9 12/14/2019 02:22 PM COAG No results found for: PT, INR, PTT ABG No results found for: HCO3, PCO2, PO2 Other notable labs: lipase 1893 to 737, WBC 9 to 15 Relevant microbiologic cultures: None. MRI MRCP Final Result IMPRESSION: 1. Moderate changes compatible with acute pancreatitis. 2. Cholelithiasis seen as multiple tiny stones. No evidence of acute cholecystitis. 3. Common bile duct diameter 6 mm at the upper limits of normal. No evidence of choledocholithiasis although stones less than 3 mm may not be visible by MRCP. If there is further clinical concern, ERCP may be helpful. IMPRESSION AND PLAN: Active Problems: Pancreatitis due to biliary obstruction Obesity: body mass index of 40.0-49.9 No problem-specific Assessment & Plan notes found for this encounter. Treatment Plan: Ice chips OK. Complete NPO after MN for LC with IOC tomorrow. Time spent counseling and coordinating care: Total time spent: Martínez Garner DO 01/21/2020 documented in this encounter* Martínez Garner DO - 02/07/2020 11:30 AM EDT Deejay Grover is a 20 y.o. female Chief Complaint:1. Diarrhea, unspecified type - cholestyramine 4 g Pack; Take 1 packet by mouth daily. Dispense: 10 packet; Refill: 0 2. Postoperative infection, unspecified type, initial encounter - CBC, EDIF, PLATELET; Future - HEPATIC FUNCTION PANEL; Future - URINALYSIS, MACRO; Future - LIPASE; Future 3. Gallstone pancreatitis Last menstrual period 01/21/2020, not currently . HPI: 20-year-old female underwent a laparoscopic cholecystectomy for gallstone pancreatitis on 01/24/2020. She was evaluated in the emergency department the day after discharge on 01/25/2020 for fever.Fever in the emergency department was 101.8. CT in the emergency department with postoperative changes and evidence of pancreatitis. She complains of diarrhea. States that she has cold sweats at night. Anorexic but no emesis. Brief ROS:@ROS@ PE: Physical Exam Neck: Musculoskeletal: Neck supple. Cardiovascular: Rate and Rhythm: Normal rate and regular rhythm. Pulmonary: Effort: Pulmonary effort is normal. Abdominal: General: Abdomen is flat. Bowel sounds are normal. Palpations: Abdomen is soft. Comments: Laparoscopic sites without signs of infection Musculoskeletal: Normal range of motion. Skin: General: Skin is warm and dry. Neurological: General: No focal deficit present. Mental Status: She is alert and oriented to person, place, and time. Psychiatric: Mood and Affect: Mood normal. Behavior: Behavior normal. X-rays and Labs: Results for orders placed or performed during the hospital encounter of 01/25/20 BLOOD CULTURE Specimen: BLOOD, PERIPH Result Value Ref Range SPECIMEN DESCRIPTION BLOOD COMMENT LF HAND RESULT-CULT NO GROWTH 5 DAYS REPORT STATUS 01/30/2020 BLOOD CULTURE Specimen: BLOOD, PERIPH Result Value Ref Range SPECIMEN DESCRIPTION BLOOD COMMENT RT HAND RESULT-CULT NO GROWTH 5 DAYS REPORT STATUS 01/30/2020 COMPREHENSIVE METABOLIC PANEL Result Value Ref Range GLUCOSE 96 70 - 100 MG/DL BUN 7 7 - 20 MG/DL CREATININE SERUM 0.74 0.52 - 1.04 MG/DL SODIUM 135 (L) 136 - 145 MMOL/L POTASSIUM 3.2 (L) 3.5 - 5.1 MMOL/L CHLORIDE 101 98 - 107 MMOL/L CALCIUM 8.1 (L) 8.4 - 10.2 MG/DL PROTEIN, TOTAL 6.2 (L) 6.3 - 8.2 GM/DL ALBUMIN 2.8 (L) 3.5 - 5.0 G/dl BILIRUBIN, TOTAL 0.9 0.2 - 1.2 MG/DL AST 31 15 - 41 IU/L ALKALINE PHOSPHATASE 55 38 - 126 IU/L CARBON DIOXIDE (CO2) 24 22 - 30 MMOL/L A/G Ratio 0.8 (L) 1.3 - 2.2 RATIO ALT 132 (H) 14 - 54 IU/L GFR COMMENT Unable to calculate GFR due to inappropriate age/gender/creatinine value. CBC, EDIF, PLATELET Result Value Ref Range WBC (WHITE BLOOD COUNT) 13.8 (H) 3.6 - 11.0 10*3/uL RBC 4.50 4.0 - 5.4 10*6/uL HEMOGLOBIN (HGB) 12.5 12.0 - 16.0 G/DL HEMATOCRIT (HCT) 37.9 36.0 - 48.0 % MEAN CELL VOLUME 84.2 80.0 - 100.0 FL Mean Cell HGB 27.8 26.0 - 35.0 PG MEAN CELL HGB CONCENTRATION 33.0 27.0 - 37.0 G/DL RBC DISTRIBUTION 14.0 11.5 - 14.5 % PLATELET COUNT 289 130.0 - 400.0 10*3/uL MEAN PLATELET VOLUME 8.0 7.4 - 11.0 FL DIFFERENTIAL TYPE AUTO DIFF % NEUTROPHILS 83.1 (H) 37.0 - 75.0 % LYMPHOCYTE 6.4 (L) 20.0 - 55.0 % MONOCYTE % 10.1 (H) 0.0 - 10.0 % EOSINOPHIL % 0.2 0.0 - 11.0 % BASOPHIL % 0.2 0.0 - 2.0 % Absolute Neutrophil Count 11.5 (H) 1.4 - 6.5 10*3/uL LYMPHOCYTES, ABSOLUTE 0.90 (L) 1.2 - 3.4 10*3/uL MONOCYTES, ABSOLUTE 1.4 (H) 0.0 - 0.7 10*3/uL ABSOLUTE EOSINOPHIL COUNT 0.00 0.0 - 0.7 10*3/uL ABSOLUTE BASOPHIL COUNT 0.0 0.0 - 0.2 10*3/uL LIPASE Result Value Ref Range LIPASE 36 23 - 300 U/L LACTATE, BLOOD Result Value Ref Range LACTATE, PLASMA 1.2 0.5 - 2.0 MMOL/L URINALYSIS, MACRO Result Value Ref Range COLOR, URINE DARK YELLOW (A) YELLOW APPEARANCE, URINE CLEAR CLEAR SPECIFIC GRAVITY, URINE 1.025 1.010 - 1.025 PH URINE 6.0 5.0 - 7.0 PROTEIN, URINE 30 (A) NEGATIVE mg/dl GLUCOSE, URINE NEGATIVE NEGATIVE mg/dl KETONES, URINE TRACE (A) NEGATIVE mg/dl BILIRUBIN, URINE SMALL (A) NEGATIVE BLOOD, URINE DIPSTICK MODERATE (A) NEGATIVE NITRITES, URINE NEGATIVE NEGATIVE UROBILINOGEN, URINE 0.2 0.2 - 1.0 E.U./dL LEUKOCYTE ESTERASE, URINE NEGATIVE NEGATIVE URINE MICROSCOPIC Result Value Ref Range WBC, URINE NEGATIVE NEGATIVE /HPF RBC, URINE 5 TO 10 NEGATIVE /HPF Epithelial Cells UA 20 TO 30 /HPF Mucus NEGATIVE NEGATIVE BACTERIA, URINE NEGATIVE NEGATIVE CRYSTALS, URINE NONE NONE CASTS, URINE NONE NONE /LPF COMMENT, URINE POSSIBLY CONTAMINATED SPECIMEN, CULTURE MUST BE ORDERED SEPARATELY IF DEEMED NECESSARY. , Diagnosis: Diarrhea postoperative laparoscopic cholecystectomy. Generalized malaise, anorexia, fever and abdominal pain. Treatment Plan: Trial of cholestyramine for the diarrhea. Plans to order CBC, urinalysis, lipase and hepatic function panel. Martínez Garner DO 02/07/2020 * Robina Boogie - 02/07/2020 11:30 AM EDT Nurse Note: Review of Systems Constitutional: Positive for fatigue and fever. Gastrointestinal: Positive for diarrhea and nausea. Neurological: Positive for light-headedness. All other systems reviewed and are negative. Nursing Assessment: Physical Exam S/p michelle thorne 01/24/2020 Patient states she had a fever of 100.8, states she has been nauseas and sick to her stomach. States she is fatigued and not feeling well. documented in this encounter Hospital Course * Martínez Garner DO - 01/24/2020 5:14 PM EDT Discharge Summary Name: Deejay Grover Age: 19 y.o. Birthday: 2000 Admit Date: 01/21/2020 1:47 AM Discharge Date: 01/24/2020 Discharge Time: 1715 Discharge Unit: [facility] Admission Information Admitting Physician: Martínez Garner DO Discharge Information Discharge Physician: Martínez Garner DO Problem List Active Hospital Problems Diagnosis Gallstone pancreatitis Pancreatitis due to biliary obstruction Obesity: body mass index of 40.0-49.9 Resolved Hospital Problems No resolved problems to display. Brief Summary of Hospital Course for Discharge Summary: 19-year-old female whom I originally evaluated in the office on 01/03/2020 for right upper quadrant abdominal pain. She had a prior gallbladder ultrasound on 12/14/2019 which showed sludge without evidence of stones. I tentatively had ordered a nuclear medicine study of her gallbladder. She subsequently returned to the emergency department on 01/17/20 and repeat ultrasound revealing cholelithiasis. Her LFTs were elevated however her lipase was normal. She was discharged to be seen by me in follow-up in the office. Subsequently returned to the emergency department again on 01/21/2020 with elevated lipase at 1893. MRCP was ordered without evidence of choledocholithiasis. Hospital day #2, her lipase dropped to 737. Hospital day #3 her lipase returned to normal. He was taken to surgery on that day, 01/23/2020, where I performed a laparoscopic cholecystectomy with intraoperative cholangiogram. On postop day #1 she was tolerating a regular diet. He was controlled with by mouth analgesics. She wasambulatory. O2 saturations were at 90%. She felt good enough to be discharged. He is to continue her Pepcid at home. Prescription for Cotati. Follow up with her in the office the week after next unless she would have a problem prior to that visit. Condition improved/prognosis good/discharged with family member. Brief Summary of Consults for Discharge Summary: Brief Summary of Procedures and Imaging for Discharge Summary: Date Procedure Brief Summary of Procedure or Imaging 01/21/20 MRCP No evidence of choledocholithiasis 01/23/20 Laparoscopic cholecystectomy with intraoperative cholangiogram Summary of last selected lab results and date obtained: Lab Results Component Value Date WBC 10.4 01/24/2020 HGB 11.5 (L) 01/24/2020 HCT 34.8 (L) 01/24/2020 PLATELET 205 01/24/2020 MCV 85.1 01/24/2020 Lab Results Component Value Date SODIUM 137 01/24/2020 POTASSIUM 4.1 01/24/2020 CHLORIDE 106 01/24/2020 CO2 20 (L) 01/24/2020 BUN 9 01/24/2020 CREATSERUM 0.76 01/24/2020 GLUCOSE 117 (H) 01/24/2020 Lab Results Component Value Date ALT 219 (H) 01/24/2020 AST 60 (H) 01/24/2020 ALKPHOS 59 01/24/2020 BILITOTAL 1.1 01/24/2020 BILIDIRECT 2.9 (H) 01/21/2020 Brief Summary of Labs for Discharge Summary: 01/20 lipase 1893> 01/21 lipase 737> 01/22 lipase 130 Elevated LFTs including total bilirubin Discharge Orders Activity as tolerated Lifting restrictions Driving restrictions Work restrictions Shower on day dressing removed (no bath) Diet - Regular Call MD for: temperature > 100.4 Call MD for: persistent nausea or vomiting Call MD for: severe uncontrolled pain Call MD for: redness, tenderness or signs of infection (pain, swelling, redness, odor or green/yellow discharge around incision site) No dressing needed Current Outpatient Meds: Medication List for when you go home START taking these medications scopolamine 1.5 mg/[address] 1 patch on skin every 72 hours. Commonly known as: TRANSDERM-SCOP Notes to patient: Place new patch on at 500pm this evening after removing current patch. CHANGE how you take these medications ondansetron 4 MG ODT tablet Take 1 tablet by mouth every 8 hours as needed for Nausea. Commonly known as: ZOFRAN-ODT What changed: How often you have reported taking this medication has changed Notes to patient: Not administered today, take as needed. CONTINUE taking these medications contraceptive, oral Take by mouth. Notes to patient: Continue medication as prior to hospital admission. dicyclomine 10 MG CAPS Take 1 capsule by mouth 3 times daily as needed for Abdominal Spasms. Commonly known as: BENTYL famotidine 40 MG TABS Take 1 tablet by mouth every evening at 6 PM. Commonly known as: PEPCID Notes to patient: Next dose due at 600 pm today, 01/24/20. hydroCODone-acetaminophen 5-325 MG TABS Take 1 tablet by mouth every 6 hours as needed for Moderate Pain for up to 7 days. Commonly known as: NORCO For diagnoses: Acute biliary pancreatitis without infection or necrosis Notes to patient: Not given during this hospital stay, take as needed. Tri-Estarylla 0.18/0.215/0.25 MG-35 MCG TABS Take 1 tablet by mouth daily. Generic drug: Norgestimate-Ethinyl Estradiol Notes to patient: Continue medication as prior to hospital admission. STOP taking these medications [id number] SUSP Commonly known as: CORTISPORIN pantoprazole [address] tablet Commonly known as: PROTONIX Follow-up: Martínez Garner DO [address] [place] [id number] Schedule an appointment as soon as possible for a visit in 1 week Post-op check documented in this encounter* Martínez Garner DO - 01/24/2020 5:14 PM EDT Discharge Summary Name: Deejay Grover Age: 19 y.o. Birthday: 2000 Admit Date: 01/21/2020 1:47 AM Discharge Date: 01/24/2020 Discharge Time: 1715 Discharge Unit: [facility] Admission Information Admitting Physician: Martínez Garner DO Discharge Information Discharge Physician: Martínez Garner DO Problem List Active Hospital Problems Diagnosis Gallstone pancreatitis Pancreatitis due to biliary obstruction Obesity: body mass index of 40.0-49.9 Resolved Hospital Problems No resolved problems to display. Brief Summary of Hospital Course for Discharge Summary: 19-year-old female whom I originally evaluated in the office on 01/03/2020 for right upper quadrant abdominal pain. She had a prior gallbladder ultrasound on 12/14/2019 which showed sludge without evidence of stones. I tentatively had ordered a nuclear medicine study of her gallbladder. She subsequently returned to the emergency department on 01/17/20 and repeat ultrasound revealing cholelithiasis. Her LFTs were elevated however her lipase was normal. She was discharged to be seen by me in follow-up in the office. Subsequently returned to the emergency department again on 01/21/2020 with elevated lipase at 1893. MRCP was ordered without evidence of choledocholithiasis. Hospital day #2, her lipase dropped to 737. Hospital day #3 her lipase returned to normal. He was taken to surgery on that day, 01/23/2020, where I performed a laparoscopic cholecystectomy with intraoperative cholangiogram. On postop day #1 she was tolerating a regular diet. He was controlled with by mouth analgesics. She wasambulatory. O2 saturations were at 90%. She felt good enough to be discharged. He is to continue her Pepcid at home. Prescription for Cotati. Follow up with her in the office the week after next unless she would have a problem prior to that visit. Condition improved/prognosis good/discharged with family member. Brief Summary of Consults for Discharge Summary: Brief Summary of Procedures and Imaging for Discharge Summary: Date Procedure Brief Summary of Procedure or Imaging 01/21/20 MRCP No evidence of choledocholithiasis 01/23/20 Laparoscopic cholecystectomy with intraoperative cholangiogram Summary of last selected lab results and date obtained: Lab Results Component Value Date WBC 10.4 01/24/2020 HGB 11.5 (L) 01/24/2020 HCT 34.8 (L) 01/24/2020 PLATELET 205 01/24/2020 MCV 85.1 01/24/2020 Lab Results Component Value Date SODIUM 137 01/24/2020 POTASSIUM 4.1 01/24/2020 CHLORIDE 106 01/24/2020 CO2 20 (L) 01/24/2020 BUN 9 01/24/2020 CREATSERUM 0.76 01/24/2020 GLUCOSE 117 (H) 01/24/2020 Lab Results Component Value Date ALT 219 (H) 01/24/2020 AST 60 (H) 01/24/2020 ALKPHOS 59 01/24/2020 BILITOTAL 1.1 01/24/2020 BILIDIRECT 2.9 (H) 01/21/2020 Brief Summary of Labs for Discharge Summary: 01/20 lipase 1893> 01/21 lipase 737> 01/22 lipase 130 Elevated LFTs including total bilirubin Discharge Orders Activity as tolerated Lifting restrictions Driving restrictions Work restrictions Shower on day dressing removed (no bath) Diet - Regular Call MD for: temperature > 100.4 Call MD for: persistent nausea or vomiting Call MD for: severe uncontrolled pain Call MD for: redness, tenderness or signs of infection (pain, swelling, redness, odor or green/yellow discharge around incision site) No dressing needed Current Outpatient Meds: Medication List for when you go home START taking these medications scopolamine 1.5 mg/[address] 1 patch on skin every 72 hours. Commonly known as: TRANSDERM-SCOP Notes to patient: Place new patch on at 500pm this evening after removing current patch. CHANGE how you take these medications ondansetron 4 MG ODT tablet Take 1 tablet by mouth every 8 hours as needed for Nausea. Commonly known as: ZOFRAN-ODT What changed: How often you have reported taking this medication has changed Notes to patient: Not administered today, take as needed. CONTINUE taking these medications contraceptive, oral Take by mouth. Notes to patient: Continue medication as prior to hospital admission. dicyclomine 10 MG CAPS Take 1 capsule by mouth 3 times daily as needed for Abdominal Spasms. Commonly known as: BENTYL famotidine 40 MG TABS Take 1 tablet by mouth every evening at 6 PM. Commonly known as: PEPCID Notes to patient: Next dose due at 600 pm today, 01/24/20. hydroCODone-acetaminophen 5-325 MG TABS Take 1 tablet by mouth every 6 hours as needed for Moderate Pain for up to 7 days. Commonly known as: NORCO For diagnoses: Acute biliary pancreatitis without infection or necrosis Notes to patient: Not given during this hospital stay, take as needed. Tri-Estarylla 0.18/0.215/0.25 MG-35 MCG TABS Take 1 tablet by mouth daily. Generic drug: Norgestimate-Ethinyl Estradiol Notes to patient: Continue medication as prior to hospital admission. STOP taking these medications [id number] SUSP Commonly known as: CORTISPORIN pantoprazole [address] tablet DR Commonly known as: PROTONIX Follow-up: Martínez Garner DO [address] [place], [place] [id number] Schedule an appointment as soon as possible for a visit in 1 week Post-op check documented in this encounter Chief Complaint and Reason for Visit Chief Complaint LIGHT HEADED/THROWIN G UP N/V/D Reason for Visit Syncopal episodes Additional Source Comments INFORMATION SOURCE (unrecogn ized section and content) DATE CREATED AUTHOR 11/23/2017 [facility] DATE CREATED AUTHOR AUTHOR'S ORGANIZ ATION 01/14/2020 [facility] DATE CREATED AUTHOR AUTHOR'S ORGANIZ ATION 11/07/2020 [facility] DATE CREATED AUTHOR AUTHOR'S ORGANIZ ATION 01/12/2022 [facility] DATE CREATED AUTHOR AUTHOR'S ORGANIZ ATION 12/21/2024 [facility] Reason for Visit (unrecogniz ed section and content) Reason Comments Ear Pain Reason Comments Foot Pain R foot and ankle aracely n that started 3 days ago when she inverted her ankle. She has been using ice and ibuprofen occasionaly and states the pain is bearable but wants to make sure it isn't fractured. Bruising to Lateral foot and proximal 4th toe Reason Comments Abdominal Pain Pt reports right upp er abdominal pain that started last night, c/o a burning pain. Pt reports that she was at [facility] and was sent here for a CT.l Reason Comments Abscess Status Reason Specialty Diagnoses / Procedures Referred By Contact Referred To Contact [facility] Diagnoses Upper abdominal pain Gallbladder disease Omar Valencia PA-C [address] [place] [address] Martínez Garner DO [address] [facility] [address] [place] [id number] Reason Comments Abdominal Pain Reason Comments Abdominal Pain scheduled hiatal sca n today with Dr. Garner. N+V and pain worsen. Status Reason Specialty Diagnoses / Procedures Referre d By Contact Referred To Contact Reason Comments Abdominal Pain Patient states mati cystectomy 2 days ago d/c home yesterday. Patient states started fever today of 100.8 at home. Fever Reason Comments Post Op Visit Reason Comments bh consult Reason Comments diabetes concern Reason Comments Follow Up Reason Onset Date Comments Refill Request 04/03/2023 Reason Comments F/U 6 months Discuss medication a djustment Reason Comments 4 week follow up - medications Reason Comments 4 week follow up - Medication Reason Comments Follow Up Medication Reason Comments Dental Problem Tooth pain x 4 days Martínez Garner DO - 01/03/2020 8:30 AM Martínez Weaver DO - 01/23/2020 2:27 PM Martínez Weaver DO - 01/21/2020 6:22 PM Martínez Weaver DO - 01/23/2020 2:27 PM EDT H&P Notes (unrecognized sect ion and content) Deejay Grover is a 19 y.o. female 01/03/2020 Chief Complaint: 1. Abdominal pain, generalized - NUC HEPATOBILIARY W/ EF; Future HPI: 19-year-old female being evaluated in the office for right upper quadrant abdominal pain. She also describes it as being in the epigastric region. Associated nausea & vomiting and occasional lightheadedness. She tries to avoid foods in the gluten category including dairy products and fatty foods. She was evaluated in the emergency department on 12/14/2019. Gallbladder ultrasound at that time revealing sludge. Her LFTs are within normal limits. She states she has a history of IBS. This started a couple months ago. This occurs almost on a nightly basis. Now it occurs with almost all foods that she eats. No Known Allergies Current Outpatient Medications Medication Sig Dispense Refill contraceptive, oral Take by mouth. dicyclomine 20 MG tablet Take 1 tablet by mouth every 6 hours. For abdominal spasms 30 tablet 0 famotidine 40 MG tablet Take 1 tablet by mouth every evening at 6 PM. 10 tablet 0 [id number]-btpufhoyzuoxjb [id number] Suspension 3-4 drops by Otic route 3 times daily. 10 mL 0 ondansetron 4 MG Tab Dispersible tablet Take 1 tablet by mouth every [address] on tongue 15 tablet 0 pantoprazole [address] tablet DR Take 1 tablet by mouth daily. 15 tablet 0 Tri-Estarylla 0.18/0.215/0.25 MG-35 MCG tablet Take 1 tablet by mouth daily. No current facility-administered medications for this visit. .No past medical history on file. No past surgical history on file. Social History Socioeconomic History Marital status: Single Spouse name: Not on file Number of children: Not on file Years of education: Not on file Highest education level: Not on file Occupational History Not on file Social Needs Financial resource strain: Not on file Food insecurity Worry: Not on file Inability: Not on file Transportation needs Medical: Not on file Non-medical: Not on file Tobacco Use Smoking status: Never Smoker Smokeless tobacco: Never Used Substance and Sexual Activity Alcohol use: Yes Comment: rare Drug use: Never Sexual activity: Not on file Lifestyle Physical activity Days per week: Not on file Minutes per session: Not on file Stress: Not on file Relationships Social connections Talks on phone: Not on file Gets together: Not on file Attends christian service: Not on file Active member of club or organization: Not on file Attends meetings of clubs or organizations: Not on file Relationship status: Not on file Intimate partner violence Fear of current or ex partner: Not on file Emotionally abused: Not on file Physically abused: Not on file Forced sexual activity: Not on file Other Topics Concern Not on file Social History Narrative Not on file History reviewed. No pertinent family history. Review of Systems 12 point review of systems completed by the office staff and reviewed by me. Height 1.626 m (5' 4"), weight 113.4 kg (250 lb), not currently . Physical Exam Vitals signs and nursing note reviewed. Constitutional: Appearance: Normal appearance. HENT: Head: Normocephalic and atraumatic. Right Ear: External ear normal. Left Ear: External ear normal. Nose: Nose normal. Mouth/Throat: Mouth: Mucous membranes are moist. Pharynx: Oropharynx is clear. Eyes: Extraocular Movements: Extraocular movements intact. Conjunctiva/sclera: Conjunctivae normal. Pupils: Pupils are equal, round, and reactive to light. Neck: Musculoskeletal: Normal range of motion and neck supple. Cardiovascular: Rate and Rhythm: Normal rate and regular rhythm. Pulmonary: Effort: Pulmonary effort is normal. Breath sounds: Normal breath sounds. Abdominal: General: Abdomen is flat. Bowel sounds are normal. Palpations: Abdomen is soft. Tenderness: There is abdominal tenderness (Right upper quadrant). Musculoskeletal: Normal range of motion. Skin: General: Skin is warm and dry. Neurological: General: No focal deficit present. Mental Status: She is alert and oriented to person, place, and time. Psychiatric: Mood and Affect: Mood normal. Behavior: Behavior normal. Thought Content: Thought content normal. Judgment: Judgment normal. Results for orders placed or performed during the hospital encounter of 12/14/19 CBC, EDIF, PLATELET Result Value Ref Range WBC (WHITE BLOOD COUNT) 9.4 3.6 - 11.0 10*3/uL RBC 5.00 4.0 - 5.4 10*6/uL HEMOGLOBIN (HGB) 13.7 12.0 - 16.0 G/DL HEMATOCRIT (HCT) 41.1 36.0 - 48.0 % MEAN CELL VOLUME 82.2 80.0 - 100.0 FL Mean Cell HGB 27.5 26.0 - 35.0 PG MEAN CELL HGB CONCENTRATION 33.4 27.0 - 37.0 G/DL RBC DISTRIBUTION 13.4 11.5 - 14.5 % PLATELET COUNT 297 130.0 - 400.0 10*3/uL MEAN PLATELET VOLUME 7.8 7.4 - 11.0 FL DIFFERENTIAL TYPE AUTO DIFF % NEUTROPHILS 87.7 (H) 37.0 - 75.0 % LYMPHOCYTE 8.9 (L) 20.0 - 55.0 % MONOCYTE % 3.0 0.0 - 10.0 % EOSINOPHIL % 0.0 0.0 - 11.0 % BASOPHIL % 0.4 0.0 - 2.0 % Absolute Neutrophil Count 8.2 (H) 1.4 - 6.5 10*3/uL LYMPHOCYTES, ABSOLUTE 0.80 (L) 1.2 - 3.4 10*3/uL MONOCYTES, ABSOLUTE 0.3 0.0 - 0.7 10*3/uL ABSOLUTE EOSINOPHIL COUNT 0.00 0.0 - 0.7 10*3/uL ABSOLUTE BASOPHIL COUNT 0.0 0.0 - 0.2 10*3/uL COMPREHENSIVE METABOLIC PANEL Result Value Ref Range GLUCOSE 110 (H) 70 - 100 MG/DL BUN 7 7 - 20 MG/DL CREATININE SERUM 0.75 0.52 - 1.04 MG/DL SODIUM 138 136 - 145 MMOL/L POTASSIUM 3.8 3.5 - 5.1 MMOL/L CHLORIDE 103 98 - 107 MMOL/L CALCIUM 9.9 8.4 - 10.2 MG/DL PROTEIN, TOTAL 7.9 6.3 - 8.2 GM/DL ALBUMIN 4.6 3.5 - 5.0 G/dl BILIRUBIN, TOTAL 0.6 0.2 - 1.2 MG/DL AST 19 15 - 41 IU/L ALKALINE PHOSPHATASE 50 38 - 126 IU/L CARBON DIOXIDE (CO2) 22 22 - 30 MMOL/L A/G Ratio 1.4 1.3 - 2.2 RATIO ALT 19 14 - 54 IU/L GFR COMMENT Unable to calculate GFR due to inappropriate age/gender/creatinine value. LIPASE Result Value Ref Range LIPASE 35 23 - 300 U/L BILIRUBIN DIRECT Result Value Ref Range BILIRUBIN, DIRECT <0.1 0.0 - 0.2 MG/DL URINALYSIS, MACRO Result Value Ref Range COLOR, URINE YELLOW YELLOW APPEARANCE, URINE CLEAR CLEAR SPECIFIC GRAVITY, URINE 1.025 1.010 - 1.025 PH URINE 7.5 (H) 5.0 - 7.0 PROTEIN, URINE 30 (A) NEGATIVE mg/dl GLUCOSE, URINE NEGATIVE NEGATIVE mg/dl KETONES, URINE 40 (A) NEGATIVE mg/dl BILIRUBIN, URINE SMALL (A) NEGATIVE BLOOD, URINE DIPSTICK TRACE-LYSED (A) NEGATIVE NITRITES, URINE NEGATIVE NEGATIVE UROBILINOGEN, URINE 0.2 0.2 - 1.0 E.U./dL LEUKOCYTE ESTERASE, URINE NEGATIVE NEGATIVE HCG QUALITATIVE, URINE Result Value Ref Range HCG, QUALITATIVE, URINE NEGATIVE NEGATIVE URINE MICROSCOPIC Result Value Ref Range WBC, URINE NEGATIVE NEGATIVE /HPF RBC, URINE NEGATIVE NEGATIVE /HPF Epithelial Cells UA 1 TO 5 /HPF Mucus NEGATIVE NEGATIVE BACTERIA, URINE TRACE (A) NEGATIVE CRYSTALS, URINE NONE NONE CASTS, URINE NONE NONE /LPF COMMENT, URINE CULTURE CRITERIA NOT MET, NO CULTURE PERFORMED. Problem List Items Addressed This Visit None Visit Diagnoses Abdominal pain, generalized - Primary Relevant Orders NUC HEPATOBILIARY W/ EF Diagnosis: Right upper quadrant/epigastric pain. History is consistent with biliary colic. A bladder ultrasound positive for sludge. Recommendations: HIDA scan with EF to confirm the diagnosis. DO Omar Storm PA-C [address] [place] [address] documented in this encounter I have examined the patient and reviewed the previous H&P completed on date 01/21/2020 and there are no changes. Lipase normalized today. LFTs better. Gallstone pancreatitis. Plan: LC with [facility]. Martínez Garner DO, 01/23/2020, 2:27 PM. Deejay Grover is a 19 y.o. female 01/21/2020 Chief Complaint: Chief Complaint Patient presents with Abdominal Pain scheduled hiatal scan today with Dr. Garner. N+V and pain worsen. HPI: A 19-year-old female whom I had evaluated in the office on 01/03/2024 generalized abdominal pain. Original gallbladder ultrasound on 12/14/2019 revealing sludge but no stones. Repeat gallbladder ultrasound on 01/18/2020 done through an emergency department visit revealing cholelithiasis. LFTs were elevated at that time. Now she has a third presentation with severe abdominal pain. This time she was admitted because of an elevated lipase indicative of gallstone pancreatitis. She has significant abdominal pain including associated back pain. On afternoon rounds, the patient states that she has persistent nausea and that the morphine does not appear to be controlling her pain. MRCP tentatively without any noted choledocholithiasis. No Known Allergies Current Facility-Administered Medications Medication Dose Route Frequency Provider Last Rate Last Dose cefoTEtan (CEFOTAN) 2 g in dextrose premix IVPB 2 g Intravenous Q12H Martínez Masters MD 0 mL/hr at 01/21/20 0449 2 g at 01/21/20 1619 HYDROmorphone (DILAUDID) injection 1 mg 1 mg Intravenous Q2H PRN Martínez Garner, DO 1 mg at 01/21/20 1808 ondansetron 4mg/2ml (ZOFRAN) injection 4 mg 4 mg Intravenous Q4H PRN Martínez Garner, DO 4 mg at 01/21/20 1414 pantoprazole (PROTONIX) injection 40 mg 40 mg Intravenous Daily Martínez Garner, DO 40 mg at 01/21/20 1148 scopolamine (TRANSDERM-SCOP) patch 1 patch 1 patch Transdermal Q72H Martínez Garner, DO 1 patch at 01/21/20 1809 sodium chloride 0.9% 1,000 ml with potassium chloride 20 mEq premix IV solution Intravenous Continuous Martínez Garner, DO 125 mL/hr at 01/21/20 1617 a .No past medical history on file. No past surgical history on file. Social History Socioeconomic History Marital status: Single Spouse name: Not on file Number of children: Not on file Years of education: Not on file Highest education level: Not on file Occupational History Not on file Social Needs Financial resource strain: Not on file Food insecurity Worry: Not on file Inability: Not on file Transportation needs Medical: Not on file Non-medical: Not on file Tobacco Use Smoking status: Never Smoker Smokeless tobacco: Never Used Substance and Sexual Activity Alcohol use: Yes Comment: rare Drug use: Never Sexual activity: Not on file Lifestyle Physical activity Days per week: Not on file Minutes per session: Not on file Stress: Not on file Relationships Social connections Talks on phone: Not on file Gets together: Not on file Attends christian service: Not on file Active member of club or organization: Not on file Attends meetings of clubs or organizations: Not on file Relationship status: Not on file Intimate partner violence Fear of current or ex partner: Not on file Emotionally abused: Not on file Physically abused: Not on file Forced sexual activity: Not on file Other Topics Concern Not on file Social History Narrative Not on file History reviewed. No pertinent family history. Review of Systems Constitutional: Positive for appetite change and fatigue. Negative for fever. HENT: Negative. Eyes: Negative. Respiratory: Negative. Cardiovascular: Negative. Gastrointestinal: Positive for abdominal pain, nausea and vomiting. Endocrine: Negative. Genitourinary: Negative. Musculoskeletal: Positive for back pain. Allergic/Immunologic: Negative. Neurological: Negative. Hematological: Negative. Psychiatric/Behavioral: Negative. Blood pressure 140/74, pulse 80, temperature 98.5 F (36.9 C), temperature source Oral, resp. rate 18, height 1.626 m (5' 4.02"), weight 125.6 kg (276 lb 15.8 oz), last menstrual period 01/21/2020, SpO2 91 %, not currently . Physical Exam Vitals signs and nursing note reviewed. Constitutional: Appearance: She is well-developed. She is obese. HENT: Head: Normocephalic and atraumatic. Eyes: General: Scleral icterus present. Extraocular Movements: Extraocular movements intact. Cardiovascular: Rate and Rhythm: Normal rate and regular rhythm. Pulmonary: Effort: Pulmonary effort is normal. Breath sounds: Normal breath sounds. Abdominal: General: Abdomen is flat. Bowel sounds are decreased. Palpations: Abdomen is soft. Tenderness: There is abdominal tenderness in the epigastric area. There is no guarding or rebound. Negative signs include Rovsing's sign. Skin: General: Skin is warm and dry. Neurological: General: No focal deficit present. Mental Status: She is alert and oriented to person, place, and time. Psychiatric: Mood and Affect: Mood normal. Behavior: Behavior normal. CBC Lab Results Component Value Date/Time WBC 9.2 01/21/2020 02:13 AM WBC 4.2 01/18/2020 10:45 AM HGB 14.9 01/21/2020 02:13 AM HGB 14.1 01/18/2020 10:45 AM HCT 45.6 01/21/2020 02:13 AM HCT 42.6 01/18/2020 10:45 AM PLATELET 321 01/21/2020 02:13 AM PLATELET 228 01/18/2020 10:45 AM Chemistry Lab Results Component Value Date/Time GLUCOSE 159 (H) 01/21/2020 02:13 AM GLUCOSE 100 01/18/2020 10:45 AM BUN 5 (L) 01/21/2020 02:13 AM BUN 8 01/18/2020 10:45 AM CREATSERUM 0.77 01/21/2020 02:13 AM CREATSERUM 0.82 01/18/2020 10:45 AM SODIUM 139 01/21/2020 02:13 AM SODIUM 135 (L) 01/18/2020 10:45 AM POTASSIUM 3.2 (L) 01/21/2020 02:13 AM POTASSIUM 3.6 01/18/2020 10:45 AM CHLORIDE 104 01/21/2020 02:13 AM CHLORIDE 101 01/18/2020 10:45 AM CO2 22 01/21/2020 02:13 AM CO2 23 01/18/2020 10:45 AM ALBUMIN 4.5 01/21/2020 02:13 AM ALBUMIN 4.4 01/18/2020 10:45 AM CALCIUM 9.9 12/14/2019 02:22 PM COAG No results found for: PT, INR, PTT ABG No results found for: HCO3, PCO2, PO2 Other notable labs: Elevated lipase. Elevated hepatic function panel. Relevant microbiologic cultures: None. Us Abdomen Ruq/liver/gb Result Date: 01/18/2020 EXAM: US ABDOMEN RUQ/LIVER/GB HISTORY: Pain COMPARISON: Right upper quadrant ultrasound from 12/14/2019. TECHNIQUE: Grayscale and color imaging of the right upper quadrant is performed. FINDINGS: Examination limited by artifact from intestinal air within the abdomen as well as patient's body habitus. Imaged portion of the abdominal aorta is nonaneurysmal measuring 2.3, 1.5, and 1.2 cm in the proximal, mid, and distal segments respectively. Imaged portion of the abdominal IVC is unremarkable. No right upper quadrant free fluid identified. The gallbladder is normal in size. There is echogenic layering mobile material within the gallbladder lumen which demonstrates posterior acoustic shadowing likely representing a combination of small volume sludge and stones. No sonographic Medina sign or obvious gallbladder wall abnormality identified. The common duct proximally is normal in caliber measuring 5 mm. More distal common duct is not well-visualized due to artifact from imaged intestinal air. Similarly the pancreas is not visualized due to artifact from overlying intestinal air as well. The right kidney measures approximately 10 x 5 x 7 cm with cortical thickness measuring 1.2 cm. Kidney normal in echogenicity without evidence of hydronephrosis. IMPRESSION: 1. Small volume mobile sludge and gallstones within the gallbladder lumen. No ultrasound evidence of cholecystitis. 2. Normal liver echogenicity. 3. No biliary duct dilatation. The distal common duct and pancreas are not well- visualized due to artifact from overlying intestinal air. Mri Mrcp Result Date: 01/21/2020 EXAM: MRI MRCP HISTORY: Pancreatitis. Gallbladder disease. COMPARISON: Right upper quadrant ultrasound January 18, 2020. TECHNIQUE: Multisequence multiplanar MR images of the abdomen were acquired using the MRCP protocol including respiratory gated 3-D heavily weighted T2 MRCP sequences with maximum intensity projections. FINDINGS: The gallbladder is nondilated. There are multiple tiny stones within the gallbladder body and neck measuring less than 5 mm. No appreciable gallbladder wall edema. No intrahepatic biliary duct dilatation. The common bile duct measures up to 6 mm in diameter tapering at the ampulla. No visible common bile duct stones. There is moderate stranding in the retroperitoneum surrounding the pancreas and there is a small amount of fluid accumulation present within the anterior pararenal spaces bilaterally. Overall findings compatible with acute pancreatitis. Based on the unenhanced study, no encapsulated fluid collection at this time. No obvious pancreatic masses. There is no pancreatic duct dilatation. Limited evaluation of the liver and spleen show no abnormalities. The adrenal glands are unremarkable. Kidneys are unremarkable. No bulky adenopathy. IMPRESSION: 1. Moderate changes compatible with acute pancreatitis. 2. Cholelithiasis seen as multiple tiny stones. No evidence of acute cholecystitis. 3. Common bile duct diameter 6 mm at the upper limits of normal. No evidence of choledocholithiasis although stones less than 3 mm may not be visible by MRCP. If there is further clinical concern, ERCP may be helpful. Results for orders placed or performed during the hospital encounter of 01/21/20 SCREEN: MRSA ONLY, NARES (ISOLATION SCREEN) Specimen: NARES; E-Swab Result Value Ref Range SCREEN: MRSA NEGATIVE NEGATIVE STAPHYOCOCCUS AUREUS BY PCR POSITIVE (A) NEGATIVE CBC, EDIF, PLATELET Result Value Ref Range WBC (WHITE BLOOD COUNT) 9.2 3.6 - 11.0 10*3/uL RBC 5.39 4.0 - 5.4 10*6/uL HEMOGLOBIN (HGB) 14.9 12.0 - 16.0 G/DL HEMATOCRIT (HCT) 45.6 36.0 - 48.0 % MEAN CELL VOLUME 84.5 80.0 - 100.0 FL Mean Cell HGB 27.7 26.0 - 35.0 PG MEAN CELL HGB CONCENTRATION 32.8 27.0 - 37.0 G/DL RBC DISTRIBUTION 13.7 11.5 - 14.5 % PLATELET COUNT 321 130.0 - 400.0 10*3/uL MEAN PLATELET VOLUME 8.2 7.4 - 11.0 FL DIFFERENTIAL TYPE AUTO DIFF % NEUTROPHILS 80.1 (H) 37.0 - 75.0 % LYMPHOCYTE 10.8 (L) 20.0 - 55.0 % MONOCYTE % 8.3 0.0 - 10.0 % EOSINOPHIL % 0.2 0.0 - 11.0 % BASOPHIL % 0.6 0.0 - 2.0 % Absolute Neutrophil Count 7.4 (H) 1.4 - 6.5 10*3/uL LYMPHOCYTES, ABSOLUTE 1.00 (L) 1.2 - 3.4 10*3/uL MONOCYTES, ABSOLUTE 0.8 (H) 0.0 - 0.7 10*3/uL ABSOLUTE EOSINOPHIL COUNT 0.00 0.0 - 0.7 10*3/uL ABSOLUTE BASOPHIL COUNT 0.1 0.0 - 0.2 10*3/uL LIPASE Result Value Ref Range LIPASE >1,893 (HH) 23 - 300 U/L CHEM 7 (LYTES,BUN,CREA,GLUC) Result Value Ref Range GLUCOSE 159 (H) 70 - 100 MG/DL BUN 5 (L) 7 - 20 MG/DL CREATININE SERUM 0.77 0.52 - 1.04 MG/DL SODIUM 139 136 - 145 MMOL/L POTASSIUM 3.2 (L) 3.5 - 5.1 MMOL/L CHLORIDE 104 98 - 107 MMOL/L CARBON DIOXIDE (CO2) 22 22 - 30 MMOL/L GFR COMMENT Unable to calculate GFR due to inappropriate age/gender/creatinine value. HEPATIC FUNCTION PANEL Result Value Ref Range ALBUMIN 4.5 3.5 - 5.0 G/DL BILIRUBIN, TOTAL 4.6 (H) 0.2 - 1.2 MG/DL ALKALINE PHOSPHATASE 130 (H) 38 - 126 IU/L AST 196 (H) 15 - 41 IU/L BILIRUBIN, DIRECT 2.9 (H) 0.0 - 0.2 MG/DL PROTEIN, TOTAL 7.9 6.3 - 8.2 GM/DL ALT 370 (H) 14 - 54 IU/L HCG QUALITATIVE, URINE Result Value Ref Range HCG, QUALITATIVE, URINE NEGATIVE NEGATIVE URINALYSIS, MACRO Result Value Ref Range COLOR, URINE ORANGE (A) YELLOW APPEARANCE, URINE CLEAR CLEAR SPECIFIC GRAVITY, URINE >1.030 (H) 1.010 - 1.025 PH URINE 5.5 5.0 - 7.0 PROTEIN, URINE 100 (A) NEGATIVE mg/dl GLUCOSE, URINE 100 (A) NEGATIVE mg/dl KETONES, URINE 15 (A) NEGATIVE mg/dl BILIRUBIN, URINE LARGE (A) NEGATIVE BLOOD, URINE DIPSTICK MODERATE (A) NEGATIVE NITRITES, URINE NEGATIVE NEGATIVE UROBILINOGEN, URINE 1.0 0.2 - 1.0 E.U./dL LEUKOCYTE ESTERASE, URINE NEGATIVE NEGATIVE URINE MICROSCOPIC Result Value Ref Range WBC, URINE 1 TO 5 NEGATIVE /HPF RBC, URINE 5 TO 10 NEGATIVE /HPF Epithelial Cells UA 1 TO 5 /HPF Mucus TRACE (A) NEGATIVE BACTERIA, URINE TRACE (A) NEGATIVE CRYSTALS, URINE NONE NONE CASTS, URINE NONE NONE /LPF COMMENT, URINE CULTURE CRITERIA NOT MET, NO CULTURE PERFORMED. Patient Active Problem List Diagnosis Generalized abdominal pain Pancreatitis due to biliary obstruction Obesity: body mass index of 40.0-49.9 Diagnosis: Gallstone pancreatitis. Hypokalemia. Abdominal pain. Obesity. Jaundice. Recommendations: Nothing by mouth. Empiric antibiotic. MRCP. Potassium replacement. IV hydration. Antibiotics. Pain control. Laparoscopic cholecystectomy with intraoperative cholangiogram once pancreatitis improves. Martínez Garner DO No referring provider defined for this encounter. documented in this encounter I have examined the patient and reviewed the previous H&P completed on date 01/21/2020 and there are no changes. Lipase normalized today. LFTs better. Gallstone pancreatitis. Plan: LC with [facility]. Martínez Garner DO, 01/23/2020, 2:27 PM. Deejay Grover is a 19 y.o. female 01/21/2020 Chief Complaint: Chief Complaint Patient presents with Abdominal Pain scheduled hiatal scan today with Dr. Garner. N+V and pain worsen. HPI: A 19-year-old female whom I had evaluated in the office on 01/03/2024 generalized abdominal pain. Original gallbladder ultrasound on 12/14/2019 revealing sludge but no stones. Repeat gallbladder ultrasound on 01/18/2020 done through an emergency department visit revealing cholelithiasis. LFTs were elevated at that time. Now she has a third presentation with severe abdominal pain. This time she was admitted because of an elevated lipase indicative of gallstone pancreatitis. She has significant abdominal pain including associated back pain. On afternoon rounds, the patient states that she has persistent nausea and that the morphine does not appear to be controlling her pain. MRCP tentatively without any noted choledocholithiasis. No Known Allergies Current Facility-Administered Medications Medication Dose Route Frequency Provider Last Rate Last Dose cefoTEtan (CEFOTAN) 2 g in dextrose premix IVPB 2 g Intravenous Q12H Martínez Masters MD 0 mL/hr at 01/21/20 0449 2 g at 01/21/20 1619 HYDROmorphone (DILAUDID) injection 1 mg 1 mg Intravenous Q2H PRN Martínez Garner, DO 1 mg at 01/21/20 1808 ondansetron 4mg/2ml (ZOFRAN) injection 4 mg 4 mg Intravenous Q4H PRN Martínez Garner DO 4 mg at 01/21/20 1414 pantoprazole (PROTONIX) injection 40 mg 40 mg Intravenous Daily Martínez Garner, DO 40 mg at 01/21/20 1148 scopolamine (TRANSDERM-SCOP) patch 1 patch 1 patch Transdermal Q72H Martínez Garner DO 1 patch at 01/21/20 1809 sodium chloride 0.9% 1,000 ml with potassium chloride 20 mEq premix IV solution Intravenous Continuous Martínez Garner DO 125 mL/hr at 01/21/20 1617 a .No past medical history on file. No past surgical history on file. Social History Socioeconomic History Marital status: Single Spouse name: Not on file Number of children: Not on file Years of education: Not on file Highest education level: Not on file Occupational History Not on file Social Needs Financial resource strain: Not on file Food insecurity Worry: Not on file Inability: Not on file Transportation needs Medical: Not on file Non-medical: Not on file Tobacco Use Smoking status: Never Smoker Smokeless tobacco: Never Used Substance and Sexual Activity Alcohol use: Yes Comment: rare Drug use: Never Sexual activity: Not on file Lifestyle Physical activity Days per week: Not on file Minutes per session: Not on file Stress: Not on file Relationships Social connections Talks on phone: Not on file Gets together: Not on file Attends christian service: Not on file Active member of club or organization: Not on file Attends meetings of clubs or organizations: Not on file Relationship status: Not on file Intimate partner violence Fear of current or ex partner: Not on file Emotionally abused: Not on file Physically abused: Not on file Forced sexual activity: Not on file Other Topics Concern Not on file Social History Narrative Not on file History reviewed. No pertinent family history. Review of Systems Constitutional: Positive for appetite change and fatigue. Negative for fever. HENT: Negative. Eyes: Negative. Respiratory: Negative. Cardiovascular: Negative. Gastrointestinal: Positive for abdominal pain, nausea and vomiting. Endocrine: Negative. Genitourinary: Negative. Musculoskeletal: Positive for back pain. Allergic/Immunologic: Negative. Neurological: Negative. Hematological: Negative. Psychiatric/Behavioral: Negative. Blood pressure 140/74, pulse 80, temperature 98.5 F (36.9 C), temperature source Oral, resp. rate 18, height 1.626 m (5' 4.02"), weight 125.6 kg (276 lb 15.8 oz), last menstrual period 01/21/2020, SpO2 91 %, not currently . Physical Exam Vitals signs and nursing note reviewed. Constitutional: Appearance: She is well-developed. She is obese. HENT: Head: Normocephalic and atraumatic. Eyes: General: Scleral icterus present. Extraocular Movements: Extraocular movements intact. Cardiovascular: Rate and Rhythm: Normal rate and regular rhythm. Pulmonary: Effort: Pulmonary effort is normal. Breath sounds: Normal breath sounds. Abdominal: General: Abdomen is flat. Bowel sounds are decreased. Palpations: Abdomen is soft. Tenderness: There is abdominal tenderness in the epigastric area. There is no guarding or rebound. Negative signs include Rovsing's sign. Skin: General: Skin is warm and dry. Neurological: General: No focal deficit present. Mental Status: She is alert and oriented to person, place, and time. Psychiatric: Mood and Affect: Mood normal. Behavior: Behavior normal. CBC Lab Results Component Value Date/Time WBC 9.2 01/21/2020 02:13 AM WBC 4.2 01/18/2020 10:45 AM HGB 14.9 01/21/2020 02:13 AM HGB 14.1 01/18/2020 10:45 AM HCT 45.6 01/21/2020 02:13 AM HCT 42.6 01/18/2020 10:45 AM PLATELET 321 01/21/2020 02:13 AM PLATELET 228 01/18/2020 10:45 AM Chemistry Lab Results Component Value Date/Time GLUCOSE 159 (H) 01/21/2020 02:13 AM GLUCOSE 100 01/18/2020 10:45 AM BUN 5 (L) 01/21/2020 02:13 AM BUN 8 01/18/2020 10:45 AM CREATSERUM 0.77 01/21/2020 02:13 AM CREATSERUM 0.82 01/18/2020 10:45 AM SODIUM 139 01/21/2020 02:13 AM SODIUM 135 (L) 01/18/2020 10:45 AM POTASSIUM 3.2 (L) 01/21/2020 02:13 AM POTASSIUM 3.6 01/18/2020 10:45 AM CHLORIDE 104 01/21/2020 02:13 AM CHLORIDE 101 01/18/2020 10:45 AM CO2 22 01/21/2020 02:13 AM CO2 23 01/18/2020 10:45 AM ALBUMIN 4.5 01/21/2020 02:13 AM ALBUMIN 4.4 01/18/2020 10:45 AM CALCIUM 9.9 12/14/2019 02:22 PM COAG No results found for: PT, INR, PTT ABG No results found for: HCO3, PCO2, PO2 Other notable labs: Elevated lipase. Elevated hepatic function panel. Relevant microbiologic cultures: None. Us Abdomen Ruq/liver/gb Result Date: 01/18/2020 EXAM: US ABDOMEN RUQ/LIVER/GB HISTORY: Pain COMPARISON: Right upper quadrant ultrasound from 12/14/2019. TECHNIQUE: Grayscale and color imaging of the right upper quadrant is performed. FINDINGS: Examination limited by artifact from intestinal air within the abdomen as well as patient's body habitus. Imaged portion of the abdominal aorta is nonaneurysmal measuring 2.3, 1.5, and 1.2 cm in the proximal, mid, and distal segments respectively. Imaged portion of the abdominal IVC is unremarkable. No right upper quadrant free fluid identified. The gallbladder is normal in size. There is echogenic layering mobile material within the gallbladder lumen which demonstrates posterior acoustic shadowing likely representing a combination of small volume sludge and stones. No sonographic Medina sign or obvious gallbladder wall abnormality identified. The common duct proximally is normal in caliber measuring 5 mm. More distal common duct is not well-visualized due to artifact from imaged intestinal air. Similarly the pancreas is not visualized due to artifact from overlying intestinal air as well. The right kidney measures approximately 10 x 5 x 7 cm with cortical thickness measuring 1.2 cm. Kidney normal in echogenicity without evidence of hydronephrosis. IMPRESSION: 1. Small volume mobile sludge and gallstones within the gallbladder lumen. No ultrasound evidence of cholecystitis. 2. Normal liver echogenicity. 3. No biliary duct dilatation. The distal common duct and pancreas are not well- visualized due to artifact from overlying intestinal air. Mri Mrcp Result Date: 01/21/2020 EXAM: MRI MRCP HISTORY: Pancreatitis. Gallbladder disease. COMPARISON: Right upper quadrant ultrasound January 18, 2020. TECHNIQUE: Multisequence multiplanar MR images of the abdomen were acquired using the MRCP protocol including respiratory gated 3-D heavily weighted T2 MRCP sequences with maximum intensity projections. FINDINGS: The gallbladder is nondilated. There are multiple tiny stones within the gallbladder body and neck measuring less than 5 mm. No appreciable gallbladder wall edema. No intrahepatic biliary duct dilatation. The common bile duct measures up to 6 mm in diameter tapering at the ampulla. No visible common bile duct stones. There is moderate stranding in the retroperitoneum surrounding the pancreas and there is a small amount of fluid accumulation present within the anterior pararenal spaces bilaterally. Overall findings compatible with acute pancreatitis. Based on the unenhanced study, no encapsulated fluid collection at this time. No obvious pancreatic masses. There is no pancreatic duct dilatation. Limited evaluation of the liver and spleen show no abnormalities. The adrenal glands are unremarkable. Kidneys are unremarkable. No bulky adenopathy. IMPRESSION: 1. Moderate changes compatible with acute pancreatitis. 2. Cholelithiasis seen as multiple tiny stones. No evidence of acute cholecystitis. 3. Common bile duct diameter 6 mm at the upper limits of normal. No evidence of choledocholithiasis although stones less than 3 mm may not be visible by MRCP. If there is further clinical concern, ERCP may be helpful. Results for orders placed or performed during the hospital encounter of 01/21/20 SCREEN: MRSA ONLY, NARES (ISOLATION SCREEN) Specimen: NARES; E-Swab Result Value Ref Range SCREEN: MRSA NEGATIVE NEGATIVE STAPHYOCOCCUS AUREUS BY PCR POSITIVE (A) NEGATIVE CBC, EDIF, PLATELET Result Value Ref Range WBC (WHITE BLOOD COUNT) 9.2 3.6 - 11.0 10*3/uL RBC 5.39 4.0 - 5.4 10*6/uL HEMOGLOBIN (HGB) 14.9 12.0 - 16.0 G/DL HEMATOCRIT (HCT) 45.6 36.0 - 48.0 % MEAN CELL VOLUME 84.5 80.0 - 100.0 FL Mean Cell HGB 27.7 26.0 - 35.0 PG MEAN CELL HGB CONCENTRATION 32.8 27.0 - 37.0 G/DL RBC DISTRIBUTION 13.7 11.5 - 14.5 % PLATELET COUNT 321 130.0 - 400.0 10*3/uL MEAN PLATELET VOLUME 8.2 7.4 - 11.0 FL DIFFERENTIAL TYPE AUTO DIFF % NEUTROPHILS 80.1 (H) 37.0 - 75.0 % LYMPHOCYTE 10.8 (L) 20.0 - 55.0 % MONOCYTE % 8.3 0.0 - 10.0 % EOSINOPHIL % 0.2 0.0 - 11.0 % BASOPHIL % 0.6 0.0 - 2.0 % Absolute Neutrophil Count 7.4 (H) 1.4 - 6.5 10*3/uL LYMPHOCYTES, ABSOLUTE 1.00 (L) 1.2 - 3.4 10*3/uL MONOCYTES, ABSOLUTE 0.8 (H) 0.0 - 0.7 10*3/uL ABSOLUTE EOSINOPHIL COUNT 0.00 0.0 - 0.7 10*3/uL ABSOLUTE BASOPHIL COUNT 0.1 0.0 - 0.2 10*3/uL LIPASE Result Value Ref Range LIPASE >1,893 (HH) 23 - 300 U/L CHEM 7 (LYTES,BUN,CREA,GLUC) Result Value Ref Range GLUCOSE 159 (H) 70 - 100 MG/DL BUN 5 (L) 7 - 20 MG/DL CREATININE SERUM 0.77 0.52 - 1.04 MG/DL SODIUM 139 136 - 145 MMOL/L POTASSIUM 3.2 (L) 3.5 - 5.1 MMOL/L CHLORIDE 104 98 - 107 MMOL/L CARBON DIOXIDE (CO2) 22 22 - 30 MMOL/L GFR COMMENT Unable to calculate GFR due to inappropriate age/gender/creatinine value. HEPATIC FUNCTION PANEL Result Value Ref Range ALBUMIN 4.5 3.5 - 5.0 G/DL BILIRUBIN, TOTAL 4.6 (H) 0.2 - 1.2 MG/DL ALKALINE PHOSPHATASE 130 (H) 38 - 126 IU/L AST 196 (H) 15 - 41 IU/L BILIRUBIN, DIRECT 2.9 (H) 0.0 - 0.2 MG/DL PROTEIN, TOTAL 7.9 6.3 - 8.2 GM/DL ALT 370 (H) 14 - 54 IU/L HCG QUALITATIVE, URINE Result Value Ref Range HCG, QUALITATIVE, URINE NEGATIVE NEGATIVE URINALYSIS, MACRO Result Value Ref Range COLOR, URINE ORANGE (A) YELLOW APPEARANCE, URINE CLEAR CLEAR SPECIFIC GRAVITY, URINE >1.030 (H) 1.010 - 1.025 PH URINE 5.5 5.0 - 7.0 PROTEIN, URINE 100 (A) NEGATIVE mg/dl GLUCOSE, URINE 100 (A) NEGATIVE mg/dl KETONES, URINE 15 (A) NEGATIVE mg/dl BILIRUBIN, URINE LARGE (A) NEGATIVE BLOOD, URINE DIPSTICK MODERATE (A) NEGATIVE NITRITES, URINE NEGATIVE NEGATIVE UROBILINOGEN, URINE 1.0 0.2 - 1.0 E.U./dL LEUKOCYTE ESTERASE, URINE NEGATIVE NEGATIVE URINE MICROSCOPIC Result Value Ref Range WBC, URINE 1 TO 5 NEGATIVE /HPF RBC, URINE 5 TO 10 NEGATIVE /HPF Epithelial Cells UA 1 TO 5 /HPF Mucus TRACE (A) NEGATIVE BACTERIA, URINE TRACE (A) NEGATIVE CRYSTALS, URINE NONE NONE CASTS, URINE NONE NONE /LPF COMMENT, URINE CULTURE CRITERIA NOT MET, NO CULTURE PERFORMED. Patient Active Problem List Diagnosis Generalized abdominal pain Pancreatitis due to biliary obstruction Obesity: body mass index of 40.0-49.9 Diagnosis: Gallstone pancreatitis. Hypokalemia. Abdominal pain. Obesity. Jaundice. Recommendations: Nothing by mouth. Empiric antibiotic. MRCP. Potassium replacement. IV hydration. Antibiotics. Pain control. Laparoscopic cholecystectomy with intraoperative cholangiogram once pancreatitis improves. Martínez Garner DO No referring provider defined for this encounter. 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 Pain continues with nausea documented in this encounter [facility] states for patient to go to room 3766 Room assignment [id number]. dEPARTMENT of Emergency Medicine CHIEF COMPLAINT Abdominal Pain (scheduled hiatal scan today with Dr. Garner. N+V and pain worsen.) TEE Grover is a 19 y.o. female who presents with severe abdominal pain. Patient has been having intermittent abdominal pain. She has undergone workup in the emergency department recently it was determined that it was her gallbladder. She has an appointment later today with a general surgeon, Dr. Garner. She will couple of hours prior to arrival with severe epigastric and mid abdominal pain that radiated through to her back. It was associated with vomiting. Pain is constant since it started again this morning. She has had decreased appetite and did not having thing to eat last night. No fevers or chills. No chest pain or difficulty breathing. No cough. No diarrhea. REVIEW OF SYSTEMS Review of Systems Constitutional: No fevers, no chills Eyes: No vision change, no drainage ENT: No ear pain, no sore throat Cardiovascular: No chest pain, no edema Respiratory: No shortness of breath, no cough Gastrointestinal: Positive vomiting, no diarrhea Genitourinary: No dysuria, no frequency Musculoskeletal: No joint pain, no joint swelling Integumentary: No rash, no itching Neurologic: No headache, no confusion Psychiatric: No anxiety, no depression PAST MEDICAL HISTORY No past medical history on file. SURGICAL HISTORY No past surgical history on file. CURRENT MEDICATIONS Current Facility-Administered Medications Medication Dose Route Frequency Provider Last Rate Last Dose cefoTEtan (CEFOTAN) 2 g in dextrose premix IVPB 2 g Intravenous Q12H Martínez Masters MD Current Outpatient Medications Medication Sig Dispense Refill contraceptive, oral Take by mouth. dicyclomine 10 MG capsule Take 1 capsule by mouth 3 times daily as needed for Abdominal Spasms. 15 capsule 0 famotidine 40 MG tablet Take 1 tablet by mouth every evening at 6 PM. 10 tablet 0 hydroCODone-acetaminophen 5-325 MG tablet Take 1 tablet by mouth every 6 hours as needed for Moderate Pain for up to 3 days. 10 tablet 0 ntozxvsn-blgwtctul-utwyvlpeoyhhfu 3.5-00974-0 Suspension 3-4 drops by Otic route 3 times daily. 10 mL 0 ondansetron (Zofran ODT) 4 MG Tab Dispersible tablet Take 1 tablet by mouth every 4 hours as needed for Nausea. 15 tablet 0 pantoprazole [address] tablet DR Take 1 tablet by mouth daily. 15 tablet 0 Tri-Estarylla 0.18/0.215/0.25 MG-35 MCG tablet Take 1 tablet by mouth daily. ALLERGIES No Known Allergies FAMILY HISTORY History reviewed. No pertinent family history. SOCIAL HISTORY Social History Socioeconomic History Marital status: Single Spouse name: Not on file Number of children: Not on file Years of education: Not on file Highest education level: Not on file Occupational History Not on file Social Needs Financial resource strain: Not on file Food insecurity Worry: Not on file Inability: Not on file Transportation needs Medical: Not on file Non-medical: Not on file Tobacco Use Smoking status: Never Smoker Smokeless tobacco: Never Used Substance and Sexual Activity Alcohol use: Yes Comment: rare Drug use: Never Sexual activity: Not on file Lifestyle Physical activity Days per week: Not on file Minutes per session: Not on file Stress: Not on file Relationships Social connections Talks on phone: Not on file Gets together: Not on file Attends christian service: Not on file Active member of club or organization: Not on file Attends meetings of clubs or organizations: Not on file Relationship status: Not on file Intimate partner violence Fear of current or ex partner: Not on file Emotionally abused: Not on file Physically abused: Not on file Forced sexual activity: Not on file Other Topics Concern Not on file Social History Narrative Not on file PHYSICAL EXAM BP 108/63 Pulse 60 Temp 97.6 F (36.4 C) (Oral) Resp 18 Ht 1.626 m (5' 4") Wt 125.6 kg (277 lb) BMI 47.55 kg/m Smoking Status Never Smoker Physical Exam The patient is well-developed, obese, and appears to be in discomfort. Head is atraumatic and normocephalic. Pupils are equal and reactive. Face is symmetric. Mucous membranes are moist. Neck is supple. Heart is regular rate and rhythm. Lungs are clear to auscultation. Abdomen is soft, nondistended. She has tenderness to the epigastric, right upper quadrant, and periumbilical areas. Skin is warm and dry. She does appear to be jaundiced. Extremities are warm and well perfused and without acute deformity. Neurologically, the patient is awake, alert, and without acute deficit. Psychiatrically, the patient is calm and cooperative. ED COURSE & MEDICAL DECISION MAKING Laboratory evaluation shows elevated bilirubin as well as elevated liver enzymes. Lipase is too high to measure. Patient likely has gallstone pancreatitis given recent testing that did show gallstones with her recent intermittent symptoms consistent with biliary disease. I did contact Dr. Garner who has agreed to admit the patient. She will be started on cefotetan for antibiotic coverage. She will receive pain medications, IV fluids, and be kept nothing by mouth. Impression: 1. Acute gallstone pancreatitis Disposition: Admission Martínez Masters MD 01/21/[address] Masters speaking with Dr. Garner at this time. Pt rests in bed quietly, easy to arouse, states pain is 7 out of 10, still feel a bit nauseated, denies needs of any medications for the symptoms when offered. Sister is at bedside. Dr. Masters is at cart side. documented in this encounter [facility] states for patient to go to room 3766 Room assignment [id number]. dEPARTMENT of Emergency Medicine CHIEF COMPLAINT Abdominal Pain (scheduled hiatal scan today with Dr. Garner. N+V and pain worsen.) TEE Grover is a 19 y.o. female who presents with severe abdominal pain. Patient has been having intermittent abdominal pain. She has undergone workup in the emergency department recently it was determined that it was her gallbladder. She has an appointment later today with a general surgeon, Dr. Garner. She will couple of hours prior to arrival with severe epigastric and mid abdominal pain that radiated through to her back. It was associated with vomiting. Pain is constant since it started again this morning. She has had decreased appetite and did not having thing to eat last night. No fevers or chills. No chest pain or difficulty breathing. No cough. No diarrhea. REVIEW OF SYSTEMS Review of Systems Constitutional: No fevers, no chills Eyes: No vision change, no drainage ENT: No ear pain, no sore throat Cardiovascular: No chest pain, no edema Respiratory: No shortness of breath, no cough Gastrointestinal: Positive vomiting, no diarrhea Genitourinary: No dysuria, no frequency Musculoskeletal: No joint pain, no joint swelling Integumentary: No rash, no itching Neurologic: No headache, no confusion Psychiatric: No anxiety, no depression PAST MEDICAL HISTORY No past medical history on file. SURGICAL HISTORY No past surgical history on file. CURRENT MEDICATIONS Current Facility-Administered Medications Medication Dose Route Frequency Provider Last Rate Last Dose cefoTEtan (CEFOTAN) 2 g in dextrose premix IVPB 2 g Intravenous Q12H Martínez Masters MD Current Outpatient Medications Medication Sig Dispense Refill contraceptive, oral Take by mouth. dicyclomine 10 MG capsule Take 1 capsule by mouth 3 times daily as needed for Abdominal Spasms. 15 capsule 0 famotidine 40 MG tablet Take 1 tablet by mouth every evening at 6 PM. 10 tablet 0 hydroCODone-acetaminophen 5-325 MG tablet Take 1 tablet by mouth every 6 hours as needed for Moderate Pain for up to 3 days. 10 tablet 0 hecrchol-rrybnphba-hxvwtresqdqtoh 3.5-75417-3 Suspension 3-4 drops by Otic route 3 times daily. 10 mL 0 ondansetron (Zofran ODT) 4 MG Tab Dispersible tablet Take 1 tablet by mouth every 4 hours as needed for Nausea. 15 tablet 0 pantoprazole [address] tablet DR Take 1 tablet by mouth daily. 15 tablet 0 Tri-Estarylla 0.18/0.215/0.25 MG-35 MCG tablet Take 1 tablet by mouth daily. ALLERGIES No Known Allergies FAMILY HISTORY History reviewed. No pertinent family history. SOCIAL HISTORY Social History Socioeconomic History Marital status: Single Spouse name: Not on file Number of children: Not on file Years of education: Not on file Highest education level: Not on file Occupational History Not on file Social Needs Financial resource strain: Not on file Food insecurity Worry: Not on file Inability: Not on file Transportation needs Medical: Not on file Non-medical: Not on file Tobacco Use Smoking status: Never Smoker Smokeless tobacco: Never Used Substance and Sexual Activity Alcohol use: Yes Comment: rare Drug use: Never Sexual activity: Not on file Lifestyle Physical activity Days per week: Not on file Minutes per session: Not on file Stress: Not on file Relationships Social connections Talks on phone: Not on file Gets together: Not on file Attends christian service: Not on file Active member of club or organization: Not on file Attends meetings of clubs or organizations: Not on file Relationship status: Not on file Intimate partner violence Fear of current or ex partner: Not on file Emotionally abused: Not on file Physically abused: Not on file Forced sexual activity: Not on file Other Topics Concern Not on file Social History Narrative Not on file PHYSICAL EXAM BP 108/63 Pulse 60 Temp 97.6 F (36.4 C) (Oral) Resp 18 Ht 1.626 m (5' 4") Wt 125.6 kg (277 lb) BMI 47.55 kg/m Smoking Status Never Smoker Physical Exam The patient is well-developed, obese, and appears to be in discomfort. Head is atraumatic and normocephalic. Pupils are equal and reactive. Face is symmetric. Mucous membranes are moist. Neck is supple. Heart is regular rate and rhythm. Lungs are clear to auscultation. Abdomen is soft, nondistended. She has tenderness to the epigastric, right upper quadrant, and periumbilical areas. Skin is warm and dry. She does appear to be jaundiced. Extremities are warm and well perfused and without acute deformity. Neurologically, the patient is awake, alert, and without acute deficit. Psychiatrically, the patient is calm and cooperative. ED COURSE & MEDICAL DECISION MAKING Laboratory evaluation shows elevated bilirubin as well as elevated liver enzymes. Lipase is too high to measure. Patient likely has gallstone pancreatitis given recent testing that did show gallstones with her recent intermittent symptoms consistent with biliary disease. I did contact Dr. Garner who has agreed to admit the patient. She will be started on cefotetan for antibiotic coverage. She will receive pain medications, IV fluids, and be kept nothing by mouth. Impression: 1. Acute gallstone pancreatitis Disposition: Admission Mratínez Masters MD 01/21/[address] Masters speaking with Dr. Garner at this time. Pt rests in bed quietly, easy to arouse, states pain is 7 out of 10, still feel a bit nauseated, denies needs of any medications for the symptoms when offered. Sister is at bedside. Dr. Masters is at cart side. documented in this encounter Dr. Carlson speaking with Dr. Garner at this time Emergency Department Report [facility] Service Date:.01/25/20 PCP: Frederick Pagedar Chief Complaint: Chief Complaint Patient presents with Abdominal Pain Patient states cholecystectomy 2 days ago d/c home yesterday. Patient states started fever today of 100.8 at home. Fever TEE Grover is a 19 y.o. female presents to the ED today due to mouth pain and fever. Patient had a vasectomy 2 days ago is complaining of increasing abdominal pain. She states she took her hydrocodone with no relief. She also states she had 100.8 fever at home. She denies any upper respiratory symptoms. She is passing gas denies any vomiting. The abdominal pain is diffuse in nature dull aching sensation nothing seems to make it better or worse. Review of Systems: Review of Systems Constitutional: Positive for fever. Negative for chills. Gastrointestinal: Negative for constipation, diarrhea and vomiting. Past Medical History: No past medical history on file. Past Surgical History: Past Surgical History: Procedure Laterality Date CHOLECYSTECTOMY 01/23/2020 CHOLECYSTECTOMY W/ CHOLANGIOGRAPHY LAPAROSCOPIC Right 01/23/2020 Laterality: Right; Surgeon: Martínez Garner DO; Location: [facility] Allergies: No Known Allergies Medications: Patient's Medications New Prescriptions OXYCODONE-ACETAMINOPHEN 10-325 MG PER TABLET Take 1 tablet by mouth every 6 hours as needed for up to 3 days. Previous Medications CONTRACEPTIVE, ORAL Take by mouth. DICYCLOMINE 10 MG CAPSULE Take 1 capsule by mouth 3 times daily as needed for Abdominal Spasms. FAMOTIDINE 40 MG TABLET Take 1 tablet by mouth every evening at 6 PM. HYDROCODONE-ACETAMINOPHEN 5-325 MG TABLET Take 1 tablet by mouth every 6 hours as needed for Moderate Pain for up to 7 days. ONDANSETRON 4 MG TAB DISPERSIBLE TABLET Take 1 tablet by mouth every 8 hours as needed for Nausea. SCOPOLAMINE 1.5 MG/[address] 1 patch on skin every 72 hours. TRI-ESTARYLLA 0.18/0.215/0.25 MG-35 MCG TABLET Take 1 tablet by mouth daily. Modified Medications No medications on file Discontinued Medications No medications on file Family History: History reviewed. No pertinent family history. Social History: Social History Socioeconomic History Marital status: Single Spouse name: Not on file Number of children: Not on file Years of education: Not on file Highest education level: Not on file Occupational History Not on file Social Needs Financial resource strain: Not on file Food insecurity Worry: Not on file Inability: Not on file Transportation needs Medical: Not on file Non-medical: Not on file Tobacco Use Smoking status: Never Smoker Smokeless tobacco: Never Used Substance and Sexual Activity Alcohol use: Yes Comment: rare Drug use: Never Sexual activity: Not on file Lifestyle Physical activity Days per week: Not on file Minutes per session: Not on file Stress: Not on file Relationships Social connections Talks on phone: Not on file Gets together: Not on file Attends christian service: Not on file Active member of club or organization: Not on file Attends meetings of clubs or organizations: Not on file Relationship status: Not on file Intimate partner violence Fear of current or ex partner: Not on file Emotionally abused: Not on file Physically abused: Not on file Forced sexual activity: Not on file Other Topics Concern Not on file Social History Narrative Not on file Physical Exam: Physical Exam Vitals signs and nursing note reviewed. Constitutional: Appearance: She is well-developed. She is obese. HENT: Mouth/Throat: Mouth: Mucous membranes are moist. Pharynx: Oropharynx is clear. Cardiovascular: Rate and Rhythm: Normal rate and regular rhythm. Heart sounds: Normal heart sounds. Pulmonary: Effort: Pulmonary effort is normal. Breath sounds: Normal breath sounds. Abdominal: General: Bowel sounds are normal. Palpations: Abdomen is soft. Tenderness: There is generalized abdominal tenderness. There is no guarding or rebound. Skin: General: Skin is warm. Capillary Refill: Capillary refill takes less than 2 seconds. Neurological: Mental Status: She is alert. Vital Signs During ED Visit Patient Vitals for the past 24 hrs: BP Temp Temp src Pulse Resp SpO2 Weight 01/25/202056 92 % 01/25/202055 125.2 kg (276 lb) 01/25/202052 118/62 101.4 F (38.6 C) Oral 107 24 92 % Orders/Results: Orders Placed This Encounter BLOOD CULTURE, PERIPHERAL 1ST SITE BLOOD CULTURE, PERIPHERAL 2ND SITE CT ABDOMEN/PELVIS WITH CONTRAST COMPREHENSIVE METABOLIC PANEL CBC, EDIF, PLATELET LIPASE LACTATE, BLOOD sodium chloride 0.9% IV solution 1,000 mL ondansetron 4mg/2ml (ZOFRAN) injection 4 mg ketorolac (TORADOL) injection 15 mg iohexol (OMNIPAQUE) 350 MG/ML injection 90 mL sodium chloride 0.9% IV solution 75 mL HYDROmorphone (DILAUDID) injection 1 mg oxyCODONE-acetaminophen (PERCOCET) 5-325 MG per tablet 1 Each oxycodone-acetaminophen 10-325 MG per tablet URINALYSIS, MACRO URINE MICROSCOPIC Results for orders placed or performed during the hospital encounter of 01/25/20 COMPREHENSIVE METABOLIC PANEL Result Value Ref Range GLUCOSE 96 70 - 100 MG/DL BUN 7 7 - 20 MG/DL CREATININE SERUM 0.74 0.52 - 1.04 MG/DL SODIUM 135 (L) 136 - 145 MMOL/L POTASSIUM 3.2 (L) 3.5 - 5.1 MMOL/L CHLORIDE 101 98 - 107 MMOL/L CALCIUM 8.1 (L) 8.4 - 10.2 MG/DL PROTEIN, TOTAL 6.2 (L) 6.3 - 8.2 GM/DL ALBUMIN 2.8 (L) 3.5 - 5.0 G/dl BILIRUBIN, TOTAL 0.9 0.2 - 1.2 MG/DL AST 31 15 - 41 IU/L ALKALINE PHOSPHATASE 55 38 - 126 IU/L CARBON DIOXIDE (CO2) 24 22 - 30 MMOL/L A/G Ratio 0.8 (L) 1.3 - 2.2 RATIO ALT 132 (H) 14 - 54 IU/L GFR COMMENT Unable to calculate GFR due to inappropriate age/gender/creatinine value. CBC, EDIF, PLATELET Result Value Ref Range WBC (WHITE BLOOD COUNT) 13.8 (H) 3.6 - 11.0 10*3/uL RBC 4.50 4.0 - 5.4 10*6/uL HEMOGLOBIN (HGB) 12.5 12.0 - 16.0 G/DL HEMATOCRIT (HCT) 37.9 36.0 - 48.0 % MEAN CELL VOLUME 84.2 80.0 - 100.0 FL Mean Cell HGB 27.8 26.0 - 35.0 PG MEAN CELL HGB CONCENTRATION 33.0 27.0 - 37.0 G/DL RBC DISTRIBUTION 14.0 11.5 - 14.5 % PLATELET COUNT 289 130.0 - 400.0 10*3/uL MEAN PLATELET VOLUME 8.0 7.4 - 11.0 FL DIFFERENTIAL TYPE AUTO DIFF % NEUTROPHILS 83.1 (H) 37.0 - 75.0 % LYMPHOCYTE 6.4 (L) 20.0 - 55.0 % MONOCYTE % 10.1 (H) 0.0 - 10.0 % EOSINOPHIL % 0.2 0.0 - 11.0 % BASOPHIL % 0.2 0.0 - 2.0 % Absolute Neutrophil Count 11.5 (H) 1.4 - 6.5 10*3/uL LYMPHOCYTES, ABSOLUTE 0.90 (L) 1.2 - 3.4 10*3/uL MONOCYTES, ABSOLUTE 1.4 (H) 0.0 - 0.7 10*3/uL ABSOLUTE EOSINOPHIL COUNT 0.00 0.0 - 0.7 10*3/uL ABSOLUTE BASOPHIL COUNT 0.0 0.0 - 0.2 10*3/uL LIPASE Result Value Ref Range LIPASE 36 23 - 300 U/L LACTATE, BLOOD Result Value Ref Range LACTATE, PLASMA 1.2 0.5 - 2.0 MMOL/L URINALYSIS, MACRO Result Value Ref Range COLOR, URINE DARK YELLOW (A) YELLOW APPEARANCE, URINE CLEAR CLEAR SPECIFIC GRAVITY, URINE 1.025 1.010 - 1.025 PH URINE 6.0 5.0 - 7.0 PROTEIN, URINE 30 (A) NEGATIVE mg/dl GLUCOSE, URINE NEGATIVE NEGATIVE mg/dl KETONES, URINE TRACE (A) NEGATIVE mg/dl BILIRUBIN, URINE SMALL (A) NEGATIVE BLOOD, URINE DIPSTICK MODERATE (A) NEGATIVE NITRITES, URINE NEGATIVE NEGATIVE UROBILINOGEN, URINE 0.2 0.2 - 1.0 E.U./dL LEUKOCYTE ESTERASE, URINE NEGATIVE NEGATIVE URINE MICROSCOPIC Result Value Ref Range WBC, URINE NEGATIVE NEGATIVE /HPF RBC, URINE 5 TO 10 NEGATIVE /HPF Epithelial Cells UA 20 TO 30 /HPF Mucus NEGATIVE NEGATIVE BACTERIA, URINE NEGATIVE NEGATIVE CRYSTALS, URINE NONE NONE CASTS, URINE NONE NONE /LPF COMMENT, URINE POSSIBLY CONTAMINATED SPECIMEN, CULTURE MUST BE ORDERED SEPARATELY IF DEEMED NECESSARY. Radiographic Imaging CT ABDOMEN/PELVIS WITH CONTRAST Final Result IMPRESSION: 1. Findings compatible with acute pancreatitis without necrosis of the pancreas. 2. Cholecystectomy. 3. Normal-appearing appendix. 4. Small amount of free fluid within the lower abdomen, pelvis probably related to pancreatitis. 5. Mild haziness to the subcutaneous fat of the abdomen and upper pelvis probably secondary to overhydration/body wall edema. 6. Morbid obesity. 7. Minimal to small right, moderate left pleural effusion with atelectatic changes at the lung bases. This could be related to reactive changes from underlying pancreatitis. Procedures: Procedures Moderate Sedation Procedure: No ED Summary/MDM I spoke with Dr. Garner the patient possibly could be coming down with a viral syndrome there is no acute intra-abdominal process that would explain her fever. I'll give her a prescription for Percocet that she can take the next several days until the pain improves then can resume her [place]. If she has any worsening symptoms she can return to the ER for reevaluation. MDM Number of Diagnoses or Management Options Gallstone pancreatitis: Post-op pain: Amount and/or Complexity of Data Reviewed Clinical lab tests: reviewed and ordered Tests in the radiology section of CPT : reviewed and ordered Independent visualization of images, tracings, or specimens: yes Clinical Impression: 1. Post-op pain 2. Gallstone pancreatitis No follow-ups on file. New Prescriptions OXYCODONE-ACETAMINOPHEN 10-325 MG PER TABLET Take 1 tablet by mouth every 6 hours as needed for up to 3 days. Discontinued Medications No medications on file An After Visit Summary was printed and given to the patient with above information. . . Ashish Carlson MD 01/25/204 documented in this encounter Thi Moreno RN - 01/23/2020 4:17 PM Lashonda Sands RN - 01/23/2020 3:55 PM Lashonda Sands RN - 01/23/2020 3:03 PM EDTSThi cleary RN - 01/23/2020 4:17 PM EDT Nursing Notes (unrecognized section and content) Discharged from PACU in stable condition. Transported via bed to room 3766. Bed placed in lowest position. Call light within reach. Report given to Jason RN at bedside. Transferred to PACU via bed with this nurse and TRANSMISSION REBUILDER. Bedside report given to Robina MCDOWELL. Fire risk level of 2 determined during Time Out. ? application site is dry prior to draping and use of surgical equipment. ? No pooling of prep solution around patient or surgical area. ? All prep materials have been removed from the OR prior to draping and use of surgical devices. Monitored by: Lizandro Torres OR room temp: 63.6 OR room humidity: 50.0 documented in this encounter Discharged from PACU in stable condition. Transported via bed to room [facility]. Bed placed in lowest position. Call light within reach. Report given to Jason MCDOWELL at bedside. Transferred to PACU via bed with this nurse and TRANSMISSION REBUILDER. Bedside report given to Robina MCDOWELL. Fire risk level of 2 determined during Time Out. ? application site is dry prior to draping and use of surgical equipment. ? No pooling of prep solution around patient or surgical area. ? All prep materials have been removed from the OR prior to draping and use of surgical devices. Monitored by: Lizandro Torres OR room temp: 63.6 OR room humidity: 50.0 documented in this encounter Nursing Notes - Gina Herrera RN - 01/24/2020 5:13 PM EDTNursing Notes - Krysta Guillaume RN - 01/24/2020 4:32 PM EDTNursing Notes - Krysta Guillaume RN - 01/24/2020 4:09 PM EDT Miscellaneous Notes (unrecog nized section and content) Educated on discharge instructions, denies questions. Meds to beds given to patient. Discharged home with sister in stable condition. This note also relates to the following rows which could not be included: MEWS Score (AutoCalculated) - Cannot attach notes to rows marked as read only Assessment unchanged from previous Pending med rec completion per Dr Garner for discharge. Dr Garner aware of need to complete this. I certify that this patient requires inpatient services at this time. I anticipate the expected length of stay will include at least two midnights. Current treatment plan includes IV hydration, NPO, OR when pancreatitis defervesces. Plans for post hospitalization care will be discharge to home. Patient assessment remains unchanged since 800 assessment. Patient resting in bed. Will continue to monitor for changes. Problem: Patient Care Overview Goal: Plan of Care Review Outcome: Ongoing Goal: Individualization & Mutuality Outcome: Ongoing Goal: Discharge Needs Assessment Outcome: Ongoing Goal: Interdisciplinary Rounds/Family Conf Outcome: Ongoing Problem: Skin Integrity Impairment, Risk/Actual (Adult) Goal: Identify Related Risk Factors and Signs and Symptoms Description: Related risk factors and signs and symptoms are identified upon initiation of Human Response Clinical Practice Guideline (CPG) Outcome: Ongoing Goal: Skin Integrity/Wound Healing Description: Patient will demonstrate the desired outcomes by discharge/transition of care. Outcome: Ongoing Problem: Pain, Acute (Adult) Goal: Identify Related Risk Factors and Signs and Symptoms Description: Related risk factors and signs and symptoms are identified upon initiation of Human Response Clinical Practice Guideline (CPG) Outcome: Ongoing Goal: Acceptable Pain Control/Comfort Level Description: Patient will demonstrate the desired outcomes by discharge/transition of care. Outcome: Ongoing Problem: Nausea/Vomiting (Adult) Goal: Identify Related Risk Factors and Signs and Symptoms Description: Related risk factors and signs and symptoms are identified upon initiation of Human Response Clinical Practice Guideline (CPG) Outcome: Ongoing Goal: Symptom Relief Description: Patient will demonstrate the desired outcomes by discharge/transition of care. Outcome: Ongoing Goal: Adequate Hydration Description: Patient will demonstrate the desired outcomes by discharge/transition of care. Outcome: Ongoing Problem: Infection, Risk/Actual (Adult) Goal: Identify Related Risk Factors and Signs and Symptoms Description: Related risk factors and signs and symptoms are identified upon initiation of Human Response Clinical Practice Guideline (CPG) Outcome: Ongoing Goal: Infection Prevention/Resolution Description: Patient will demonstrate the desired outcomes by discharge/transition of care. Outcome: Ongoing Pt c/o abd pain rated 7/10 and slight nausea - administered dilaudid and zofran, apical pulse irregular. No other changes noted from previous assessment, pt denies further needs, call light in reach. Pt resting in bed, denies any nausea, abd remains tender, c/o abd pain - administered dilaudid. Pt reports belching and passing flatus. No other significant changes noted with physical assessment, pt denies needs, call light inre ach. Pt ambulating in room, alert and calm, c/o abd pain rated 6-7/10, c/o nausea, admitted dilaudid and zofran, bowel sounds hypoactive, abd tender, pt reports belching. Pt denies further needs, call light in reach. Nursing assessment of pt completed, changed from previous assessment. Surgery sites have no drainage present. Skin adhesive intact. Will continue to monitor. Pt returned to floor from OR. Pt c/o 5/10 pain in abdomen. Pt off unit to OR. Nursing assessment of pt completed, unchanged from previous assessment. Pt c/o pain, given medication per JUL. Pt denies any c/o SOB, nausea, or vomiting. Sister present at bedside. Will continue to monitor. Problem: Patient Care Overview Goal: Plan of Care Review Outcome: Ongoing POC reviewed with pt. Problem: Nausea/Vomiting (Adult) Goal: Identify Related Risk Factors and Signs and Symptoms Description: Related risk factors and signs and symptoms are identified upon initiation of Human Response Clinical Practice Guideline (CPG) Outcome: Ongoing Problem: Nausea/Vomiting (Adult) Goal: Symptom Relief Description: Patient will demonstrate the desired outcomes by discharge/transition of care. Outcome: Ongoing Nursing assessment of pt completed. Pt resting comfortably in bed. Pt c/o pain but denies any pain medication at this time. Pt denies any c/o nausea, vomiting, or SOB. Will continue to monitor. No changes noted from previous assessment, pt denies any nausea, abd tender but pain remains controlled with dilaudid, pt denies needs, call light in reach. Care plan reviewed: Problem: Patient Care Overview Goal: Plan of Care Review Outcome: Ongoing Goal: Individualization & Mutuality Outcome: Ongoing Goal: Discharge Needs Assessment Outcome: Ongoing Goal: Interdisciplinary Rounds/Family Conf Outcome: Ongoing Problem: Skin Integrity Impairment, Risk/Actual (Adult) Goal: Identify Related Risk Factors and Signs and Symptoms Description: Related risk factors and signs and symptoms are identified upon initiation of Human Response Clinical Practice Guideline (CPG) Outcome: Ongoing Goal: Skin Integrity/Wound Healing Description: Patient will demonstrate the desired outcomes by discharge/transition of care. Outcome: Ongoing Problem: Pain, Acute (Adult) Goal: Identify Related Risk Factors and Signs and Symptoms Description: Related risk factors and signs and symptoms are identified upon initiation of Human Response Clinical Practice Guideline (CPG) Outcome: Ongoing Goal: Acceptable Pain Control/Comfort Level Description: Patient will demonstrate the desired outcomes by discharge/transition of care. Outcome: Ongoing Problem: Nausea/Vomiting (Adult) Goal: Identify Related Risk Factors and Signs and Symptoms Description: Related risk factors and signs and symptoms are identified upon initiation of Human Response Clinical Practice Guideline (CPG) Outcome: Ongoing Goal: Symptom Relief Description: Patient will demonstrate the desired outcomes by discharge/transition of care. Outcome: Ongoing Goal: Adequate Hydration Description: Patient will demonstrate the desired outcomes by discharge/transition of care. Outcome: Ongoing Problem: Infection, Risk/Actual (Adult) Goal: Identify Related Risk Factors and Signs and Symptoms Description: Related risk factors and signs and symptoms are identified upon initiation of Human Response Clinical Practice Guideline (CPG) Outcome: Ongoing Goal: Infection Prevention/Resolution Description: Patient will demonstrate the desired outcomes by discharge/transition of care. Outcome: Ongoing Pt resting in chair, SpO2 89% on 2L O2 via NC, increased O2 to 3L, SpO2 94%. Pt denies needs, call light in reach. Pt resting in chair, reports nausea has resolved, abd remains tender and bowel sounds hypoactive, but pain is controlled with dilaudid. Pt reports feeling better than on admission. No other changes noted with physical assessment, pt is NPO, denies needs, call light in reach. Pt resting in bed, c/o abd pain rated 8-9/10, administered dilaudid, pt denies any nausea, abd tender to touch. Physical assessment is otherwise unremarkable, pt denies needs, call light in reach. Remainder of patient assessment unchanged from previous exam by this RN. Patient tachycardic at times. O2 at 2L. Patient requesting advancement of diet. This RN contacted Dr. Garner. Reported today's lipase at [phone]. states patient cannot have food, but he will allow ice. Patient informed. Ice provided. Assessment unchanged from previous exam by this RN Assessment complete, no changes noted. Problem: Patient Care Overview Goal: Plan of Care Review Outcome: Ongoing Goal: Individualization & Mutuality Outcome: Ongoing Goal: Discharge Needs Assessment Outcome: Ongoing Goal: Interdisciplinary Rounds/Family Conf Outcome: Ongoing Problem: Skin Integrity Impairment, Risk/Actual (Adult) Goal: Identify Related Risk Factors and Signs and Symptoms Description: Related risk factors and signs and symptoms are identified upon initiation of Human Response Clinical Practice Guideline (CPG) Outcome: Ongoing Goal: Skin Integrity/Wound Healing Description: Patient will demonstrate the desired outcomes by discharge/transition of care. Outcome: Ongoing Problem: Pain, Acute (Adult) Goal: Identify Related Risk Factors and Signs and Symptoms Description: Related risk factors and signs and symptoms are identified upon initiation of Human Response Clinical Practice Guideline (CPG) Outcome: Ongoing Goal: Acceptable Pain Control/Comfort Level Description: Patient will demonstrate the desired outcomes by discharge/transition of care. Outcome: Ongoing Problem: Nausea/Vomiting (Adult) Goal: Identify Related Risk Factors and Signs and Symptoms Description: Related risk factors and signs and symptoms are identified upon initiation of Human Response Clinical Practice Guideline (CPG) Outcome: Ongoing Goal: Symptom Relief Description: Patient will demonstrate the desired outcomes by discharge/transition of care. Outcome: Ongoing Goal: Adequate Hydration Description: Patient will demonstrate the desired outcomes by discharge/transition of care. Outcome: Ongoing Assessment complete no changes noted. Assessment complete, no changes noted. Report received from Michelle MCDOWELL. Care assumed at this time. Pt noted lying in bed. POC reviewed with pt. Pt denies needs and pain at this time. Call light within reach will monitor. Problem: Pain, Acute (Adult) Goal: Identify Related Risk Factors and Signs and Symptoms Description: Related risk factors and signs and symptoms are identified upon initiation of Human Response Clinical Practice Guideline (CPG) Flowsheets (Taken 01/21/2020 1540) Related Risk Factors (Acute Pain): disease process Signs and Symptoms (Acute Pain): verbalization of pain descriptors Goal: Acceptable Pain Control/Comfort Level Description: Patient will demonstrate the desired outcomes by discharge/transition of care. Flowsheets (Taken 01/21/2020 1540) Acceptable Pain Control/Comfort Level: making progress toward outcome Intervention: Monitor/Manage Analgesia Flowsheets (Taken 01/21/2020 1540) Pain Management Interventions: medication given, see MAR activity minimized Bowel Intervention: adequate fluid intake promoted Intervention: Mutually Develop/Implement Acute Pain Management Plan Flowsheets (Taken 01/21/2020 1540) Sensory Stimulation Regulation: care clustered quiet environment promoted Intervention: Support/Optimize Psychosocial Response to Acute Pain Flowsheets (Taken 01/21/2020 1540) Supportive Measures: active listening utilized positive reinforcement provided relaxation techniques promoted Problem: Nausea/Vomiting (Adult) Goal: Identify Related Risk Factors and Signs and Symptoms Description: Related risk factors and signs and symptoms are identified upon initiation of Human Response Clinical Practice Guideline (CPG) Flowsheets (Taken 01/21/2020 1540) Related Risk Factors (Nausea/Vomiting): gastric irritation Signs and Symptoms (Nausea/Vomiting): abdominal discomfort/pain report of queasy sensation Goal: Symptom Relief Description: Patient will demonstrate the desired outcomes by discharge/transition of care. Flowsheets (Taken 01/21/2020 1540) Symptom Relief: making progress toward outcome Goal: Adequate Hydration Description: Patient will demonstrate the desired outcomes by discharge/transition of care. Flowsheets (Taken 01/21/2020 1540) Adequate Hydration: making progress toward outcome Intervention: Minimize Nausea Triggers/Manage Symptoms Flowsheets (Taken 01/21/2020 1540) Nausea/Vomiting Interventions: antiemetic given Environmental Support: calm environment promoted distractions minimized environmental consistency promoted Intervention: Position to Prevent Aspiration Flowsheets (Taken 01/21/2020 1540) Body Position: positioned/repositioned independently Head of Bed (HOB): HOB elevated Intervention: Promote/Maintain Hydration Flowsheets (Taken 01/21/2020 1540) Fluid/Electrolyte Management: other (see comments) Note: Pt NPO Pt taken down for MRI at this time via w/c and staff x2 This note also relates to the following rows which could not be included: MEWS Score (AutoCalculated) - Cannot attach notes to rows marked as read only Assessment unchanged from previous unless otherwise noted in flowsheet. Pt resting in bed with call light in reach. Father at bedside. Denies any needs at this time. Pt noted lying in bed respirations even and unlabored. Pt denies needs and pain at this time. Problem: Patient Care Overview Goal: Plan of Care Review Outcome: Ongoing Goal: Individualization & Mutuality Outcome: Ongoing Goal: Discharge Needs Assessment Outcome: Ongoing Goal: Interdisciplinary Rounds/Family Conf Outcome: Ongoing Problem: Skin Integrity Impairment, Risk/Actual (Adult) Goal: Identify Related Risk Factors and Signs and Symptoms Description: Related risk factors and signs and symptoms are identified upon initiation of Human Response Clinical Practice Guideline (CPG) Outcome: Ongoing Goal: Skin Integrity/Wound Healing Description: Patient will demonstrate the desired outcomes by discharge/transition of care. Outcome: Ongoing Problem: Pain, Acute (Adult) Goal: Identify Related Risk Factors and Signs and Symptoms Description: Related risk factors and signs and symptoms are identified upon initiation of Human Response Clinical Practice Guideline (CPG) Outcome: Ongoing Goal: Acceptable Pain Control/Comfort Level Description: Patient will demonstrate the desired outcomes by discharge/transition of care. Outcome: Ongoing Problem: Nausea/Vomiting (Adult) Goal: Identify Related Risk Factors and Signs and Symptoms Description: Related risk factors and signs and symptoms are identified upon initiation of Human Response Clinical Practice Guideline (CPG) Outcome: Ongoing Goal: Symptom Relief Description: Patient will demonstrate the desired outcomes by discharge/transition of care. Outcome: Ongoing Goal: Adequate Hydration Description: Patient will demonstrate the desired outcomes by discharge/transition of care. Outcome: Ongoing Pt received via ED cart to room 3766. Pt assisted from cart to bed. Pt oriented to room and call light system. Pt denies pain and nausea at this time. monitoring tech and telemetry applied. Admission assessment complete. Call light within reach with monitor. This note also relates to the following rows which could not be included: MEWS Score (AutoCalculated) - Cannot attach notes to rows marked as read only Assessment unchanged from previous unless otherwise noted in flowsheets. Pt resting in bed, denies any needs at this time. documented in this encounter Educated on discharge instructions, denies questions. Meds to beds given to patient. Discharged home with sister in stable condition. This note also relates to the following rows which could not be included: MEWS Score (AutoCalculated) - Cannot attach notes to rows marked as read only Assessment unchanged from previous Pending med rec completion per Dr Garner for discharge. Dr Garner aware of need to complete this. I certify that this patient requires inpatient services at this time. I anticipate the expected length of stay will include at least two midnights. Current treatment plan includes IV hydration, NPO, OR when pancreatitis defervesces. Plans for post hospitalization care will be discharge to home. Patient assessment remains unchanged since 800 assessment. Patient resting in bed. Will continue to monitor for changes. Problem: Patient Care Overview Goal: Plan of Care Review Outcome: Ongoing Goal: Individualization & Mutuality Outcome: Ongoing Goal: Discharge Needs Assessment Outcome: Ongoing Goal: Interdisciplinary Rounds/Family Conf Outcome: Ongoing Problem: Skin Integrity Impairment, Risk/Actual (Adult) Goal: Identify Related Risk Factors and Signs and Symptoms Description: Related risk factors and signs and symptoms are identified upon initiation of Human Response Clinical Practice Guideline (CPG) Outcome: Ongoing Goal: Skin Integrity/Wound Healing Description: Patient will demonstrate the desired outcomes by discharge/transition of care. Outcome: Ongoing Problem: Pain, Acute (Adult) Goal: Identify Related Risk Factors and Signs and Symptoms Description: Related risk factors and signs and symptoms are identified upon initiation of Human Response Clinical Practice Guideline (CPG) Outcome: Ongoing Goal: Acceptable Pain Control/Comfort Level Description: Patient will demonstrate the desired outcomes by discharge/transition of care. Outcome: Ongoing Problem: Nausea/Vomiting (Adult) Goal: Identify Related Risk Factors and Signs and Symptoms Description: Related risk factors and signs and symptoms are identified upon initiation of Human Response Clinical Practice Guideline (CPG) Outcome: Ongoing Goal: Symptom Relief Description: Patient will demonstrate the desired outcomes by discharge/transition of care. Outcome: Ongoing Goal: Adequate Hydration Description: Patient will demonstrate the desired outcomes by discharge/transition of care. Outcome: Ongoing Problem: Infection, Risk/Actual (Adult) Goal: Identify Related Risk Factors and Signs and Symptoms Description: Related risk factors and signs and symptoms are identified upon initiation of Human Response Clinical Practice Guideline (CPG) Outcome: Ongoing Goal: Infection Prevention/Resolution Description: Patient will demonstrate the desired outcomes by discharge/transition of care. Outcome: Ongoing Pt c/o abd pain rated 7/10 and slight nausea - administered dilaudid and zofran, apical pulse irregular. No other changes noted from previous assessment, pt denies further needs, call light in reach. Pt resting in bed, denies any nausea, abd remains tender, c/o abd pain - administered dilaudid. Pt reports belching and passing flatus. No other significant changes noted with physical assessment, pt denies needs, call light inre ach. Pt ambulating in room, alert and calm, c/o abd pain rated 6-7/10, c/o nausea, admitted dilaudid and zofran, bowel sounds hypoactive, abd tender, pt reports belching. Pt denies further needs, call light in reach. Nursing assessment of pt completed, changed from previous assessment. Surgery sites have no drainage present. Skin adhesive intact. Will continue to monitor. Pt returned to floor from OR. Pt c/o 5/10 pain in abdomen. Pt off unit to OR. Nursing assessment of pt completed, unchanged from previous assessment. Pt c/o pain, given medication per JUL. Pt denies any c/o SOB, nausea, or vomiting. Sister present at bedside. Will continue to monitor. Problem: Patient Care Overview Goal: Plan of Care Review Outcome: Ongoing POC reviewed with pt. Problem: Nausea/Vomiting (Adult) Goal: Identify Related Risk Factors and Signs and Symptoms Description: Related risk factors and signs and symptoms are identified upon initiation of Human Response Clinical Practice Guideline (CPG) Outcome: Ongoing Problem: Nausea/Vomiting (Adult) Goal: Symptom Relief Description: Patient will demonstrate the desired outcomes by discharge/transition of care. Outcome: Ongoing Nursing assessment of pt completed. Pt resting comfortably in bed. Pt c/o pain but denies any pain medication at this time. Pt denies any c/o nausea, vomiting, or SOB. Will continue to monitor. No changes noted from previous assessment, pt denies any nausea, abd tender but pain remains controlled with dilaudid, pt denies needs, call light in reach. Care plan reviewed: Problem: Patient Care Overview Goal: Plan of Care Review Outcome: Ongoing Goal: Individualization & Mutuality Outcome: Ongoing Goal: Discharge Needs Assessment Outcome: Ongoing Goal: Interdisciplinary Rounds/Family Conf Outcome: Ongoing Problem: Skin Integrity Impairment, Risk/Actual (Adult) Goal: Identify Related Risk Factors and Signs and Symptoms Description: Related risk factors and signs and symptoms are identified upon initiation of Human Response Clinical Practice Guideline (CPG) Outcome: Ongoing Goal: Skin Integrity/Wound Healing Description: Patient will demonstrate the desired outcomes by discharge/transition of care. Outcome: Ongoing Problem: Pain, Acute (Adult) Goal: Identify Related Risk Factors and Signs and Symptoms Description: Related risk factors and signs and symptoms are identified upon initiation of Human Response Clinical Practice Guideline (CPG) Outcome: Ongoing Goal: Acceptable Pain Control/Comfort Level Description: Patient will demonstrate the desired outcomes by discharge/transition of care. Outcome: Ongoing Problem: Nausea/Vomiting (Adult) Goal: Identify Related Risk Factors and Signs and Symptoms Description: Related risk factors and signs and symptoms are identified upon initiation of Human Response Clinical Practice Guideline (CPG) Outcome: Ongoing Goal: Symptom Relief Description: Patient will demonstrate the desired outcomes by discharge/transition of care. Outcome: Ongoing Goal: Adequate Hydration Description: Patient will demonstrate the desired outcomes by discharge/transition of care. Outcome: Ongoing Problem: Infection, Risk/Actual (Adult) Goal: Identify Related Risk Factors and Signs and Symptoms Description: Related risk factors and signs and symptoms are identified upon initiation of Human Response Clinical Practice Guideline (CPG) Outcome: Ongoing Goal: Infection Prevention/Resolution Description: Patient will demonstrate the desired outcomes by discharge/transition of care. Outcome: Ongoing Pt resting in chair, SpO2 89% on 2L O2 via NC, increased O2 to 3L, SpO2 94%. Pt denies needs, call light in reach. Pt resting in chair, reports nausea has resolved, abd remains tender and bowel sounds hypoactive, but pain is controlled with dilaudid. Pt reports feeling better than on admission. No other changes noted with physical assessment, pt is NPO, denies needs, call light in reach. Pt resting in bed, c/o abd pain rated 8-9/10, administered dilaudid, pt denies any nausea, abd tender to touch. Physical assessment is otherwise unremarkable, pt denies needs, call light in reach. Remainder of patient assessment unchanged from previous exam by this RN. Patient tachycardic at times. O2 at 2L. Patient requesting advancement of diet. This RN contacted Dr. Garner. Reported today's lipase at [phone]. states patient cannot have food, but he will allow ice. Patient informed. Ice provided. Assessment unchanged from previous exam by this RN Assessment complete, no changes noted. Problem: Patient Care Overview Goal: Plan of Care Review Outcome: Ongoing Goal: Individualization & Mutuality Outcome: Ongoing Goal: Discharge Needs Assessment Outcome: Ongoing Goal: Interdisciplinary Rounds/Family Conf Outcome: Ongoing Problem: Skin Integrity Impairment, Risk/Actual (Adult) Goal: Identify Related Risk Factors and Signs and Symptoms Description: Related risk factors and signs and symptoms are identified upon initiation of Human Response Clinical Practice Guideline (CPG) Outcome: Ongoing Goal: Skin Integrity/Wound Healing Description: Patient will demonstrate the desired outcomes by discharge/transition of care. Outcome: Ongoing Problem: Pain, Acute (Adult) Goal: Identify Related Risk Factors and Signs and Symptoms Description: Related risk factors and signs and symptoms are identified upon initiation of Human Response Clinical Practice Guideline (CPG) Outcome: Ongoing Goal: Acceptable Pain Control/Comfort Level Description: Patient will demonstrate the desired outcomes by discharge/transition of care. Outcome: Ongoing Problem: Nausea/Vomiting (Adult) Goal: Identify Related Risk Factors and Signs and Symptoms Description: Related risk factors and signs and symptoms are identified upon initiation of Human Response Clinical Practice Guideline (CPG) Outcome: Ongoing Goal: Symptom Relief Description: Patient will demonstrate the desired outcomes by discharge/transition of care. Outcome: Ongoing Goal: Adequate Hydration Description: Patient will demonstrate the desired outcomes by discharge/transition of care. Outcome: Ongoing Assessment complete no changes noted. Assessment complete, no changes noted. Report received from Michelle MCDOWELL. Care assumed at this time. Pt noted lying in bed. POC reviewed with pt. Pt denies needs and pain at this time. Call light within reach will monitor. Problem: Pain, Acute (Adult) Goal: Identify Related Risk Factors and Signs and Symptoms Description: Related risk factors and signs and symptoms are identified upon initiation of Human Response Clinical Practice Guideline (CPG) Flowsheets (Taken 01/21/2020 1540) Related Risk Factors (Acute Pain): disease process Signs and Symptoms (Acute Pain): verbalization of pain descriptors Goal: Acceptable Pain Control/Comfort Level Description: Patient will demonstrate the desired outcomes by discharge/transition of care. Flowsheets (Taken 01/21/2020 1540) Acceptable Pain Control/Comfort Level: making progress toward outcome Intervention: Monitor/Manage Analgesia Flowsheets (Taken 01/21/2020 1540) Pain Management Interventions: medication given, see MAR activity minimized Bowel Intervention: adequate fluid intake promoted Intervention: Mutually Develop/Implement Acute Pain Management Plan Flowsheets (Taken 01/21/2020 1540) Sensory Stimulation Regulation: care clustered quiet environment promoted Intervention: Support/Optimize Psychosocial Response to Acute Pain Flowsheets (Taken 01/21/2020 1540) Supportive Measures: active listening utilized positive reinforcement provided relaxation techniques promoted Problem: Nausea/Vomiting (Adult) Goal: Identify Related Risk Factors and Signs and Symptoms Description: Related risk factors and signs and symptoms are identified upon initiation of Human Response Clinical Practice Guideline (CPG) Flowsheets (Taken 01/21/2020 1540) Related Risk Factors (Nausea/Vomiting): gastric irritation Signs and Symptoms (Nausea/Vomiting): abdominal discomfort/pain report of queasy sensation Goal: Symptom Relief Description: Patient will demonstrate the desired outcomes by discharge/transition of care. Flowsheets (Taken 01/21/2020 1540) Symptom Relief: making progress toward outcome Goal: Adequate Hydration Description: Patient will demonstrate the desired outcomes by discharge/transition of care. Flowsheets (Taken 01/21/2020 1540) Adequate Hydration: making progress toward outcome Intervention: Minimize Nausea Triggers/Manage Symptoms Flowsheets (Taken 01/21/2020 1540) Nausea/Vomiting Interventions: antiemetic given Environmental Support: calm environment promoted distractions minimized environmental consistency promoted Intervention: Position to Prevent Aspiration Flowsheets (Taken 01/21/2020 1540) Body Position: positioned/repositioned independently Head of Bed (HOB): HOB elevated Intervention: Promote/Maintain Hydration Flowsheets (Taken 01/21/2020 1540) Fluid/Electrolyte Management: other (see comments) Note: Pt NPO Pt taken down for MRI at this time via w/c and staff x2 This note also relates to the following rows which could not be included: MEWS Score (AutoCalculated) - Cannot attach notes to rows marked as read only Assessment unchanged from previous unless otherwise noted in flowsheet. Pt resting in bed with call light in reach. Father at bedside. Denies any needs at this time. Pt noted lying in bed respirations even and unlabored. Pt denies needs and pain at this time. Problem: Patient Care Overview Goal: Plan of Care Review Outcome: Ongoing Goal: Individualization & Mutuality Outcome: Ongoing Goal: Discharge Needs Assessment Outcome: Ongoing Goal: Interdisciplinary Rounds/Family Conf Outcome: Ongoing Problem: Skin Integrity Impairment, Risk/Actual (Adult) Goal: Identify Related Risk Factors and Signs and Symptoms Description: Related risk factors and signs and symptoms are identified upon initiation of Human Response Clinical Practice Guideline (CPG) Outcome: Ongoing Goal: Skin Integrity/Wound Healing Description: Patient will demonstrate the desired outcomes by discharge/transition of care. Outcome: Ongoing Problem: Pain, Acute (Adult) Goal: Identify Related Risk Factors and Signs and Symptoms Description: Related risk factors and signs and symptoms are identified upon initiation of Human Response Clinical Practice Guideline (CPG) Outcome: Ongoing Goal: Acceptable Pain Control/Comfort Level Description: Patient will demonstrate the desired outcomes by discharge/transition of care. Outcome: Ongoing Problem: Nausea/Vomiting (Adult) Goal: Identify Related Risk Factors and Signs and Symptoms Description: Related risk factors and signs and symptoms are identified upon initiation of Human Response Clinical Practice Guideline (CPG) Outcome: Ongoing Goal: Symptom Relief Description: Patient will demonstrate the desired outcomes by discharge/transition of care. Outcome: Ongoing Goal: Adequate Hydration Description: Patient will demonstrate the desired outcomes by discharge/transition of care. Outcome: Ongoing Pt received via ED cart to room 3766. Pt assisted from cart to bed. Pt oriented to room and call light system. Pt denies pain and nausea at this time. monitoring tech and telemetry applied. Admission assessment complete. Call light within reach with monitor. This note also relates to the following rows which could not be included: MEWS Score (AutoCalculated) - Cannot attach notes to rows marked as read only Assessment unchanged from previous unless otherwise noted in flowsheets. Pt resting in bed, denies any needs at this time. documented in this encounter Goals (unrecognized section and content) Goals may be documented in a n alternate section Source Comments (unrecognize d section and content) In the event this informatio n is protected by the Federal Confidentiality of Alcohol and Drug Abuse Patient Records regulations: The Federal rules restrict any use of the information to criminally investigate or prosecute any alcohol or drug abuse patient.[facility] the event this information is protected by the Federal Confidentiality of Alcohol and Drug Abuse Patient Records regulations: The Federal rules restrict any use of the information to criminally investigate or prosecute any alcohol or drug abuse patient.[facility] the event this information is protected by the Federal Confidentiality of Alcohol and Drug Abuse Patient Records regulations: The Federal rules restrict any use of the information to criminally investigate or prosecute any alcohol or drug abuse patient.[facility] the event this information is protected by the Federal Confidentiality of Alcohol and Drug Abuse Patient Records regulations: The Federal rules restrict any use of the information to criminally investigate or prosecute any alcohol or drug abuse patient.[facility] HospitalIn the event this information is protected by the Federal Confidentiality of Alcohol and Drug Abuse Patient Records regulations: The Federal rules restrict any use of the information to criminally investigate or prosecute any alcohol or drug abuse patient.[facility] HospitalIn the event this information is protected by the Federal Confidentiality of Alcohol and Drug Abuse Patient Records regulations: The Federal rules restrict any use of the information to criminally investigate or prosecute any alcohol or drug abuse patient.[facility] HospitalIn the event this information is protected by the Federal Confidentiality of Alcohol and Drug Abuse Patient Records regulations: The Federal rules restrict any use of the information to criminally investigate or prosecute any alcohol or drug abuse patient.[facility] HospitalIn the event this information is protected by the Federal Confidentiality of Alcohol and Drug Abuse Patient Records regulations: The Federal rules restrict any use of the information to criminally investigate or prosecute any alcohol or drug abuse patient.[facility] HospitalIn the event this information is protected by the Federal Confidentiality of Alcohol and Drug Abuse Patient Records regulations: The Federal rules restrict any use of the information to criminally investigate or prosecute any alcohol or drug abuse patient.[facility] HospitalIn the event this information is protected by the Federal Confidentiality of Alcohol and Drug Abuse Patient Records regulations: The Federal rules restrict any use of the information to criminally investigate or prosecute any alcohol or drug abuse patient.[facility] HospitalIn the event this information is protected by the Federal Confidentiality of Alcohol and Drug Abuse Patient Records regulations: The Federal rules restrict any use of the information to criminally investigate or prosecute any alcohol or drug abuse patient.[facility] HospitalIn the event this information is protected by the Federal Confidentiality of Alcohol and Drug Abuse Patient Records regulations: The Federal rules restrict any use of the information to criminally investigate or prosecute any alcohol or drug abuse patient.[facility] Care Teams (unrecognized sec tion and content) Wound Care Technician Relationship Specialty Start Date End Date Yasmani Toth MD [address] [facility] [place] [address] PCP - General Internal Medicine 12/09/22 Wound Care Technician Relationship Specialty Start Date End Date Yasmani Toth MD [address] [place] [address] PCP - General Internal Medicine 12/09/22 Wound Care Technician Relationship Specialty Start Date End Date Yasmani Toth MD [address] [place] [address] PCP - General Internal Medicine 12/09/22 Wound Care Technician Relationship Specialty Start Date End Date Yasmani Toth MD [address] [place] [address] PCP - General Internal Medicine 12/09/22 Wound Care Technician Relationship Specialty Start Date End Date Yasmani Toth MD [address] [place] [address] PCP - General Internal Medicine 12/09/22 Wound Care Technician Relationship Specialty Start Date End Date Yasmani Toth MD [address] [place] [address] PCP - General Internal Medicine 12/09/22 Wound Care Technician Relationship Specialty Start Date End Date Yasmani Toth MD [address] [place] [address] PCP - General Internal Medicine 12/09/22 Wound Care Technician Relationship Specialty Start Date End Date Yasmani Toth MD [address] [place] [address] PCP - General Internal Medicine 12/09/22 Gris Sanchez, RECRUITING ASSISTANT.ASSET ACCOUNTANT [address] [place] [address] Childcare Director Internal Medicine 05/07/24 Wound Care Technician Relationship Specialty Start Date End Date Yasmani Toth MD [address] [place] [address] PCP - General Internal Medicine 12/09/22 Gris Sanchez, RECRUITING ASSISTANT.ASSET ACCOUNTANT [address] [place] [address] Childcare Director Internal Medicine 05/07/24 Wound Care Technician Relationship Specialty Start Date End Date Yasmani Toth MD [address] [place] [address] PCP - General Internal Medicine 12/09/22 Gris Sanchez, RECRUITING ASSISTANT.ASSET ACCOUNTANT [address] [place] [address] Childcare Director Internal Medicine 05/07/24 Wound Care Technician Relationship Specialty Start Date End Date Yasmani Toth MD [address] [place] [address] PCP - General Internal Medicine 12/09/22 Gris Sanchez, RECRUITING ASSISTANT.ASSET ACCOUNTANT [address] [place] [address] Childcare Director Internal Medicine 05/07/24 FOR RECORDS PERTAINING TO PATIENTS WHO ARE OR HAVE BEEN ENROLLED IN A CHEMICAL DEPENDENCY/SUBSTANCEABUSE PROGRAM, SOME INFORMATION MAY BE OMITTED. This clinical summary was aggregated from multiple sources. Caution should be exercised in using it in the provision of clinical care. This summary normalizes information from multiple sources, and as a consequence, information in this document may materially change the coding, format and clinical context of patient data. In addition, data may be omitted in some cases. CLINICAL DECISIONS SHOULD BE BASED ON THE PRIMARY CLINICAL RECORDS. [facility]. provides no warranty or guarantee of the accuracy or completeness of information in this document.
--- NOTE | 2024-12-22 12:00 | ED.VIS.DENTA ---
HPI History of Present Illness Chief Complaint: Dental Informant: patient Narrative Narrative: Patient is a 24 year old female with no significant past medical history presenting for worsening right lower dental pain. Patient states she has been having difficulty and discomfort for couple days now and initially she went to urgent care. They told her that is nothing they can do. She is having some subjective fevers and chills last night. She went back to urgent care and they told her she needed to come to the emergency room. She is not really done any antibiotics. She said she has had her wisdom teeth coming through for about a year now and she follows with Mary Perez. She started having more irritation in that area however over the past few days. She has a facial swelling. She has a difficulty swallowing. Denies any sore throat. Does not smoke. No other complaints or concerns reported at this time [facility] Medical History Nausea vomiting and diarrhea Home Medications Medication Instructions Recorded Last Taken Type ondansetron 4 mg disintegrating 8 mg (2 x 4 mg) PO Q8H PRN PRN 01/06/22 Unknown Rx tablet Nausea #20 tabs amoxicillin 875 mg-potassium 1 tab PO BID #14 tabs 12/22/24 Unknown Rx clavulanate 125 mg tablet Allergy/AdvReac Type Severity Reaction Status Date / Time No Known Allergies Allergy Verified 12/22/24 11:12 Social History Smoking Status: Never smoker [facility] ED Constitutional Constitutional ED: Reports chills, fever(s) and subjective Eyes Eyes: Denies change in vision ENT ENT ED: Reports other Details: right lower dental pain ; Denies sore throat Gastrointestinal Gastrointestinal: Denies vomiting Musculoskeletal Musculoskeletal: Denies arthralgias or myalgias Neurologic Neurologic: Denies headache(s) or weakness Hematologic/Lymphatic Hematologic/Lymphatic: Denies easy bleeding or easy bruising EXAM Physical Exam Const Vital Signs: 12/22/24 11:11 12/22/24 12:15 Temperature 98.6 F 98.6 F Temperature Source Oral Pulse Rate 95 95 Respiratory Rate 18 18 Blood Pressure 150/88 H 150/88 H Blood Pressure Mean 108 108 Pulse Ox 99 99 Oxygen Delivery Method Room Air Positive well nourished and well developed General Appearance ED: well developed and NAD HEENT HEENT Narrative: Normocephalic atraumatic. Moist coastal membranes. Normal oropharynx. [place] teeth on the bottom seem to be coming and in right it is partially occluded by gingiva. I do not appreciate any significant abscess, inflammation or swelling. She is tender at the right lower wisdom tooth. No submental swelling present. No lymphadenopathy present. No trismus. Sublingual mucosa soft. Neck no lymphadenopathy and supple Chest Wall inspection of chest normal Resp normal respiratory effort Psych mental status grossly normal MDM MDM MDM Narrative Medical decision making narrative: Patient evaluated for worsening right lower dental pain. She has an associated gingival swelling. She reports objective fevers and chills last night. Physical exam more consistent with gingival irritation however given she is reporting fever and chills will start on antibiotics. She is afebrile in the emergency room. She has no physis with significant abscess or more severe pathology such as Toan's angina. I do not think she requires any imaging at this time. Will follow-up with dental clinic. Given return precautions. Given versus antibiotics in the emergency room. Instructed alternate ibuprofen and Tylenol for pain control. Discharge Plan Triage Chief Complaint: Dental ED Provider: Tashia Modi Dx/Rx/DC Orders Clinical Impression: Pain, dental Instructions: ED Dental Pain Prescriptions: New amoxicillin-pot clavulanate 875-125 mg tablet 1 tab PO BID Qty: 14 0RF No Action ondansetron [ondansetron] 4 MG tablet 8 mg PO Q8H PRN PRN (Reason: Nausea) Qty: 20 0RF Primary Care Provider: Care Physician,No Primary Referrals: [facility] [Outside] Care Physician,No Primary [Primary Care Provider] - Activity Restrictions/Additional Instructions: Alternate ibuprofen and Tylenol as needed for pain. Make sure drink plenty of fluids. Follow-up with your dentist at the [facility]. Print Language: [place] Disposition Disposition: Home, Self Care Discharge Date/Time: 12/22/24 12:18
[2024-12-22 12:15] VITALS: BP 150/88; PULSE 95; RESP 18; TEMP 37; O2SAT 99
== END 2024-12-22 12:18 | disposition home or self-care (01) ==
PROVIDERS: Emergency Provider Emergency Medicine; Visit Provider Emergency Medicine
DX: K08.89 Other specified disorders of teeth and supporting structures (principal); R13.10 Dysphagia, unspecified
CPT/HCPCS: 99282